=== PATIENT | female | born 1955 | race Caucasian/White ===

== ENCOUNTER → 2016-10-30 | Day surgery (SDC) | payer MEDICARE ==
[~2016-10-30] MED LIST: ALBU17I INH; ASPI325T PO; ATEN-104 PO; ATOR20TA PO; CELL500T PO; CITRACAL PETITES PO; CORTIS10A RIGHT EAR; COUM7.5T PO; DIPH25 PO; EMPA1TAB PO; ENOX150P SQ; ENTA200T PO; EPINEPHrine HCL (1:10,000) 1 MG/10 ML SYRINGE ONE; EPINEPHrine HCL (1:1000) 1 MG/ML VIAL ONE; FLUT1SPR9 EACH NARE; FLUTI220I INH; GLUC1000 PO; HYDROCORTISONE SOD SUCCINATE 100 MG VIAL ONE; IBUP-1116 PO; LACTATED RINGER'S 1,000 ML BAG IV ONE; LEVO175T2 PO; LEXA20TA PO; LOPE2TAB3 PO; LORA0.5T PO; MAPA500T PO; OMPR20CCR PO; ONDANSETRON HCL 4 MG/2 ML VIAL ONE; PRED1 PO; PROPOFOL 500 MG/50 ML BTL IV ONE; SINE50TA PO; SODIUM CHLORIDE 0.9% INJ 10 ML ONE; TRAD5TAB PO; WARF5TAB PO; [UNRECOGNIZED DRUG - CODE] PO
--- NOTE | 2016-10-30 14:09 | GIPROC ---
[facility] [address] [facility], [address] EGD PROCEDURE REPORT EXAM DATE: 10/30/2016 PATIENT NAME: Charles Gardner MR #: [id number] BIRTHDATE: 1955 ATTENDING: Kat Salvador MD ORDER #: [id number] AIRLINE RESERVATION AGENT: Maryuri Milligan RN STATUS: outpatient INDICATIONS: The patient is a 61 yr old female here for an EGD due to history of esophageal reflux PROCEDURE PERFORMED: EGD w/ biopsy MEDICATIONS: None and Per Anesthesia. TOPICAL ANESTHETIC: CONSENT: The patient understands the risks and benefits of the procedure and understands that these risks include, but are not limited to: sedation, allergic reaction, infection, perforation and/or bleeding. Alternative means of evaluation and treatment include, among others: physical exam, x-rays, and/or surgical intervention. The patient elects to proceed with this endoscopic procedure. medical equipment was checked for proper function. Hand hygiene and appropriate measures for infection prevention was taken. After the risks, benefits and alternatives of the procedure were thoroughly explained, Informed consent was verified, confirmed and timeout was successfully executed by the treatment team. The patient was anesthetized with topical anesthesia and the EC-3490Li ([id number]) endoscope was introduced through the mouth and advanced to the second portion of the duodenum. Retroflexed views revealed no abnormalities The gastroscope was then slowly withdrawn and removed. ESOPHAGUS: There was LA Class A esophagitis noted. A biopsy was performed. There was a single small varix in the mid esophagus. There was evidence of prior scarring. STOMACH: There was erythematous moderate gastritis in the gastric antrum. A biopsy was performed. DUODENUM: The duodenal mucosa appeared normal. ADVERSE EVENTS: There were no complications. IMPRESSIONS: 1. There was LA Class A esophagitis noted; biopsy was performed 2. There was erythematous gastritis in the gastric antrum; biopsy was performed 3. Normal duodenal mucosa 4. Retroflexed views revealed no abnormalities 5. Bleeding at esophageal biopsy site required 2 cc of epinephrine to obtain hemostasis. pt. on coumadin. RECOMMENDATIONS: 1. Await biopsy results. Biopsy results will not be ready for 7-10 days. If you don't hear from us in two weeks, call our office for biopsy results. 2. Anti-reflux regimen 3. Continue PPI PATIENT CONDITION: stable DISPOSITION: Home REPEAT EXAM: Return 1 year EGD pending biopsy results Kat Salvador MD eSigned: Kat Salvador MD 10/30/2016 2:09 PM cc: [facility] PATIENT NAME: Charles Gardner MR#: [id number]
--- NOTE | 2016-10-30 14:28 | GIPROC ---
[facility] [address] [facility], [address] COLONOSCOPY PROCEDURE REPORT EXAM DATE: 10/30/2016 PATIENT NAME: Charles Gardner MR #: [id number] BIRTHDATE: 1955 ENDOSCOPIST: Kat Salvador MD ORDER #: [id number] DOORS PREFITTER: Maryuri Milligan RN STATUS: outpatient INDICATIONS: The patient is a 61 yr old female here for a colonoscopy due to high risk patient with personal history of colonic polyps PROCEDURE PERFORMED: Colonoscopy, diagnostic MEDICATIONS: None and Per Anesthesia. PREP QUALITY: The [place] Bowel Prep Score was Right colon 2, Mid colon 2, and Left colon 2. Total = 6. PREP TYPE:GoLytely ESTIMATED BLOOD LOSS: None CONSENT: The patient understands the risks and benefits of the procedure and understands that these risks include, but are not limited to: sedation, allergic reaction, infection, perforation and/or bleeding. Alternative means of evaluation and treatment include, among others: physical exam, x-rays, and/or surgical intervention. The patient elects to proceed with this endoscopic procedure. medical equipment was checked for proper function. Hand hygiene and appropriate measures for infection prevention was taken. After the risks, benefits and alternatives of the procedure were thoroughly explained, Informed consent was verified, confirmed and timeout was successfully executed by the treatment team. A digital exam revealed external hemorrhoids The EC-[id number] ([id number]) endoscope was introduced through the anus and advanced to the cecum, which was identified by both the appendix and ileocecal valve. The instrument was then slowly withdrawn as the colon was fully examined. COLON FINDINGS: A polypoid shaped sessile polyp ranging between 3-5mm in size was found in the ascending colon. Biopsies not done due to bleeding upon biopsies form the esophagus. High risk for bleeding and polyp small. Retroflexed views revealed internal hemorrhoids and Retroflexed views revealed small internal hemorrhoids The scope was then completely withdrawn from the patient and the procedure terminated. PROCEDURE WITHDRAWAL TIME:6minutes ADVERSE EVENTS: There were no complications. IMPRESSIONS: 1. A sessile polyp ranging between 3-5mm in size was found in the ascending colon 2. Biopsies not done due to bleeding upon biopsies form the esophagus. High risk for bleeding and polyp small 3. Retroflexed views revealed internal hemorrhoids 4. Retroflexed views revealed small internal hemorrhoids 5. Revealed external hemorrhoids RECOMMENDATIONS: 1. Continue surveillance 2. Yearly hemoccult 3. Restart coumadin tomorrow, if no bleeding. Patient advised to monitor for any signs of bleeding and go to the er if any bleeding RECALL: Return 1 year Colonoscopy Kat Salvador MD eSigned: Kat Salvaodr MD 10/30/2016 2:28 PM cc: Mavis Oconnor [facility] Kelley and Shlomo Welsh M.D. PATIENT NAME: Charles Gardner MR#: [id number]
== END | disposition home or self-care (01) ==
LOC: ESDC 12:44
PROVIDERS: ATTEND Internal Medicine Gastroenterology
DX: Z12.11 Encounter for screening for malignant neoplasm of colon (principal); Z86.010 Personal history of colon polyps; D12.2 Benign neoplasm of ascending colon; K64.8 Other hemorrhoids; K64.4 Residual hemorrhoidal skin tags; K21.9 Gastro-esophageal reflux disease without esophagitis; K20.9 Esophagitis, unspecified; K29.70 Gastritis, unspecified, without bleeding; Z79.01 Long term (current) use of anticoagulants
CPT/HCPCS: 00740; 00810; 43239; 45385; 88305; J0171; J1720; J2405; J3010; J7120; 88312

== ENCOUNTER 2017-02-10 16:56 | Emergency (ER) | payer MEDICARE ==
[~2017-02-10] VITALS: Ht 165.1 cm; Wt 95.0 kg
[~2017-02-10 16:56] MED LIST changes: -EPINEPHrine HCL (1:10,000) 1 MG/10 ML SYRINGE ONE; -EPINEPHrine HCL (1:1000) 1 MG/ML VIAL ONE; -HYDROCORTISONE SOD SUCCINATE 100 MG VIAL ONE; -LACTATED RINGER'S 1,000 ML BAG IV ONE; -ONDANSETRON HCL 4 MG/2 ML VIAL ONE; -PROPOFOL 500 MG/50 ML BTL IV ONE; -SODIUM CHLORIDE 0.9% INJ 10 ML ONE
[2017-02-10 16:59] VITALS: BP 122/68; PULSE 78; RESP 20; TEMP 97.5; O2SAT 100
[2017-02-10] MEDS ORDERED: ATEN100T PO (18:24)
[2017-02-10] MEDS ORDERED: VITA100036 PO (18:24)
[2017-02-10] MEDS ORDERED: HYDR-3516 PO (18:24)
[2017-02-10] MEDS ORDERED: ENOX100I SQ (18:24)
[2017-02-10] MEDS ORDERED: CETI10 PO (18:24)
[2017-02-10] MEDS ORDERED: CARB50TA3 PO (18:24)
[2017-02-10] MEDS ORDERED: ASPI81CH CHEW (18:24)
[2017-02-10] MEDS ORDERED: VITA100021 SL (18:24)
[2017-02-10] MEDS ORDERED: ATOR20TA15 PO (18:24)
[2017-02-10] MEDS ORDERED: ENTA1TAB PO (18:24)
[2017-02-10] MEDS ORDERED: FLUTI220I INH (18:24)
[2017-02-10] MEDS ORDERED: ESCI20TA PO (18:24)
[2017-02-10] MEDS ORDERED: CALC600T64 (18:24)
[2017-02-10] MEDS ORDERED: GABA100C4 PO (18:29)
[2017-02-10] MEDS ORDERED: FLUT1SPR5 EACH NARE (18:29)
[2017-02-10] MEDS ORDERED: LEVO175T2 PO (18:29)
[2017-02-10] MEDS ORDERED: LEVO150T7 PO (18:29)
[2017-02-10] MEDS ORDERED: METF1000 PO (18:33)
[2017-02-10] MEDS ORDERED: EMPA1TAB PO (18:33)
[2017-02-10] MEDS ORDERED: TRAD5TAB PO (18:33)
[2017-02-10] MEDS ORDERED: MYCO500T PO (18:33)
[2017-02-10] MEDS ORDERED: PANT40TA3 PO (18:33)
[2017-02-10] MEDS ORDERED: PYRI100T4 PO (18:33)
[2017-02-10] MEDS ORDERED: LOSA25TA PO (18:33)
[2017-02-10] MEDS ORDERED: PRED5TAB PO (18:33)
--- NOTE | 2017-02-10 18:37 | PD ---
HPI Chief Complaint: Skin Problem Time Seen by Provider: 18:34 Travel History International Travel<30 days: No Contact w/Intl Traveler<30days: No Traveled to known affect area: No History of Present Illness HPI Patient comes in complaining of a pruritic rash that began 6 days ago. Patient states she was on antibiotics for endocarditis last dose was Sunday. Patient's respiratory before that. Patient is a history of Behcet's, lupus, and CVA/ TIAs. Patient was on Coumadin but had to be switched to Elliquist secondary to INR being unable to be regulated. Patient states she was recently approximately 6 weeks ago switched to Lovenox secondary to the Elliquist causing her to have a rash on her face. Patient states she is tried using lotion and Benadryl with minimal relief of her symptoms. Patient feels a rash getting worse. Denies any pain with this. Denies any shortness of breath, throat involvement, chest pain, fevers, nausea, vomiting, or numbness or tingling anywhere. Patient states that she's had diarrhea since being on antibiotics that is improving since having finished them. Patient denies any other known new allergen exposures aside from the Antibiotics and Lovenox. Patient states she does not feel the rash is similar to a vasculitis that she's in the past. PFSH Past Medical History Hx Anticoagulant Therapy: Yes Arthritis: Yes Asthma: Yes Autoimmune Disease: Yes (LUPUS (SLE)) Blood Disorders: Yes (PHOSPHOLIPID SYNDROME) Anxiety: Yes Depression: Yes Heart Rhythm Problems: No Cancer: Yes (SKIN) Cardiovascular Problems: Yes (ENDOCARDITIS) High Cholesterol: Yes Chemotherapy: No Chest Pain: No Congestive Heart Failure: No COPD: No Cerebrovascular Accident: Yes Diabetes: Yes Patient Takes Glucophage: Yes Diminished Hearing: No Endocrine: Yes Gastrointestinal Disorders: Yes (REFLUX) Genitourinary: No Hypertension: Yes Immune Disorder: Yes (LUPUS) Musculoskeletal: Yes (ARTHRITIS) Neurologic: Yes (EXTRAPYRAMIDAL DISEASE, MEMORY DISORDER) Psychiatric: Yes Reproductive: No Respiratory: Yes (ASTHMA) Radiation Therapy: No Sleep Apnea: Yes Thyroid Disease: Yes (HYPOTHYROID) Menopausal: Yes Ovarian Cysts: Yes Past Surgical History Section: Yes Other Surgery: Yes (, OVARIAN CYST, SKIN CANCER) Social History Alcohol Use: No Tobacco Use: No Substance Use: No Allergies-Medications (Allergen,Severity, Reaction): Coded Allergies: hydralazine (Verified Allergy, Severe, BLOOD NOT CLOTTING, BP UP, MULTIPLE SYMPTOMS, 02/10/17) Reported Meds & Prescriptions Reported Meds & Active Scripts Active Reported Jardiance (Empagliflozin) 10 Mg Tab 10 Mg PO DAILY Pyridoxine (Pyridoxine HCl) 100 Mg Tab 100 Mg PO DAILY Prednisone 5 Mg Tab 5 Mg PO DAILY Pantoprazole (Pantoprazole Sodium) 40 Mg Tab 40 Mg PO DAILY Mycophenolate (Mycophenolate Mofetil) 500 Mg Tab 500 Mg PO BID Metformin (Metformin HCl) 1,000 Mg Tab 1,000 Mg PO BIDPC With meals Losartan (Losartan Potassium) 25 Mg Tab 25 Mg PO DAILY Tradjenta (Linagliptin) 5 Mg Tab 5 Mg PO DAILY Levothyroxine (Levothyroxine Sodium) 175 Mcg Tab 175 Mcg PO EVERY OTHER DAY Levothyroxine (Levothyroxine Sodium) 150 Mcg Tab 150 Mcg PO EVERY OTHER DAY Gabapentin 100 Mg Cap 200 Mg PO BID Flonase Nasal Napoleon (Fluticasone Nasal Napoleon) 50 Mcg/Act Napoleon 50 Mcg EACH NARE BID Flovent Hfa 12 GM Inh (Fluticasone Propionate) 220 Mcg/Act Inh 1 Puff INH BID Use daily at the same time. Escitalopram (Escitalopram Oxalate) 20 Mg Tab 20 Mg PO DAILY Entacapone 200 Mg Tab 200 Mg PO TID administered concomitantly with each levodopa/carbidopa dose Enoxaparin Inj (Enoxaparin Sodium) 100 Mg/Ml Syr 100 Mg SQ BID Vitamin B-12 (Cyanocobalamin) 1,000 Mcg Subl 1,000 Mcg SL DAILY Vitamin D3 (Cholecalciferol) 1,000 Unit Cap 1,000 Units PO DAILY Cetirizine (Cetirizine HCl) 10 Mg Tab 10 Mg PO DAILY Carbidopa-Levodopa ER 50-200 Mg Tab 1 Tab PO TID Calcium 600 + Vit D Tablet (Calcium Carbonate/Vitamin D3) 1 Each Tablet Atorvastatin (Atorvastatin Calcium) 20 Mg Tab 20 Mg PO HS Atenolol 100 Mg Tab 100 Mg PO DAILY Aspirin 81 Mg Chew 81 Mg CHEW DAILY Hydrocodone-Acetaminophen 5-325 mg Tab 1 Tab PO BID PRN [Citracal Petites] 0.5 Tab PO DAILY Review of Systems Except as stated in HPI: all other systems reviewed are Neg Physical Exam Narrative GENERAL: Well-developed, overly nourished, in no acute distress, and non-ill appearing. SKIN: Blanching urticarial appearing rash noted over body. No signs of folliculitis, cellulitis, abscess, or gangrene. HEAD: Atraumatic. Normocephalic. EYES: Pupils equal and round. EOMI. No scleral icterus. No injection or drainage. ENT: No nasal bleeding or discharge. Mucous membranes pink and moist. NECK: Trachea midline. Supple. No nuclear rigidity. CARDIOVASCULAR: Regular rate and rhythm. No murmur appreciated. RESPIRATORY: No accessory muscle use. No respiratory distress. Clear to auscultation. Breath sounds equal bilaterally. MUSCULOSKELETAL: No obvious deformities. No clubbing. No cyanosis. No edema. Full range of motion. NEUROLOGICAL: Awake and alert. No obvious cranial nerve deficits. Motor grossly within normal limits. Normal speech. PSYCHIATRIC: Appropriate mood and affect; insight and judgment normal. Data Data Last Documented VS Vital Signs Date Time Temp Pulse Resp B/P (MAP) Pulse Ox O2 Delivery O2 Flow Rate FiO2 02/10/17 21:00 80 16 145/77 (99) 100 02/10/17 16:59 97.5 Room Air Orders Orders Basic Metabolic Panel (Bmp) (02/10/17 18:32) Complete Blood Count With Diff (02/10/17 18:32) Prothrombin Time / Inr (Pt) (02/10/17 18:32) Act Partial Throm Time (Ptt) (02/10/17 18:32) Iv Access Insert/Monitor (02/10/17 18:32) Ecg Monitoring (02/10/17 18:32) Oximetry (02/10/17 18:32) Sodium Chloride 0.9% Flush (Ns Flush) (02/10/17 18:45) Diphenhydramine (Benadryl) (02/10/17 21:00) Labs Laboratory Tests Test 02/10/17 14:12 White Blood Count 3.9 TH/MM3 Red Blood Count 3.56 MIL/MM3 Hemoglobin 10.5 GM/DL Hematocrit 33.5 % Mean Corpuscular Volume 94.1 FL Mean Corpuscular Hemoglobin 29.6 PG Mean Corpuscular Hemoglobin Concent 31.4 % Red Cell Distribution Width 19.4 % Platelet Count 67 TH/MM3 Mean Platelet Volume 8.3 FL Neutrophils (%) (Auto) 56.7 % Lymphocytes (%) (Auto) 22.4 % Monocytes (%) (Auto) 11.5 % Eosinophils (%) (Auto) 8.1 % Basophils (%) (Auto) 1.3 % Neutrophils # (Auto) 2.2 TH/MM3 Lymphocytes # (Auto) 0.9 TH/MM3 Monocytes # (Auto) 0.4 TH/MM3 Eosinophils # (Auto) 0.3 TH/MM3 Basophils # (Auto) 0.0 TH/MM3 CBC Comment AUTO DIFF Differential Comment AUTO DIFF CONFIRMED Platelet Estimate LOW Platelet Morphology Comment NORMAL Prothrombin Time 12.1 SEC Prothromb Time International Ratio 1.1 RATIO Activated Partial Thromboplast Time 71.7 SEC Blood Urea Nitrogen 18 MG/DL Creatinine 1.53 MG/DL Random Glucose 127 MG/DL Calcium Level 8.2 MG/DL Sodium Level 141 MEQ/L Potassium Level 4.2 MEQ/L Chloride Level 117 MEQ/L Carbon Dioxide Level 15.7 MEQ/L Anion Gap 8 MEQ/L Estimat Glomerular Filtration Rate 34 ML/MIN MDM Medical Decision Making Medical Screen Exam Complete: Yes Emergency Medical Condition: Yes Differential Diagnosis Allergic reaction, nonspecific rash, cellulitis, other Narrative Course Attempt was made by the news clerk to contact patient's charge out clerk without success. Patient in no obvious distress upon re-evaluation. All pertinent laboratory result(s) discussed with patient. Discussed patient with Dr. Zuniga, who saw and evaluated the patient is in agreement with plan of care and disposition. Any questions/concerns in reference to patient diagnosis/condition discussed and clarified prior to patient's discharge. Reinforced sheer importance of close follow up with patient's charge out clerk. Instructed patient to return to ED immediately, if symptoms return/worsen. Pt showed understanding of above instructions. Further instructions and recommendations were detailed in discharge paperwork. Pt ambulated without difficulty out of ED at discharge. Diagnosis Primary Impression: Rash Patient Instructions: Acute Rash (ED), General Instructions Additional Instructions: Follow-up with your charge out clerk on Sunday called to see if they can adjust your steroids to help with the rash. Use [id number] Benadryl and Pepcid as needed for additional symptomatic relief. Follow instructions on packaging. Return to the emergency department if symptoms get worse. Disposition: 01 DISCHARGE HOME Condition: Stable Sunil Rouse Feb 10, 2017 18:37
[2017-02-10] MEDS ORDERED: SODIUM CHLORIDE 0.9% FLUSH 10 ML FLUSH IV FLUSH PRN (18:45)
[2017-02-10 19:23] LABS: AUTOMATED NEUTROPHIL # 2.2 TH/MM3 (1.8-7.7); BASOPHIL % 1.3 % (0.0-2.0); EOSINOPHIL # 0.3 TH/MM3 (0-0.4); EOSINOPHIL % 8.1 % (0.0-4.0); HEMATOCRIT 33.5 % (35.0-46.0); LYMPH % 22.4 % (9.0-44.0); LYMPHOCYTE # 0.9 TH/MM3 (1.0-4.8); MEAN CELL VOLUME 94.1 FL (80.0-100.0); MEAN CORPUSCULAR HEMOGLOBIN 29.6 PG (27.0-34.0); MEAN CORPUSCULAR HGB CONC 31.4 % (32.0-36.0); MONO % 11.5 % (0.0-8.0); NEUT % 56.7 % (16.0-70.0); PLATELET COUNT 67 TH/MM3 (150-450); RED BLOOD COUNT 3.56 MIL/MM3 (4.00-5.30); RED CELL DISTRIBUTION WIDTH 19.4 % (11.6-17.2); WHITE BLOOD COUNT 3.9 TH/MM3 (4.0-11.0)
--- NOTE | 2017-02-10 19:33 | PD ---
Data Data Last Documented VS Vital Signs Date Time Temp Pulse Resp B/P (MAP) Pulse Ox O2 Delivery O2 Flow Rate FiO2 02/10/17 16:59 97.5 78 20 122/68 (86) 100 Room Air Orders Orders Basic Metabolic Panel (Bmp) (02/10/17 18:32) Complete Blood Count With Diff (02/10/17 18:32) Prothrombin Time / Inr (Pt) (02/10/17 18:32) Act Partial Throm Time (Ptt) (02/10/17 18:32) Iv Access Insert/Monitor (02/10/17 18:32) Ecg Monitoring (02/10/17 18:32) Oximetry (02/10/17 18:32) Sodium Chloride 0.9% Flush (Ns Flush) (02/10/17 18:45) Labs Laboratory Tests Test 02/10/17 14:12 MDM Supervised Visit with ENRIQUETA: Yes Narrative Course The history, exam, and medical decision-making in the associated mid-level provider note were completed with my assistance. I reviewed and agree with the findings presented. I attest that I had a [id number] encounter with the patient on the same day, and personally performed and documented my assessment and findings in the medical record. *My assessment and Findings: Urticarial rash past several days and them, get a medical patient recently treated for endocarditis with a history of rheumatologic disease on steroids. Would recommend continue antihistamines. She is a history of thrombocytopenia. We'll check labs. Consider steroids. Will discuss with a scowman if available. Joshua Zuniga MD Feb 10, 2017 19:32
[2017-02-10 19:34] LABS: APTT (PATIENT) 71.7 SEC (24.3-30.1); INTERNATIONAL NORMALIZED RATIO 1.1 RATIO; PROTHROMBIN TIME - PATIENT 12.1 SEC (9.8-11.6)
[2017-02-10 19:41] LABS: HEMO FLAGS AUTO DIFF
[2017-02-10 19:47] LABS: BICARBONATE 15.7 MEQ/L (21.0-32.0); POTASSIUM 4.2 MEQ/L (3.5-5.1)
[2017-02-10 20:53] LABS: PLATELET ESTIMATE SMEAR LOW (NORMAL); PLATELET MORPHOLOGY NORMAL (NORMAL); SCAN/DIFF AUTO DIFF CONFIRMED
[2017-02-10 21:00] VITALS: BP 145/77
[2017-02-10] MEDS ORDERED: diphenhydrAMINE HCL 25 MG CAP PO ONE (21:00)
== END 2017-02-10 21:00 | disposition home or self-care (01) ==
LOC: NEPC 16:56
DX: M35.2 Behcet's disease (principal); M32.9 Systemic lupus erythematosus, unspecified; I38 Endocarditis, valve unspecified; I10 Essential (primary) hypertension; E03.9 Hypothyroidism, unspecified; E11.9 Type 2 diabetes mellitus without complications; Z79.84 Long term (current) use of oral hypoglycemic drugs; Z79.899 Other long term (current) drug therapy
CPT/HCPCS: 80048; 85025; 85610; 85730; 99283

== ENCOUNTER 2017-03-05 11:33 | Day surgery (SDC) | payer MEDICARE ==
[~2017-03-05 11:33] MED LIST changes: -ALBU17I INH; -ASPI325T PO; +ASPI81CH CHEW; -ATEN-104 PO; +ATEN100T PO; -ATOR20TA PO; +ATOR20TA15 PO; +CALC600T64; +CARB50TA3 PO; -CELL500T PO; +CETI10 PO; -CORTIS10A RIGHT EAR; -COUM7.5T PO; -DIPH25 PO; +ENOX100I SQ; -ENOX150P SQ; +ENTA1TAB PO; -ENTA200T PO; +ESCI20TA PO; +FLUT1SPR5 EACH NARE; -FLUT1SPR9 EACH NARE; +GABA100C4 PO; -GLUC1000 PO; +HYDR-3516 PO; -IBUP-1116 PO; +LEVO150T7 PO; -LEXA20TA PO; -LOPE2TAB3 PO; -LORA0.5T PO; +LOSA25TA PO; -MAPA500T PO; +METF1000 PO; +MYCO500T PO; -OMPR20CCR PO; +PANT40TA3 PO; -PRED1 PO; +PRED5TAB PO; +PYRI100T4 PO; -SINE50TA PO; +VITA100021 SL; +VITA100036 PO; -WARF5TAB PO; -[UNRECOGNIZED DRUG - CODE] PO
[2017-03-05] MEDS ORDERED: PROPOFOL 200 MG/20 ML AMP IV ONE (11:57)
[2017-03-05] MEDS ORDERED: SODIUM CHLORID 0.9% 500 ML IV PRN (12:30)
[2017-03-05] MEDS ORDERED: METOPROLOL TARTRATE 25 MG TAB PO PRN (12:30)
[2017-03-05] MEDS ORDERED: POVIDONE IODINE 5% (ANTISEPSIS KIT) 4 APPLICATIONS EACH NARE PRN (12:30)
[2017-03-05] MEDS ORDERED: LACTATED RINGER'S 1000 ML IV PRN (12:30)
[2017-03-05] MEDS ORDERED: INSULIN HUMAN REGULAR 1,000 UNITS/10 ML VIAL SQ PRN (12:30)
[2017-03-05] MEDS ORDERED: CHLORHEXIDINE GLUCONATE 2 % 1 PACK (2 CLOTHS) TOPICAL PRN (12:30)
[2017-03-05] MEDS ORDERED: RESP: ALBUTEROL 2.5 MG/IPRATROPIUM 0.5 MG NEB (SCH) NEB ONE (15:00)
--- NOTE | 2017-03-06 07:47 | ECHRPT ---
Indication: endocarditis CONCLUSIONS Structurally normal mitral valve. Mild mitral valve regurgitation. Mobile echodensity is noted on the base of the posterior mitral valve leaflet . There appears to be a small leaflet perforation with subsequent mild mitral regurgitation noted. Normal left ventricular size. Wall thickness is normal. The left ventricular systolic function is normal with an estimated ejection fraction in the range of 55-60%. No regional wall motion abnormalities are present. BP: / HR: Rhythm: Technical Quality: Medications Complications There were no complications prior to, during or in recovery from the transesophag eal echocardiogram.. Proc. Components The patient was brought to the diagnostic imaging area in a fasting state after o btaining an informed consent.. The BERTA probe was passed into the posterior pharynx , mid-esophagus, di stal esophagus, and gastric fundus.. FINDINGS LEFT VENTRICLE Normal left ventricular size. Wall thickness is normal. The left ventricular systolic function is normal with an estimated ejection fraction in the range of 55-60%. No regional wall motion abnormalities are present. RIGHT VENTRICLE Normal right ventricular size and systolic function. LEFT ATRIUM The left atrial size is upper limits of normal. RIGHT ATRIUM The right atrial size is normal. ATRIAL APPENDAGES Normal left atrial appendage size with no evidence of thrombus formation. ATRIAL SEPTUM Normal atrial septal thickness without atrial level shunting by limited color doppler interrogation. AORTA The aortic root and proximal ascending aorta are normal in size on limited imaging. MITRAL VALVE Structurally normal mitral valve. Mild mitral valve regurgitation. Mobile echodensity is noted on the base of the posterior mitral valve leaflet . There appears to be a small leaflet perforation with subsequent mitral regurgitation noted. AORTIC VALVE Trileaflet aortic valve. No aortic valve stenosis or regurgitation. TRICUSPID VALVE Structurally normal tricuspid valve. No tricuspid valve stenosis or regurgitation. VESSELS The inferior vena cava is normal in size. PULMONARY VALVE No pulmonary valve regurgitation or stenosis. PERICADIUM No pericardial effusion. Joshua Yeh MD, FACC (Electronically Signed) Final Date:06 March 2017 07:46
--- NOTE | 2017-03-06 14:02 | EKG ---
Date Performed: 03/05/2017 Time Performed: 12:08:24 PTAGE: 61 years EKG: Sinus rhythm with PVC(s). Left anterior fascicular block Compared to prior tracing no significant change Borderli ne ECG PREVIOUS TRACING : 02/15/2014 00.56 DOCTOR: Petey Donahue Interpretating Date/Time 03/06/2017 14:00:31
== END 2017-03-05 15:05 | disposition home or self-care (01) ==
LOC: HDIC 11:33 → HDOC 11:33
PROVIDERS: ATTEND Internal Medicine
DX: I34.0 Nonrheumatic mitral (valve) insufficiency (principal)
CPT/HCPCS: 93005; 93312; 93320; 93325; 94664

== ENCOUNTER 2017-08-27 15:17 | Inpatient (IN) | payer MEDICARE ==
[~2017-08-27] VITALS: Ht 167.6 cm; Wt 100.5 kg
[~2017-08-27 15:17] MED LIST changes: +ASPI-516 CHEW; -ASPI81CH CHEW; +CHOL10008 PO; -VITA100036 PO
[2017-08-27 15:29] VITALS: BP 116/61; PULSE 91; RESP 18; TEMP 98
--- NOTE | 2017-08-27 16:10 | RADRPT ---
EXAM DATE/TIME: 08/27/2017 15:46 [facility] COMPARISON: No previous studies available for comparison. INDICATIONS : Right foot pain from possible infection. MEDICAL HISTORY : Hypertension. Hypothyroidism. Hypercholesterolemia. SURGICAL HISTORY : None. ENCOUNTER: Initial ACUITY: 3 months PAIN SCORE: 8/10 LOCATION: Right foot. FINDINGS: Bandage artifact overlies the first digit distally. Vascular calcifications are noted. No destructive osseous lesions are seen. Plantar and posterior calcaneal enthesophyte formation. There may be mild ulceration of the first digit soft tissues plantar aspect. CONCLUSION: Soft tissue swelling and possible first digit ulceration without definite underlying bone abnormality . Andrew Lang MD on August 27, 2017 at 16:07 Board Certified Radiologist. This report was verified electronically.
--- NOTE | 2017-08-27 17:07 | PD ---
HPI Chief Complaint: Skin Problem Time Seen by Provider: 16:35 Travel History International Travel<30 days: No Contact w/Intl Traveler<30days: No Traveled to known affect area: No History of Present Illness HPI 62-year-old female with a history of diabetes, SLE, vasculitis, peripheral artery disease, hypothyroid presents emergency department at the request of her senior procurement specialist for evaluation of a wound to her right great toe. States that she has had a chronic wound to her right foot since February 2017 and has received 2 previous rounds of antibiotics for this. Since she receives wound care approximately once a week for several months. She was referred to Dr. Garcia, her senior procurement specialist for further evaluation where she ordered an MRI. MRI was suggestive of osteomyelitis in the distal tuft of the great toe. Patient denies fever, chills, nausea, vomiting, diarrhea. She has no other complaints today. PFSH Past Medical History Hx Anticoagulant Therapy: Yes Arthritis: Yes Asthma: Yes Autoimmune Disease: Yes (LUPUS (SLE)) Blood Disorders: Yes (PHOSPHOLIPID SYNDROME) Anxiety: Yes Depression: Yes Heart Rhythm Problems: No Cancer: Yes (SKIN) Cardiovascular Problems: Yes (ENDOCARDITIS) High Cholesterol: Yes Chemotherapy: No Chest Pain: No Congestive Heart Failure: No COPD: No Cerebrovascular Accident: Yes Diabetes: Yes Patient Takes Glucophage: Yes (METFORMIN) Diminished Hearing: No Endocrine: Yes Gastrointestinal Disorders: Yes (REFLUX) Genitourinary: No Hypertension: Yes Immune Disorder: Yes (LUPUS) Musculoskeletal: Yes (ARTHRITIS) Neurologic: Yes (EXTRAPYRAMIDAL DISEASE, MEMORY DISORDER) Psychiatric: Yes Reproductive: No Respiratory: Yes (ASTHMA) Radiation Therapy: No Sleep Apnea: Yes Thyroid Disease: Yes (HYPOTHYROID) Menopausal: Yes : 4 Miscarriage: 4 Ovarian Cysts: Yes Past Surgical History Section: Yes Other Surgery: Yes (, OVARIAN CYST, SKIN CANCER) Social History Alcohol Use: No Tobacco Use: No Substance Use: No Allergies-Medications (Allergen,Severity, Reaction): Coded Allergies: hydralazine (Verified Allergy, Severe, BLOOD NOT CLOTTING, BP UP, MULTIPLE SYMPTOMS, 08/27/17) Reported Meds & Prescriptions Reported Meds & Active Scripts Active Reported Warfarin 5 Mg Tab 5 Mg PO DAILY Jardiance (Empagliflozin) 10 Mg Tab 10 Mg PO DAILY Pyridoxine (Pyridoxine HCl) 100 Mg Tab 100 Mg PO DAILY Prednisone 5 Mg Tab 5 Mg PO DAILY Pantoprazole (Pantoprazole Sodium) 40 Mg Tab 40 Mg PO DAILY Mycophenolate (Mycophenolate Mofetil) 500 Mg Tab 500 Mg PO BID Metformin (Metformin HCl) 1,000 Mg Tab 1,000 Mg PO BIDPC With meals Losartan (Losartan Potassium) 25 Mg Tab 25 Mg PO DAILY Tradjenta (Linagliptin) 5 Mg Tab 5 Mg PO DAILY Levothyroxine (Levothyroxine Sodium) 175 Mcg Tab 175 Mcg PO EVERY OTHER DAY Levothyroxine (Levothyroxine Sodium) 150 Mcg Tab 150 Mcg PO EVERY OTHER DAY Gabapentin 100 Mg Cap 200 Mg PO BID Flonase Nasal [place] (Fluticasone Nasal [place]) 50 Mcg/Act [place] 50 Mcg EACH NARE BID Flovent Hfa 12 GM Inh (Fluticasone Propionate) 220 Mcg/Act Inh 1 Puff INH BID Use daily at the same time. Escitalopram (Escitalopram Oxalate) 20 Mg Tab 20 Mg PO DAILY Entacapone 200 Mg Tab 200 Mg PO TID administered concomitantly with each levodopa/carbidopa dose Enoxaparin Inj (Enoxaparin Sodium) 100 Mg/Ml Syr 100 Mg SQ BID Vitamin B-12 (Cyanocobalamin) 1,000 Mcg Subl 1,000 Mcg SL DAILY Vitamin D3 (Cholecalciferol) 1,000 Unit Cap 1,000 Units PO DAILY Cetirizine (Cetirizine HCl) 10 Mg Tab 10 Mg PO DAILY Carbidopa-Levodopa ER 50-200 Mg Tab 1 Tab PO TID Calcium 600 + Vit D Tablet (Calcium Carbonate/Vitamin D3) 1 Each Tablet Atorvastatin (Atorvastatin Calcium) 20 Mg Tab 20 Mg PO HS Atenolol 100 Mg Tab 100 Mg PO DAILY Aspirin 81 Mg Chew 81 Mg CHEW DAILY Hydrocodone-Acetaminophen 5-325 mg Tab 1 Tab PO BID PRN [Citracal Petites] 0.5 Tab PO DAILY Review of Systems Except as stated in HPI: all other systems reviewed are Neg Physical Exam Narrative GENERAL: Well-developed, well-nourished in no apparent distress, resting comfortably in bed SKIN: Focused skin assessment warm/dry. Right foot-mild edema with some distal erythema to the distal tarsals. Neurovascularly intact. Right toe distal aspect with exudate, bleeding controlled. No tunneling noted HEAD: Atraumatic. Normocephalic. EYES: Pupils equal and round. No scleral icterus. No injection or drainage. ENT: No nasal bleeding or discharge. Mucous membranes pink and moist. NECK: Trachea midline. No JVD. CARDIOVASCULAR: Regular rate and rhythm. No murmur appreciated. RESPIRATORY: No accessory muscle use. Clear to auscultation. Breath sounds equal bilaterally. GASTROINTESTINAL: Abdomen soft, non-tender, nondistended. Hepatic and splenic margins not palpable. MUSCULOSKELETAL: No obvious deformities. No clubbing. No cyanosis. No edema. NEUROLOGICAL: Awake and alert. No obvious cranial nerve deficits. Motor grossly within normal limits. Normal speech. PSYCHIATRIC: Appropriate mood and affect; insight and judgment normal. Data Data Last Documented VS Vital Signs Date Time Temp Pulse Resp B/P (MAP) Pulse Ox O2 Delivery O2 Flow Rate FiO2 08/27/17 19:40 80 18 125/73 (90) 99 Room Air 08/27/17 15:29 98.0 Orders Orders Complete Blood Count With Diff (08/27/17 15:30) Basic Metabolic Panel (Bmp) (08/27/17 15:30) [place] Sedimentation Rate (08/27/17 15:30) C-Reactive Protein (Crp) (08/27/17 15:30) Foot, Complete (Vpt7wru) (08/27/17 ) Act Partial Throm Time (Ptt) (08/27/17 15:30) Prothrombin Time / Inr (Pt) (08/27/17 15:30) Wound Culture And Gram Stain (08/27/17 17:05) Consult Podiatry (08/27/17 ) (Hub Use Only)Inp Phy Cons/Ref (08/27/17 ) Admit To Inpatient (08/27/17 ) Code Status (08/27/17 19:23) Vital Signs (Adult) Q4H (08/27/17 19:23) Activity Oob With Assistance (08/27/17 19:23) Diet Diabetic (08/28/17 Breakfast) Sodium Chloride 0.9% Flush (Ns Flush) (08/27/17 19:30) Sodium Chloride 0.9% Flush (Ns Flush) (08/27/17 21:00) Acetaminophen (Tylenol) (08/27/17 19:30) Ondansetron Inj (Zofran Inj) (08/27/17 19:30) Basic Metabolic Panel (Bmp) (08/28/17 06:00) Complete Blood Count With Diff (08/28/17 06:00) Chest, Single Ap (08/27/17 19:23) Electrocardiogram (08/27/17 19:23) Pt Request For Service (08/27/17 19:23) Scd Bilateral/Knee High ANGELIC.BID (08/27/17 19:23) Naloxone Inj (Narcan Inj) (08/27/17 19:30) Magnesium Hydroxide Liq (Milk Of Magnesi (08/27/17 19:30) Inpatient Certification (08/27/17 ) Insulin Aspart Supplemtl Scale (Novolog (08/27/17 21:00) Dextrose 50% In Phil (Vial) Inj (D50w (Vi (08/27/17 19:45) Glucagon Inj (Glucagon Inj) (08/27/17 19:45) Aspirin Chew (Aspirin Chew) (08/28/17 09:00) Atenolol (Tenormin) (08/28/17 09:00) Carbidopa-Levodopa Cr 50-200mg (Sinemet (08/28/17 09:00) Enoxaparin Inj (Lovenox Inj) (08/27/17 21:00) Escitalopram (Lexapro) (08/28/17 09:00) Fluticasone 220 Mcg Inh (Flovent Hfa 220 (08/27/17 21:00) Levothyroxine (Synthroid) (08/29/17 06:00) Losartan (Cozaar) (08/28/17 09:00) Metformin (Glucophage) (08/28/17 09:00) Mycophenolate Mofetil (Cellcept) (08/27/17 21:00) Pantoprazole (Protonix) (08/28/17 09:00) Prednisone (Deltasone) (08/28/17 09:00) Acetamin-Hydrocod 325-5 Mg ([place] 5-325 (08/27/17 19:45) Admit Order (Ed Use Only) (08/27/17 19:40) Arterial Segmt Dopp Comp W Tbi (08/27/17 ) Levothyroxine (Synthroid) (08/28/17 06:00) Labs Laboratory Tests Test 08/27/17 18:00 08/27/17 19:35 White Blood Count 8.0 TH/MM3 Red Blood Count 3.97 MIL/MM3 Hemoglobin 11.6 GM/DL Hematocrit 35.4 % Mean Corpuscular Volume 89.2 FL Mean Corpuscular Hemoglobin 29.2 PG Mean Corpuscular Hemoglobin Concent 32.8 % Red Cell Distribution Width 17.0 % Platelet Count 141 TH/MM3 Mean Platelet Volume 7.8 FL Neutrophils (%) (Auto) 80.6 % Lymphocytes (%) (Auto) 11.4 % Monocytes (%) (Auto) 6.7 % Eosinophils (%) (Auto) 1.0 % Basophils (%) (Auto) 0.3 % Neutrophils # (Auto) 6.5 TH/MM3 Lymphocytes # (Auto) 0.9 TH/MM3 Monocytes # (Auto) 0.5 TH/MM3 Eosinophils # (Auto) 0.1 TH/MM3 Basophils # (Auto) 0.0 TH/MM3 CBC Comment DIFF FINAL Differential Comment Erythrocyte Sedimentation Rate 30 mm/hr Blood Urea Nitrogen 30 MG/DL Creatinine 1.26 MG/DL Random Glucose 146 MG/DL Calcium Level 7.9 MG/DL Sodium Level 144 MEQ/L Potassium Level 4.2 MEQ/L Chloride Level 113 MEQ/L Carbon Dioxide Level 23.8 MEQ/L Anion Gap 7 MEQ/L Estimat Glomerular Filtration Rate 43 ML/MIN C-Reactive Protein 0.46 MG/DL Prothrombin Time 16.0 SEC Prothromb Time International Ratio 1.6 RATIO Activated Partial Thromboplast Time 39.4 SEC MDM Medical Decision Making Medical Screen Exam Complete: Yes Emergency Medical Condition: Yes Differential Diagnosis Osteomyelitis right great toe, cellulitis, edema, peripheral artery disease Narrative Course 62-year-old female with an extensive medical history presents emergency department at the request of a senior procurement specialist for evaluation of a right great toe infection. Patient states that she developed this infection in February 2017 is had weekly visits for wound care. She was eventually sent to podiatry for further evaluation where she had an MRI 10/05/2017 "distal soft tissues of the great toe are edematous and indurated. MRI features suggest localized osteomyelitis involving the distal tuft region of the distal phalanx. Base of the distal phalanx and the entire proximal phalanx within normal limits." Patient says that she waited until today to come in for evaluation after her primary and senior procurement specialist advised her to come in for evaluation. Vital signs stable. Physical exam findings consistent with an infection to the distal right great toe. No obvious tunneling bone exposure. A call was placed to Dr. Brown. He is aware of their condition and presence in the ED today. They will be further evaluated for potential procedure tomorrow. After review the EMR and patient's records, it appears the patient does peripheral artery disease diagnosed in April 2017. (RUSSELL 0.8) Medical history significant for diabetes mellitus, fibromyalgia, hypertension, hypothyroid, Libman-Sacks endocarditis, RAMIREZ, CVA, SLE among others. CBC & BMP Diagram 08/27/17 18:00 Calcium Level 7.9 L ESR 30, CRP 0.46 Abx withheld as she has had 2 rounds of abx previously and she is not septic. Will await Dr. Garcia or Dr. Norris guidance regarding abx choice. Patient will be admitted for osteomyelitis. Consult placed to Dr Brown. Diagnosis Primary Impression: Osteomyelitis Qualified Codes: M86.671 - Other chronic osteomyelitis, right ankle and foot Admitting Information Admitting Physician Requests: Observation Condition: Stable Miriam Valerio Aug 27, 2017 17:07
[2017-08-27 18:36] LABS: AUTOMATED NEUTROPHIL # 6.5 TH/MM3 (1.8-7.7); BASOPHIL % 0.3 % (0.0-2.0); EOSINOPHIL # 0.1 TH/MM3 (0-0.4); HEMATOCRIT 35.4 % (35.0-46.0); HEMOGLOBIN 11.6 GM/DL (11.6-15.3); LYMPH % 11.4 % (9.0-44.0); LYMPHOCYTE # 0.9 TH/MM3 (1.0-4.8); MEAN CELL VOLUME 89.2 FL (80.0-100.0); MEAN CORPUSCULAR HEMOGLOBIN 29.2 PG (27.0-34.0); MEAN CORPUSCULAR HGB CONC 32.8 % (32.0-36.0); MEAN PLATELET VOLUME 7.8 FL (7.0-11.0); MONO % 6.7 % (0.0-8.0); MONOCYTE # 0.5 TH/MM3 (0-0.9); NEUT % 80.6 % (16.0-70.0); PLATELET COUNT 141 TH/MM3 (150-450); RED BLOOD COUNT 3.97 MIL/MM3 (4.00-5.30)
[2017-08-27 18:57] LABS: BICARBONATE 23.8 MEQ/L (21.0-32.0); C-REACTIVE PROTEIN 0.46 MG/DL (0.00-0.30); CALCIUM 7.9 MG/DL (8.5-10.1); CREATININE 1.26 MG/DL (0.50-1.00)
[2017-08-27] MEDS ORDERED: MAGNESIUM HYDROXIDE SUSP 30 ML CUP PO PRN (19:30)
[2017-08-27] MEDS ORDERED: NALOXONE HCL 0.4 MG/ML AMP IV PUSH PRN (19:30)
[2017-08-27] MEDS ORDERED: SODIUM CHLORIDE 0.9% FLUSH 10 ML FLUSH IV FLUSH PRN (19:30)
[2017-08-27] MEDS ORDERED: ACETAMINOPHEN 325 MG TAB PO PRN (19:30)
[2017-08-27 19:40] VITALS: BP 125/73; PULSE 80; RESP 18; O2SAT 99
[2017-08-27] MEDS ORDERED: GLUCAGON 1 MG/ML VIAL OTHER PRN (19:45)
[2017-08-27] MEDS ORDERED: VANCOMYCIN INJ 1,000 MG in SODIUM CHLOR 0.9% 250 ML INJ 250 ML IV SCH (19:45)
[2017-08-27] MEDS ORDERED: DEXTROSE 50% IN WATER 50 ML VIAL(D50) IV PUSH PRN (19:45)
--- NOTE | 2017-08-27 19:46 | RADRPT ---
EXAM DATE/TIME: 08/27/2017 19:30 [place] COMPARISON: No previous studies available for comparison. INDICATIONS : Cough MEDICAL HISTORY : None. SURGICAL HISTORY : None. ENCOUNTER: Initial ACUITY: 2 weeks PAIN SCORE: 0/10 LOCATION: chest FINDINGS: A single view of the chest demonstrates the lungs to be symmetrically aerated without evidence of mas s, infiltrate or effusion. The cardiomediastinal contours are unremarkable. Osseous structures are intact. CONCLUSION: No evidence of acute cardiopulmonary disease. Tulio Saha MD on August 27, 2017 at 19:44 Board Certified Radiologist. This report was verified electronically.
[2017-08-27] MEDS ORDERED: WARF-23 PO (20:04)
[2017-08-27 20:05] LABS: INTERNATIONAL NORMALIZED RATIO 1.6 RATIO
[2017-08-27] MEDS ORDERED: Vancomycin Consult Pharmacy 1 EA OTHER SCH (20:45)
[2017-08-27] MEDS: ENOXAPARIN SODIUM 100 MG/ML SYRINGE SQ SCH (21:00)
[2017-08-27] MEDS: INSULIN ASPART SUPPLEMENTAL SCALE SQ SCH (21:00)
[2017-08-27] MEDS: SODIUM CHLORIDE 0.9% FLUSH 10 ML FLUSH IV FLUSH SCH (21:00)
[2017-08-27] MEDS: FLUTICASONE PROPIONATE 220 MCG/ACT 12 GM INHALER INH SCH (21:52)
[2017-08-27] MEDS: MYCOPHENOLATE MOFETIL 500 MG TAB PO SCH (21:52)
[2017-08-27] MEDS: VANCOMYCIN INJ 1,600 MG in SODIUM CHLORID 0.9% 500 ML INJ 500 ML IV SCH (21:52)
[2017-08-28] VITALS (7 sets, daily range): BP systolic 108–128; BP diastolic 53–79; PULSE 80–96; RESP 16–20; TEMP 97.1–98.6; O2SAT 96–100
[2017-08-28] MEDS: ACETAMINOPHEN/HYDROcodone 325 MG/5 MG TAB PO PRN ×2 (02:37→09:56)
[2017-08-28] MEDS: ONDANSETRON HCL 4 MG/2 ML VIAL IVP PRN (05:03)
[2017-08-28] MEDS: LEVOTHYROXINE SODIUM 100 MCG TAB PO SCH (06:37)
[2017-08-28] MEDS: LEVOTHYROXINE SODIUM 75 MCG TAB PO SCH (06:38)
[2017-08-28 07:30] LABS: AUTOMATED NEUTROPHIL # 5.9 TH/MM3 (1.8-7.7); BASOPHIL % 0.4 % (0.0-2.0); EOSINOPHIL # 0.1 TH/MM3 (0-0.4); EOSINOPHIL % 1.5 % (0.0-4.0); HEMATOCRIT 29.8 % (35.0-46.0); LYMPH % 5.2 % (9.0-44.0); LYMPHOCYTE # 0.4 TH/MM3 (1.0-4.8); MEAN CELL VOLUME 89.4 FL (80.0-100.0); MEAN CORPUSCULAR HGB CONC 33.6 % (32.0-36.0); MEAN PLATELET VOLUME 7.6 FL (7.0-11.0); MONO % 6.5 % (0.0-8.0); MONOCYTE # 0.4 TH/MM3 (0-0.9); NEUT % 86.4 % (16.0-70.0); PLATELET COUNT 100 TH/MM3 (150-450); RED BLOOD COUNT 3.33 MIL/MM3 (4.00-5.30); RED CELL DISTRIBUTION WIDTH 17.1 % (11.6-17.2); WHITE BLOOD COUNT 6.8 TH/MM3 (4.0-11.0)
[2017-08-28 08:04] LABS: BICARBONATE 25.2 MEQ/L (21.0-32.0); CALCIUM 8.6 MG/DL (8.5-10.1); CREATININE 1.18 MG/DL (0.50-1.00)
--- NOTE | 2017-08-28 08:05 | HHI.HP ---
HPI Service [facility] Primary Care Physician Marcelo Welsh M.D. Admission Diagnosis osteomyelitis right great toe Chief Complaint: Right great toe wound Travel History International Travel<30 Days: No Contact w/Intl Traveler <30 Da: No Traveled to Known Affected Are: No History of Present Illness Mrs. Gardner is a 62 y/o female with antiphospholipid antibody syndrome on chronic immunosuppression, hx of recurrent CVAs and TIAs on life long Lovenox, diabetes mellitus, Parkinson's disease, systemic lupus erythematous, and vasculitis. She [place] [facility] [place] at the request of her heat treat supervisor, Dr. Garcia, for evaluation of a wound to her right great toe. States that she has had a chronic wound to her right foot on the right lateral side of the foot since February 2017 and then in May 2017 she started having a problem with her right great toe and has received 2 previous rounds of antibiotics for this. She also has reportedly been going to wound care approximately once a week for several months. She was referred to Dr. Garcia for further evaluation where she ordered an MRI. Per the ED documentation the MRI was suggestive of osteomyelitis in the distal tuft of the great toe. Patient denies fever, chills, nausea, vomiting, diarrhea. Pt was brought in for Podiatry consultation and possible surgical intervention. Review of Systems Constitutional: DENIES: Fever, Chills Eyes: DENIES: Vision loss Ears, nose, mouth, throat: DENIES: Vertigo Respiratory: DENIES: Cough, Shortness of breath Cardiovascular: DENIES: Chest pain, Palpitations, Lower Extremity Edema Gastrointestinal: DENIES: Abdominal pain, Constipation, Diarrhea, Nausea, Vomiting Genitourinary: DENIES: Urinary incontinence, Urgency, Hematuria Integumentary: COMPLAINS OF: Abnormal pigmentation Immunologic/allergic: DENIES: Urticaria Neurologic: DENIES: Headache Psychiatric: DENIES: Confusion 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 Pt followed with Dr. Hallman Thrombocytopenia Diabetes mellitus, type 2 Parkinson like symptoms, follows with Dr. Derbenwick Systemic lupus erythematous, follows with Dr. Amaro Vasculitis Asthma Anxiety/Depression GERD HTN Hyperlipidemia Hypothyroidism Hx of malignant melanoma RAMIREZ Raynaud phenomenon RLS Past Surgical History Ovarian cystectomy Cesarian section Removal of malignant melanoma and grafting Reported Medications -Jardiance 10 Mg PO DAILY -Pantoprazole 40 Mg PO DAILY -Metformin 1,000 Mg PO BIDPC -Losartan 25 Mg PO DAILY -Tradjenta 5 Mg PO DAILY -Levothyroxine 175 Mcg PO EVERY OTHER DAY (on even days) -Levothyroxine 150 Mcg PO EVERY OTHER DAY (on odd days) -Flonase Nasal [place] 50 Mcg EACH NARE BID -Flovent Hfa 12 GM Inh 220 Mcg/Act Inh 1 Puff INH BID -Escitalopram 20 Mg PO DAILY -Entacapone 200 Mg PO TID administered concomitantly with each levodopa/carbidopa dose -Enoxaparin Inj 100 Mg SQ BID -Carbidopa-Levodopa ER 50-200 Mg PO TID -Atorvastatin 20 Mg PO HS -Atenolol 100 Mg PO DAILY -Aspirin 81 Mg CHEW DAILY --Prednisone 3 Mg PO DAILY --Mycophenolate 360 Mg ii PO BID ?Cetirizine 10 Mg PO DAILY ?Hydrocodone-Acetaminophen 5-325 mg Tab 1 Tab PO BID PRN ?Warfarin 5 Mg Tab 5 Mg PO DAILY ?Gabapentin 100 Mg Cap 200 Mg PO BID ?Pyridoxine 100 Mg PO DAILY Vitamin B-12 (Cyanocobalamin) 1,000 Mcg Subl 1,000 Mcg SL DAILY Vitamin D3 (Cholecalciferol) 1,000 Unit Cap 1,000 Units PO DAILY Calcium 600 + Vit D Tablet (Calcium Carbonate/Vitamin D3) 1 Each Tablet [Citracal Petites] 0.5 Tab PO DAILY Allergies: Coded Allergies: hydralazine (Verified Allergy, Severe, BLOOD NOT CLOTTING, BP UP, MULTIPLE SYMPTOMS, 08/27/17) Family History Father with hx of melanoma Mother with hx of HTN and glaucoma Social History Denies any tobacco or alcohol use Pt is She is no longer able to work as she is disabled from her Lupus Physical Exam Vital Signs Vital Signs Date Time Temp Pulse Resp B/P (MAP) Pulse Ox O2 Delivery O2 Flow Rate FiO2 08/28/17 06:35 89 16 114/65 (81) 100 Room Air 08/28/17 00:30 82 16 128/79 (95) 99 Room Air 3/12/18 19:40 80 18 125/73 (90) 99 Room Air 08/27/17 15:29 98.0 91 18 116/61 (79) Physical Exam GENERAL: This is a well-nourished, well-developed patient, in no apparent distress. SKIN: Skin breakdown on the left lower abdomen, right great toe with necrotic tissue and erythema of the top of the right foot HEENT: Atraumatic. Normocephalic. No temporal or scalp tenderness. No scleral icterus. Airway patent. NECK: Trachea midline, supple, nontender. CARDIO: Regular. RESP: CTA bilaterally. No wheezes, rales, or rhonchi. ABD: +BS, soft, non-tender, nondistended. EXT: Extremities without clubbing, cyanosis, or edema. No palpable pedal pulse on the right foot NEURO: Awake and alert. Motor and sensory grossly within normal limits. Normal speech. Laboratory Laboratory Tests Test 08/27/17 18:00 08/27/17 19:35 08/28/17 06:25 White Blood Count 8.0 6.8 Red Blood Count 3.97 3.33 Hemoglobin 11.6 10.0 Hematocrit 35.4 29.8 Mean Corpuscular Volume 89.2 89.4 Mean Corpuscular Hemoglobin 29.2 30.0 Mean Corpuscular Hemoglobin Concent 32.8 33.6 Red Cell Distribution Width 17.0 17.1 Platelet Count 141 100 Mean Platelet Volume 7.8 7.6 Neutrophils (%) (Auto) 80.6 86.4 Lymphocytes (%) (Auto) 11.4 5.2 Monocytes (%) (Auto) 6.7 6.5 Eosinophils (%) (Auto) 1.0 1.5 Basophils (%) (Auto) 0.3 0.4 Neutrophils # (Auto) 6.5 5.9 Lymphocytes # (Auto) 0.9 0.4 Monocytes # (Auto) 0.5 0.4 Eosinophils # (Auto) 0.1 0.1 Basophils # (Auto) 0.0 0.0 CBC Comment DIFF FINAL DIFF FINAL Differential Comment Erythrocyte Sedimentation Rate 30 Blood Urea Nitrogen 30 Creatinine 1.26 Random Glucose 146 Calcium Level 7.9 Sodium Level 144 Potassium Level 4.2 Chloride Level 113 Carbon Dioxide Level 23.8 Anion Gap 7 Estimat Glomerular Filtration Rate 43 C-Reactive Protein 0.46 Prothrombin Time 16.0 Prothromb Time International Ratio 1.6 Activated Partial Thromboplast Time 39.4 Date/Time Source Procedure Growth Status 08/27/17 17:45 Wound Toe Gram Stain Pending Received 08/27/17 17:45 Wound Toe Wound Culture Pending Received Result Diagram: 08/28/17 0625 08/27/17 1800 Imaging Last Impressions Chest X-Ray 08/27/17 1923 Signed Impressions: Service Date/Time: Sunday, August 27, 2017 19:30 - CONCLUSION: No evidence of acute cardiopulmonary disease. Tulio Saha MD Foot X-Ray 08/27/17 0000 Signed Impressions: Service Date/Time: Sunday, August 27, 2017 15:46 - CONCLUSION: Soft tissue swelling and possible first digit ulceration without definite underlying bone abnormality. MD Jennifer Chow VTE Risk Assessment Caprintiffanie VTE Risk Assessment: Mod/High Risk (score >= 2) Caprini Risk Assessment Model Point Value = 1 Point Value = 2 Point Value = 3 Point Value = 5 Age 41-60 Minor surgery BMI > 25 kg/m2 Swollen legs Varicose veins or History of unexplained or recurrent spontaneous Oral contraceptives or hormone replacement Sepsis (< 1 month) Serious lung disease, including pneumonia (< 1 month) Abnormal pulmonary function Acute myocardial infarction Congestive heart failure (< 1 month) History of inflammatory bowel disease Medical patient at bed rest Age 61-74 Arthroscopic surgery Major open surgery (> 45 min) Laparoscopic surgery (> 45 min) Malignancy Confined to bed (> 72 hours) Immobilizing plaster cast Central venous access Age >= 75 History of VTE Family history of VTE Factor V Leiden Prothrombin [id number] Lupus anticoagulant Anticardiolipin antibodies Elevated serum homocysteine Heparin-induced thrombocytopenia Other congenital or acquired thrombophilia Stroke (< 1 month) Elective arthroplasty Hip, pelvis, or leg fracture Acute spinal cord injury (< 1 month) Prophylaxis Regimen Total Risk Factor Score Risk Level Prophylaxis Regimen 0-1 Low Early ambulation 2 Moderate Order ONE of the following: *Sequential Compression Device (SCD) *Heparin 5000 units SQ BID 3-4 Higher Order ONE of the following medications: *Heparin 5000 units SQ TID *Enoxaparin/Lovenox 40 mg SQ daily (WT < 150 kg, CrCl > 30 mL/min) *Enoxaparin/Lovenox 30 mg SQ daily (WT < 150 kg, CrCl > 10-29 mL/min) *Enoxaparin/Lovenox 30 mg SQ BID (WT < 150 kg, CrCl > 30 mL/min) AND/OR *Sequential Compression Device (SCD) 5 or more Highest Order ONE of the following medications: *Heparin 5000 units SQ TID (Preferred with Epidurals) *Enoxaparin/Lovenox 40 mg SQ daily (WT < 150 kg, CrCl > 30 mL/min) *Enoxaparin/Lovenox 30 mg SQ daily (WT < 150 kg, CrCl > 10-29 mL/min) *Enoxaparin/Lovenox 30 mg SQ BID (WT < 150 kg, CrCl > 30 mL/min) AND *Sequential Compression Device (SCD) Assessment and Plan Problem List: (1) Osteomyelitis ICD Codes: M86.9 - Osteomyelitis, unspecified Status: Chronic Plan: - Pt is a 62 y/o female with antiphospholipid antibody syndrome on chronic immunosuppression, hx of recurrent CVAs and TIAs on life long Lovenox, diabetes mellitus, Parkinson's disease, systemic lupus erythematous, and vasculitis. - She presented to the ED [place] [facility] [place] at the request of her heat treat supervisor, Dr. Garcia, for evaluation of a wound to her right great toe. - Pt has had a chronic wound to her right foot since February 2017 and has received 2 previous rounds of antibiotics for this. She also has reportedly been going to wound care approximately once a week for several months. She was referred to Dr. Garcia for further evaluation where she ordered an MRI. - Per the ED documentation the MRI was suggestive of osteomyelitis in the distal tuft of the great toe. - Podiatry consultation is ordered - Outpt US with RUSSELL in 08/2017 noted mildly reduced resting right lower extremity RUSSELL 0.8-0.89. Exercise was note performed due to limited ambulation. - CRP was elevated at 0.46 - Wound culture obtained in the ED, is pending. - IV Vancomycin with pharmacy to dose - Add Zosyn - Podiatry has requested Vascular Surgery evaluation - Supportive care - DVT prophylaxis with SCDs - Pt does not want to continue Lovenox as she had been on Lovenox recently for anticoagulation but developed some skin breakdown in the left lower abdomen and has been following with Wound Care as an outpt for this. We will consult Wound care for re-evaluation - Will need to discuss anticoagulation with Podiatry and vascular surgery - INR at admission was subtherapeutic at 1.6. (2) DM (diabetes mellitus) ICD Codes: E11.9 - DM (diabetes mellitus) Status: Chronic Plan: - Pt continued on home dose of OHA, Metformin 1000mg BID - Accu checks - If any CT imaging is to be done then hold Metformin and start NovoLog SSI (3) Antiphospholipid antibody syndrome ICD Codes: D68.61 - Antiphospholipid antibody syndrome Status: Chronic Plan: - Pt continued on home dose of Cellcept and Prednisone - Cont. Lovenox 100mg BID (4) Hypothyroid ICD Codes: E03.9 - Hypothyroid Status: Chronic Plan: - Home meds continued (5) SLE (systemic lupus erythematosus) ICD Codes: M32.9 - SLE (systemic lupus erythematosus) Status: Chronic (6) RAMIREZ (obstructive sleep apnea) ICD Codes: G47.33 - RAMIREZ (obstructive sleep apnea) Status: Chronic Plan: - CPAP Assessment and Plan Patient examined. Assessment and plan formulated with Mayda Garrido PA-C. I agree with the above. Physician Certification 2 Midnight Certification Type: Admission for Inpatient Services Order for Inpatient Services The services are ordered in accordance with Medicare regulations or non- Medicare payer requirements, as applicable. In the case of services not specified as inpatient-only, they are appropriately provided as inpatient services in accordance with the 2-midnight benchmark. Estimated LOS (days): 3 3 days is the estimated time the patient will need to remain in the hospital, assuming treatment plan goals are met and no additional complications. Post-Hospital Plan: Not yet determined Problem Qualifiers (1) Osteomyelitis: Qualified Codes: M86.671 - Other chronic osteomyelitis, right ankle and foot (2) DM (diabetes mellitus): Mayda Garrido Aug 28, 2017 08:05 Bravo Guzman DO Aug 30, 2017 14:59
[2017-08-28] MEDS: INSULIN ASPART SUPPLEMENTAL SCALE SQ SCH ×4 (08:44→21:00)
[2017-08-28] MEDS: ASPIRIN 81 MG CHEW TAB CHEW SCH (08:44)
[2017-08-28] MEDS: FLUTICASONE PROPIONATE 220 MCG/ACT 12 GM INHALER INH SCH ×2 (08:44→21:32)
--- NOTE | 2017-08-28 08:44 | MB ---
cc: Cheikh Brown DPM DATE OF CONSULT: REASON FOR CONSULTATION: Right hallux ischemic changes, nonhealing ulcer. HISTORY OF PRESENT ILLNESS: This is a 62-year-old female, known diabetic, lupus, vasculitis, and PAD, who was seen by my associate, Dr. Garcia. MRI was suggestive of osteomyelitis of the distal tuft. She presented to the ER for evaluation. She has had 2 rounds of antibiotics since February. PAST MEDICAL HISTORY: Arthritis, asthma, lupus, blood disorder, phospholipid syndrome, anxiety, depression, history of skin cancer, endocarditis, GERD, hypothyroidism. PAST SURGICAL HISTORY: section, ovarian cyst, skin cancer. SOCIAL HISTORY: Denies habits. ALLERGIES: TO HYDRALAZINE. INPATIENT MEDICATIONS: The patient is currently taking vancomycin. Please see complete med list in chart. VITALS: Temperature is 98, pulse rate 89, respiratory rate 16, blood pressure 114/65. She is satting 100% on room air. This is alert and oriented female, seen bedside, exhibiting nonlabored respirations. Right lower extremity is examined. There is noted to be dry stable gangrenous changes of the distal hallux. There is no active odor, bogginess, tissue. There is slight granulation tissue at the wound periphery. There is a yellow fibrotic partial-thickness eschar ulcer of the dorsal aspect to the fifth metatarsal. It appears to be uncomplicated. There is no erythema, edema. The foot is nontender. The foot is not cool; however, I cannot palpate pulses, dorsalis pedis and posterior tibialis. Left lower extremity is without ulcer or skin problem. LABORATORY FINDINGS: White blood cell 6.8, hemoglobin/hematocrit 10/29, platelet count 100. ESR 30. Coagulation profile: PT 16.0, INR 1.6. Chem-7: Sodium 144, potassium 4.2, chloride 113, CO2 23.8, BUN 30, creatinine 1.26, random glucose 146. C-reactive protein 0.46. IMAGING FINDINGS: Foot x-ray: Soft tissue swelling of the first digit without any obvious underlying bony abnormality. MICROBIAL FINDINGS: Wound culture ordered and pending. ASSESSMENT AND PLAN: Right hallux ischemic ulcer, peripheral vascular disease, possible underlying osteomyelitis. Recommendation is vascular surgery consultation and anticipation for possible hallux amputation, debridement. At this time, I do feel the patient is stable. Segmental arterial Doppler has been ordered. I will recommend vascular surgery to workup before proceeding with any operative intervention for this stable ischemic ulcerative finding. Risks and benefits explained with possible need for hallux amputation, but I do feel if the patient does not have increased blood flow, she is at risk for loss of limb or further. DANNA Grossman/KIRILL , 08:07 AM , 08:43 AM
[2017-08-28] MEDS: ENOXAPARIN SODIUM 100 MG/ML SYRINGE SQ SCH (08:45)
[2017-08-28] MEDS: SODIUM CHLORIDE 0.9% FLUSH 10 ML FLUSH IV FLUSH SCH ×2 (08:53→21:32)
[2017-08-28] MEDS: LOSARTAN 25 MG TAB PO SCH ×2 (09:00→09:45)
[2017-08-28] MEDS ORDERED: NON-FORMULARY DRUG (Linagliptin (Tradjenta) 5 MG) PO SCH (09:00)
[2017-08-28] MEDS: ATENOLOL 100 MG TAB PO SCH ×2 (09:00→09:45)
[2017-08-28] MEDS ORDERED: NON-FORMULARY DRUG (Entacapone 200 MG) PO SCH (09:00)
[2017-08-28] MEDS ORDERED: PT:TRADJENTA 5 MG PO SCH (09:00)
[2017-08-28] MEDS ORDERED: [UNRECOGNIZED DRUG - OTHER] PO SCH (09:00)
[2017-08-28] MEDS ORDERED: metFORMIN HCL 500 MG TAB PO SCH (09:00)
[2017-08-28] MEDS: MYCOPHENOLATE MOFETIL 500 MG TAB PO SCH ×2 (09:45→21:31)
[2017-08-28] MEDS: PANTOPRAZOLE SOD 40 MG DELAYED RELEASE TAB PO SCH (09:45)
[2017-08-28] MEDS: ESCITALOPRAM OXALATE 20 MG TAB PO SCH (09:45)
[2017-08-28] MEDS: predniSONE 5 MG TAB PO SCH (09:45)
[2017-08-28] MEDS: LEVODOPA/CARBIDOPA 1 TAB TABCR PO SCH ×3 (09:45→18:28)
[2017-08-28] MEDS: PIPERACIL-TAZO 3.375 GM PREMIX 50 ML IV SCH ×2 (13:03→13:51)
--- NOTE | 2017-08-28 13:50 | RADRPT ---
EXAM DATE/TIME: 08/27/2017 00:00 [facility] COMPARISON: No previous studies available for comparison. INDICATIONS : Right Foot Pain TECHNIQUE: Five-station segmental examination of the lower extremities was performed. Pulsed-cuff waveform tracings and pressures were recorded. Ankle-brachial indices and toe-brachial indices were calculated. PRESSURES (mmHg): Brachial (arm): Right IV SITE Left 98 Upper Thigh: Lower Thigh: Right 139 Left 123 Calf: Right 137 Left CNO>220 Ankle: Right CNO>220 Left CNO>220 Toe: Right 0 Left 55 RUSSELL: Right CNO Left CNO TBI: Right 0.00 Left 0.56 PULSED CUFF WAVEFORMS: The examination demonstrates a diminished waveform of the level of ankle bilaterally and the right to e. CONCLUSION: 1. Limited examination. The distal vasculature below the knee could not be compressed suggesting dens yuliya calcified, non-compressible vessels. We were unable to calculate ABIs. 2. We were able to calculate a TBI of the left toe at 0.56. This is mildly decreased. 3. CT angiography and runoff could be performed for more definitive assessment. Jad Barton MD on August 28, 2017 at 13:45 Board Certified Radiologist. This report was verified electronically.
--- NOTE | 2017-08-28 14:14 | PD.WCN.NOT ---
Wound Consult Description: wound consult ordered by Debbie SANCHEZ Communicated with: Ewelina CELAYA B-pod, Debbie SANCHEZ Recommendation: 1) Consult imaging to R/O Fistulas , Please consult general surgery for possible surgical cleanse/debridement and Wound VAC placement. 2) Cleanse LLQ wound with normal saline pat dry. 3) Lightly pack wound with Maxsorb ll cut to fit wound base,cover with dry dressing change daily. 4) Please reconsult wound care for further care Additional Information: Patient was seen today by fiction writer for assessment of LLQ wound.Patient alert and oriented x3 in bed with friend present at bedside.Dressing removed from LLQ with some discomfort noted.Patient states lower abdomen is very tender to touch.Patient has a full thickness linear wound to left lower abdomen measuring 1.3cm x 8.9cm x ~2.4cm with a tunnel noted @ 9 O'clock measuring ~1.8cm.Wound base is ~85% beefy red non granular tissue ~15% adipose tissue with moderate amount of serosanguineous drainage noted with out odor.Wound edges are well defined .Patient noted to have a piece of intact skin ~0.3cm to Left side of wound base conjoining proximal and distal wound edges.Brandy wound has 2 partial thickness open areas proximal of wound.Right proximal open area measure ~1.5cm x ~1.5cm wound base is soft moist and pink/white tissue with fluctuance noted @ 7 O'clock.Left proximal wound measure ~0.3cm x ~0.3cm with wound base moist and pink with fluctuance noted @ ~4-5 O'clock.Induration noted to periwound ~2.0cm circumferentially.Patient would need further imaging to R/O Fistulas.Patient states wound was caused by Lovenox injection in same LLQ became hard and black then opened up to current wound.States she has been getting several little open areas around initial wound that come and go.All wounds cleansed with normal saline pat dry.Maxsorb ll cut to fit wound base genitally packed in wound and covered with dry dressing.patient tolerated wound care well with some discomfort noted by facial grimacing. Lisa Hyde [facility] Aug 28, 2017 14:14
[2017-08-28] MEDS ORDERED: DIATRIZOATE MEGLUM/DIATRIZOATE SOD 9 ML CUP PO ONE (16:26)
[2017-08-28] MEDS: WARFARIN SOD 7.5 MG TAB PO SCH (16:45)
--- NOTE | 2017-08-28 18:38 | PD.CAR.PN ---
CVT Progress Note Subjective/Hospital Course: Patient evaluated Full consult dictated Studies ordered No contraindication to continued Coumadin therapy at this time. Will follow Thanks J Objective: Vital Signs Date Time Temp Pulse Resp B/P (MAP) Pulse Ox O2 Delivery O2 Flow Rate FiO2 08/28/17 16:17 98.6 81 18 108/53 (71) 98 08/28/17 14:01 97.9 93 18 109/61 (77) 96 08/28/17 12:00 97.1 96 20 124/63 (83) 100 08/28/17 11:38 08/28/17 09:53 80 18 108/57 (74) 100 Room Air 08/28/17 06:35 89 16 114/65 (81) 100 Room Air 08/28/17 00:30 82 16 128/79 (95) 99 Room Air 08/27/17 19:40 80 18 125/73 (90) 99 Room Air Result Diagram: 08/28/17 0625 08/28/17 0625 Sid Green MD Aug 28, 2017 18:37
--- NOTE | 2017-08-28 20:03 | EKG ---
Date Performed: 08/27/2017 Time Performed: 19:37:06 PTAGE: 62 years EKG: Sinus rhythm LEFT ANTERIOR FASCICULAR BLOCK POSSIBLE ANTERIOR MYOCARDIAL INFARCTION ABNORMAL ECG PREVIOUS TRACING : 03/05/2017 12.08 Since the previous tracing, no significant change noted DOCTOR: Jaja Malin Interpretating Date/Time 08/28/2017 20:02:46
[2017-08-28] MEDS: VANCOMYCIN INJ 1,600 MG in SODIUM CHLORID 0.9% 500 ML INJ 500 ML IV SCH (21:31)
--- NOTE | 2017-08-28 23:21 | RADRPT ---
EXAM DATE/TIME: 08/28/2017 22:05 [facility] COMPARISON: US CAROTID ARTERIES, February 15, 2014, 17:32. INDICATIONS : Recurrent transischemic attacks. MEDICAL HISTORY : Lupus. Hypertension. Hypothyroidism. Hypercholesterolemia. CVA. Endocarditis. SURGICAL HISTORY : Ovarian cysts removed. section. Melanoma removed. ENCOUNTER: Subsequent ACUITY: 1 day PAIN SCORE: 0/10 LOCATION: Bilateral neck PEAK SYSTOLIC VELOCITIES (cm/sec): ICA/CCA RATIO: Right: 1.1 Left: 0.6 ICA: Right: 94 Left: 87 CCA: Right: 89 Left: 147 ECA: Right: 98 Left: 77 VERTEBRAL: Right: 70 antegrade Left: 58 antegrade Elevated flow velocities and ICA/CCA ratios have been found to correlate with increased degrees of vessel stenosis, calculated as percentage of diameter relative to a normal segment of distal ICA/CCA FINDINGS: RIGHT CAROTID: Mild plaque of the bulb and proximal internal carotid artery. No significant stenosis is visualized. The waveforms are within normal limits. LEFT CAROTID: Trace plaque of the bulb and proximal internal carotid artery. No significant stenosis is visualized. The waveforms are within normal limits. VERTEBRAL ARTERIES: Antegrade flow is seen in both vertebral arteries. MISCELLANEOUS: None. CONCLUSION: Atherosclerotic plaque of both carotid bifurcations, mild on the right and minimal on the left. No he modynamically significant narrowing. Tulio Saha MD on August 28, 2017 at 23:18 Board Certified Radiologist. This report was verified electronically.
[2017-08-29] VITALS: BP 124/74; PULSE 97; RESP 19; TEMP 98.8; O2SAT 95
[2017-08-29] MEDS ORDERED: IOHEXOL 350 MG/ML 10 ML VIAL (for RAD DIAG) IVCONTRAST ONE (01:24)
[2017-08-29] MEDS: ACETAMINOPHEN/HYDROcodone 325 MG/5 MG TAB PO PRN ×2 (01:48→22:06)
--- NOTE | 2017-08-29 02:44 | RADRPT ---
EXAM DATE/TIME: 08/29/2017 00:53 [facility] COMPARISON: No previous studies available for comparison. INDICATIONS : Right great toe injury; abdomen wound. IV CONTRAST: 100 cc Omnipaque 350 (iohexol) IV RADIATION DOSE: 6.7 CTDIvol (mGy) MEDICAL HISTORY : Hypertension. Stroke Cardiovascular disease SURGICAL HISTORY : None. ENCOUNTER: Initial ACUITY: 1 day PAIN SCALE: 5/10 LOCATION: Bilateral abdomen TECHNIQUE: Volumetric scanning was performed using a multi-row detector CT scanner. The data was post processed with a variety of visualization algorithms including full volume maximum intensity projection, multi -planar sliding thin slab reformation, curved planar reformation, and surface rendering techniques. Using automated exposure control and adjustment of the mA and/or kV according to patient size, radiat ion dose was kept as low as reasonably achievable to obtain optimal diagnostic quality images. DICO M format image data is available electronically for review and comparison. FINDINGS: Aorta/inflow: Aorta and inflow vessels are patent. The celiac, SMA, PHILIPP, and renal arteries are patent. Right lower extremity: The outflow vessels are widely patent. Severe trifurcation disease is observed. Diffuse calcified ath erosclerotic plaque throughout the trifurcation vessels. The anterior tibial artery shows short segme nt occlusion within the mid calf. There is a second occlusion at the level the ankle joint without do rsalis pedis artery visualized. The posterior tibial artery is diffusely disease with multiple short segment occlusions particularly proximally. Multiple high-grade stenoses scattered throughout as well . It does form communicative plantar vessels. The peroneal artery shows multiple moderate stenoses pr oximally but is otherwise patent. Left lower extremity: The outflow vessels are widely patent. Severe trifurcation disease is observed. The anterior tibial a rtery is heavily diseased with multiple high-grade stenoses and short segment occlusions. It does for m a dorsalis pedis artery. The posterior tibial artery shows multiple short segment occlusions partic ularly proximally but there also some distally. Plantar vessels show poor opacification. The peroneal artery is diffusely disease with multiple areas of high-grade stenosis as well as a short segment oc clusion within the mid portion. Other structures: Multiple calcified gallstones within an otherwise normal-appearing gallbladder. Splenomegaly with the spleen measuring 17.8 cm. A 6.6 cm exophytic cortical cyst in the lower pole left kidney. Hounsfield units are 13. Scattered colonic diverticuli. There is no acute inflammation. CONCLUSION: 1. Patent inflow and outflow bilaterally. 2. Severe trifurcation disease bilaterally without straight line flow to either foot. Details given a yair. 3. Colonic diverticulosis. 4. Splenomegaly. 5. Cholelithiasis. Adria Mendez Jr., MD on August 29, 2017 at 2:35 Board Certified Radiologist. This report was verified electronically.
[2017-08-29] MEDS: PIPERACIL-TAZO 3.375 GM PREMIX 50 ML IV SCH ×4 (02:57→20:10)
[2017-08-29 04:00] VITALS: BP 108/60; PULSE 97; RESP 18; TEMP 98.7; O2SAT 94
[2017-08-29] MEDS: LEVOTHYROXINE SODIUM 150 MCG TAB PO SCH (06:01)
[2017-08-29 07:32] LABS: INTERNATIONAL NORMALIZED RATIO 1.5 RATIO; PROTHROMBIN TIME - PATIENT 14.9 SEC (9.8-11.6)
[2017-08-29 07:38] LABS: AUTOMATED NEUTROPHIL # 3.6 TH/MM3 (1.8-7.7); BASOPHIL % 0.3 % (0.0-2.0); EOSINOPHIL # 0.1 TH/MM3 (0-0.4); EOSINOPHIL % 2.6 % (0.0-4.0); HEMOGLOBIN 9.5 GM/DL (11.6-15.3); LYMPH % 12.7 % (9.0-44.0); LYMPHOCYTE # 0.6 TH/MM3 (1.0-4.8); MEAN CELL VOLUME 90.4 FL (80.0-100.0); MEAN CORPUSCULAR HEMOGLOBIN 30.6 PG (27.0-34.0); MEAN CORPUSCULAR HGB CONC 33.9 % (32.0-36.0); MEAN PLATELET VOLUME 7.8 FL (7.0-11.0); MONO % 6.4 % (0.0-8.0); MONOCYTE # 0.3 TH/MM3 (0-0.9); PLATELET COUNT 94 TH/MM3 (150-450); RED CELL DISTRIBUTION WIDTH 16.6 % (11.6-17.2); WHITE BLOOD COUNT 4.6 TH/MM3 (4.0-11.0)
[2017-08-29 07:50] LABS: BICARBONATE 22.6 MEQ/L (21.0-32.0); CALCIUM 7.8 MG/DL (8.5-10.1); CREATININE 1.24 MG/DL (0.50-1.00); MAGNESIUM 2.1 MG/DL (1.5-2.5)
[2017-08-29 08:00] VITALS: BP 102/56; PULSE 93; RESP 18; TEMP 98.2; O2SAT 98
[2017-08-29] MEDS: INSULIN ASPART SUPPLEMENTAL SCALE SQ SCH ×4 (08:00→20:47)
[2017-08-29] MEDS: PANTOPRAZOLE SOD 40 MG DELAYED RELEASE TAB PO SCH (08:36)
[2017-08-29] MEDS: ESCITALOPRAM OXALATE 20 MG TAB PO SCH (08:36)
[2017-08-29] MEDS: MYCOPHENOLATE MOFETIL 500 MG TAB PO SCH ×2 (08:36→20:48)
[2017-08-29] MEDS: predniSONE 5 MG TAB PO SCH (08:36)
[2017-08-29] MEDS: ATENOLOL 100 MG TAB PO SCH (08:36)
[2017-08-29] MEDS: ASPIRIN 81 MG CHEW TAB CHEW SCH (08:36)
[2017-08-29] MEDS: LEVODOPA/CARBIDOPA 1 TAB TABCR PO SCH ×3 (08:36→18:42)
[2017-08-29] MEDS: FLUTICASONE PROPIONATE 220 MCG/ACT 12 GM INHALER INH SCH ×2 (08:38→20:10)
[2017-08-29] MEDS: SODIUM CHLORIDE 0.9% FLUSH 10 ML FLUSH IV FLUSH SCH ×2 (09:00→20:49)
[2017-08-29] MEDS: LOSARTAN 25 MG TAB PO SCH (09:00)
--- NOTE | 2017-08-29 09:21 | MB ---
cc: Sid Green MD DATE OF CONSULT: 08/28/2017 REASON FOR CONSULTATION: Ischemia of both legs, gangrene tip of the right hallux. CHIEF COMPLAINT: Ischemia of both legs, gangrene of the tip of the right hallux. 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 This has been there since February. At some point, the patient had cellulitis, which then in the meantime resolved. Question arise what to do with this? PAST MEDICAL HISTORY: The patient's past medical history is quite complex. She had been hospitalized for the last 3 months off and on at [facility] with vascular problems, recurrent infections and endocarditis. Her medical history is that as noted, endocarditis, lupus, diabetes mellitus, antiphospholipid antibody, some form of Parkinson's disease, asthma, hypertension, hypothyroidism, Raynaud's phenomenon. PAST SURGICAL HISTORY: That of and ovarian resection. MEDICATIONS: Can be found in the chart, include Coumadin. PHYSICAL EXAMINATION: GENERAL: Reveals pleasant 62-year-old lady. HEENT: Normocephalic. No trauma to the head. Pupils equal, reactive. Extraocular muscles are intact. NECK: Supple. Bilateral carotid pulses. NEUROLOGIC: The patient has no signs of neurologic deficit at this time in the form of facial droop or some other type of asymmetry. Apparently for 3 months, the patient was at [facility]. She had recurrent TIAs, which were probably due to the pieces of thrombus flushing off the mitral valve. CHEST: Bilateral breath sounds. A little decreased over the apices, but not significant. CARDIOVASCULAR: Regular rhythm and actually, I do not perceive any murmurs. ABDOMEN: Soft, active bowel sounds. EXTREMITIES: The patient has palpable femoral pulses and then no distal pulse on palpation. She has bilateral Dopplerable popliteal pulses and she has Dopplerable posterior tibial. Dorsalis pedis, I do not perceive. The patient does have a small dry gangrenous ulcer on the top of the right hallux. Her feet are fairly pale and she has elevation pallor and dependent rubor. Neurologic exam at this point is normal. IMPRESSION AND RECOMMENDATIONS: This patient has complex medical history and hypercoagulable state from at least 2 sources, 1 being the antiphospholipid antibody and the other is lupus, with possibly separate anticoagulant antibody, which may not be even in the phospholipid group. In addition, patients with lupus will have other manifestations of neurologic-connective, endovascular, reticuloendothelial tissue disorders like Raynaud's phenomenon or Raynaud's disease, like pulmonary fibrosis. Symptoms of rheumatoid arthritis or ankylosing spondylitis or sometimes Felty syndrome and other forms of dyscrasia sometimes associated with thrombocytopenia. I am not sure if the patient had any of this through her life other than the above noted. All of these patients at increased risk for peripheral vascular changes by either atherosclerotic or occlusion of the small vessels as a part of diabetic picture and hypertension or vascular occlusive changes due to hyperplasia of intima and other immunoreactive changes in the vessels. So, this patient probably has a very combined picture. At this point, the arterial ultrasound does not have much value because vessels are noncompressible below the level of the knee. The patient will have a CTA with a runoff and will see what this looks like. If there is anything that can be reconstructed either by endovascular or open means because what the patient has right now is very ominous and this may proceed to further gangrene and tissue loss, including the loss of the leg. Having said all this, got to make sure the patient has a well treated endocarditis and there are no vegetations on either mitral or aortic valve that would form further emboli and complicate the picture. I will continue to follow the patient, order some studies and we will see which way it goes. Critical care time 40 minutes. MD NEGRITA Allen/LIDIA , 06:34 PM , 07:20 PM
--- NOTE | 2017-08-29 11:45 | PD.CAR.PN ---
CVT Progress Note Subjective/Hospital Course: Patient evaluated Full consult dictated Studies ordered No contraindication to continued Coumadin therapy at this time. Will follow Thanks Olegario 08/29/2017 I reviewed the CTA with a runoff. CTA confirms the clinical findings and the physical exam/consultation. This patient has severe peripheral vascular disease and diabetic pattern of changes. She has good inflow and then at the level of trifurcation severe vascular occlusive changes with calcifications and interruptions of the anterior tibial and posterior tibial arteries Actually the only artery running to the foot bilaterally is a posterior tibial artery which is in many places segmented Based on the above patient does not have reconstructable vascular disease by either endovascular or open means and there is nothing that vascular surgery procedure could do for her In face of additional hypercoagulability disorders it is essential the patient remains of anticoagulants as she was before Carotid ultrasound does not reveal any hemodynamically significant stenosis of patient will not need another one for a few years Splenomegaly is commonly seen in patients with autoimmune disorders including lupus/thrombocytopenia and variants of Sjorgen's syndrome. One of those is Felty's syndrome, but patient denies having had keratoconjunctivitis and does not seem to have neutropenia. This of course will be only of academic interest and would not affect therapy as far as vascular approach is concerned. I am sorry we cannot add more constructively to the care of this patient Objective: Vital Signs Date Time Temp Pulse Resp B/P (MAP) Pulse Ox O2 Delivery O2 Flow Rate FiO2 08/29/17 08:00 98.2 93 18 102/56 (71) 98 08/29/17 04:00 98.7 97 18 108/60 (76) 94 08/29/17 00:00 98.8 97 19 124/74 (91) 95 08/28/17 20:07 97.7 89 20 128/71 (90) 08/28/17 16:17 98.6 81 18 108/53 (71) 98 08/28/17 14:01 97.9 93 18 109/61 (77) 96 08/28/17 12:00 97.1 96 20 124/63 (83) 100 08/28/17 11:38 Labs: Laboratory Tests Test 08/29/17 06:49 White Blood Count 4.6 TH/MM3 (4.0-11.0) Red Blood Count 3.10 MIL/MM3 (4.00-5.30) Hemoglobin 9.5 GM/DL (11.6-15.3) Hematocrit 28.0 % (35.0-46.0) Mean Corpuscular Volume 90.4 FL (80.0-100.0) Mean Corpuscular Hemoglobin 30.6 PG (27.0-34.0) Mean Corpuscular Hemoglobin Concent 33.9 % (32.0-36.0) Red Cell Distribution Width 16.6 % (11.6-17.2) Platelet Count 94 TH/MM3 (150-450) Mean Platelet Volume 7.8 FL (7.0-11.0) Neutrophils (%) (Auto) 78.0 % (16.0-70.0) Lymphocytes (%) (Auto) 12.7 % (9.0-44.0) Monocytes (%) (Auto) 6.4 % (0.0-8.0) Eosinophils (%) (Auto) 2.6 % (0.0-4.0) Basophils (%) (Auto) 0.3 % (0.0-2.0) Neutrophils # (Auto) 3.6 TH/MM3 (1.8-7.7) Lymphocytes # (Auto) 0.6 TH/MM3 (1.0-4.8) Monocytes # (Auto) 0.3 TH/MM3 (0-0.9) Eosinophils # (Auto) 0.1 TH/MM3 (0-0.4) Basophils # (Auto) 0.0 TH/MM3 (0-0.2) CBC Comment AUTO DIFF Differential Comment AUTO DIFF CONFIRMED Platelet Estimate LOW (NORMAL) Platelet Morphology Comment NORMAL (NORMAL) Prothrombin Time 14.9 SEC (9.8-11.6) Prothromb Time International Ratio 1.5 RATIO Blood Urea Nitrogen 29 MG/DL (7-18) Creatinine 1.24 MG/DL (0.50-1.00) Random Glucose 119 MG/DL (74-106) Calcium Level 7.8 MG/DL (8.5-10.1) Magnesium Level 2.1 MG/DL (1.5-2.5) Sodium Level 145 MEQ/L (136-145) Potassium Level 3.8 MEQ/L (3.5-5.1) Chloride Level 113 MEQ/L (98-107) Carbon Dioxide Level 22.6 MEQ/L (21.0-32.0) Anion Gap 9 MEQ/L (5-15) Estimat Glomerular Filtration Rate 44 ML/MIN (>89) Result Diagram: 08/29/17 0649 08/29/17 0649 Sid Green MD Aug 29, 2017 11:45
[2017-08-29 12:00] VITALS: BP 125/65; PULSE 74; RESP 18; TEMP 97.8; O2SAT 99
[2017-08-29] MEDS ORDERED: PLAQ200T PO (14:48)
[2017-08-29] MEDS: WARFARIN SOD 7.5 MG TAB PO SCH (15:48)
[2017-08-29 16:00] VITALS: BP 109/53; PULSE 72; RESP 18; TEMP 97.6; O2SAT 100
--- NOTE | 2017-08-29 18:31 | ECHRPT ---
Indication: HX ENDOCARDITIS W/MV VEG CONCLUSIONS Normal left ventricular size. Mild concentric left ventricular hypertrophy. The left ventricular systolic function is hyperdynamic with an estimated ejection fraction in the ra nge of 65- 70%. The left atrial size is mvrj-cb-ctjoepnnlm dilated. Gqnjm-ga-yypg mitral valve regurgitation. Aortic valve sclerosis is present. There is mild tricuspid valve regurgitation. The estimated pulmonary arterial pressure is 32 mmHg. No evidence of mitral valve vegetations. BP: 108 / 60 HR: 97 Rhythm: Sinus MEASUREMENTS (Male / Female) Normal Values Technical Quality:Fair 2D ECHO LV Diastolic Diameter PLAX 5.3 cm 4.2 - 5.9 / 3.9 - 5.3 cm LV Systolic Diameter PLAX 3.7 cm IVS Diastolic Thickness 1.0 cm 0.6 - 1.0 / 0.6 - 0.9 cm LVPW Diastolic Thickness 1.0 cm 0.6 - 1.0 / 0.6 - 0.9 cm LV Relative Wall Thickness 0.4 RV Internal Dim ED PLAX 3.9 cm LVOT Diameter 2.0 cm LA Systolic Diameter LX 4.6 cm 3.0 - 4.0 / 2.7 - 3.8 cm M-MODE Aortic Root Diameter MM 2.9 cm LA Systolic Diameter MM 4.6 cm LA Ao Ratio MM 1.6 AV Cusp Separation MM 1.6 cm DOPPLER AV Peak Velocity 149.0 cm/s AV Peak Gradient 8.9 mmHg LVOT Peak Velocity 95.3 cm/s LVOT Peak Gradient 3.6 mmHg AV Area Cont Eq pk 2.0 cm MV Area PHT 3.2 cm Mitral E Point Velocity 80.9 cm/s Mitral A Point Velocity 111.0 cm/s Mitral E to A Ratio 0.7 LV E' Lateral Velocity 8.3 cm/s Mitral E to LV E' Lateral Ratio 9.8 LV E' Septal Velocity 8.7 cm/s Mitral E to LV E' Septal Ratio 9.3 TR Peak Velocity 233.0 cm/s TR Peak Gradient 21.7 mmHg Right Atrial Pressure 10.0 mmHg Pulmonary Artery Systolic Pressu 31.7 mmHg Right Ventricular Systolic Press 31.7 mmHg FINDINGS LEFT VENTRICLE Normal left ventricular size. Mild concentric left ventricular hypertrophy. The left ventricular systolic function is hyperdynamic with an estimated ejection fraction in the ra nge of 65- 70%. RIGHT VENTRICLE Normal right ventricular size and systolic function. LEFT ATRIUM The left atrial size is cccq-nz-ugfjboewuq dilated. RIGHT ATRIUM The right atrial size is normal. ATRIAL SEPTUM No atrial level shunt is demonstrated by color flow Doppler interrogation. AORTA The aortic root and proximal ascending aorta are normal in size on limited imaging. MITRAL VALVE Fhqnk-lb-ofoo mitral valve regurgitation. AORTIC VALVE Aortic valve sclerosis is present. TRICUSPID VALVE There is mild tricuspid valve regurgitation. The estimated pulmonary arterial pressure is 31.7 mmHg. PULMONARY VALVE No pulmonary valve regurgitation or stenosis. VESSELS The inferior vena cava is normal in size. PERICARDIUM No pericardial effusion. Jaja Malin MD, FACC (Electronically Signed) Final Date:29 August 2017 18:30
--- NOTE | 2017-08-29 18:41 | HHI.PR ---
Subjective Remarks No new complaints Objective Vitals Vital Signs Date Time Temp Pulse Resp B/P (MAP) Pulse Ox O2 Delivery O2 Flow Rate FiO2 08/29/17 12:00 97.8 74 18 125/65 (85) 99 08/29/17 08:00 98.2 93 18 102/56 (71) 98 08/29/17 04:00 98.7 97 18 108/60 (76) 94 08/29/17 00:00 98.8 97 19 124/74 (91) 95 08/28/17 20:07 97.7 89 20 128/71 (90) 08/29/17 08/29/17 08/30/17 15:00 23:00 07:00 # Voids 1 # Bowel Movements 1 Result Diagram: 08/29/17 0649 08/29/17 0649 Other Results Laboratory Tests Test 08/27/17 18:00 08/27/17 19:35 08/28/17 06:25 08/29/17 06:49 White Blood Count 8.0 TH/MM3 6.8 TH/MM3 4.6 TH/MM3 Red Blood Count 3.97 MIL/MM3 3.33 MIL/MM3 3.10 MIL/MM3 Hemoglobin 11.6 GM/DL 10.0 GM/DL 9.5 GM/DL Hematocrit 35.4 % 29.8 % 28.0 % Mean Corpuscular Volume 89.2 FL 89.4 FL 90.4 FL Mean Corpuscular Hemoglobin 29.2 PG 30.0 PG 30.6 PG Mean Corpuscular Hemoglobin Concent 32.8 % 33.6 % 33.9 % Red Cell Distribution Width 17.0 % 17.1 % 16.6 % Platelet Count 141 TH/MM3 100 TH/MM3 94 TH/MM3 Mean Platelet Volume 7.8 FL 7.6 FL 7.8 FL Neutrophils (%) (Auto) 80.6 % 86.4 % 78.0 % Lymphocytes (%) (Auto) 11.4 % 5.2 % 12.7 % Monocytes (%) (Auto) 6.7 % 6.5 % 6.4 % Eosinophils (%) (Auto) 1.0 % 1.5 % 2.6 % Basophils (%) (Auto) 0.3 % 0.4 % 0.3 % Neutrophils # (Auto) 6.5 TH/MM3 5.9 TH/MM3 3.6 TH/MM3 Lymphocytes # (Auto) 0.9 TH/MM3 0.4 TH/MM3 0.6 TH/MM3 Monocytes # (Auto) 0.5 TH/MM3 0.4 TH/MM3 0.3 TH/MM3 Eosinophils # (Auto) 0.1 TH/MM3 0.1 TH/MM3 0.1 TH/MM3 Basophils # (Auto) 0.0 TH/MM3 0.0 TH/MM3 0.0 TH/MM3 CBC Comment DIFF FINAL DIFF FINAL AUTO DIFF Differential Comment AUTO DIFF CONFIRMED Erythrocyte Sedimentation Rate 30 mm/hr Blood Urea Nitrogen 30 MG/DL 28 MG/DL 29 MG/DL Creatinine 1.26 MG/DL 1.18 MG/DL 1.24 MG/DL Random Glucose 146 MG/DL 128 MG/DL 119 MG/DL Calcium Level 7.9 MG/DL 8.6 MG/DL 7.8 MG/DL Sodium Level 144 MEQ/L 144 MEQ/L 145 MEQ/L Potassium Level 4.2 MEQ/L 4.4 MEQ/L 3.8 MEQ/L Chloride Level 113 MEQ/L 113 MEQ/L 113 MEQ/L Carbon Dioxide Level 23.8 MEQ/L 25.2 MEQ/L 22.6 MEQ/L Anion Gap 7 MEQ/L 6 MEQ/L 9 MEQ/L Estimat Glomerular Filtration Rate 43 ML/MIN 46 ML/MIN 44 ML/MIN C-Reactive Protein 0.46 MG/DL Prothrombin Time 16.0 SEC 14.9 SEC Prothromb Time International Ratio 1.6 RATIO 1.5 RATIO Activated Partial Thromboplast Time 39.4 SEC Platelet Estimate LOW Platelet Morphology Comment NORMAL Magnesium Level 2.1 MG/DL Imaging Last Impressions Chest X-Ray 08/27/17 1923 Signed Impressions: Service Date/Time: Sunday, August 27, 2017 19:30 - CONCLUSION: No evidence of acute cardiopulmonary disease. Tulio Saha MD Foot X-Ray 08/27/17 0000 Signed Impressions: Service Date/Time: Sunday, August 27, 2017 15:46 - CONCLUSION: Soft tissue swelling and possible first digit ulceration without definite underlying bone abnormality. Andrew Lang MD Objective Remarks GENERAL: This is a well-nourished, well-developed patient, in no apparent distress. SKIN: dressing right foot dry and intact CARDIOVASCULAR: Regular rate and rhythm RESPIRATORY: Clear to auscultation. Breath sounds equal bilaterally. GASTROINTESTINAL: Abdomen soft, non-tender, nondistended. Normal active bowel sounds MUSCULOSKELETAL: Extremities without clubbing, cyanosis, or edema. NEURO: Alert & Oriented x4 to person, place, time, situation. Moves all ext x4 A/P Problem List: (1) Osteomyelitis ICD Codes: M86.9 - Osteomyelitis, unspecified Status: Chronic Plan: - Pt is a 62 y/o female with antiphospholipid antibody syndrome on chronic immunosuppression, hx of recurrent CVAs and TIAs on life long Lovenox, diabetes mellitus, Parkinson's disease, systemic lupus erythematous, and vasculitis. - She presented to the ED at [facility] [place] on 08/27/17 at the request of her double bass player, Dr. Garcia, for evaluation of a wound to her right great toe. - Pt has had a chronic wound to her right foot since February 2017 and has received 2 previous rounds of antibiotics for this. She also has reportedly been going to wound care approximately once a week for several months. She was referred to Dr. Garcia for further evaluation where she ordered an MRI. - Per the ED documentation the MRI was suggestive of osteomyelitis in the distal tuft of the great toe. - Podiatry consultation is ordered - Outpt US with RUSSELL in 08/2017 noted mildly reduced resting right lower extremity RUSSELL 0.8-0.89. Exercise was note performed due to limited ambulation. - CRP was elevated at 0.46 - Wound culture obtained in the ED, is pending. - IV Vancomycin with pharmacy to dose - continue Zosyn - Podiatry has requested Vascular Surgery evaluation - Supportive care - DVT prophylaxis with SCDs - Pt does not want to continue Lovenox as she had been on Lovenox recently for anticoagulation but developed some skin breakdown in the left lower abdomen and has been following with Wound Care as an outpt for this. We will consult Wound care for re-evaluation - discuss anticoagulation with Podiatry Dr. Brown and vascular surgery both ok with continuing Coumadin - INR at admission was subtherapeutic at 1.6-> 1.5 (08/29) - request certec WBC scan for tomorrow to further evaluate for osteomyelitis (2) DM (diabetes mellitus) ICD Codes: E11.9 - DM (diabetes mellitus) Status: Chronic Plan: - Pt continued on home dose of OHA, Metformin 1000mg BID - Accu checks - If any CT imaging is to be done then hold Metformin and start NovoLog SSI (3) Antiphospholipid antibody syndrome ICD Codes: D68.61 - Antiphospholipid antibody syndrome Status: Chronic Plan: - Pt continued on home dose of Cellcept and Prednisone - Cont. Lovenox 100mg BID (4) Hypothyroid ICD Codes: E03.9 - Hypothyroid Status: Chronic Plan: - Home meds continued (5) SLE (systemic lupus erythematosus) ICD Codes: M32.9 - SLE (systemic lupus erythematosus) Status: Chronic (6) RAMIREZ (obstructive sleep apnea) ICD Codes: G47.33 - RAMIREZ (obstructive sleep apnea) Status: Chronic Plan: - CPAP Assessment and Plan Patient examined. Assessment and plan formulated with Courtney Ivey PA-C. I agree with the above. Problem Qualifiers (1) Osteomyelitis: Qualified Codes: M86.671 - Other chronic osteomyelitis, right ankle and foot (2) DM (diabetes mellitus): Courtney Ivey Aug 29, 2017 18:41 Bravo Guzman DO Aug 30, 2017 15:00
[2017-08-29] MEDS ORDERED: LORazepam 2 MG/ML VIAL IV PUSH ONE (18:45)
[2017-08-29] MEDS ORDERED: LORazepam 2 MG/ML VIAL IV PUSH PRN (19:00)
--- NOTE | 2017-08-29 19:01 | PD.POD ---
Subjective Pain score: 2 Remarks Patient is not having much pain regarding her lower extremities no events overnight Past Med/Surg/Social History Social History Smoking Status: Never Smoker Objective Vital Signs Vital Signs Date Time Temp Pulse Resp B/P (MAP) Pulse Ox O2 Delivery O2 Flow Rate FiO2 08/29/17 12:00 97.8 74 18 125/65 (85) 99 08/29/17 08:00 98.2 93 18 102/56 (71) 98 08/29/17 04:00 98.7 97 18 108/60 (76) 94 08/29/17 00:00 98.8 97 19 124/74 (91) 95 08/28/17 20:07 97.7 89 20 128/71 (90) Coded Allergies: hydralazine (Verified Allergy, Severe, BLOOD NOT CLOTTING, BP UP, MULTIPLE SYMPTOMS, 08/27/17) Medications and IVs Administered Medications Medications (Trade) Dose Ordered Sig/Alicia Route PRN Reason Start Time Stop Time Status Last Admin Dose Admin Sodium Chloride (NS Flush) 2 ml BID IV FLUSH 08/27/17 21:00 08/28/17 21:32 Ondansetron HCl (Zofran Inj) 4 mg Q6H PRN IVP NAUSEA OR VOMITING 08/27/17 19:30 08/28/17 05:03 Insulin Aspart (NovoLOG SUPPLEMENTAL SCALE) 1 ACHS SLIDING SCALE SQ 08/27/17 21:00 08/28/17 08:44 Aspirin (Aspirin Chew) 81 mg DAILY CHEW 08/28/17 09:00 08/29/17 08:36 Atenolol (Tenormin) 100 mg DAILY PO 08/28/17 09:00 08/29/17 08:36 Carbidopa/Levodopa (Sinemet Cr 50-200 Mg) 1 tab TID PO 08/28/17 09:00 08/29/17 18:42 Escitalopram Oxalate (Lexapro) 20 mg DAILY PO 08/28/17 09:00 08/29/17 08:36 Fluticasone Propionate (Flovent Hfa 220 Mcg Inh) 1 puff BID INH 08/27/17 21:00 08/29/17 08:38 Levothyroxine Sodium (Synthroid) 150 mcg Q48H PO 08/29/17 06:00 08/29/17 06:01 Mycophenolate Mofetil (Cellcept) 500 mg BID PO 08/27/17 21:00 08/29/17 08:36 Pantoprazole Sodium (Protonix) 40 mg DAILY PO 08/28/17 09:00 08/29/17 08:36 Prednisone (Deltasone) 5 mg DAILY PO 08/28/17 09:00 08/29/17 08:36 Levothyroxine Sodium (Synthroid) 75 mcg Q48H PO 08/28/17 06:00 08/28/17 06:38 Acetaminophen/ Hydrocodone Bitart (Eola 5-325 Mg) 1 tab Q6H PRN PO pain 1-10 08/27/17 19:45 08/29/17 01:48 Levothyroxine Sodium (Synthroid) 100 mcg Q48H PO 08/28/17 06:00 08/28/17 06:37 Vancomycin HCl 1600 mg/Sodium Chloride 516 ml @ 250 mls/hr Q24H IV 08/27/17 22:00 08/28/17 21:31 Warfarin Sodium (Coumadin) 7.5 mg DAILY@16 PO 08/28/17 16:00 08/29/17 15:48 Piperacillin Sod/ Tazobactam Sod 50 ml @ 100 mls/hr Q6H IV 08/29/17 03:00 08/29/17 15:47 Other Results Laboratory Tests Test 08/28/17 06:25 08/29/17 06:49 White Blood Count 6.8 TH/MM3 4.6 TH/MM3 Red Blood Count 3.33 MIL/MM3 3.10 MIL/MM3 Hemoglobin 10.0 GM/DL 9.5 GM/DL Hematocrit 29.8 % 28.0 % Mean Corpuscular Volume 89.4 FL 90.4 FL Mean Corpuscular Hemoglobin 30.0 PG 30.6 PG Mean Corpuscular Hemoglobin Concent 33.6 % 33.9 % Red Cell Distribution Width 17.1 % 16.6 % Platelet Count 100 TH/MM3 94 TH/MM3 Mean Platelet Volume 7.6 FL 7.8 FL Neutrophils (%) (Auto) 86.4 % 78.0 % Lymphocytes (%) (Auto) 5.2 % 12.7 % Monocytes (%) (Auto) 6.5 % 6.4 % Eosinophils (%) (Auto) 1.5 % 2.6 % Basophils (%) (Auto) 0.4 % 0.3 % Neutrophils # (Auto) 5.9 TH/MM3 3.6 TH/MM3 Lymphocytes # (Auto) 0.4 TH/MM3 0.6 TH/MM3 Monocytes # (Auto) 0.4 TH/MM3 0.3 TH/MM3 Eosinophils # (Auto) 0.1 TH/MM3 0.1 TH/MM3 Basophils # (Auto) 0.0 TH/MM3 0.0 TH/MM3 CBC Comment DIFF FINAL AUTO DIFF Differential Comment AUTO DIFF CONFIRMED Platelet Estimate LOW Platelet Morphology Comment NORMAL Laboratory Tests Test 08/28/17 06:25 08/29/17 06:49 Blood Urea Nitrogen 28 MG/DL 29 MG/DL Creatinine 1.18 MG/DL 1.24 MG/DL Random Glucose 128 MG/DL 119 MG/DL Calcium Level 8.6 MG/DL 7.8 MG/DL Sodium Level 144 MEQ/L 145 MEQ/L Potassium Level 4.4 MEQ/L 3.8 MEQ/L Chloride Level 113 MEQ/L 113 MEQ/L Carbon Dioxide Level 25.2 MEQ/L 22.6 MEQ/L Anion Gap 6 MEQ/L 9 MEQ/L Estimat Glomerular Filtration Rate 46 ML/MIN 44 ML/MIN Magnesium Level 2.1 MG/DL Microbiology Date/Time Source Procedure Growth Status 08/27/17 17:45 Wound Toe Gram Stain - Final Complete 08/27/17 17:45 Wound Culture - Final Pseudomonas Aeruginosa Group B Beta Strep Complete Last 72 hours Impressions Carotid Artery Ultrasound 08/28/17 0000 Signed Impressions: Service Date/Time: Monday, August 28, 2017 22:05 - CONCLUSION: Atherosclerotic plaque of both carotid bifurcations, mild on the right and minimal on the left. No hemodynamically significant narrowing. Tulio Saha MD Aorta w/Runoff CTA 08/28/17 0000 Signed Impressions: Service Date/Time: Tuesday, August 29, 2017 00:53 - CONCLUSION: 1. Patent inflow and outflow bilaterally. 2. Severe trifurcation disease bilaterally without straight line flow to either foot. Details given above. 3. Colonic diverticulosis. 4. Splenomegaly. 5. Cholelithiasis. Adria Mendez Jr., MD Chest X-Ray 08/27/17 192 Signed Impressions: Service Date/Time: Sunday, August 27, 2017 19:30 - CONCLUSION: No evidence of acute cardiopulmonary disease. Tulio Saha MD Foot X-Ray 08/27/17 0000 Signed Impressions: Service Date/Time: Sunday, August 27, 2017 15:46 - CONCLUSION: Soft tissue swelling and possible first digit ulceration without definite underlying bone abnormality. Andrew Lang MD Physical Exam Remarks dry stable gangrenous changes of the distal hallux. There is no active odor, bogginess, tissue. yellow fibrotic partial-thickness eschar ulcer of the dorsal aspect to the fifth metatarsal. no erythema, edema. The foot is nontender. The foot is not cool not able to palpate pulses, dorsalis pedis and posterior tibialis. Left lower extremity is without ulcer or skin problem. Assessment & Plan A/P Left hallux eschar, distal hallux gangrene, OM?, fibrotic ulcer dorsum foot, PVD. I reviewed vascular surgery note no plans for intervention. Reviewed case with medicine we will move forward with bone scan to determine a more specific study for osteomyelitis of the distal phalanx. Outpatient MRI findings were put in chart. Agree with wound care currently. We'll follow-up in 1-2 days pending results. Explained very high risk of hallux amputation and debridement given the poor circulation. I will sign out to Cheikh Santa DPM Aug 29, 2017 19:01
[2017-08-29 20:00] VITALS: BP 142/63; PULSE 73; RESP 18; TEMP 98.3; O2SAT 99
[2017-08-29] MEDS: VANCOMYCIN INJ 1,600 MG in SODIUM CHLORID 0.9% 500 ML INJ 500 ML IV SCH (20:47)
[2017-08-29] MEDS: HYDROXYCHLOROQUINE SULFATE 200 MG TAB PO SCH (20:47)
[2017-08-30] VITALS: BP 145/80; PULSE 114; RESP 16; TEMP 98.3; O2SAT 92
[2017-08-30] MEDS: PIPERACIL-TAZO 3.375 GM PREMIX 50 ML IV SCH ×4 (03:18→21:00)
[2017-08-30 04:00] VITALS: BP 104/59; PULSE 75; RESP 18; TEMP 97.8; O2SAT 96
[2017-08-30 05:04] LABS: INTERNATIONAL NORMALIZED RATIO 1.6 RATIO; PROTHROMBIN TIME - PATIENT 16.5 SEC (9.8-11.6)
[2017-08-30] MEDS: LEVOTHYROXINE SODIUM 75 MCG TAB PO SCH (05:40)
[2017-08-30] MEDS: LEVOTHYROXINE SODIUM 100 MCG TAB PO SCH (05:40)
[2017-08-30 08:00] VITALS: BP 125/66; PULSE 85; RESP 16; TEMP 98.1; O2SAT 96
[2017-08-30] MEDS: INSULIN ASPART SUPPLEMENTAL SCALE SQ SCH ×4 (08:00→21:00)
[2017-08-30] MEDS: ATENOLOL 100 MG TAB PO SCH (09:00)
[2017-08-30] MEDS: SODIUM CHLORIDE 0.9% FLUSH 10 ML FLUSH IV FLUSH SCH ×2 (09:00→21:01)
[2017-08-30] MEDS: LOSARTAN 25 MG TAB PO SCH (09:00)
[2017-08-30] MEDS: FLUTICASONE PROPIONATE 220 MCG/ACT 12 GM INHALER INH SCH ×2 (09:00→21:00)
[2017-08-30] MEDS: PANTOPRAZOLE SOD 40 MG DELAYED RELEASE TAB PO SCH (09:42)
[2017-08-30] MEDS: LEVODOPA/CARBIDOPA 1 TAB TABCR PO SCH ×3 (09:42→17:07)
[2017-08-30] MEDS: ESCITALOPRAM OXALATE 20 MG TAB PO SCH (09:42)
[2017-08-30] MEDS: MYCOPHENOLATE MOFETIL 500 MG TAB PO SCH ×2 (09:42→21:01)
[2017-08-30] MEDS: ASPIRIN 81 MG CHEW TAB CHEW SCH (09:42)
[2017-08-30] MEDS: HYDROXYCHLOROQUINE SULFATE 200 MG TAB PO SCH ×2 (09:42→21:01)
[2017-08-30] MEDS: predniSONE 5 MG TAB PO SCH (09:43)
[2017-08-30 12:30] VITALS: BP 111/62; PULSE 73; RESP 18; TEMP 97.9; O2SAT 100
--- NOTE | 2017-08-30 12:38 | RADRPT ---
EXAM DATE/TIME: 08/30/2017 12:12 [place] COMPARISON: No previous studies available for comparison. INDICATIONS : Fistula,Skin breakdown in the left lower abdomen. ORAL CONTRAST: No oral contrast ingested. RADIATION DOSE: 15.80 CTDIvol (mGy) MEDICAL HISTORY : Cerebrovascular disease. Hypertension. Lupus.Diabetes SURGICAL HISTORY : section. ENCOUNTER: Initial ACUITY: 1 day PAIN SCALE: 3/10 LOCATION: abdomen TECHNIQUE: Volumetric scanning of the abdomen and pelvis was performed. Using automated exposure control and ad justment of the mA and/or kV according to patient size, radiation dose was kept as low as reasonably achievable to obtain optimal diagnostic quality images. DICOM format image data is available electro nically for review and comparison. FINDINGS: LOWER LUNGS: The visualized lower lungs are clear. LIVER: Homogeneous density without lesion. There is no dilation of the biliary tree. Several calcified gall stones. SPLEEN: Enlarged measuring greater than 17 cm. PANCREAS: Within normal limits. KIDNEYS: Normal in size and shape. There is no mass, stone, or hydronephrosis. Left renal cyst. ADRENAL GLANDS: Within normal limits. VASCULAR: There is no aortic aneurysm. BOWEL/MESENTERY: Diverticulosis of the colon without diverticulitis. ABDOMINAL WALL: Within normal limits. RETROPERITONEUM: There is no lymphadenopathy. BLADDER: No wall thickening or mass. REPRODUCTIVE: Within normal limits. INGUINAL: There is no lymphadenopathy or hernia. MUSCULOSKELETAL: There is a defect within the skin of the left lower abdomen with minimal air but no significant fluid collection. No fistula to the abdomen. CONCLUSION: 1. Irregularity of the skin in the left lower quadrant some with some minimal air but no fistulous tr act to the abdominal structures. 2. Diverticulosis of the colon. 3. Splenomegaly. 4. Cholelithiasis. 5. Left renal cyst. Ashkan Peña MD on August 30, 2017 at 12:31 Board Certified Radiologist. This report was verified electronically.
--- NOTE | 2017-08-30 15:12 | HHI.PR ---
Subjective Remarks No new complaints. Objective Vitals Vital Signs Date Time Temp Pulse Resp B/P (MAP) Pulse Ox O2 Delivery O2 Flow Rate FiO2 08/30/17 12:30 97.9 73 18 111/62 (78) 100 08/30/17 08:00 98.1 85 16 125/66 (85) 96 08/30/17 04:00 97.8 75 18 104/59 (74) 96 08/30/17 00:00 98.3 114 16 145/80 (101) 92 08/29/17 20:00 98.3 73 18 142/63 (89) 99 08/29/17 16:00 97.6 72 18 109/53 (71) 100 08/30/17 08/30/17 08/31/17 14:59 22:59 06:59 # Voids 3 Result Diagram: 08/29/17 0649 08/29/17 0649 Imaging Last Impressions Abdomen/Pelvis CT 08/30/17 0000 Signed Impressions: Service Date/Time: August 12:12 - CONCLUSION: 1. Irregularity of the skin in the left lower quadrant some with some minimal air but no fistulous tract to the abdominal structures. 2. Diverticulosis of the colon. 3. Splenomegaly. 4. Cholelithiasis. 5. Left renal cyst. Ashkan Peña MD Carotid Artery Ultrasound 08/28/17 0000 Signed Impressions: Service Date/Time: Monday, August 28, 2017 22:05 - CONCLUSION: Atherosclerotic plaque of both carotid bifurcations, mild on the right and minimal on the left. No hemodynamically significant narrowing. Tulio Saha MD Aorta w/Runoff CTA 08/28/17 0000 Signed Impressions: Service Date/Time: Tuesday, August 29, 2017 00:53 - CONCLUSION: 1. Patent inflow and outflow bilaterally. 2. Severe trifurcation disease bilaterally without straight line flow to either foot. Details given above. 3. Colonic diverticulosis. 4. Splenomegaly. 5. Cholelithiasis. Adria Mendez Jr., MD Chest X-Ray [id number]/[id number] Signed Impressions: Service Date/Time: Sunday, August 27, 2017 19:30 - CONCLUSION: No evidence of acute cardiopulmonary disease. Tulio Saha MD Foot X-Ray 08/27/17 0000 Signed Impressions: Service Date/Time: Sunday, August 27, 2017 15:46 - CONCLUSION: Soft tissue swelling and possible first digit ulceration without definite underlying bone abnormality. Andrew Lang MD Objective Remarks GENERAL: This is a well-nourished, well-developed patient, in no apparent distress. SKIN: dressing right foot dry and intact CARDIOVASCULAR: Regular rate and rhythm RESPIRATORY: Clear to auscultation. Breath sounds equal bilaterally. GASTROINTESTINAL: Abdomen soft, non-tender, nondistended. Normal active bowel sounds MUSCULOSKELETAL: Extremities without clubbing, cyanosis, or edema. NEURO: Alert & Oriented x4 to person, place, time, situation. Moves all ext x4 A/P Problem List: (1) Osteomyelitis ICD Codes: M86.9 - Osteomyelitis, unspecified Status: Chronic Plan: - comgmt with Podiatry & Vascular Surgery - Pt is a 62 y/o female with antiphospholipid antibody syndrome on chronic immunosuppression, hx of recurrent CVAs and TIAs on life long Lovenox, diabetes mellitus, Parkinson's disease, systemic lupus erythematous, and vasculitis. - She presented to the ED at [facility] [place] on 08/27/17 at the request of her recruitment coordinator, Dr. Garcia, for evaluation of a wound to her right great toe. - Pt has had a chronic wound to her right foot since February 2017 and has received 2 previous rounds of antibiotics for this. She also has reportedly been going to wound care approximately once a week for several months. She was referred to Dr. Garcia for further evaluation where she ordered an MRI. - Per the ED documentation the MRI was suggestive of osteomyelitis in the distal tuft of the great toe. - Podiatry consultation is ordered - Outpt US with RUSSELL in 08/2017 noted mildly reduced resting right lower extremity RUSSELL 0.8-0.89. Exercise was note performed due to limited ambulation. - CRP was elevated at 0.46 - Wound culture (08/29) --> pseudomonas, group B strep - IV Vancomycin (08/29 - present) - IV Zosyn (08/29 - present) - anticoagulation with coumadin - Pt does not want to continue Lovenox as she had been on Lovenox recently for anticoagulation but developed some skin breakdown in the left lower abdomen and has been following with Wound Care as an outpt for this. - Greatly appreciate input from Dr. Rios, Vascular Surgery - Pt requests second opinion from Vascular Surgery - Case d/w Jerome. He will consult - await results of Cyrtec WBC scan - supportive care (2) Chronic abdominal wound infection ICD Codes: S31.109A - Unspecified open wound of abdominal wall, unspecified quadrant without penetration into peritoneal cavity, initial encounter; L08.9 - Local infection of the skin and subcutaneous tissue, unspecified Status: Chronic Plan: - Pt does not want to continue Lovenox as she had been on Lovenox recently for anticoagulation but developed some skin breakdown in the left lower abdomen and has been following with Wound Care as an outpt for this. - CT abd/pelvis (08/29) - Irregularity of the skin in the left lower quadrant some with some minimal air but no fistulous tract to the abdominal structures. 2. Diverticulosis of the colon. 3. Splenomegaly. 4. Cholelithiasis. 5. Left renal cyst - appreciate input from Wound Care - Await Surgical evaluation (3) DM (diabetes mellitus) ICD Codes: E11.9 - DM (diabetes mellitus) Status: Chronic Plan: - Pt continued on home dose of OHA, Metformin 1000mg BID - Accu checks - If any CT imaging is to be done then hold Metformin and start NovoLog SSI (4) Antiphospholipid antibody syndrome ICD Codes: D68.61 - Antiphospholipid antibody syndrome Status: Chronic Plan: - Pt continued on home dose of Cellcept and Prednisone - Cont. Lovenox 100mg BID (5) Hypothyroid ICD Codes: E03.9 - Hypothyroid Status: Chronic Plan: - Home meds continued (6) SLE (systemic lupus erythematosus) ICD Codes: M32.9 - SLE (systemic lupus erythematosus) Status: Chronic (7) RAMIREZ (obstructive sleep apnea) ICD Codes: G47.33 - RAMIREZ (obstructive sleep apnea) Status: Chronic Plan: - CPAP Assessment and Plan Patient examined. Assessment and plan formulated with Courtney Ivey PA-C. I agree with the above. Problem Qualifiers (1) Osteomyelitis: Qualified Codes: M86.671 - Other chronic osteomyelitis, right ankle and foot (2) Chronic abdominal wound infection: Qualified Codes: S31.109D - Unspecified open wound of abdominal wall, unspecified quadrant without penetration into peritoneal cavity, subsequent encounter; L08.9 - Local infection of the skin and subcutaneous tissue, unspecified (3) DM (diabetes mellitus): Bravo Guzman DO Aug 30, 2017 15:12
[2017-08-30] MEDS: NYSTATIN 100,000 U/GM PWD 15 GM BTL TOPICAL SCH ×2 (15:45→21:02)
[2017-08-30 16:00] VITALS: BP 132/57; PULSE 80; RESP 18; TEMP 97.8; O2SAT 99
--- NOTE | 2017-08-30 16:49 | PD.VS.CON ---
History of Present Illness Chief Complaint: R LE tissue loss Consult Requested by: Dr. Guzman History of Present Illness 62 yo female with R LE tissue loss since Feb, never healed. Started as cellulitis of the lateral foot but now has progressed to hallux toe tip gangrene. + pain. No hyperglycemia. Ambulates. Past/Family/Social History Past Medical History HTN DM CVA with TIAs and on life-long coumadin SLE on steroids Vasculitis (separate than this issue) asthma RAMIREZ endocarditis Past Surgical History C section ovarian cystectomy skin CA nose Social History nonsmoker Family History NC Home Medications Reported Medications Hydroxychloroquine (Plaquenil) 200 Mg Tab, 200 MG PO BID, #60 TAB 0 Refills Take with food 08/29/17 Warfarin (Warfarin) 5 Mg Tab, 5 MG PO DAILY for Blood Clot Prevention, #30 TAB 0 Refills 08/27/17 Empagliflozin (Jardiance) 10 Mg Tab, 10 MG PO DAILY for Blood Sugar Management, #30 TAB 0 Refills 02/10/17 Pyridoxine (Pyridoxine) 100 Mg Tab, 100 MG PO DAILY for Nutritional Supplement, #30 TAB 0 Refills 02/10/17 Prednisone (Prednisone) 5 Mg Tab, 5 MG PO DAILY, TAB 0 Refills 02/10/17 Pantoprazole (Pantoprazole) 40 Mg Tab, 40 MG PO DAILY for Reflux, #30 TAB 0 Refills 02/10/17 Mycophenolate (Mycophenolate) 500 Mg Tab, 500 MG PO BID for Immunosuppression, # 120 TAB 0 Refills 02/10/17 Metformin (Metformin) 1,000 Mg Tab, 1000 MG PO BIDPC for Blood Sugar Management , #60 TAB 0 Refills With meals 02/10/17 Losartan (Losartan) 25 Mg Tab, 25 MG PO DAILY for Blood Pressure Management, # 30 TAB 0 Refills 02/10/17 Linagliptin (Tradjenta) 5 Mg Tab, 5 MG PO DAILY for Blood Sugar Management, #30 TAB 0 Refills 02/10/17 Levothyroxine (Levothyroxine) 175 Mcg Tab, 175 MCG PO EVERY OTHER DAY for Thyroid, #30 TAB 0 Refills 02/10/17 Levothyroxine (Levothyroxine) 150 Mcg Tab, 150 MCG PO EVERY OTHER DAY for Thyroid, #30 TAB 0 Refills 02/10/17 Gabapentin (Gabapentin) 100 Mg Cap, 200 MG PO BID, #60 CAP 0 Refills 02/10/17 Fluticasone Nasal [place] (Flonase Nasal [place]) 50 Mcg/Act [place], 50 MCG EACH NARE BID for Allergies, #1 BOTTLE 0 Refills 02/10/17 Fluticasone 12 GM Inh (Flovent Hfa 12 GM Inh) 220 Mcg/Act Inh, 1 PUFF INH BID for Asthma Management, #1 INHALER 0 Refills Use daily at the same time. 02/10/17 Escitalopram (Escitalopram) 20 Mg Tab, 20 MG PO DAILY, #30 TAB 0 Refills 02/10/17 Entacapone (Entacapone) 200 Mg Tab, 200 MG PO TID for Parkinson Disease Mgmt, # 90 TAB 0 Refills administered concomitantly with each levodopa/carbidopa dose 02/10/17 Enoxaparin Inj (Enoxaparin Inj) 100 Mg/Ml Syr, 100 MG SQ BID for Blood Clot Prevention, SYRINGE 0 Refills 02/10/17 Cyanocobalamin (Vitamin B-12) 1,000 Mcg Subl, 1000 MCG SL DAILY for Nutritional Supplement, TAB.SL 0 Refills 02/10/17 Cholecalciferol (Vitamin D3) 1,000 Unit Cap, 1000 UNITS PO DAILY for Nutritional Supplement, #1 BOTTLE 0 Refills 02/10/17 Cetirizine (Cetirizine) 10 Mg Tab, 10 MG PO DAILY for Allergies, TAB 0 Refills 02/10/17 Carbidopa-Levodopa ER (Carbidopa-Levodopa ER) 50-200 Mg Tab, 1 TAB PO TID for Parkinson Disease Mgmt, #30 TAB 0 Refills 02/10/17 Calcium Carbonate/Vitamin D3 (Calcium 600 + Vit D Tablet) 1 Each Tablet 02/10/17 Atorvastatin (Atorvastatin) 20 Mg Tab, 20 MG PO HS for Cholesterol Management, # 30 TAB 0 Refills 02/10/17 Atenolol (Atenolol) 100 Mg Tab, 100 MG PO DAILY for Blood Pressure Management, # 30 TAB 0 Refills 02/10/17 Aspirin (Aspirin) 81 Mg Chew, 81 MG CHEW DAILY, TAB 0 Refills 02/10/17 Hydrocodone-Acetaminophen (Hydrocodone-Acetaminophen) 5-325 mg Tab, 1 TAB PO BID Y for PAIN, TAB 0 Refills 02/10/17 [Citracal Petites] No Conflict Check, 0.5 TAB PO DAILY 12/08/15 Coded Allergies: hydralazine (Verified Allergy, Severe, BLOOD NOT CLOTTING, BP UP, MULTIPLE SYMPTOMS, 08/27/17) Review of Systems Constitutional: DENIES: Fatigue, Chills Cardiovascular: DENIES: Chest pain Musculoskeletal: COMPLAINS OF: Joint pain, Stiffness Physical Exam Vitals/I&O Date Time Temp Pulse Resp B/P (MAP) Pulse Ox O2 Delivery O2 Flow Rate FiO2 08/30/17 12:30 97.9 73 18 111/62 (78) 100 08/30/17 08:00 98.1 85 16 125/66 (85) 96 08/30/17 04:00 97.8 75 18 104/59 (74) 96 08/30/17 00:00 98.3 114 16 145/80 (101) 92 08/29/17 20:00 98.3 73 18 142/63 (89) 99 Neuro: alert, oriented, conversant, no deficits HEENT: NC/AT, anicteric sclera Neck: trachea midline Heart: reg rate, no M Lungs: clear B Abdomen: L LQ wound with granulation tissue and mucus drainage, non odorous Vascular: + popliteal pulse on the RIGHT + L DP pulse Extremities: R distal hallux tip gangrene lateral wound but no erythema Laboratory Tests Test 08/30/17 03:40 Prothrombin Time 16.5 Prothromb Time International Ratio 1.6 Date/Time Source Procedure Growth Status 08/27/17 17:45 Wound Toe Gram Stain - Final Complete 08/27/17 17:45 Wound Culture - Final Pseudomonas Aeruginosa Group B Beta Strep Complete Last 48 hours Impressions Abdomen/Pelvis CT 08/30/17 0000 Signed Impressions: Service Date/Time: August 12:12 - CONCLUSION: 1. Irregularity of the skin in the left lower quadrant some with some minimal air but no fistulous tract to the abdominal structures. 2. Diverticulosis of the colon. 3. Splenomegaly. 4. Cholelithiasis. 5. Left renal cyst. Ashkan Peña MD Assessment and Plan Plan PAD and R LE tissue loss CTA reviewed and has infrapopliteal disease on the RIGHT, concordant with physical exam and ABIs. Will plan for R LE angiogram and endovascular intervention on Sunday. Pt agrees with plan. As for LLQ wound, no evidence for ECF. Suggest VAC therapy. Kenji Cano MD FASC RPVI aquatic physiotherapist [facility] - Heart and Vascular Surgery at [facility] [phone] Kenji Cano MD Aug 30, 2017 16:49
[2017-08-30] MEDS: WARFARIN SOD 7.5 MG TAB PO SCH (17:07)
[2017-08-30 20:00] VITALS: BP 123/86; PULSE 86; RESP 18; TEMP 97.7; O2SAT 100
[2017-08-30] MEDS ORDERED: PHARMACY ORDERED LAB ONE (21:45)
[2017-08-30] MEDS: ACETAMINOPHEN/HYDROcodone 325 MG/5 MG TAB PO PRN (23:55)
[2017-08-31] VITALS: BP 126/84; PULSE 82; RESP 18; TEMP 97.4; O2SAT 100
[2017-08-31] MEDS: VANCOMYCIN INJ 1,600 MG in SODIUM CHLORID 0.9% 500 ML INJ 500 ML IV SCH (01:07)
[2017-08-31 04:00] VITALS: BP 138/62; PULSE 79; RESP 18; TEMP 97.7; O2SAT 99
[2017-08-31] MEDS: PIPERACIL-TAZO 3.375 GM PREMIX 50 ML IV SCH ×4 (04:26→21:11)
[2017-08-31] MEDS: LEVOTHYROXINE SODIUM 150 MCG TAB PO SCH (05:08)
[2017-08-31] MEDS: NYSTATIN 100,000 U/GM PWD 15 GM BTL TOPICAL SCH ×2 (05:08→14:00)
[2017-08-31 07:43] LABS: INTERNATIONAL NORMALIZED RATIO 1.9 RATIO; PROTHROMBIN TIME - PATIENT 19.5 SEC (9.8-11.6)
[2017-08-31 07:47] LABS: AUTOMATED NEUTROPHIL # 2.7 TH/MM3 (1.8-7.7); BASOPHIL % 0.4 % (0.0-2.0); EOSINOPHIL # 0.1 TH/MM3 (0-0.4); EOSINOPHIL % 3.9 % (0.0-4.0); HEMOGLOBIN 8.8 GM/DL (11.6-15.3); LYMPH % 15.3 % (9.0-44.0); LYMPHOCYTE # 0.6 TH/MM3 (1.0-4.8); MEAN CELL VOLUME 90.3 FL (80.0-100.0); MEAN CORPUSCULAR HEMOGLOBIN 30.7 PG (27.0-34.0); MEAN PLATELET VOLUME 7.8 FL (7.0-11.0); MONO % 7.4 % (0.0-8.0); MONOCYTE # 0.3 TH/MM3 (0-0.9); PLATELET COUNT 89 TH/MM3 (150-450); RED BLOOD COUNT 2.88 MIL/MM3 (4.00-5.30); RED CELL DISTRIBUTION WIDTH 16.8 % (11.6-17.2); WHITE BLOOD COUNT 3.7 TH/MM3 (4.0-11.0)
[2017-08-31 08:00] VITALS: BP 128/58; PULSE 84; RESP 18; TEMP 97.6; O2SAT 98
[2017-08-31] MEDS: INSULIN ASPART SUPPLEMENTAL SCALE SQ SCH ×4 (08:00→21:00)
[2017-08-31 08:05] LABS: BICARBONATE 21.4 MEQ/L (21.0-32.0); CREATININE 1.01 MG/DL (0.50-1.00)
[2017-08-31] MEDS: LEVODOPA/CARBIDOPA 1 TAB TABCR PO SCH ×3 (08:45→17:44)
[2017-08-31] MEDS: PANTOPRAZOLE SOD 40 MG DELAYED RELEASE TAB PO SCH (08:45)
[2017-08-31] MEDS: predniSONE 5 MG TAB PO SCH (08:45)
[2017-08-31] MEDS: MYCOPHENOLATE MOFETIL 500 MG TAB PO SCH ×2 (08:45→21:12)
[2017-08-31] MEDS: HYDROXYCHLOROQUINE SULFATE 200 MG TAB PO SCH ×2 (08:46→21:12)
[2017-08-31] MEDS: ESCITALOPRAM OXALATE 20 MG TAB PO SCH (08:46)
[2017-08-31] MEDS: ASPIRIN 81 MG CHEW TAB CHEW SCH (08:56)
[2017-08-31] MEDS: ATENOLOL 100 MG TAB PO SCH (09:00)
[2017-08-31] MEDS: SODIUM CHLORIDE 0.9% FLUSH 10 ML FLUSH IV FLUSH SCH ×2 (09:00→21:11)
[2017-08-31] MEDS: LOSARTAN 25 MG TAB PO SCH (09:00)
[2017-08-31] MEDS: FLUTICASONE PROPIONATE 220 MCG/ACT 12 GM INHALER INH SCH ×2 (09:00→21:11)
[2017-08-31 09:31] LABS: TEARDROP RBCS 1+ (NORMAL)
--- NOTE | 2017-08-31 10:16 | RADRPT ---
EXAM DATE/TIME: 08/30/2017 11:35 [place] COMPARISON: No previous studies available for comparison. INDICATIONS : Right great toe wound. DOSE: 22 mCi Tc99m Ceretec labeled white blood cells IV SPECT IMAGIN hrs, 20 hrs IMAGNG: SPECT/CT imaging with fusion was performed. RADIATION DOSE: 3.12 CTDIvol (mGy) MEDICAL HISTORY : Diabetes mellitus type 2. Parkinsons. Stroke. Hypertension. LUPUS. SURGICAL HISTORY : section. ENCOUNTER: Initial ACUITY: 1 week PAIN SCALE: 0/10 LOCATION: Right Great toe. TECHNIQUE: Following the in vitro labeling of autologous white cells and reinjection, whole body scan was perfor med at the specified times. SPECT imaging was performed at the specified time in sagittal, axial and coronal planes. Attenuation correction was performed with the computed tomography and both the atten uation correction and non-attenuation corrected data sets were reviewed. FINDINGS: There is marked focal increased activity in the distal phalanx right great on both the dynamic flow i mages, limited as and delayed images. Findings are most characteristic of osteomyelitis no evidence f or fracture of CT correlation. No other focal increased activity is seen in either foot to suggest other areas of involvement. CONCLUSION: 1. Focal intense three-phase activity distal phalanx right great toe most characteristic of osteomyel itis. Srinath Galvan MD on August 31, 2017 at 10:08 Board Certified Radiologist. This report was verified electronically.
--- NOTE | 2017-08-31 11:38 | PD.CONS ---
[facility] Service General Surgery Consult Requested By Dr. Guzman Reason for Consult LLQ abdominal wound Primary Care Physician Marcelo Welsh M.D. History of Present Illness This is a very complex 62 yo F here for tissue loss right toe secondary to PVD. She has a chronic LLQ abdominal wound which began in December 2016 after lovenox injection and treated at [facility] wound care since February. I discussed with our wound care nurses and the wound has been complex, often healing in the main portion and lateral sprouting new areas of fluctuance and new wounds in tracts circumferentially around it. Dr. Cabrales had considered surgical debridement but due to her comorbid conditions and chronic anticoagulation continued local wound care was opted for. She will be undergoing RLE angiogram with possible stent placement during this hospitalization. 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 Pt followed with Dr. Hallman Thrombocytopenia Diabetes mellitus, type 2 Parkinson like symptoms, follows with Dr. White Systemic lupus erythematous, follows with Dr. Amaro Vasculitis Asthma Anxiety/Depression GERD HTN Hyperlipidemia Hypothyroidism Hx of malignant melanoma RAMIREZ Raynaud phenomenon RLS Reported Medications Reported Meds & Active Scripts Active Reported Plaquenil (Hydroxychloroquine Sulfate) 200 Mg Tab 200 Mg PO BID Take with food Warfarin 5 Mg Tab 5 Mg PO DAILY Jardiance (Empagliflozin) 10 Mg Tab 10 Mg PO DAILY Pyridoxine (Pyridoxine HCl) 100 Mg Tab 100 Mg PO DAILY Prednisone 5 Mg Tab 5 Mg PO DAILY Pantoprazole (Pantoprazole Sodium) 40 Mg Tab 40 Mg PO DAILY Mycophenolate (Mycophenolate Mofetil) 500 Mg Tab 500 Mg PO BID Metformin (Metformin HCl) 1,000 Mg Tab 1,000 Mg PO BIDPC With meals Losartan (Losartan Potassium) 25 Mg Tab 25 Mg PO DAILY Tradjenta (Linagliptin) 5 Mg Tab 5 Mg PO DAILY Levothyroxine (Levothyroxine Sodium) 175 Mcg Tab 175 Mcg PO EVERY OTHER DAY Levothyroxine (Levothyroxine Sodium) 150 Mcg Tab 150 Mcg PO EVERY OTHER DAY Gabapentin 100 Mg Cap 200 Mg PO BID Flonase Nasal [place] (Fluticasone Nasal [place]) 50 Mcg/Act [place] 50 Mcg EACH NARE BID Flovent Hfa 12 GM Inh (Fluticasone Propionate) 220 Mcg/Act Inh 1 Puff INH BID Use daily at the same time. Escitalopram (Escitalopram Oxalate) 20 Mg Tab 20 Mg PO DAILY Entacapone 200 Mg Tab 200 Mg PO TID administered concomitantly with each levodopa/carbidopa dose Enoxaparin Inj (Enoxaparin Sodium) 100 Mg/Ml Syr 100 Mg SQ BID Vitamin B-12 (Cyanocobalamin) 1,000 Mcg Subl 1,000 Mcg SL DAILY Vitamin D3 (Cholecalciferol) 1,000 Unit Cap 1,000 Units PO DAILY Cetirizine (Cetirizine HCl) 10 Mg Tab 10 Mg PO DAILY Carbidopa-Levodopa ER 50-200 Mg Tab 1 Tab PO TID Calcium 600 + Vit D Tablet (Calcium Carbonate/Vitamin D3) 1 Each Tablet Atorvastatin (Atorvastatin Calcium) 20 Mg Tab 20 Mg PO HS Atenolol 100 Mg Tab 100 Mg PO DAILY Aspirin 81 Mg Chew 81 Mg CHEW DAILY Hydrocodone-Acetaminophen 5-325 mg Tab 1 Tab PO BID PRN [Citracal Petites] 0.5 Tab PO DAILY Allergies: Coded Allergies: hydralazine (Verified Allergy, Severe, BLOOD NOT CLOTTING, BP UP, MULTIPLE SYMPTOMS, 08/27/17) Active Ordered Medications Current Medications Medications (Trade) Dose Ordered Sig/Alicia Route Start Time Stop Time Status Last Admin (NS Flush) 2 ml UNSCH PRN IV FLUSH 08/27/17 19:30 (NS Flush) 2 ml BID IV FLUSH 08/27/17 21:00 08/31/17 09:00 (Tylenol) 650 mg Q4H PRN PO 08/27/17 19:30 (Zofran Inj) 4 mg Q6H PRN IVP 08/27/17 19:30 08/28/17 05:03 (Narcan Inj) 0.4 mg UNSCH PRN IV PUSH 08/27/17 19:30 (Milk Of Magnesia Liq) 30 ml Q12H PRN PO 08/27/17 19:30 (NovoLOG SUPPLEMENTAL SCALE) 1 ACHS SLIDING SCALE SQ 08/27/17 21:00 08/30/17 18:07 (D50w (Vial) Inj) 50 ml UNSCH PRN IV PUSH 08/27/17 19:45 (Glucagon Inj) 1 mg UNSCH PRN OTHER 08/27/17 19:45 (Aspirin Chew) 81 mg DAILY CHEW 08/28/17 09:00 08/31/17 08:56 (Tenormin) 100 mg DAILY PO 08/28/17 09:00 08/29/17 08:36 (Sinemet Cr 50-200 Mg) 1 tab TID PO 08/28/17 09:00 08/31/17 08:45 (Lexapro) 20 mg DAILY PO 08/28/17 09:00 08/31/17 08:46 (Flovent Hfa 220 Mcg Inh) 1 puff BID INH 08/27/17 21:00 08/31/17 09:00 (Synthroid) 150 mcg Q48H PO 08/29/17 06:00 08/31/17 05:08 (Cozaar) 25 mg DAILY PO 08/28/17 09:00 (Cellcept) 500 mg BID PO 08/27/17 21:00 08/31/17 08:45 (Protonix) 40 mg DAILY PO 08/28/17 09:00 08/31/17 08:45 (Deltasone) 5 mg DAILY PO 08/28/17 09:00 08/31/17 08:45 (Synthroid) 75 mcg Q48H PO 08/28/17 06:00 08/30/17 05:40 ([place] 5-325 Mg) 1 tab Q6H PRN PO 08/27/17 19:45 08/30/17 23:55 (Synthroid) 100 mcg Q48H PO 08/28/17 06:00 08/30/17 05:40 Patient Own Medication PT OWN MED: COMTAN ... TID PO 08/28/17 09:00 Future Hold Patient Own Medication PT OWN MED: TRADJE... DAILY PO 08/28/17 09:00 Future Hold Pharmacy Profile Note 250 ml @ 0 mls/hr UNSCH OTHER 08/27/17 20:45 Vancomycin HCl 1600 mg/Sodium Chloride 516 ml @ 250 mls/hr Q24H IV 08/27/17 22:00 08/31/17 01:07 (Coumadin) 7.5 mg DAILY@16 PO 08/28/17 16:00 08/30/17 17:07 Piperacillin Sod/ Tazobactam Sod 50 ml @ 100 mls/hr Q6H IV 08/29/17 03:00 08/31/17 04:26 (Plaquenil) 200 mg BID PO 08/29/17 21:00 08/31/17 08:46 (Mycostatin Powder) 1 applic Q8HR TOPICAL 08/30/17 15:45 08/31/17 05:08 Physical Exam Vital Signs Vital Signs Date Time Temp Pulse Resp B/P (MAP) Pulse Ox O2 Delivery O2 Flow Rate FiO2 08/31/17 08:00 97.6 84 18 128/58 (81) 98 08/31/17 04:00 97.7 79 18 138/62 (87) 99 08/31/17 00:00 97.4 82 18 126/84 (98) 100 08/30/17 20:00 97.7 86 18 123/86 (98) 100 08/30/17 16:00 97.8 80 18 132/57 (82) 99 08/30/17 12:30 97.9 73 18 111/62 (78) 100 Physical Exam Obese female in no distress Large pannus- in LLQ an approx 7 cm wound present about 1 cm deep but deeper medially, wound edges are granulating. No erythema or purulent drainage. Some surrounding induration. Separate likely connected small wound superiorly. Laboratory Laboratory Tests Test 08/31/17 00:00 08/31/17 04:30 08/31/17 06:30 Vancomycin Level Trough 12.2 White Blood Count 3.7 Red Blood Count 2.88 Hemoglobin 8.8 Hematocrit 26.0 Mean Corpuscular Volume 90.3 Mean Corpuscular Hemoglobin 30.7 Mean Corpuscular Hemoglobin Concent 34.0 Red Cell Distribution Width 16.8 Platelet Count 89 Mean Platelet Volume 7.8 Neutrophils (%) (Auto) 73.0 Lymphocytes (%) (Auto) 15.3 Monocytes (%) (Auto) 7.4 Eosinophils (%) (Auto) 3.9 Basophils (%) (Auto) 0.4 Neutrophils # (Auto) 2.7 Lymphocytes # (Auto) 0.6 Monocytes # (Auto) 0.3 Eosinophils # (Auto) 0.1 Basophils # (Auto) 0.0 CBC Comment AUTO DIFF Differential Comment AUTO DIFF CONFIRMED Platelet Estimate LOW Platelet Morphology Comment NORMAL Tear Drop Cells 1+ Blood Urea Nitrogen 21 Creatinine 1.01 Random Glucose 84 Calcium Level 8.0 Sodium Level 148 Potassium Level 3.8 Chloride Level 117 Carbon Dioxide Level 21.4 Anion Gap 10 Estimat Glomerular Filtration Rate 55 Prothrombin Time 19.5 Prothromb Time International Ratio 1.9 Date/Time Source Procedure Growth Status 08/27/17 17:45 Wound Toe Gram Stain - Final Complete 08/27/17 17:45 Wound Culture - Final Pseudomonas Aeruginosa Group B Beta Strep Complete Result Diagram: 08/31/17 0430 08/31/17 0430 Imaging Last Impressions Tumor Localization 08/30/17 0000 Signed Impressions: Service Date/Time: August 11:35 - CONCLUSION: 1. Focal intense three-phase activity distal phalanx right great toe most characteristic of osteomyelitis. Srinath Galvan MD Abdomen/Pelvis CT 08/30/17 0000 Signed Impressions: Service Date/Time: August 12:12 - CONCLUSION: 1. Irregularity of the skin in the left lower quadrant some with some minimal air but no fistulous tract to the abdominal structures. 2. Diverticulosis of the colon. 3. Splenomegaly. 4. Cholelithiasis. 5. Left renal cyst. Ashkan Peña MD Carotid Artery Ultrasound 08/28/17 0000 Signed Impressions: Service Date/Time: Monday, August 28, 2017 22:05 - CONCLUSION: Atherosclerotic plaque of both carotid bifurcations, mild on the right and minimal on the left. No hemodynamically significant narrowing. Tulio Saha MD Aorta w/Runoff CTA 08/28/17 0000 Signed Impressions: Service Date/Time: Tuesday, August 29, 2017 00:53 - CONCLUSION: 1. Patent inflow and outflow bilaterally. 2. Severe trifurcation disease bilaterally without straight line flow to either foot. Details given above. 3. Colonic diverticulosis. 4. Splenomegaly. 5. Cholelithiasis. Adria Mendez Jr., MD Chest X-Ray [id number] Signed Impressions: Service Date/Time: Sunday, August 27, 2017 19:30 - CONCLUSION: No evidence of acute cardiopulmonary disease. Tulio Saha MD Foot X-Ray 08/27/17 0000 Signed Impressions: Service Date/Time: Sunday, August 27, 2017 15:46 - CONCLUSION: Soft tissue swelling and possible first digit ulceration without definite underlying bone abnormality. Andrew Lang MD Assessment and Plan Assessment and Plan 62 yo F with complex medical history and chronic anticoagulation with chronic LLQ abdominal wall wound. I discussed her care with our wound care nurses. This has been a complex and difficult wound to heal. However, due to all of her medical problems and anticoagulation I would not recommend surgical debridement. I recommend continue local wound care as recommended by inpatient wound care team and continue to f/u as outpatient at [facility] wound care. GavinMynor MD Aug 31, 2017 11:38
[2017-08-31 12:00] VITALS: BP 104/57; PULSE 91; RESP 16; TEMP 97.9; O2SAT 96
[2017-08-31 16:00] VITALS: BP 96/63; PULSE 83; RESP 18; TEMP 97.7; O2SAT 98
--- NOTE | 2017-08-31 16:54 | HHI.PR ---
Subjective Remarks Patient offers no new complaints Objective Vitals Vital Signs Date Time Temp Pulse Resp B/P (MAP) Pulse Ox O2 Delivery O2 Flow Rate FiO2 08/31/17 12:00 97.9 91 16 104/57 (73) 96 08/31/17 08:00 97.6 84 18 128/58 (81) 98 08/31/17 04:00 97.7 79 18 138/62 (87) 99 08/31/17 00:00 97.4 82 18 126/84 (98) 100 08/30/17 20:00 97.7 86 18 123/86 (98) 100 Result Diagram: 08/31/17 0430 08/31/17 0430 Other Results Laboratory Tests Test 08/29/17 06:49 08/30/17 03:40 08/31/17 00:00 08/31/17 04:30 White Blood Count 4.6 TH/MM3 3.7 TH/MM3 Red Blood Count 3.10 MIL/MM3 2.88 MIL/MM3 Hemoglobin 9.5 GM/DL 8.8 GM/DL Hematocrit 28.0 % 26.0 % Mean Corpuscular Volume 90.4 FL 90.3 FL Mean Corpuscular Hemoglobin 30.6 PG 30.7 PG Mean Corpuscular Hemoglobin Concent 33.9 % 34.0 % Red Cell Distribution Width 16.6 % 16.8 % Platelet Count 94 TH/MM3 89 TH/MM3 Mean Platelet Volume 7.8 FL 7.8 FL Neutrophils (%) (Auto) 78.0 % 73.0 % Lymphocytes (%) (Auto) 12.7 % 15.3 % Monocytes (%) (Auto) 6.4 % 7.4 % Eosinophils (%) (Auto) 2.6 % 3.9 % Basophils (%) (Auto) 0.3 % 0.4 % Neutrophils # (Auto) 3.6 TH/MM3 2.7 TH/MM3 Lymphocytes # (Auto) 0.6 TH/MM3 0.6 TH/MM3 Monocytes # (Auto) 0.3 TH/MM3 0.3 TH/MM3 Eosinophils # (Auto) 0.1 TH/MM3 0.1 TH/MM3 Basophils # (Auto) 0.0 TH/MM3 0.0 TH/MM3 CBC Comment AUTO DIFF AUTO DIFF Differential Comment AUTO DIFF CONFIRMED AUTO DIFF CONFIRMED Platelet Estimate LOW LOW Platelet Morphology Comment NORMAL NORMAL Prothrombin Time 14.9 SEC 16.5 SEC Prothromb Time International Ratio 1.5 RATIO 1.6 RATIO Blood Urea Nitrogen 29 MG/DL 21 MG/DL Creatinine 1.24 MG/DL 1.01 MG/DL Random Glucose 119 MG/DL 84 MG/DL Calcium Level 7.8 MG/DL 8.0 MG/DL Magnesium Level 2.1 MG/DL Sodium Level 145 MEQ/L 148 MEQ/L Potassium Level 3.8 MEQ/L 3.8 MEQ/L Chloride Level 113 MEQ/L 117 MEQ/L Carbon Dioxide Level 22.6 MEQ/L 21.4 MEQ/L Anion Gap 9 MEQ/L 10 MEQ/L Estimat Glomerular Filtration Rate 44 ML/MIN 55 ML/MIN Vancomycin Level Trough 12.2 MCG/ML Tear Drop Cells 1+ Test 08/31/17 06:30 Prothrombin Time 19.5 SEC Prothromb Time International Ratio 1.9 RATIO Imaging Last Impressions Abdomen/Pelvis CT 08/30/17 0000 Signed Impressions: Service Date/Time: August 12:12 - CONCLUSION: 1. Irregularity of the skin in the left lower quadrant some with some minimal air but no fistulous tract to the abdominal structures. 2. Diverticulosis of the colon. 3. Splenomegaly. 4. Cholelithiasis. 5. Left renal cyst. Ashkan Peña MD Carotid Artery Ultrasound 08/28/17 0000 Signed Impressions: Service Date/Time: Monday, August 28, 2017 22:05 - CONCLUSION: Atherosclerotic plaque of both carotid bifurcations, mild on the right and minimal on the left. No hemodynamically significant narrowing. Tulio Saha MD Aorta w/Runoff CTA 08/28/17 0000 Signed Impressions: Service Date/Time: Tuesday, August 29, 2017 00:53 - CONCLUSION: 1. Patent inflow and outflow bilaterally. 2. Severe trifurcation disease bilaterally without straight line flow to either foot. Details given above. 3. Colonic diverticulosis. 4. Splenomegaly. 5. Cholelithiasis. Adria Mendez Jr., MD Chest X-Ray [id number]/27/[id number] Signed Impressions: Service Date/Time: Sunday, August 27, 2017 19:30 - CONCLUSION: No evidence of acute cardiopulmonary disease. Tulio Saha MD Foot X-Ray 08/27/17 0000 Signed Impressions: Service Date/Time: Sunday, August 27, 2017 15:46 - CONCLUSION: Soft tissue swelling and possible first digit ulceration without definite underlying bone abnormality. Andrew Lang MD Objective Remarks GENERAL: This is a well-nourished, well-developed patient, in no apparent distress. SKIN: dressing right foot dry and intact CARDIOVASCULAR: Regular rate and rhythm RESPIRATORY: Clear to auscultation. Breath sounds equal bilaterally. GASTROINTESTINAL: Abdomen soft, non-tender, nondistended. Normal active bowel sounds MUSCULOSKELETAL: Extremities without clubbing, cyanosis, or edema. NEURO: Alert & Oriented x4 to person, place, time, situation. Moves all ext x4 A/P Problem List: (1) Osteomyelitis ICD Codes: M86.9 - Osteomyelitis, unspecified Status: Chronic Plan: - comgmt with Podiatry & Vascular Surgery - Pt is a 62 y/o female with antiphospholipid antibody syndrome on chronic immunosuppression, hx of recurrent CVAs and TIAs on life long Lovenox, diabetes mellitus, Parkinson's disease, systemic lupus erythematous, and vasculitis. - She presented to the ED at [facility] on 08/27/17 at the request of her oracle apex developer, Dr. Garcia, for evaluation of a wound to her right great toe. - Pt has had a chronic wound to her right foot since February 2017 and has received 2 previous rounds of antibiotics for this. She also has reportedly been going to wound care approximately once a week for several months. She was referred to Dr. Garcia for further evaluation where she ordered an MRI. - Per the ED documentation the MRI was suggestive of osteomyelitis in the distal tuft of the great toe. - Podiatry consultation is ordered - Outpt US with RUSSELL in 08/2017 noted mildly reduced resting right lower extremity RUSSELL 0.8-0.89. Exercise was note performed due to limited ambulation. - CRP was elevated at 0.46 - Wound culture (08/29) --> pseudomonas, group B strep - IV Vancomycin (08/29 - present) - IV Zosyn (08/29 - present) - anticoagulation with coumadin - Pt does not want to continue Lovenox as she had been on Lovenox recently for anticoagulation but developed some skin breakdown in the left lower abdomen and has been following with Wound Care as an outpt for this. - Greatly appreciate input from Dr. Rios, Vascular Surgery - Pt requests second opinion from Vascular Surgery - Case d/w Jerome who plans for R LE angiogram and endovascular intervention on Sunday. - Ceretec WBC scan consistent with osteomyelitis - supportive care (2) Chronic abdominal wound infection ICD Codes: S31.109A - Unspecified open wound of abdominal wall, unspecified quadrant without penetration into peritoneal cavity, initial encounter; L08.9 - Local infection of the skin and subcutaneous tissue, unspecified Status: Chronic Plan: - Pt does not want to continue Lovenox as she had been on Lovenox recently for anticoagulation but developed some skin breakdown in the left lower abdomen and has been following with Wound Care as an outpt for this. - CT abd/pelvis (08/29) - Irregularity of the skin in the left lower quadrant some with some minimal air but no fistulous tract to the abdominal structures. 2. Diverticulosis of the colon. 3. Splenomegaly. 4. Cholelithiasis. 5. Left renal cyst - appreciate input from Wound Care - General surgery consulted, recommend continued localized wound care do not feel that patient is a surgical candidate at this time (3) DM (diabetes mellitus) ICD Codes: E11.9 - DM (diabetes mellitus) Status: Chronic Plan: - Pt continued on home dose of OHA, Metformin 1000mg BID - Accu checks - If any CT imaging is to be done then hold Metformin and start NovoLog SSI (4) Antiphospholipid antibody syndrome ICD Codes: D68.61 - Antiphospholipid antibody syndrome Status: Chronic Plan: - Pt continued on home dose of Cellcept and Prednisone - continue coumadin, INR was suptheraputic on admission - counadin 7.5 mg daily with daily INR - INR (08/31) 1.9 anemia and thrombocytopenia - hgb 8.8 and Plt 89 - stop aspirin - recheck CBC in AM - consult to hematology (5) Hypothyroid ICD Codes: E03.9 - Hypothyroid Status: Chronic Plan: - Home meds continued (6) SLE (systemic lupus erythematosus) ICD Codes: M32.9 - SLE (systemic lupus erythematosus) Status: Chronic (7) RAMIREZ (obstructive sleep apnea) ICD Codes: G47.33 - RAMIREZ (obstructive sleep apnea) Status: Chronic Plan: - CPAP Assessment and Plan Patient examined. Assessment and plan formulated with Courtney Ivey PA-C. I agree with the above. Problem Qualifiers (1) Osteomyelitis: Qualified Codes: M86.671 - Other chronic osteomyelitis, right ankle and foot (2) Chronic abdominal wound infection: Qualified Codes: S31.109D - Unspecified open wound of abdominal wall, unspecified quadrant without penetration into peritoneal cavity, subsequent encounter; L08.9 - Local infection of the skin and subcutaneous tissue, unspecified (3) DM (diabetes mellitus): Courtney Ivey Aug 31, 2017 16:54 Bravo Guzman DO Sep 01, 2017 23:24
[2017-08-31] MEDS: WARFARIN SOD 7.5 MG TAB PO SCH (17:45)
--- NOTE | 2017-08-31 19:43 | PD.POD ---
Subjective Podiatric Problems 1. Gangrene right distal hallux 2. Ulcer right dorsolateral foot Pain score: 2 Past Med/Surg/Social History Social History Smoking Status: Never Smoker Objective Vital Signs Vital Signs Date Time Temp Pulse Resp B/P (MAP) Pulse Ox O2 Delivery O2 Flow Rate FiO2 08/31/17 16:00 97.7 83 18 96/63 (74) 98 08/31/17 12:00 97.9 91 16 104/57 (73) 96 08/31/17 08:00 97.6 84 18 128/58 (81) 98 08/31/17 04:00 97.7 79 18 138/62 (87) 99 08/31/17 00:00 97.4 82 18 126/84 (98) 100 08/30/17 20:00 97.7 86 18 123/86 (98) 100 Coded Allergies: hydralazine (Verified Allergy, Severe, BLOOD NOT CLOTTING, BP UP, MULTIPLE SYMPTOMS, 08/27/17) Other Results Last 72 hours Impressions Tumor Localization 08/30/17 0000 Signed Impressions: Service Date/Time: August 11:35 - CONCLUSION: 1. Focal intense three-phase activity distal phalanx right great toe most characteristic of osteomyelitis. Srinath Galvan MD Abdomen/Pelvis CT 08/30/17 0000 Signed Impressions: Service Date/Time: August 12:12 - CONCLUSION: 1. Irregularity of the skin in the left lower quadrant some with some minimal air but no fistulous tract to the abdominal structures. 2. Diverticulosis of the colon. 3. Splenomegaly. 4. Cholelithiasis. 5. Left renal cyst. Ashkan Peña MD Assessment & Plan A/P 1. Gangrene right distal hallux, dry and stable 2. Ulcer right dorsolateral foot, stable Discussed with Dr Cano and plan is to angio Sunday and he prefers amputation after revascularization attempt is made. Possible to OR Sunday for amputation distal right hallux and ulcer debridement right dorsal foot Shandra Elkins Hector Aug 31, 2017 19:43
[2017-08-31 20:00] VITALS: BP 144/67; PULSE 84; RESP 18; TEMP 97.4; O2SAT 97
--- NOTE | 2017-08-31 20:37 | MB ---
cc: Edward Rodriguez MD DATE OF CONSULT: 08/31/2017 REASON FOR CONSULTATION: Anticardiolipin antiphospholipid syndrome with thrombocytopenia and anemia. PATIENT PROFILE: The patient is a 62-year-old white female. She is . She has 3 adopted children. She has lived in [place], [place] for the past 10 years. She is on disability. 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 She does not smoke and she does not drink. HISTORY OF PRESENT ILLNESS: The patient is a 62-year-old female who has had a diagnosis of lupus since 1981. She has had vasculitis, joint pain, fibromyalgia. She is currently under the care of Dr. Amaro and receives Plaquenil and CellCept for her lupus. She has a history of an antiphospholipid antibody syndrome and has had a number of small strokes. She takes Coumadin and aspirin and when she takes both medications, she has had no problems. She has had progressive ischemia to the right foot, which has resulted in osteomyelitis of the right great toe. She is hospitalized and has been placed on antibiotics with multiple consults. She has been noted to have a falling hemoglobin and platelet count and for this reason, I am asked to see her. The patient was admitted to the hospital on 08/27/2017. At that time, she had a hemoglobin of 11.6; white count of 8000 and platelet count of 141,000. The differential was normal with 80% neutrophils. On 08/31/2017, which was 4 days later, hemoglobin is 8.8, white count 3700, and platelets are 89,000 with a normal differential. There has been no GI bleeding. She does have a history of chronic thrombocytopenia. When one looks at the imaging studies, which include a CT of the abdomen and pelvis from 08/30/2017, she has significant splenomegaly. She is aware of this and it has resulted in long-term thrombocytopenia. She indicates that she was once told that she had a fatty liver, which I suspect has caused the splenomegaly. She has not had any bleeding. No melena, hematochezia, hematemesis or epistaxis. Since her admission to the hospital, she has been treated with antibiotics and is currently receiving vancomycin and piperacillin. PAST SURGICAL HISTORY: 1. . 2. Removal of ovarian cyst. 3. Skin cancers. PAST MEDICAL HISTORY: 1. Systemic lupus treated with CellCept and Plaquenil. 2. Antiphospholipid antibody syndrome resulting in strokes and requiring Coumadin and aspirin. 3. An episode of endocarditis in 2017. 4. Osteomyelitis of the right toe with cellulitis. 5. Peripheral vascular disease. 6. Mild asthma. 7. Diabetes. 8. Hypertension. 9. Splenomegaly, possibly due to portal hypertension and fatty liver. CURRENT MEDICATIONS: 1. Vancomycin. 2. Nystatin. 3. Plaquenil. 4. Synthroid. 5. Piperacillin. 6. Coumadin. 7. Atenolol. 8. Sinemet. 9. Lexapro. 10. Cozaar. 11. Protonix. 12. Prednisone. 13. Insulin. ALLERGIES: HYDRALAZINE AND HYDROCHLOROTHIAZIDE. FAMILY HISTORY: Noncontributory. REVIEW OF SYSTEMS: VISION: She has glasses. HEARING: Fine. CHEST: No chest pain, palpitations. No shortness of breath. She has occasional cough. GASTROINTESTINAL: No melena, hematochezia, hematemesis. GENITOURINARY: No dysuria, frequency, hematuria. MUSCULOSKELETAL: Notable for pain in knees, elbows, ankles. NEUROLOGIC: States she has slight right-sided weakness. SKIN: She has osteomyelitis of the toe, right foot and also has an opening in the left abdominal wall where at one time she had received Lovenox and developed a wound, which has never healed. LABORATORY DATA: Presently, hemoglobin 8.8, white count 3700 and platelets 89,000 with a normal differential. BUN 20, creatinine 1.0. PHYSICAL EXAMINATION: GENERAL: Reveals a pleasant woman. She is not in any distress. She is overweight. VITAL SIGNS: Blood pressure 100/60, respiratory rate 18, pulse 80, afebrile, O2 saturation is 98%. HEENT: Head is normocephalic. Sclerae and conjunctivae normal. Oropharynx unremarkable. LYMPHATICS: There is no cervical, supraclavicular, axillary or inguinal adenopathy. BREASTS: Without masses. HEART: Regular rhythm, II/ systolic murmur. CHEST: Lungs are clear. BREASTS: Without masses. ABDOMEN: Soft. No hepatosplenomegaly or masses. EXTREMITIES: Trace edema. MUSCULOSKELETAL: No bone pain. NEUROLOGIC: No obvious weakness. SKIN: The first toe on the right foot is black. The patient has an open wound about an inch in the left lower abdominal wall. She has several ecchymoses. ASSESSMENT AND PLAN: 1. The patient has acquired the thrombocytopenia, anemia and low white count since her hospitalization. When she arrived on 08/27/2017, she had a hemoglobin of 11.6, white count 8000 and platelets of 141,000. The initial thrombocytopenia is due to splenomegaly and I suspect the splenomegaly is due to portal hypertension from steatohepatitis. Her platelet count, hemoglobin and white count have fallen and I believe it is due to the acute infection, blood drawing and antibiotics. At the present time, I would simply follow the CBC and platelet count. Will check stools for blood. 2. The patient has an antiphospholipid antibody syndrome with a history of multiple strokes. Coumadin and aspirin have been successful in preventing this. Recommendation is to continue Coumadin maintaining an INR of 2-3 and to resume the aspirin 81 mg a day. I have written an order to resume aspirin. The patient will have a CBC and platelet count tomorrow. Will also add a CMP looking at liver function tests. Her stool will be heme tested. MD VINI Snow/BARRON , 07:57 PM , 08:35 PM CORRIE
[2017-08-31] MEDS: VANCOMYCIN INJ 2,000 MG in SODIUM CHLORID 0.9% 500 ML INJ 500 ML IV SCH (22:00)
[2017-09-01] VITALS: BP 131/82; PULSE 72; RESP 18; TEMP 98.6; O2SAT 97
[2017-09-01] MEDS: VANCOMYCIN INJ 1,600 MG in SODIUM CHLORID 0.9% 500 ML INJ 500 ML IV SCH (00:33)
[2017-09-01] MEDS: NYSTATIN 100,000 U/GM PWD 15 GM BTL TOPICAL SCH ×4 (00:37→20:50)
[2017-09-01] MEDS: ACETAMINOPHEN/HYDROcodone 325 MG/5 MG TAB PO PRN ×2 (00:43→22:59)
[2017-09-01] MEDS: PIPERACIL-TAZO 3.375 GM PREMIX 50 ML IV SCH ×4 (03:26→20:02)
[2017-09-01 04:00] VITALS: BP 119/56; PULSE 94; RESP 18; TEMP 97.5; O2SAT 99
[2017-09-01] MEDS: LEVOTHYROXINE SODIUM 75 MCG TAB PO SCH (06:35)
[2017-09-01] MEDS: LEVOTHYROXINE SODIUM 100 MCG TAB PO SCH (06:35)
[2017-09-01 08:00] VITALS: BP 125/56; PULSE 82; RESP 19; TEMP 98.1; O2SAT 100
[2017-09-01] MEDS: INSULIN ASPART SUPPLEMENTAL SCALE SQ SCH ×4 (08:00→20:55)
[2017-09-01] MEDS: FLUTICASONE PROPIONATE 220 MCG/ACT 12 GM INHALER INH SCH ×2 (08:42→20:02)
[2017-09-01] MEDS: predniSONE 5 MG TAB PO SCH (08:44)
[2017-09-01] MEDS: LEVODOPA/CARBIDOPA 1 TAB TABCR PO SCH ×3 (08:44→17:36)
[2017-09-01] MEDS: ESCITALOPRAM OXALATE 20 MG TAB PO SCH (08:44)
[2017-09-01] MEDS: HYDROXYCHLOROQUINE SULFATE 200 MG TAB PO SCH ×2 (08:44→20:02)
[2017-09-01] MEDS: PANTOPRAZOLE SOD 40 MG DELAYED RELEASE TAB PO SCH (08:45)
[2017-09-01] MEDS: ASPIRIN 81 MG CHEW TAB PO SCH (08:46)
[2017-09-01] MEDS: LOSARTAN 25 MG TAB PO SCH (08:47)
[2017-09-01] MEDS: MYCOPHENOLATE MOFETIL 500 MG TAB PO SCH ×2 (08:48→20:02)
[2017-09-01] MEDS: SODIUM CHLORIDE 0.9% FLUSH 10 ML FLUSH IV FLUSH SCH ×2 (08:50→20:02)
[2017-09-01] MEDS: ATENOLOL 100 MG TAB PO SCH (09:00)
[2017-09-01 10:19] LABS: AUTOMATED NEUTROPHIL # 2.5 TH/MM3 (1.8-7.7); BASOPHIL % 0.4 % (0.0-2.0); EOSINOPHIL # 0.2 TH/MM3 (0-0.4); EOSINOPHIL % 4.7 % (0.0-4.0); HEMATOCRIT 25.2 % (35.0-46.0); HEMOGLOBIN 8.4 GM/DL (11.6-15.3); LYMPH % 13.5 % (9.0-44.0); LYMPHOCYTE # 0.5 TH/MM3 (1.0-4.8); MEAN CELL VOLUME 87.9 FL (80.0-100.0); MEAN CORPUSCULAR HEMOGLOBIN 29.3 PG (27.0-34.0); MEAN CORPUSCULAR HGB CONC 33.4 % (32.0-36.0); MEAN PLATELET VOLUME 7.7 FL (7.0-11.0); MONO % 10.4 % (0.0-8.0); MONOCYTE # 0.4 TH/MM3 (0-0.9); PLATELET COUNT 85 TH/MM3 (150-450); RED BLOOD COUNT 2.87 MIL/MM3 (4.00-5.30); RED CELL DISTRIBUTION WIDTH 17.2 % (11.6-17.2); WHITE BLOOD COUNT 3.6 TH/MM3 (4.0-11.0)
[2017-09-01 10:27] LABS: INTERNATIONAL NORMALIZED RATIO 2.2 RATIO; PROTHROMBIN TIME - PATIENT 22.1 SEC (9.8-11.6)
[2017-09-01 11:01] LABS: ALBUMIN 2.9 GM/DL (3.4-5.0); AST (GOT) 61 U/L (15-37); BICARBONATE 21.4 MEQ/L (21.0-32.0); BLOOD UREA NITROGEN 15 MG/DL (7-18); CALCIUM 8.3 MG/DL (8.5-10.1); CHLORIDE 117 MEQ/L (98-107); CREATININE 0.99 MG/DL (0.50-1.00); GLOMERULAR FILTRATION RATE 57 ML/MIN (>89); GLUCOSE,RANDOM 86 MG/DL (74-106); SODIUM (NA) 148 MEQ/L (136-145)
[2017-09-01 11:04] LABS: ALKALINE PHOSPHATASE 69 U/L (45-117); ALT (GPT) 46 U/L (10-53); TOTAL BILIRUBIN ADULT 0.4 MG/DL (0.2-1.0); TOTAL PROTEIN 5.8 GM/DL (6.4-8.2)
[2017-09-01 12:00] VITALS: BP 115/58; PULSE 99; RESP 16; TEMP 98.2; O2SAT 95
--- NOTE | 2017-09-01 12:02 | HHI.PR ---
Subjective Remarks Patient reports feeling well today reports new, "rash, " on right ankle Objective Vitals Vital Signs Date Time Temp Pulse Resp B/P (MAP) Pulse Ox O2 Delivery O2 Flow Rate FiO2 09/01/17 08:00 98.1 82 19 125/56 (79) 100 09/01/17 04:00 97.5 94 18 119/56 (77) 99 09/01/17 00:00 98.6 72 18 131/82 (98) 97 08/31/17 20:00 97.4 84 18 144/67 (92) 97 08/31/17 16:00 97.7 83 18 96/63 (74) 98 Result Diagram: 09/01/17 0816 09/01/17 0816 Other Results Laboratory Tests Test 08/30/17 03:40 08/31/17 00:00 08/31/17 04:30 08/31/17 06:30 Prothrombin Time 16.5 SEC 19.5 SEC Prothromb Time International Ratio 1.6 RATIO 1.9 RATIO Vancomycin Level Trough 12.2 MCG/ML White Blood Count 3.7 TH/MM3 Red Blood Count 2.88 MIL/MM3 Hemoglobin 8.8 GM/DL Hematocrit 26.0 % Mean Corpuscular Volume 90.3 FL Mean Corpuscular Hemoglobin 30.7 PG Mean Corpuscular Hemoglobin Concent 34.0 % Red Cell Distribution Width 16.8 % Platelet Count 89 TH/MM3 Mean Platelet Volume 7.8 FL Neutrophils (%) (Auto) 73.0 % Lymphocytes (%) (Auto) 15.3 % Monocytes (%) (Auto) 7.4 % Eosinophils (%) (Auto) 3.9 % Basophils (%) (Auto) 0.4 % Neutrophils # (Auto) 2.7 TH/MM3 Lymphocytes # (Auto) 0.6 TH/MM3 Monocytes # (Auto) 0.3 TH/MM3 Eosinophils # (Auto) 0.1 TH/MM3 Basophils # (Auto) 0.0 TH/MM3 CBC Comment AUTO DIFF Differential Comment AUTO DIFF CONFIRMED Platelet Estimate LOW Platelet Morphology Comment NORMAL Tear Drop Cells 1+ Blood Urea Nitrogen 21 MG/DL Creatinine 1.01 MG/DL Random Glucose 84 MG/DL Calcium Level 8.0 MG/DL Sodium Level 148 MEQ/L Potassium Level 3.8 MEQ/L Chloride Level 117 MEQ/L Carbon Dioxide Level 21.4 MEQ/L Anion Gap 10 MEQ/L Estimat Glomerular Filtration Rate 55 ML/MIN Test 09/01/17 08:16 White Blood Count 3.6 TH/MM3 Red Blood Count 2.87 MIL/MM3 Hemoglobin 8.4 GM/DL Hematocrit 25.2 % Mean Corpuscular Volume 87.9 FL Mean Corpuscular Hemoglobin 29.3 PG Mean Corpuscular Hemoglobin Concent 33.4 % Red Cell Distribution Width 17.2 % Platelet Count 85 TH/MM3 Mean Platelet Volume 7.7 FL Neutrophils (%) (Auto) 71.0 % Lymphocytes (%) (Auto) 13.5 % Monocytes (%) (Auto) 10.4 % Eosinophils (%) (Auto) 4.7 % Basophils (%) (Auto) 0.4 % Neutrophils # (Auto) 2.5 TH/MM3 Lymphocytes # (Auto) 0.5 TH/MM3 Monocytes # (Auto) 0.4 TH/MM3 Eosinophils # (Auto) 0.2 TH/MM3 Basophils # (Auto) 0.0 TH/MM3 CBC Comment AUTO DIFF Differential Comment AUTO DIFF CONFIRMED Platelet Estimate LOW Platelet Morphology Comment NORMAL Red Cell Morphology Comment NORMAL Prothrombin Time 22.1 SEC Prothromb Time International Ratio 2.2 RATIO Blood Urea Nitrogen 15 MG/DL Creatinine 0.99 MG/DL Random Glucose 86 MG/DL Total Protein 5.8 GM/DL Albumin 2.9 GM/DL Calcium Level 8.3 MG/DL Alkaline Phosphatase 69 U/L Aspartate Amino Transf (AST/SGOT) 61 U/L Alanine Aminotransferase (ALT/SGPT) 46 U/L Total Bilirubin 0.4 MG/DL Sodium Level 148 MEQ/L Potassium Level 3.6 MEQ/L Chloride Level 117 MEQ/L Carbon Dioxide Level 21.4 MEQ/L Anion Gap 10 MEQ/L Estimat Glomerular Filtration Rate 57 ML/MIN Imaging Last Impressions Abdomen/Pelvis CT 08/30/17 0000 Signed Impressions: Service Date/Time: August 12:12 - CONCLUSION: 1. Irregularity of the skin in the left lower quadrant some with some minimal air but no fistulous tract to the abdominal structures. 2. Diverticulosis of the colon. 3. Splenomegaly. 4. Cholelithiasis. 5. Left renal cyst. Ashkan Peña MD Carotid Artery Ultrasound 08/28/17 0000 Signed Impressions: Service Date/Time: Monday, August 28, 2017 22:05 - CONCLUSION: Atherosclerotic plaque of both carotid bifurcations, mild on the right and minimal on the left. No hemodynamically significant narrowing. Tulio Saha MD Aorta w/Runoff CTA 08/28/17 0000 Signed Impressions: Service Date/Time: Tuesday, August 29, 2017 00:53 - CONCLUSION: 1. Patent inflow and outflow bilaterally. 2. Severe trifurcation disease bilaterally without straight line flow to either foot. Details given above. 3. Colonic diverticulosis. 4. Splenomegaly. 5. Cholelithiasis. Adria Mendez Jr., MD Chest X-Ray [id number]/27/[id number] Signed Impressions: Service Date/Time: Sunday, August 27, 2017 19:30 - CONCLUSION: No evidence of acute cardiopulmonary disease. Tulio Saha MD Foot X-Ray 08/27/17 0000 Signed Impressions: Service Date/Time: Sunday, August 27, 2017 15:46 - CONCLUSION: Soft tissue swelling and possible first digit ulceration without definite underlying bone abnormality. Andrew Lang MD Objective Remarks GENERAL: This is a well-nourished, well-developed patient, in no apparent distress. SKIN: right foot with dry gangrene on tip of great toe, dressing LLQ abdomen dry and intact. small area of nonraised petechial rash medial aspect right ankle CARDIOVASCULAR: Regular rate and rhythm RESPIRATORY: Clear to auscultation. Breath sounds equal bilaterally. GASTROINTESTINAL: Abdomen soft, non-tender, nondistended. Normal active bowel sounds MUSCULOSKELETAL: Extremities without clubbing, cyanosis, or edema. NEURO: Alert & Oriented x4 to person, place, time, situation. Moves all ext x4 A/P Problem List: (1) Osteomyelitis ICD Codes: M86.9 - Osteomyelitis, unspecified Status: Chronic Plan: - comgmt with Podiatry & Vascular Surgery - Pt is a 62 y/o female with antiphospholipid antibody syndrome on chronic immunosuppression, hx of recurrent CVAs and TIAs on life long Lovenox, diabetes mellitus, Parkinson's disease, systemic lupus erythematous, and vasculitis. - [place] [facility] [place] at the request of her wrap checker, Dr. Garcia, for evaluation of a wound to her right great toe. - Pt has had a chronic wound to her right foot since February 2017 and has received 2 previous rounds of antibiotics for this. She also has reportedly been going to wound care approximately once a week for several months. She was referred to Dr. Garcia for further evaluation where she ordered an MRI. - Per the ED documentation the MRI was suggestive of osteomyelitis in the distal tuft of the great toe. - Podiatry consultation is ordered - Outpt US with RUSSELL in 08/2017 noted mildly reduced resting right lower extremity RUSSELL 0.8-0.89. Exercise was note performed due to limited ambulation. - CRP was elevated at 0.46 - Wound culture (08/29) --> pseudomonas, group B strep - IV Vancomycin (08/29 - present) - IV Zosyn (08/29 - present) - anticoagulation with coumadin - Pt does not want to continue Lovenox as she had been on Lovenox recently for anticoagulation but developed some skin breakdown in the left lower abdomen and has been following with Wound Care as an outpt for this. - Greatly appreciate input from Dr. Rios, Vascular Surgery - Pt requests second opinion from Vascular Surgery - Case d/w Jerome who plans for R LE angiogram and endovascular intervention on Sunday. - Ceretec WBC scan consistent with osteomyelitis - Per podiatry: Possible to OR Sunday for amputation distal right hallux and ulcer debridement right dorsal foot - supportive care (2) Chronic abdominal wound infection ICD Codes: S31.109A - Unspecified open wound of abdominal wall, unspecified quadrant without penetration into peritoneal cavity, initial encounter; L08.9 - Local infection of the skin and subcutaneous tissue, unspecified Status: Chronic Plan: - Pt does not want to continue Lovenox as she had been on Lovenox recently for anticoagulation but developed some skin breakdown in the left lower abdomen and has been following with Wound Care as an outpt for this. - CT abd/pelvis (08/29) - Irregularity of the skin in the left lower quadrant some with some minimal air but no fistulous tract to the abdominal structures. 2. Diverticulosis of the colon. 3. Splenomegaly. 4. Cholelithiasis. 5. Left renal cyst - appreciate input from Wound Care - General surgery consulted, recommend continued localized wound care do not feel that patient is a surgical candidate at this time (3) DM (diabetes mellitus) ICD Codes: E11.9 - DM (diabetes mellitus) Status: Chronic Plan: - Pt hold home diabetic medications - Accu checks - NovoLog SSI (4) Antiphospholipid antibody syndrome ICD Codes: D68.61 - Antiphospholipid antibody syndrome Status: Chronic Plan: - Pt continued on home dose of Cellcept and Prednisone - continue Coumadin, INR was suptheraputic on admission - Coumadin 7.5 mg daily with daily INR initially - INR (08/31) 1.9 -> 2.2 (09/01) - after discussing with vascular surgery will hold Coumadin until after the procedure Sunday. Dr. Vo would like INR < 2.0 for surgery then plans to start heparin 2 hours after procedure. anemia and thrombocytopenia - hgb 8.8 and Plt 89 - consult to hematology, appreciate input. Also discussed with Dr. Rodriguez. He I believes this is due to the acute infection, blood drawing and antibiotics. Will check occult stool and continue to monitor CBC, CMP (5) Hypothyroid ICD Codes: E03.9 - Hypothyroid Status: Chronic Plan: - Home meds continued (6) SLE (systemic lupus erythematosus) ICD Codes: M32.9 - SLE (systemic lupus erythematosus) Status: Chronic (7) RAMIREZ (obstructive sleep apnea) ICD Codes: G47.33 - RAMIREZ (obstructive sleep apnea) Status: Chronic Plan: - CPAP (8) Rash ICD Codes: R21 - Rash and other nonspecific skin eruption Plan: 09/01 nonraised petechial rash medial aspect right ankle. Patient endorses mild itching will apply hydrocortisone cream monitor recheck CBC in AM Assessment and Plan Patient examined. Assessment and plan formulated with Courtney Ivey PA-C. I agree with the above. Case d/w Dr. Cano (09/01/17). Pt planned for LE revascularization on Sunday, . Per Dr. Cano, will be able to proceed with surgery if INR is below 2.[address] pt on heparin 2 hours after surgery. I will hold pt's coumadin and follow INR daily. Case d/w Dr. Rodriguez, Hematology, (09/01/17) Problem Qualifiers (1) Osteomyelitis: Qualified Codes: M86.671 - Other chronic osteomyelitis, right ankle and foot (2) Chronic abdominal wound infection: Qualified Codes: S31.109D - Unspecified open wound of abdominal wall, unspecified quadrant without penetration into peritoneal cavity, subsequent encounter; L08.9 - Local infection of the skin and subcutaneous tissue, unspecified (3) DM (diabetes mellitus): Courtney Ivey Sep 01, 2017 12:02 Bravo Guzman DO Sep 01, 2017 23:27
--- NOTE | 2017-09-01 15:39 | PD.ONC.PN ---
Subjective Subjective Remarks spirits good and no new problems. Objective Data Date Time Temp Pulse Resp B/P (MAP) Pulse Ox O2 Delivery O2 Flow Rate FiO2 09/01/17 12:00 98.2 99 16 115/58 (77) 95 09/01/17 08:00 98.1 82 19 125/56 (79) 100 09/01/17 04:00 97.5 94 18 119/56 (77) 99 09/01/17 00:00 98.6 72 18 131/82 (98) 97 08/31/17 20:00 97.4 84 18 144/67 (92) 97 08/31/17 16:00 97.7 83 18 96/63 (74) 98 Result Diagram: 09/01/17 0816 09/01/17 0816 Laboratory Results Laboratory Tests Test 09/01/17 08:16 White Blood Count 3.6 TH/MM3 Red Blood Count 2.87 MIL/MM3 Hemoglobin 8.4 GM/DL Hematocrit 25.2 % Mean Corpuscular Volume 87.9 FL Mean Corpuscular Hemoglobin 29.3 PG Mean Corpuscular Hemoglobin Concent 33.4 % Red Cell Distribution Width 17.2 % Platelet Count 85 TH/MM3 Mean Platelet Volume 7.7 FL Neutrophils (%) (Auto) 71.0 % Lymphocytes (%) (Auto) 13.5 % Monocytes (%) (Auto) 10.4 % Eosinophils (%) (Auto) 4.7 % Basophils (%) (Auto) 0.4 % Neutrophils # (Auto) 2.5 TH/MM3 Lymphocytes # (Auto) 0.5 TH/MM3 Monocytes # (Auto) 0.4 TH/MM3 Eosinophils # (Auto) 0.2 TH/MM3 Basophils # (Auto) 0.0 TH/MM3 CBC Comment AUTO DIFF Differential Comment AUTO DIFF CONFIRMED Platelet Estimate LOW Platelet Morphology Comment NORMAL Red Cell Morphology Comment NORMAL Prothrombin Time 22.1 SEC Prothromb Time International Ratio 2.2 RATIO Blood Urea Nitrogen 15 MG/DL Creatinine 0.99 MG/DL Random Glucose 86 MG/DL Total Protein 5.8 GM/DL Albumin 2.9 GM/DL Calcium Level 8.3 MG/DL Alkaline Phosphatase 69 U/L Aspartate Amino Transf (AST/SGOT) 61 U/L Alanine Aminotransferase (ALT/SGPT) 46 U/L Total Bilirubin 0.4 MG/DL Sodium Level 148 MEQ/L Potassium Level 3.6 MEQ/L Chloride Level 117 MEQ/L Carbon Dioxide Level 21.4 MEQ/L Anion Gap 10 MEQ/L Estimat Glomerular Filtration Rate 57 ML/MIN Culture Results Microbiology Date/Time Source Procedure Growth Status 09/01/17 06:35 Stool Stool Stool Occult Blood (KRISTI) - Final HEMOCCULT NEGATIVE Complete Administered Medications Medications (Trade) Dose Ordered Sig/Alicia Route PRN Reason Start Time Stop Time Status Last Admin Dose Admin Sodium Chloride (NS Flush) 2 ml BID IV FLUSH 08/27/17 21:00 09/01/17 08:50 Ondansetron HCl (Zofran Inj) 4 mg Q6H PRN IVP NAUSEA OR VOMITING 08/27/17 19:30 08/28/17 05:03 Insulin Aspart (NovoLOG SUPPLEMENTAL SCALE) 1 ACHS SLIDING SCALE SQ 08/27/17 21:00 09/01/17 12:00 Atenolol (Tenormin) 100 mg DAILY PO 08/28/17 09:00 08/29/17 08:36 Carbidopa/Levodopa (Sinemet Cr 50-200 Mg) 1 tab TID PO 08/28/17 09:00 09/01/17 12:45 Escitalopram Oxalate (Lexapro) 20 mg DAILY PO 08/28/17 09:00 09/01/17 08:44 Fluticasone Propionate (Flovent Hfa 220 Mcg Inh) 1 puff BID INH 08/27/17 21:00 09/01/17 08:42 Levothyroxine Sodium (Synthroid) 150 mcg Q48H PO 08/29/17 06:00 08/31/17 05:08 Losartan Potassium (Cozaar) 25 mg DAILY PO 08/28/17 09:00 09/01/17 08:47 Mycophenolate Mofetil (Cellcept) 500 mg BID PO 08/27/17 21:00 09/01/17 08:48 Pantoprazole Sodium (Protonix) 40 mg DAILY PO 08/28/17 09:00 09/01/17 08:45 Prednisone (Deltasone) 5 mg DAILY PO 08/28/17 09:00 09/01/17 08:44 Levothyroxine Sodium (Synthroid) 75 mcg Q48H PO 08/28/17 06:00 09/01/17 06:35 Acetaminophen/ Hydrocodone Bitart ([place] 5-325 Mg) 1 tab Q6H PRN PO pain 1-10 08/27/17 19:45 09/01/17 00:43 Levothyroxine Sodium (Synthroid) 100 mcg Q48H PO 08/28/17 06:00 09/01/17 06:35 Piperacillin Sod/ Tazobactam Sod 50 ml @ 100 mls/hr Q6H IV 08/29/17 03:00 09/01/17 12:45 Hydroxychloroquine Sulfate (Plaquenil) 200 mg BID PO 08/29/17 21:00 09/01/17 08:44 Nystatin (Mycostatin Powder) 1 applic Q8HR TOPICAL 08/30/17 15:45 09/01/17 06:35 Vancomycin HCl 2000 mg/Sodium Chloride 520 ml @ 250 mls/hr Q24H IV 08/31/17 22:00 08/31/17 22:00 Aspirin (Aspirin Chew) 81 mg DAILY PO 09/01/17 09:00 09/01/17 08:46 Objective Remarks GENERAL: Well-nourished, well-developed patient. SKIN: Warm and dry. HEAD: Normocephalic. EYES: No scleral icterus. No injection or drainage. NECK: Supple, trachea midline. No JVD or lymphadenopathy. LYMPHATIC: No adenopathy. CARDIOVASCULAR: Regular rate and rhythm without murmurs. RESPIRATORY: Breath sounds equal bilaterally. No accessory muscle use. GASTROINTESTINAL: Abdomen soft, non-tender, nondistended. EXTREMITIES: toe right foot dark and swelling and redness over dorsum of right foot MUSCULOSKELETAL: Adequate muscle tone. NEUROLOGICAL: No obvious focal deficit. Awake, alert, and oriented x3. PSYCHIATRIC: Appropriate mood and affect; insight and judgment normal. Assessment/Plan Assessment 1: antiphospholipid antibody syndrome: continue aspirin and Coumadin. inr is therapeutic. mild thrombocytopenia which is not problematic. Edward Rodriguez MD Sep 01, 2017 15:38
[2017-09-01 16:00] VITALS: BP 126/67; PULSE 98; RESP 18; TEMP 98.1; O2SAT 96
[2017-09-01] MEDS ORDERED: WARFARIN SOD 5 MG TAB PO SCH (16:00)
[2017-09-01] MEDS: VANCOMYCIN INJ 2,000 MG in SODIUM CHLORID 0.9% 500 ML INJ 500 ML IV SCH (20:49)
[2017-09-01 21:01] VITALS: BP 115/82; PULSE 101; RESP 18; TEMP 97.7; O2SAT 97
[2017-09-01] MEDS: HYDROCORTISONE 0.5% CREAM 30 GM TOPICAL SCH (23:30)
[2017-09-02 01:01] VITALS: BP 138/83; PULSE 101; RESP 18; TEMP 98; O2SAT 98
[2017-09-02] MEDS: PIPERACIL-TAZO 3.375 GM PREMIX 50 ML IV SCH ×4 (03:07→21:44)
[2017-09-02] MEDS: LEVOTHYROXINE SODIUM 150 MCG TAB PO SCH (05:07)
[2017-09-02] MEDS: ACETAMINOPHEN/HYDROcodone 325 MG/5 MG TAB PO PRN ×2 (05:07→21:50)
[2017-09-02] MEDS: NYSTATIN 100,000 U/GM PWD 15 GM BTL TOPICAL SCH ×3 (05:08→21:47)
[2017-09-02 05:22] VITALS: BP 112/58; PULSE 73; RESP 18; TEMP 98.3
[2017-09-02 06:20] LABS: PROTHROMBIN TIME - PATIENT 19.9 SEC (9.8-11.6)
[2017-09-02 06:26] LABS: AUTOMATED NEUTROPHIL # 2.6 TH/MM3 (1.8-7.7); BASOPHIL % 0.5 % (0.0-2.0); EOSINOPHIL # 0.2 TH/MM3 (0-0.4); EOSINOPHIL % 5.4 % (0.0-4.0); HEMOGLOBIN 8.6 GM/DL (11.6-15.3); LYMPH % 15.3 % (9.0-44.0); LYMPHOCYTE # 0.6 TH/MM3 (1.0-4.8); MEAN CELL VOLUME 89.9 FL (80.0-100.0); MEAN CORPUSCULAR HEMOGLOBIN 29.6 PG (27.0-34.0); MONO % 8.7 % (0.0-8.0); MONOCYTE # 0.3 TH/MM3 (0-0.9); NEUT % 70.1 % (16.0-70.0); PLATELET COUNT 69 TH/MM3 (150-450); RED CELL DISTRIBUTION WIDTH 16.9 % (11.6-17.2); WHITE BLOOD COUNT 3.7 TH/MM3 (4.0-11.0)
[2017-09-02 06:36] LABS: CREATININE 1.04 MG/DL (0.50-1.00)
[2017-09-02] MEDS: HYDROCORTISONE 0.5% CREAM 30 GM TOPICAL SCH ×3 (07:30→21:48)
[2017-09-02 08:00] VITALS: BP 136/63; PULSE 78; RESP 18; TEMP 97.9; O2SAT 96
[2017-09-02] MEDS: INSULIN ASPART SUPPLEMENTAL SCALE SQ SCH ×4 (08:00→21:56)
[2017-09-02] MEDS: FLUTICASONE PROPIONATE 220 MCG/ACT 12 GM INHALER INH SCH ×2 (09:00→21:43)
[2017-09-02] MEDS: SODIUM CHLORIDE 0.9% FLUSH 10 ML FLUSH IV FLUSH SCH ×2 (09:00→21:47)
[2017-09-02] MEDS: PANTOPRAZOLE SOD 40 MG DELAYED RELEASE TAB PO SCH (10:25)
[2017-09-02] MEDS: ASPIRIN 81 MG CHEW TAB PO SCH (10:26)
[2017-09-02] MEDS: HYDROXYCHLOROQUINE SULFATE 200 MG TAB PO SCH ×2 (10:26→21:43)
[2017-09-02] MEDS: ESCITALOPRAM OXALATE 20 MG TAB PO SCH (10:26)
[2017-09-02] MEDS: predniSONE 5 MG TAB PO SCH (10:26)
[2017-09-02] MEDS: MYCOPHENOLATE MOFETIL 500 MG TAB PO SCH ×2 (10:26→21:43)
[2017-09-02] MEDS: ATENOLOL 100 MG TAB PO SCH (10:27)
[2017-09-02] MEDS: LOSARTAN 25 MG TAB PO SCH (10:27)
[2017-09-02] MEDS: LEVODOPA/CARBIDOPA 1 TAB TABCR PO SCH ×3 (10:27→17:34)
[2017-09-02 12:00] VITALS: BP 114/56; PULSE 69; RESP 18; TEMP 98.1; O2SAT 100
--- NOTE | 2017-09-02 13:19 | HHI.PR ---
Subjective Subjective Notes Patient well known to [facility]. Her wound is not causing any direct problems and she has no specific complaints. Objective Vitals/I&O Vital Signs Date Time Temp Pulse Resp B/P (MAP) Pulse Ox O2 Delivery O2 Flow Rate FiO2 09/02/17 12:00 98.1 69 18 114/56 (75) 100 Labs Laboratory Tests Test 09/02/17 05:02 White Blood Count 3.7 Red Blood Count 2.90 Hemoglobin 8.6 Hematocrit 26.0 Mean Corpuscular Volume 89.9 Mean Corpuscular Hemoglobin 29.6 Mean Corpuscular Hemoglobin Concent 33.0 Red Cell Distribution Width 16.9 Platelet Count 69 Mean Platelet Volume 8.0 Neutrophils (%) (Auto) 70.1 Lymphocytes (%) (Auto) 15.3 Monocytes (%) (Auto) 8.7 Eosinophils (%) (Auto) 5.4 Basophils (%) (Auto) 0.5 Neutrophils # (Auto) 2.6 Lymphocytes # (Auto) 0.6 Monocytes # (Auto) 0.3 Eosinophils # (Auto) 0.2 Basophils # (Auto) 0.0 CBC Comment AUTO DIFF Differential Comment AUTO DIFF CONFIRMED Platelet Estimate LOW Platelet Morphology Comment NORMAL Red Cell Morphology Comment NORMAL Prothrombin Time 19.9 Prothromb Time International Ratio 2.0 Creatinine 1.04 Estimat Glomerular Filtration Rate 54 Date/Time Source Procedure Growth Status 09/01/17 06:35 Stool Stool Stool Occult Blood (KRISTI) - Final HEMOCCULT NEGATIVE Complete 08/27/17 17:45 Wound Toe Gram Stain - Final Complete 08/27/17 17:45 Wound Culture - Final Pseudomonas Aeruginosa Group B Beta Strep Complete Radiology Last Impressions Tumor Localization 08/30/17 0000 Signed Impressions: Service Date/Time: August 11:35 - CONCLUSION: 1. Focal intense three-phase activity distal phalanx right great toe most characteristic of osteomyelitis. Srinath Galvan MD Abdomen/Pelvis CT 08/30/17 0000 Signed Impressions: Service Date/Time: August 12:12 - CONCLUSION: 1. Irregularity of the skin in the left lower quadrant some with some minimal air but no fistulous tract to the abdominal structures. 2. Diverticulosis of the colon. 3. Splenomegaly. 4. Cholelithiasis. 5. Left renal cyst. Ashkan Peña MD Carotid Artery Ultrasound 08/28/17 0000 Signed Impressions: Service Date/Time: Monday, August 28, 2017 22:05 - CONCLUSION: Atherosclerotic plaque of both carotid bifurcations, mild on the right and minimal on the left. No hemodynamically significant narrowing. Tulio Saha MD Aorta w/Runoff CTA 08/28/17 0000 Signed Impressions: Service Date/Time: Tuesday, August 29, 2017 00:53 - CONCLUSION: 1. Patent inflow and outflow bilaterally. 2. Severe trifurcation disease bilaterally without straight line flow to either foot. Details given above. 3. Colonic diverticulosis. 4. Splenomegaly. 5. Cholelithiasis. Adria Mendez Jr., MD Chest X-Ray [id number] Signed Impressions: Service Date/Time: Sunday, August 27, 2017 19:30 - CONCLUSION: No evidence of acute cardiopulmonary disease. Tulio Saha MD Foot X-Ray 08/27/17 0000 Signed Impressions: Service Date/Time: Sunday, August 27, 2017 15:46 - CONCLUSION: Soft tissue swelling and possible first digit ulceration without definite underlying bone abnormality. Andrew Lang MD Cardiovascular: Regular Lungs: Clear Abdomen: Non-distended, Non-tender, BS normal Extremities: No edema Narrative Exam There is no erythema around the wound. It is dressed. A/P Assessment and Plan Abdominal wall wound without any evidence of connection within the abdomen; poorly healing. Patient has hypoalbuminemia and I told her this wound will not heal until her protein is normal. I encouraged her to drink at least 3 cans of Ensure per day. I will see her back in the [facility] upon discharge (please make an appointment with Angelina Narayanan, the lion tamer). Luigi Cabrales MD Sep 02, 2017 13:19
--- NOTE | 2017-09-02 14:55 | HHI.PR ---
Subjective Remarks No new complaints. Objective Vitals Vital Signs Date Time Temp Pulse Resp B/P (MAP) Pulse Ox O2 Delivery O2 Flow Rate FiO2 09/02/17 12:00 98.1 69 18 114/56 (75) 100 09/02/17 08:00 97.9 78 18 136/63 (87) 96 09/02/17 05:22 98.3 73 18 112/58 (76) 09/02/17 01:01 98.0 101 18 138/83 (101) 98 09/01/17 21:01 97.7 101 18 115/82 (93) 97 09/01/17 16:00 98.1 98 18 126/67 (86) 96 Result Diagram: 09/02/17 0502 09/02/17 0502 Imaging Last Impressions Tumor Localization 08/30/17 0000 Signed Impressions: Service Date/Time: August 11:35 - CONCLUSION: 1. Focal intense three-phase activity distal phalanx right great toe most characteristic of osteomyelitis. Srinath Galvan MD Abdomen/Pelvis CT 08/30/17 0000 Signed Impressions: Service Date/Time: August 12:12 - CONCLUSION: 1. Irregularity of the skin in the left lower quadrant some with some minimal air but no fistulous tract to the abdominal structures. 2. Diverticulosis of the colon. 3. Splenomegaly. 4. Cholelithiasis. 5. Left renal cyst. Ashkan Peña MD Carotid Artery Ultrasound 08/28/17 0000 Signed Impressions: Service Date/Time: Monday, August 28, 2017 22:05 - CONCLUSION: Atherosclerotic plaque of both carotid bifurcations, mild on the right and minimal on the left. No hemodynamically significant narrowing. Tulio Saha MD Aorta w/Runoff CTA 08/28/17 0000 Signed Impressions: Service Date/Time: Tuesday, August 29, 2017 00:53 - CONCLUSION: 1. Patent inflow and outflow bilaterally. 2. Severe trifurcation disease bilaterally without straight line flow to either foot. Details given above. 3. Colonic diverticulosis. 4. Splenomegaly. 5. Cholelithiasis. Adria Mendez Jr., MD Chest X-Ray 08/27/[id number] Signed Impressions: Service Date/Time: Sunday, August 27, 2017 19:30 - CONCLUSION: No evidence of acute cardiopulmonary disease. Tulio Saha MD Foot X-Ray 08/27/17 0000 Signed Impressions: Service Date/Time: Sunday, August 27, 2017 15:46 - CONCLUSION: Soft tissue swelling and possible first digit ulceration without definite underlying bone abnormality. Andrew Lang MD Objective Remarks GENERAL: This is a well-nourished, well-developed patient, in no apparent distress. SKIN: right foot with dry gangrene on tip of great toe, dressing LLQ abdomen dry and intact. small area of nonraised petechial rash medial aspect right ankle CARDIOVASCULAR: Regular rate and rhythm RESPIRATORY: Clear to auscultation. Breath sounds equal bilaterally. GASTROINTESTINAL: Abdomen soft, non-tender, nondistended. Normal active bowel sounds MUSCULOSKELETAL: Extremities without clubbing, cyanosis, or edema. NEURO: Alert & Oriented x4 to person, place, time, situation. Moves all ext x4 A/P Problem List: (1) Osteomyelitis ICD Codes: M86.9 - Osteomyelitis, unspecified Status: Chronic Plan: - comgmt with Podiatry & Vascular Surgery - Pt is a 62 y/o female with antiphospholipid antibody syndrome on chronic immunosuppression, hx of recurrent CVAs and TIAs on life long Lovenox, diabetes mellitus, Parkinson's disease, systemic lupus erythematous, and vasculitis. 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 Garcia, for evaluation of a wound to her right great toe. - Pt has had a chronic wound to her right foot since February 2017 and has received 2 previous rounds of antibiotics for this. She also has reportedly been going to wound care approximately once a week for several months. She was referred to Dr. Garcia for further evaluation where she ordered an MRI. - Per the ED documentation the MRI was suggestive of osteomyelitis in the distal tuft of the great toe. - Podiatry consultation is ordered - Outpt US with RUSSELL in 08/2017 noted mildly reduced resting right lower extremity RUSSELL 0.8-0.89. Exercise was note performed due to limited ambulation. - CRP was elevated at 0.46 - Wound culture (08/29) --> pseudomonas, group B strep - IV Vancomycin (08/29 - present) - IV Zosyn (08/29 - present) - anticoagulation with coumadin - Pt does not want to continue Lovenox as she had been on Lovenox recently for anticoagulation but developed some skin breakdown in the left lower abdomen and has been following with Wound Care as an outpt for this. - Greatly appreciate input from Dr. Rios, Vascular Surgery - Case d/w Jerome who plans for R LE angiogram and endovascular intervention on Sunday. - Ceretec WBC scan consistent with osteomyelitis - Per podiatry: Possible to OR Sunday for amputation distal right hallux and ulcer debridement right dorsal foot - supportive care - Case d/w Dr. Cano (09/01/17). Pt planned for LE revascularization on Sunday , 09/03/17. - Per Dr. Cano, will be able to proceed with surgery if INR is below 2.[address] pt on heparin 2 hours after surgery. - INR 2.0 (08/05). Continue to hold coumadain. Repeat INR in AM- - Case d/w Dr. Rodriguez, Hematology, (09/01/17) (2) Chronic abdominal wound infection ICD Codes: S31.109A - Unspecified open wound of abdominal wall, unspecified quadrant without penetration into peritoneal cavity, initial encounter; L08.9 - Local infection of the skin and subcutaneous tissue, unspecified Status: Chronic Plan: - Pt does not want to continue Lovenox as she had been on Lovenox recently for anticoagulation but developed some skin breakdown in the left lower abdomen and has been following with Wound Care as an outpt for this. - CT abd/pelvis (08/29) - Irregularity of the skin in the left lower quadrant some with some minimal air but no fistulous tract to the abdominal structures. 2. Diverticulosis of the colon. 3. Splenomegaly. 4. Cholelithiasis. 5. Left renal cyst - appreciate input from Wound Care - General surgery consulted, recommend continued localized wound care do not feel that patient is a surgical candidate at this time (3) DM (diabetes mellitus) ICD Codes: E11.9 - DM (diabetes mellitus) Status: Chronic Plan: - Pt hold home diabetic medications - Accu checks - NovoLog SSI (4) Antiphospholipid antibody syndrome ICD Codes: D68.61 - Antiphospholipid antibody syndrome Status: Chronic Plan: - Pt continued on home dose of Cellcept and Prednisone - continue Coumadin, INR was suptheraputic on admission - Coumadin 7.5 mg daily with daily INR initially - INR (08/31) 1.9 -> 2.2 (09/01) - after discussing with vascular surgery will hold Coumadin until after the procedure Sunday. Dr. Vo would like INR < 2.0 for surgery then plans to start heparin 2 hours after procedure. anemia and thrombocytopenia - hgb 8.8 and Plt 89 - consult to hematology, appreciate input. Also discussed with Dr. Rodriguez. He I believes this is due to the acute infection, blood drawing and antibiotics. Will check occult stool and continue to monitor CBC, CMP - stool Hemoccult negative (09/01) (5) Hypothyroid ICD Codes: E03.9 - Hypothyroid Status: Chronic Plan: - Home meds continued (6) SLE (systemic lupus erythematosus) ICD Codes: M32.9 - SLE (systemic lupus erythematosus) Status: Chronic (7) RAMIREZ (obstructive sleep apnea) ICD Codes: G47.33 - RAMIREZ (obstructive sleep apnea) Status: Chronic Plan: - CPAP (8) Rash ICD Codes: R21 - Rash and other nonspecific skin eruption Plan: 09/01 nonraised petechial rash medial aspect right ankle. Patient endorses mild itching will apply hydrocortisone cream monitor Problem Qualifiers (1) Osteomyelitis: Qualified Codes: M86.671 - Other chronic osteomyelitis, right ankle and foot (2) Chronic abdominal wound infection: Qualified Codes: S31.109D - Unspecified open wound of abdominal wall, unspecified quadrant without penetration into peritoneal cavity, subsequent encounter; L08.9 - Local infection of the skin and subcutaneous tissue, unspecified (3) DM (diabetes mellitus): Bravo Guzman DO Sep 02, 2017 14:55
[2017-09-02 16:00] VITALS: BP 115/57; PULSE 65; RESP 18; TEMP 97.5; O2SAT 96
[2017-09-02 16:23] LABS: BICARBONATE 23.3 MEQ/L (21.0-32.0); CALCIUM 8.7 MG/DL (8.5-10.1); CREATININE 1.01 MG/DL (0.50-1.00)
[2017-09-02 21:00] VITALS: BP 138/72; PULSE 70; RESP 18; TEMP 97.8; O2SAT 100
[2017-09-02] MEDS ORDERED: CHLORHEXIDINE GLUCONATE 2 % 1 PACK (2 CLOTHS) TOPICAL PRN (21:30)
[2017-09-02] MEDS ORDERED: POVIDONE IODINE 5% (ANTISEPSIS KIT) 4 APPLICATIONS EACH NARE PRN (21:30)
[2017-09-02] MEDS ORDERED: SODIUM CHLORID 0.9% 500 ML IV PRN (21:30)
[2017-09-02] MEDS ORDERED: LACTATED RINGER'S 1000 ML IV PRN (21:30)
[2017-09-02] MEDS: VANCOMYCIN INJ 2,000 MG in SODIUM CHLORID 0.9% 500 ML INJ 500 ML IV SCH (21:47)
[2017-09-03 01:05] VITALS: BP 124/82; PULSE 79; RESP 18; TEMP 98.2; O2SAT 98
[2017-09-03] MEDS: PIPERACIL-TAZO 3.375 GM PREMIX 50 ML IV SCH ×4 (03:06→22:42)
[2017-09-03 05:08] VITALS: BP 108/57; PULSE 70; RESP 18; TEMP 97.8; O2SAT 98
[2017-09-03] MEDS: LEVOTHYROXINE SODIUM 75 MCG TAB PO SCH (05:25)
[2017-09-03] MEDS: LEVOTHYROXINE SODIUM 100 MCG TAB PO SCH (05:26)
[2017-09-03] MEDS: NYSTATIN 100,000 U/GM PWD 15 GM BTL TOPICAL SCH ×3 (05:27→22:45)
--- NOTE | 2017-09-03 07:35 | PD.VS.PN ---
Pre-operative Note Pre-operative diagnosis: R LE osteo, PAD Planned procedure: Aortogram w/ R LE angiogram, endovascular intervention Interval History: Pt ready for procedure. Off coumadin x 2 days Labs: Laboratory Results Test 09/02/17 05:02 09/02/17 15:13 Hematocrit 26.0 % (35.0-46.0) Hemoglobin 8.6 GM/DL (11.6-15.3) Mean Corpuscular Hemoglobin 29.6 PG (27.0-34.0) Mean Corpuscular Hemoglobin Concent 33.0 % (32.0-36.0) Mean Corpuscular Volume 89.9 FL (80.0-100.0) Mean Platelet Volume 8.0 FL (7.0-11.0) Platelet Count 69 TH/MM3 (150-450) Prothromb Time International Ratio 2.0 RATIO Red Blood Count 2.90 MIL/MM3 (4.00-5.30) Red Cell Distribution Width 16.9 % (11.6-17.2) White Blood Count 3.7 TH/MM3 (4.0-11.0) Anion Gap 8 MEQ/L (5-15) Blood Urea Nitrogen 13 MG/DL (7-18) Creatinine 1.01 MG/DL (0.50-1.00) Random Glucose 115 MG/DL (74-106) Calcium Level 8.7 MG/DL (8.5-10.1) Sodium Level 148 MEQ/L (136-145) Potassium Level 4.1 MEQ/L (3.5-5.1) Chloride Level 117 MEQ/L (98-107) Carbon Dioxide Level 23.3 MEQ/L (21.0-32.0) Blood: none needed Imaging: Last Impressions Tumor Localization 08/30/17 0000 Signed Impressions: Service Date/Time: August 11:35 - CONCLUSION: 1. Focal intense three-phase activity distal phalanx right great toe most characteristic of osteomyelitis. Srinath Galvan MD Abdomen/Pelvis CT 08/30/17 0000 Signed Impressions: Service Date/Time: August 12:12 - CONCLUSION: 1. Irregularity of the skin in the left lower quadrant some with some minimal air but no fistulous tract to the abdominal structures. 2. Diverticulosis of the colon. 3. Splenomegaly. 4. Cholelithiasis. 5. Left renal cyst. Ashkan Peña MD Carotid Artery Ultrasound 08/28/17 0000 Signed Impressions: Service Date/Time: Monday, August 28, 2017 22:05 - CONCLUSION: Atherosclerotic plaque of both carotid bifurcations, mild on the right and minimal on the left. No hemodynamically significant narrowing. Tulio Saha MD Aorta w/Runoff CTA 08/28/17 0000 Signed Impressions: Service Date/Time: Tuesday, August 29, 2017 00:53 - CONCLUSION: 1. Patent inflow and outflow bilaterally. 2. Severe trifurcation disease bilaterally without straight line flow to either foot. Details given above. 3. Colonic diverticulosis. 4. Splenomegaly. 5. Cholelithiasis. Adria Mendez Jr., MD Chest X-Ray [id number]/27/[id number] Signed Impressions: Service Date/Time: Sunday, August 27, 2017 19:30 - CONCLUSION: No evidence of acute cardiopulmonary disease. Tulio Saha MD Foot X-Ray 08/27/17 0000 Signed Impressions: Service Date/Time: Sunday, August 27, 2017 15:46 - CONCLUSION: Soft tissue swelling and possible first digit ulceration without definite underlying bone abnormality. Andrew Lang MD Orders: NPO on systemic antibiotics. Post-operative destination: [facility] Operative site marked: No (will avis with ARM BAND in DOCU pre-operatively) Consent: Informed consent has been obtained from Charles Gardner. I have explained the procedure in detail and discussed the risks, benefits, and potential complications. All questions have been answered. Kenji Cano MD Sep 03, 2017 07:35
[2017-09-03 08:00] VITALS: BP 129/61; PULSE 79; RESP 18; TEMP 97.9; O2SAT 99
[2017-09-03] MEDS: INSULIN ASPART SUPPLEMENTAL SCALE SQ SCH ×4 (08:21→22:35)
[2017-09-03] MEDS: FLUTICASONE PROPIONATE 220 MCG/ACT 12 GM INHALER INH SCH ×2 (08:21→22:44)
[2017-09-03] MEDS: HYDROCORTISONE 0.5% CREAM 30 GM TOPICAL SCH ×3 (08:21→22:44)
[2017-09-03] MEDS: predniSONE 5 MG TAB PO SCH (08:23)
[2017-09-03] MEDS: ESCITALOPRAM OXALATE 20 MG TAB PO SCH (08:23)
[2017-09-03] MEDS: LEVODOPA/CARBIDOPA 1 TAB TABCR PO SCH ×3 (08:23→18:17)
[2017-09-03] MEDS: SODIUM CHLORIDE 0.9% FLUSH 10 ML FLUSH IV FLUSH SCH ×2 (08:23→22:43)
[2017-09-03] MEDS: MYCOPHENOLATE MOFETIL 500 MG TAB PO SCH ×2 (08:24→22:43)
[2017-09-03] MEDS: LOSARTAN 25 MG TAB PO SCH (08:24)
[2017-09-03] MEDS: HYDROXYCHLOROQUINE SULFATE 200 MG TAB PO SCH ×2 (08:24→22:43)
[2017-09-03] MEDS: ASPIRIN 81 MG CHEW TAB PO SCH (08:24)
[2017-09-03] MEDS: ATENOLOL 100 MG TAB PO SCH (08:24)
[2017-09-03] MEDS: PANTOPRAZOLE SOD 40 MG DELAYED RELEASE TAB PO SCH (08:26)
[2017-09-03 12:00] VITALS: BP 131/71; PULSE 76; RESP 18; TEMP 97.5; O2SAT 96
[2017-09-03] MEDS ORDERED: MIDAZOLAM HCL 2 MG/2 ML VIAL ONE (13:57)
[2017-09-03] MEDS ORDERED: HEPARIN-NS/PF FLUSH BAG 1,000 ML IV FLUSH ONE (14:06)
[2017-09-03] MEDS ORDERED: HEPARIN SODIUM - IV 10,000 UNITS/10 ML VIAL ONE (14:21)
--- NOTE | 2017-09-03 15:28 | CATHPROC ---
[facility] HIS Report Study Information Study Number Admission Scheduled Start Study Start [id number] Aug 27 2017 7:42PM 09/03/2017 Sep 03 2017 1:37PM Moore Service Cath Endovascular Study Admit Source Facility Department Emergency department [facility] - Planning Intern Physician and Clinical Staff Initial Kenji Roberts Pet Counselor Raúl LouisRN Recorder Iraida Gardner BSN Scrub Noam Leslie,RT(R) Procedures Performed Procedure Location (Site) Vessel Name Abdominal Angiogram Abd Aorta (A3) Aorta Angiogram (manual) Peroneal (right) Popliteal Angiogram (manual) Tib, Ant. (right) Popliteal TRANSIT MIXER DRIVER Tib, Ant. (right) Popliteal Wire insertion Fem Art (left) Femoral Art Equipment Time Development Analyst Description Size Mfg Part Number Used/Scraped [id number] 14:12 ANGIO-DYNAMICS OMNI FLUSH 65CM CATHETER FR 4 Used *[id number] INTRODUCER SET, 14:13 [employer]OOK [employer]. FR 5 [id number] *[id number] Used MICROPUNCTURE, STIFFENED CXI-4.0-35-135- 14:22 COOK/PETR CATHETER, FR4 CXI SUPPORT FR 4 Used P-NS-0 *[id number] CATHETER, CXI SUPPORT 14:29 COOK/PETR .018 [id number] Used STRAIGHT .018 150CM KCFW-6.0-38-90- 14:21 COOK/PETR SHEATH, FR6 RAABE 90CM FR 6 Used RB *[id number] WIRE, GUIDE APPROACH DESIZING MACHINE OFFBEARER [id number] 14:22 COOK/PETR 300CM Used MICROWIRE *[id number] WIRE, GUIDE APPROACH DESIZING MACHINE OFFBEARER [id number] 14:52 COOK/PETR 300CM Used MICROWIRE *[id number] WIRE, GUIDE APPROACH HYDRO [id number] 15:09 COOK/PETR 300CM Used ST *[id number] 15:17 DAIG/ST. ABDIRAHMAN MEDICAL ANGIOSEAL, FR6 VIP FR 6 Used *[id number] BALLOON, AMPHIRION DEEP 3 X [id number] 14:36 [employer]VATEC [employer] 150CM Used 80 150CM *[id number] WIRE, CHOICE PT 300CM PT EX. [id number] 15:03 Meditech 300CM Used SUPP *[id number] WIRE, CHOICE PT 300CM PT EX. [id number] 14:44 Meditech 300CM Used SUPP *[id number] 14:13 MEDLINE INDUSTRIES PACK, CCL CUSTOM * Used *[id number] 14:37 XanEdu MEDICAL 30 LINA INDEFLATOR Used *[id number] 14:13 XanEdu MEDICAL PRESSURE TUBING 48" 48" [id number] 14:21 XanEdu MEDICAL WIRE, MUSTAFA 260CM .035 260CM Used *[id number] 14:13 NAMIC TUBING, HIGH PRESSURE 20" 20" Used *[id number] TUBING, PRESSURE INJECTION [id number] 14:13 NAMIC PACER 72" Used 72" *[id number] 14:13 NYCOMED OMNIPAQUE, 300 MG, 150ML 150ML [id number] Used 14:13 NYCOMED OMNIPAQUE, 300 MG, 50ML 50ML [id number] Used 14:06 NYCOMED OMNIPAQUE, 300 MG, 50ML 50ML [id number] Used [id number] 14:13 ANDERSON MEDICAL BLANKET,WARM AIR CCL * Used *[id number] 14:03 TERUMO MEDICAL SHEATH, FR5 TERUMO (10CM) FR 5 Used *[id number] WIRE, ANGLED GLIDE .035 [id number] 14:13 TERUMO MEDICAL/PETR 260CM Used 260CM *[id number] Equipment Model, Serial, Lot Number and Expiration Data Description Model Number Serial Number Lot Number Expiration Date ANGIOSEAL, FR6 VIP [id number] 05-17-2018 CATHETER, FR4 CXI SUPPORT [id number] 04-18-2020 CATHETER, CXI SUPPORT [id number] 07-04-2020 STRAIGHT .018 150CM SHEATH, FR6 RAABE 90CM [id number] 06-28-2020 WIRE, CHOICE PT 300CM PT EX. [id number] 10-18-2018 SUPP WIRE, CHOICE PT 300CM PT EX. [id number] 10-18-2018 SUPP WIRE, GUIDE APPROACH DESIZING MACHINE OFFBEARER [id number] 08-02-2021 MICROWIRE WIRE, GUIDE APPROACH DESIZING MACHINE OFFBEARER [id number] 12-03-2021 MICROWIRE WIRE, GUIDE APPROACH [place] [id number] 01-07-2020 ST WIRE, MUSTAFA 260CM .035 [id number] 03-17-2020 Labs Hgb (g/dl) Hct (%) WBC (l/cumm) Platelets (thousands) 11.60-17.00 35.00-51.00 4.00-11.00 150.00-450.00 8.6 26 3.7 69 Glucose (mg/dl) BUN (mg/dl) Creatinine (mg/dl) BUN:Creatinine (1:x) 74.00-106.00 7.00-18.00 0.50-1.30 10.00-20.00 115 13 1.0 13 Na (meq/l) K (meq/l) 136.00-145.00 3.50-5.10 148 4.1 INR (PTT:PT) 0.90-1.10 2 CPK-MB (ng/ML) 0.50-3.60 Not Drawn Medication Medication Total Dose (Bolus/Oral) Medication Total Dosage/Unit 1% XYLOCAINE 10 mL FENTANYL 100 mcg HEPARIN 5000 units VERSED 2 mg Medications (Bolus/Oral) Medication Time Given Dosage/Unit Administered By Reason VERSED 09/03/2017 2:08:48 PM 1 mg Raúl Louis 1 mg VERSED given in lab by Raúl Louis RN in Right Antecubital via Peripheral IV. Ordered by Kenji Kuhn. FENTANYL 09/03/2017 2:09:26 PM 50 mcg Raúl Louis 50 mcg FENTANYL given in lab by Raúl Louis RN in Right Antecubital via Peripheral IV. Ordered by Kenji Cano. 1% XYLOCAINE 09/03/2017 2:10:20 PM 10 mL Kenji Cano 10 mL 1% XYLOCAINE given in lab by Kenji Cano in Left Groin via Subcutaneous. Ordered by Kenji Cano. HEPARIN 09/03/2017 2:23:15 PM 5000 units Raúl Louis 5000 units HEPARIN given in lab by Raúl Louis RN in Right Antecubital via Peripheral IV. Ordered by Kenji Cano. VERSED 09/03/2017 2:39:38 PM 1 mg Raúl Louis 1 mg VERSED given in lab by Raúl Louis RN in Right Antecubital via Peripheral IV. Ordered by Kenji Kuhn. FENTANYL 09/03/2017 2:40:05 PM 50 mcg Raúl Louis 50 mcg FENTANYL given in lab by Raúl Louis RN in Right Antecubital via Peripheral IV. Ordered by Kenji Cano. Medication (Drip) Medication Time Given Dosage/Unit Concentration/Unit Diluent (ml) Solution IV Solutions 09/03/2017 1:58:57 PM 50 mL (IV) NaCl .9 IV Solutions given in lab by Raúl Louis, RN in Right Antecubital via Peripheral IV. Pump/Drip Flow using NaCl .9 at KVO. Ordered by Kenji Cano. Initial Case Assessment Cardiovascular HR Rhythm Chest Pain 67 sr 0 Edema Present Skin color Skin None Normal Warm Dry Circulatory - Right Pulses Femoral 2 Scale (0,1,2,3,4,d) Circulatory - Left Pulses Femoral 2 Scale (0,1,2,3,4,d) Circulatory - Lower Extremities Color Lower Right Color Lower Left Normal Normal Neurological State Oriented to time-place- Alert Moves all extremities person Respiration - General Respiration Rate SpO2 (%) O2 (lpm) (B/min) 19 100 0 Chronological Log Time Study Chronological Log 13:42:23 Patient arrived via Bed. 13:42:24 Patient Name, D.O.B, / Armband Verified By R.N. 13:44:18 Consent signed by the physician and the patient and verified by the Planning Intern staff. 13:45:48 MD paged 13:49:34 Presedation assessment performed by Planning Intern RN. Vitals capture started with the following parameters, Patient=Adult, Interval=5 min, Initial Pr hrwtby=116 mmHg, 13:52:34 Deflation Rate=5 mmHg, Cuff placed on Right Ankle 13:53:19 HR=83 bpm, RWEB=082/68 mmhg, ZrI4=553.0 %, Resp=19 B/min, Pain=0, Juli=10, Carmona=2 13:53:33 MD arrived. Assessment: Initial Case, HR=67 BPM, Rhythm=sr, Chest Pain=0, Edema=None, Color=Normal, Skin = Warm, Dry Right Pulses: Femoral=2 Left Pulses: Femoral=2 13:57:36 Lower Right Extremities: Color=Normal Lower Left Extremities: Color=Normal Neurological: State=Alert, Ox3, PACHECO Respiration: Resp=19 B/min, QmP2=230 %, O2=0 lpm 13:58:12 Patient has been NPO for More than 6Hrs. 13:58:13 Skin Breakdown- LLQ wound with dressing; Right great toe eschar 13:58:18 HR=64 bpm, IJLJ=074/66 mmhg, SpO2=99.0 %, Resp=17 B/min, Pain=0, Juli=10, Carmona=2 13:58:42 A # 20 IV was noted in the Antecubital (right). Grade = 0 IV Solutions given in lab by Raúl Louis RN in Right Antecubital via Peripheral IV. Pump/Dri p Flow using NaCl .9 at 13:58:57 KVO. Ordered by Kenji Cano. 13:59:20 History and physical on the chart or being dictated. 13:59:27 Bilateral groins prepped with 2% chlorhexidine, and draped after a 3 minute waiting time. 14:00:58 Reference ECG taken 14:03:19 HR=65 bpm, KYDJ=294/59 mmhg, SpO2=99.0 %, Resp=12 B/min, Pain=0, Juli=10, Carmona=2 14:08:18 HR=64 bpm, FFCQ=351/67 mmhg, AbG1=749.0 %, Resp=12 B/min, Pain=0, Juli=10, Carmona=2 14:08:48 1 mg VERSED given in lab by Raúl Louis RN in Right Antecubital via Peripheral IV. Order ed by Kenji Cano. 14:09:26 50 mcg FENTANYL given in lab by Raúl Louis RN in Right Antecubital via Peripheral IV. O rdered by Kenji Cano. Time Out. Correct patient, correct procedure, correct physician, power injector loaded, with co ntrast with surgical team 14:09:47 present. Time Out Concurred by MD and individual staff in procedure. 14:09:54 Case Start 14:10:20 10 mL 1% XYLOCAINE given in lab by Kenji Cano in Left Groin via Subcutaneous. Ordered b Kenji Mackenzie. 14:12:42 Access site was Left Femoral Artery. A INTRODUCER SET, MICROPUNCTURE, STIFFENED FR 5 was advanced into the Fem Art (left) using the Percutaneous 14:12:53 technique. 14:13:19 HR=61 bpm, BSQM=694/68 mmhg, SpO2=99.0 %, Resp=15 B/min, Pain=0, Juli=9, Carmona=2 A SHEATH, FR5 TERUMO (10CM) FR 5 was exchanged in the Fem Art (left). This was necessary in ord er to 14:13:34 accomodate a larger catheter. A OMNI FLUSH 65CM CATHETER FR 4 was advanced over a wire. OMNIPAQUE, 300 MG, 50ML 50ML was used for 14:13:43 injections. 14:14:38 Through a OMNI FLUSH 65CM CATHETER FR 4, The Abdominal Aorta was injected with 10 cc's of c ontrast. 14:15:07 A WIRE, ANGLED GLIDE .035 260CM 260CM was inserted via Fem Art (left). 14:16:17 Through a OMNI FLUSH 65CM CATHETER FR 4, The Femoral Run-off was injected with 4 cc's per s econd. 14:16:59 Through a OMNI FLUSH 65CM CATHETER FR 4, The Femoral Run-off was injected with 4 cc's per s econd. 14:17:52 Through a OMNI FLUSH 65CM CATHETER FR 4, The Femoral Run-off was injected with 4 cc's per s econd. 14:18:18 HR=61 bpm, WILP=285/63 mmhg, SpO2=97.0 %, Resp=10 B/min, Pain=0, Juli=9, Carmona=2 14:18:32 Through a OMNI FLUSH 65CM CATHETER FR 4, The Femoral Run-off was injected with 4 cc's per s econd. 14:20:49 Through a OMNI FLUSH 65CM CATHETER FR 4, The Femoral Run-off was injected with 4 cc's per s econd. 14:22:28 A WIRE, MUSTAFA 260CM .035 260CM was inserted via Fem Art (left). A SHEATH, FR6 RAABE 90CM FR 6 was exchanged in the Fem Art (left). This was necessary in order to accomodate a 14:22:54 larger catheter. 14:23:15 5000 units HEPARIN given in lab by Raúl Louis, RN in Right Antecubital via Peripheral IV . Ordered by Kenji Cano. 14:23:20 HR=62 bpm, QGEK=776/54 mmhg, SpO2=97.0 %, Resp=21 B/min, Pain=0, Juli=10, Carmona=2 A CATHETER, FR4 CXI SUPPORT FR 4 was advanced over a wire. OMNIPAQUE, 300 MG, 50ML 50ML was use d for 14:24:40 injections. 14:27:22 Wire removed 14:27:40 A WIRE, GUIDE APPROACH DESIZING MACHINE OFFBEARER MICROWIRE 300CM was inserted via Fem Art (left). 14:28:21 HR=59 bpm, SBZM=527/54 mmhg, SpO2=99.0 %, Resp=10 B/min, Pain=0, Juli=9, Carmona=2 After removing the current catheter a CATHETER, CXI SUPPORT STRAIGHT .018 150CM .018 was advanc ed over a 14:29:59 WIRE, GUIDE APPROACH DESIZING MACHINE OFFBEARER MICROWIRE 300CM. 14:33:50 HR=59 bpm, BNSW=304/54 mmhg, SpO2=97.0 %, Resp=9 B/min, Pain=0, Juli=9, Carmona=2 14:34:13 wire crossed lesion in Right Ant Tibial artery 14:34:54 Catheter was removed A BALLOON, AMPHIRION DEEP 3 X 80 150CM 150CM was inserted over WIRE, GUIDE APPROACH DESIZING MACHINE OFFBEARER MICROWI RE 14:35:51 300CM via the Fem Art (left). 14:36:18 In the Tib, Ant. (right) a BALLOON, AMPHIRION DEEP 3 X 80 150CM 150CM was inflated to 12 at ms for 180 seconds. 14:38:51 HR=61 bpm, WAZT=907/65 mmhg, SpO2=99.0 %, Resp=12 B/min, Pain=0, Juli=10, Carmona=2 14:39:38 1 mg VERSED given in lab by Raúl Louis RN in Right Antecubital via Peripheral IV. Order ed by Kenji Cano. 14:40:05 50 mcg FENTANYL given in lab by Raúl Louis RN in Right Antecubital via Peripheral IV. O rdered by Kenji Cano. 14:41:39 Balloon Removed. 14:42:20 Tib, Ant. (right) angiogram, manually injected. 14:42:57 Tib, Ant. (right) angiogram, manually injected. 14:43:24 HR=58 bpm, RPHP=046/57 mmhg, SpO2=94 %, Resp=9 B/min, Pain=0, Juli=10, Carmona=2 A CATHETER, CXI SUPPORT STRAIGHT .018 150CM .018 was advanced over a wire. OMNIPAQUE, 300 MG, 5 0ML 50ML 14:43:41 was used for injections. 14:48:19 HR=59 bpm, YSNI=383/51 mmhg, SpO2=94.0 %, Resp=12 B/min, Pain=0, Juli=9, Carmona=2 14:49:44 wire and catheter pulled back in order to attempt to cross lesion in Right Pernoeal artery 14:52:44 Peroneal (right) angiogram, manually injected. 14:52:56 The previous wire was exchanged for a WIRE, GUIDE APPROACH DESIZING MACHINE OFFBEARER MICROWIRE 300CM. 14:53:18 HR=60 bpm, ELNV=959/59 mmhg, Resp=10 B/min, Pain=0, Juli=9, Carmona=2 14:53:55 Wire removed 14:54:54 Peroneal (right) angiogram, manually injected. 14:55:06 A WIRE, GUIDE APPROACH DESIZING MACHINE OFFBEARER MICROWIRE 300CM was inserted via Fem Art (left). 14:57:42 The previous wire was exchanged for a WIRE, CHOICE PT 300CM PT EX. SUPP 300CM. 14:58:23 HR=56 bpm, CILK=880/49 mmhg, SpO2=98.0 %, Resp=13 B/min, Pain=0, Juli=9, Carmona=2 14:59:43 Wire removed 14:59:58 Peroneal (right) angiogram, manually injected. 15:00:13 A WIRE, GUIDE APPROACH DESIZING MACHINE OFFBEARER MICROWIRE 300CM was inserted via Fem Art (left). 15:03:22 HR=57 bpm, IQFN=817/51 mmhg, SpO2=98.0 %, Resp=13 B/min, Pain=0, Juli=9, Carmona=2 15:07:50 Wire removed 15:08:20 A WIRE, GUIDE APPROACH HYDRO ST 300CM was inserted via Fem Art (left). 15:08:23 HR=57 bpm, FHEX=335/51 mmhg, SpO2=98.0 %, Resp=14 B/min, Pain=0, Juli=9, Carmona=2 15:13:22 HR=56 bpm, IIHR=505/53 mmhg, SpO2=97 %, Resp=11 B/min, Pain=0, Juli=9, Carmona=2 15:18:21 HR=57 bpm, BIDM=287/63 mmhg, SpO2=97.0 %, Resp=12 B/min, Pain=0, Juli=9, Carmona=2 15:19:01 A WIRE, MUSTAFA 260CM .035 260CM was inserted via Fem Art (left). 15:19:49 Catheter and wire removed w/o difficulty 15:19:58 betadine applied to left groin 15:20:16 ANGIOSEAL, FR6 VIP FR 6 placement in the Fem Art (left) 15:21:15 Case End 15:21:21 Sterile dressing applied to site 15:21:23 No case complications noted. 15:21:24 Cine recording checked. 15:22:13 Holding Area notified of successful intervention. 15:22:14 Bedside Report will be given. 15:23:26 HR=71 bpm, HSVN=848/59 mmhg, SpO2=99.0 %, Resp=11 B/min, Pain=0, Juli=10, Carmona=2 15:28:13 Vitals capture stopped. 15:29:22 Patient moved to [facility] End Study - Contrast Media Used In Study Contrast Total Opened (mL) Total Used (mL) Total Wasted (mL) Omnipaque 60 60 0 End Study - Maximum Contrast Load Max Contrast Load (mL) 500.9 End Study - Radiation Exposure Fluoro Time (minutes) 31.9 End Study - Patient Disposition Complications Transferred To Interventional Outcome No Planning Intern Holding successful
--- NOTE | 2017-09-03 15:40 | HHI.PR ---
cc: Kenji Cano MD; Shandra Elkins DPM Immediate Post Op Note Procedure Date: Sep 03, 2017 Pre Op Diagnosis: R LE PAD, tissue loss Post Op Diagnosis: R LE PAD, tissue loss Surgeon: Kenji Cano Labor Relations Specialist(s): none Procedure: Aortogram w/ R LE angiogram R AT MOBILE UI/UX DESIGNER (3mm) Findings: good runoff to foot, DP occlusion but good pedal perfusion with collaterals Complications: none Specimen(s) removed: none Estimated blood loss: 10mL Anesthesia: MAC Drains: None Patient to: Other (DOCU) Patient Condition: Good Date/Time of Procedure: SEE SURGICAL CARE RECORD Kenji Cano MD Sep 03, 2017 15:40
[2017-09-03] MEDS ORDERED: IOHEXOL 350 MG/ML 100 ML BTL (for Cath Lab) OTHER ONE (16:56)
--- NOTE | 2017-09-03 17:07 | HHI.PR ---
Subjective Remarks Patient seen in DOCU s/p Aortogram w/ R LE angiogram and R AT CHIEF ENGINEER (3mm) with Dr. Vo Patient groggy post- anesthesia offers no complaints at this time Objective Vitals Vital Signs Date Time Temp Pulse Resp B/P (MAP) Pulse Ox O2 Delivery O2 Flow Rate FiO2 09/03/17 16:01 99 Room Air 09/03/17 12:00 97.5 76 18 131/71 (91) 96 09/03/17 08:00 97.9 79 18 129/61 (83) 99 09/03/17 05:08 97.8 70 18 108/57 (74) 98 09/03/17 01:05 98.2 79 18 124/82 (96) 98 09/02/17 21:00 97.8 70 18 138/72 (94) 100 09/03/17 09/03/17 09/04/17 15:00 23:00 07:00 # Voids 2 Result Diagram: 09/02/17 0502 09/02/17 1513 Imaging Last Impressions Tumor Localization 08/30/17 0000 Signed Impressions: Service Date/Time: August 11:35 - CONCLUSION: 1. Focal intense three-phase activity distal phalanx right great toe most characteristic of osteomyelitis. Srinath Galvan MD Abdomen/Pelvis CT 08/30/17 0000 Signed Impressions: Service Date/Time: August 12:12 - CONCLUSION: 1. Irregularity of the skin in the left lower quadrant some with some minimal air but no fistulous tract to the abdominal structures. 2. Diverticulosis of the colon. 3. Splenomegaly. 4. Cholelithiasis. 5. Left renal cyst. Ashkan Peña MD Carotid Artery Ultrasound 08/28/17 0000 Signed Impressions: Service Date/Time: Monday, August 28, 2017 22:05 - CONCLUSION: Atherosclerotic plaque of both carotid bifurcations, mild on the right and minimal on the left. No hemodynamically significant narrowing. Tulio Saha MD Aorta w/Runoff CTA 08/28/17 0000 Signed Impressions: Service Date/Time: Tuesday, August 29, 2017 00:53 - CONCLUSION: 1. Patent inflow and outflow bilaterally. 2. Severe trifurcation disease bilaterally without straight line flow to either foot. Details given above. 3. Colonic diverticulosis. 4. Splenomegaly. 5. Cholelithiasis. Adria Mendez Jr., MD Chest X-Ray 08/27/17 1923 Signed Impressions: Service Date/Time: Sunday, August 27, 2017 19:30 - CONCLUSION: No evidence of acute cardiopulmonary disease. Tulio Saha MD Foot X-Ray 08/27/17 0000 Signed Impressions: Service Date/Time: Sunday, August 27, 2017 15:46 - CONCLUSION: Soft tissue swelling and possible first digit ulceration without definite underlying bone abnormality. Andrew Lang MD Objective Remarks GENERAL: This is a well-nourished, well-developed patient, in no apparent distress. SKIN: right foot with dry gangrene on tip of great toe, dressing LLQ abdomen dry and intact. small area of nonraised petechial rash medial aspect right ankle CARDIOVASCULAR: Regular rate and rhythm RESPIRATORY: Clear to auscultation. Breath sounds equal bilaterally. GASTROINTESTINAL: Abdomen soft, non-tender, nondistended. Normal active bowel sounds MUSCULOSKELETAL: Extremities without clubbing, cyanosis, or edema. NEURO: Alert & Oriented x4 to person, place, time, situation. Moves all ext x4 Procedures s/p Aortogram w/ R LE angiogram and R AT CHIEF ENGINEER (3mm) with Dr. Vo A/P Problem List: (1) Osteomyelitis ICD Codes: M86.9 - Osteomyelitis, unspecified Status: Chronic Plan: Osteomyelitis - comgmt with Podiatry & Vascular Surgery - Pt is a 62 y/o female with antiphospholipid antibody syndrome on chronic immunosuppression, hx of recurrent CVAs and TIAs on life long Lovenox, diabetes mellitus, Parkinson's disease, systemic lupus erythematous, and vasculitis. - She presented to [place] [facility] [place] at the request of her stockroom keeper, Dr. Garcia, for evaluation of a wound to her right great toe. - Pt has had a chronic wound to her right foot since February 2017 and has received 2 previous rounds of antibiotics for this. She also has reportedly been going to wound care approximately once a week for several months. She was referred to Dr. Garcia for further evaluation where she ordered an MRI. - Per the ED documentation the MRI was suggestive of osteomyelitis in the distal tuft of the great toe. - Podiatry consultation is ordered - Outpt US with RUSSELL in 08/2017 noted mildly reduced resting right lower extremity RUSSELL 0.8-0.89. Exercise was note performed due to limited ambulation. - CRP was elevated at 0.46 - Wound culture (08/29) --> pseudomonas, group B strep - IV Vancomycin (08/29 - present) - IV Zosyn (08/29 - present) - anticoagulation with coumadin - Pt does not want to continue Lovenox as she had been on Lovenox recently for anticoagulation but developed some skin breakdown in the left lower abdomen and has been following with Wound Care as an outpt for this. - Greatly appreciate input from Dr. Rios, Vascular Surgery - (09/03) Aortogram w/ R LE angiogram and R AT CHIEF ENGINEER (3mm) with Dr. Vo - Cerete WBC scan consistent with osteomyelitis - Per podiatry: Possible to OR Sunday for amputation distal right hallux and ulcer debridement right dorsal foot - supportive care - Case d/w Dr. Cano (09/01/17). Pt planned for LE revascularization on Sunday , 09/03/17. - Per Dr. Cano, will be able to proceed with surgery if INR is below 2.[address] pt on heparin 2 hours after surgery. Last PLT count 69,000. CBC not drawn (09/03) therefore unable to start heparin drip - INR 2.0 (08/05). Continue to hold Coumadin. Stat PT/INR and CBC requested - Case d/w Dr. Rodriguez, Hematology, (09/01/17) - (09/03) Case d/w Dr. Rodriguez and Dr. Garcia who is to do surgery on great toe. Both ok with resuming Coumadin. await PT/INR and CBC Chronic abdominal wound infection - Pt does not want to continue Lovenox as she had been on Lovenox recently for anticoagulation but developed some skin breakdown in the left lower abdomen and has been following with Wound Care as an outpt for this. - CT abd/pelvis (08/29) - Irregularity of the skin in the left lower quadrant some with some minimal air but no fistulous tract to the abdominal structures. 2. Diverticulosis of the colon. 3. Splenomegaly. 4. Cholelithiasis. 5. Left renal cyst - appreciate input from Wound Care - General surgery consulted, recommend continued localized wound care do not feel that patient is a surgical candidate at this time DM (diabetes mellitus) - Pt hold home diabetic medications - Accu checks - NovoLog SSI Antiphospholipid antibody syndrome - Pt continued on home dose of Cellcept and Prednisone - continue Coumadin, INR was suptheraputic on admission - Coumadin 7.5 mg daily with daily INR initially - INR (08/31) 1.9 -> 2.2 (09/01) -> 2.0 (09/02) -> INR not yet collected, STAT PT/ INR requested - see above anemia and thrombocytopenia - hgb 8.8 and Plt 89 - consult to hematology, appreciate input. Also discussed with Dr. Rodriguez. He I believes this is due to the acute infection, blood drawing and antibiotics. Will check occult stool and continue to monitor CBC, CMP - stool Hemoccult negative (09/01) Hypothyroid - Home meds continued (SLE (systemic lupus erythematosus) Chronic RAMIREZ (obstructive sleep apnea) - CPAP Rash 09/01 nonraised petechial rash medial aspect right ankle. Patient endorses mild itching will apply hydrocortisone cream monitor (2) Chronic abdominal wound infection ICD Codes: S31.109A - Unspecified open wound of abdominal wall, unspecified quadrant without penetration into peritoneal cavity, initial encounter; L08.9 - Local infection of the skin and subcutaneous tissue, unspecified Status: Chronic (3) DM (diabetes mellitus) ICD Codes: E11.9 - DM (diabetes mellitus) Status: Chronic (4) Antiphospholipid antibody syndrome ICD Codes: D68.61 - Antiphospholipid antibody syndrome Status: Chronic (5) Hypothyroid ICD Codes: E03.9 - Hypothyroid Status: Chronic (6) SLE (systemic lupus erythematosus) ICD Codes: M32.9 - SLE (systemic lupus erythematosus) Status: Chronic (7) RAMIREZ (obstructive sleep apnea) ICD Codes: G47.33 - RAMIREZ (obstructive sleep apnea) Status: Chronic (8) Rash ICD Codes: R21 - Rash and other nonspecific skin eruption Assessment and Plan Patient examined. Assessment and plan formulated with Courtney Ivey PA-C. I agree with the above. s/p AT angioplasty. discussed with hematology/vascular/podiatry plan for hallux amputation in AM podiatry ok with resuming coumadin no need for heparin gtt per my discussion with hematology. thrombocytopenia noted. will plan to stop abx in case this is contributing cbc and inr pending. Problem Qualifiers (1) Osteomyelitis: Qualified Codes: M86.671 - Other chronic osteomyelitis, right ankle and foot (2) Chronic abdominal wound infection: Qualified Codes: S31.109D - Unspecified open wound of abdominal wall, unspecified quadrant without penetration into peritoneal cavity, subsequent encounter; L08.9 - Local infection of the skin and subcutaneous tissue, unspecified (3) DM (diabetes mellitus): Courtney Ivey Sep 03, 2017 17:07 Edward Lewis MD Sep 03, 2017 20:00
[2017-09-03 20:01] LABS: BASOPHIL % 0.6 % (0.0-2.0); EOSINOPHIL # 0.2 TH/MM3 (0-0.4); EOSINOPHIL % 4.3 % (0.0-4.0); HEMATOCRIT 28.8 % (35.0-46.0); HEMOGLOBIN 9.2 GM/DL (11.6-15.3); LYMPH % 14.4 % (9.0-44.0); LYMPHOCYTE # 0.6 TH/MM3 (1.0-4.8); MEAN CELL VOLUME 89.8 FL (80.0-100.0); MEAN CORPUSCULAR HEMOGLOBIN 28.6 PG (27.0-34.0); MEAN CORPUSCULAR HGB CONC 31.9 % (32.0-36.0); MEAN PLATELET VOLUME 7.2 FL (7.0-11.0); MONO % 8.1 % (0.0-8.0); MONOCYTE # 0.3 TH/MM3 (0-0.9); NEUT % 72.6 % (16.0-70.0); PLATELET COUNT 89 TH/MM3 (150-450); RED CELL DISTRIBUTION WIDTH 17.4 % (11.6-17.2); WHITE BLOOD COUNT 4.1 TH/MM3 (4.0-11.0)
--- NOTE | 2017-09-03 20:10 | HHI.PR ---
Subjective Remarks Patient seen bedside following vascular procedure. Relates no pain to right hallux. Denies N,V,F,Ch at this time. Objective Vital Signs Date Time Temp Pulse Resp B/P (MAP) Pulse Ox O2 Delivery O2 Flow Rate FiO2 09/03/17 16:01 99 Room Air 09/03/17 12:00 97.5 76 18 131/71 (91) 96 09/03/17 08:00 97.9 79 18 129/61 (83) 99 09/03/17 05:08 97.8 70 18 108/57 (74) 98 09/03/17 01:05 98.2 79 18 124/82 (96) 98 09/02/17 21:00 97.8 70 18 138/72 (94) 100 I/O 09/02/17 09/02/17 09/02/17 09/03/17 09/03/17 09/03/17 07:00 15:00 23:00 07:00 15:00 23:00 Intake Total 560 ml Balance 560 ml Intake Oral 560 ml # Voids 3 2 # Bowel Movements 1 Result Diagram: 09/02/17 0502 09/02/17 1513 Imaging Last Impressions Tumor Localization 08/30/17 0000 Signed Impressions: Service Date/Time: August 11:35 - CONCLUSION: 1. Focal intense three-phase activity distal phalanx right great toe most characteristic of osteomyelitis. Srinath Galvan MD Abdomen/Pelvis CT 08/30/17 0000 Signed Impressions: Service Date/Time: August 12:12 - CONCLUSION: 1. Irregularity of the skin in the left lower quadrant some with some minimal air but no fistulous tract to the abdominal structures. 2. Diverticulosis of the colon. 3. Splenomegaly. 4. Cholelithiasis. 5. Left renal cyst. Ashkan Peña MD Carotid Artery Ultrasound 08/28/17 0000 Signed Impressions: Service Date/Time: Monday, August 28, 2017 22:05 - CONCLUSION: Atherosclerotic plaque of both carotid bifurcations, mild on the right and minimal on the left. No hemodynamically significant narrowing. Tulio Saha MD Aorta w/Runoff CTA 08/28/17 0000 Signed Impressions: Service Date/Time: Tuesday, August 29, 2017 00:53 - CONCLUSION: 1. Patent inflow and outflow bilaterally. 2. Severe trifurcation disease bilaterally without straight line flow to either foot. Details given above. 3. Colonic diverticulosis. 4. Splenomegaly. 5. Cholelithiasis. Adria Mendez Jr., MD Chest X-Ray 08/27/17 1923 Signed Impressions: Service Date/Time: Sunday, August 27, 2017 19:30 - CONCLUSION: No evidence of acute cardiopulmonary disease. Tulio Saha MD Foot X-Ray 08/27/17 0000 Signed Impressions: Service Date/Time: Sunday, August 27, 2017 15:46 - CONCLUSION: Soft tissue swelling and possible first digit ulceration without definite underlying bone abnormality. Andrew Lang MD Other Results Microbiology Date/Time Source Procedure Growth Status 09/01/17 06:35 Stool Stool Stool Occult Blood (KRISTI) - Final HEMOCCULT NEGATIVE Complete 08/27/17 17:45 Wound Toe Gram Stain - Final Complete 08/27/17 17:45 Wound Culture - Final Pseudomonas Aeruginosa Group B Beta Strep Complete Objective Remarks Lower extremity physical exam: Vascular: Dorsalis pedis nonpalpable, posterior tibial nonpalpable. Capillary refill time within normal limits to digits 4 to right foot 2,3,4,5, 5 to left foot. Edema mildly present right foot and ankle. Neuro: Gross sensation intact to bilateral lower extremity. Pinpoint sensation decreased. No hyperalgesia noted to bilateral lower extremity. Dermatology: Normal temperature and turgor to bilateral lower extremity. Right distal hallux necrotic tissue/eschar noted proximal interphalangeal joint. Right dorsal fifth metatarsal head ulceration with fibronecrotic base measuring 1 cm x 1 cm x 0.1 cm. Musculoskeletal: Tender to palpation to right hallux. Medications and IVs Current Medications Medications (Trade) Dose Ordered Sig/Alicia Route Start Time Stop Time Status Last Admin (NS Flush) 2 ml UNSCH PRN IV FLUSH 08/27/17 19:30 (NS Flush) 2 ml BID IV FLUSH 08/27/17 21:00 09/03/17 08:23 (Tylenol) 650 mg Q4H PRN PO 08/27/17 19:30 (Zofran Inj) 4 mg Q6H PRN IVP 08/27/17 19:30 08/28/17 05:03 (Narcan Inj) 0.4 mg UNSCH PRN IV PUSH 3/12/18 19:30 (Milk Of Magnesia Liq) 30 ml Q12H PRN PO 08/27/17 19:30 (NovoLOG SUPPLEMENTAL SCALE) 1 ACHS SLIDING SCALE SQ 08/27/17 21:00 09/02/17 21:56 (D50w (Vial) Inj) 50 ml UNSCH PRN IV PUSH 08/27/17 19:45 (Glucagon Inj) 1 mg UNSCH PRN OTHER 08/27/17 19:45 (Tenormin) 100 mg DAILY PO 08/28/17 09:00 09/03/17 08:24 (Sinemet Cr 50-200 Mg) 1 tab TID PO 08/28/17 09:00 09/03/17 18:17 (Lexapro) 20 mg DAILY PO 08/28/17 09:00 09/03/17 08:23 (Flovent Hfa 220 Mcg Inh) 1 puff BID INH 08/27/17 21:00 09/03/17 08:21 (Synthroid) 150 mcg Q48H PO 08/29/17 06:00 09/02/17 05:07 (Cozaar) 25 mg DAILY PO 08/28/17 09:00 09/03/17 08:24 (Cellcept) 500 mg BID PO 08/27/17 21:00 09/03/17 08:24 (Protonix) 40 mg DAILY PO 08/28/17 09:00 09/03/17 08:26 (Deltasone) 5 mg DAILY PO 08/28/17 09:00 09/03/17 08:23 (Synthroid) 75 mcg Q48H PO 08/28/17 06:00 09/03/17 05:25 ([place] 5-325 Mg) 1 tab Q6H PRN PO 08/27/17 19:45 09/02/17 21:50 (Synthroid) 100 mcg Q48H PO 08/28/17 06:00 09/03/17 05:26 Patient Own Medication PT OWN MED: COMTAN ... TID PO 08/28/17 09:00 Future Hold Patient Own Medication PT OWN MED: TRADJE... DAILY PO 08/28/17 09:00 Future Hold Pharmacy Profile Note 250 ml @ 0 mls/hr UNSCH OTHER 08/27/17 20:45 Piperacillin Sod/ Tazobactam Sod 50 ml @ 100 mls/hr Q6H IV 08/29/17 03:00 09/03/17 08:23 (Plaquenil) 200 mg BID PO 08/29/17 21:00 09/03/17 08:24 (Mycostatin Powder) 1 applic Q8HR TOPICAL 08/30/17 15:45 09/03/17 05:27 Vancomycin HCl 2000 mg/Sodium Chloride 520 ml @ 250 mls/hr Q24H IV 08/31/17 22:00 09/02/17 21:47 Miscellaneous Information SPECIFIC LAB TO BE DRAWN:VANCOMYCIN TROUGH DATE TO... ONCE ONCE .XX 09/03/17 21:45 09/03/17 21:46 (Aspirin Chew) 81 mg DAILY PO 09/01/17 09:00 09/03/17 08:24 (Coumadin) 5 mg DAILY@1600 PO 09/01/17 16:00 Future Hold (Corticaine 0.5% Cream) 1 applic Q8H TOPICAL 09/01/17 15:30 09/03/17 08:21 Lactated Ringer's 1,000 ml @ 30 mls/hr Q24H PRN IV 09/02/17 21:30 09/05/17 21:29 Sodium Chloride 500 ml @ 30 mls/hr [id number] PRN IV 09/02/17 21:30 09/05/17 21:29 (Betadine 5% Antisepsis Kit) 1 applic SIGN LANGUAGE INTERPRETER PRN EACH NARE 09/02/17 21:30 09/05/17 21:29 (Chlorhexidine 2% Cloth) 3 pack SIGN LANGUAGE INTERPRETER PRN TOPICAL 09/02/17 21:30 09/05/17 21:29 Assessment and Plan Assessment and Plan 62-year-old female with right hallux necrotic ulcer and right dorsal fifth metatarsal head ulcer Patient examined and evaluated with all questions answered Discussed surgical intervention with patient to include right hallux amputation with right foot ulcer debridement and irrigation Patient to remain n.p.o. after midnight, okay to have clear liquids for breakfast Anticipate DC from podiatry standpoint 2-3 days postop Will obtain OR cultures/pathology Appreciate vascular intervention Discussed plan for surgical intervention with hospitalist Lisa Garcia DPM Sep 03, 2017 20:10
[2017-09-03 20:18] LABS: INTERNATIONAL NORMALIZED RATIO 1.4 RATIO; PROTHROMBIN TIME - PATIENT 14.5 SEC (9.8-11.6)
[2017-09-03 20:26] LABS: BICARBONATE 23.5 MEQ/L (21.0-32.0); CALCIUM 8.9 MG/DL (8.5-10.1); CREATININE 1.17 MG/DL (0.50-1.00)
[2017-09-03 20:36] VITALS: BP 124/61; PULSE 68; RESP 17; TEMP 97.6; O2SAT 95
[2017-09-03 20:49] LABS: TEARDROP RBCS 1+ (NORMAL)
[2017-09-03] MEDS ORDERED: WARFARIN SOD 7.5 MG TAB PO ONE (21:30)
[2017-09-03] MEDS ORDERED: PHARMACY ORDERED LAB ONE (21:45)
[2017-09-03] MEDS: VANCOMYCIN INJ 2,000 MG in SODIUM CHLORID 0.9% 500 ML INJ 500 ML IV SCH (22:42)
[2017-09-03] MEDS: ACETAMINOPHEN/HYDROcodone 325 MG/5 MG TAB PO PRN (22:43)
[2017-09-04] VITALS (7 sets, daily range): BP systolic 101–136; BP diastolic 51–69; PULSE 63–78; RESP 17–20; TEMP 97.3–99.1; O2SAT 95–100
[2017-09-04] MEDS: PIPERACIL-TAZO 3.375 GM PREMIX 50 ML IV SCH ×4 (03:52→21:49)
[2017-09-04] MEDS: HYDROCORTISONE 0.5% CREAM 30 GM TOPICAL SCH ×3 (05:56→21:49)
[2017-09-04] MEDS: LEVOTHYROXINE SODIUM 150 MCG TAB PO SCH (05:56)
[2017-09-04] MEDS: ACETAMINOPHEN/HYDROcodone 325 MG/5 MG TAB PO PRN ×2 (05:56→21:48)
[2017-09-04] MEDS: NYSTATIN 100,000 U/GM PWD 15 GM BTL TOPICAL SCH ×3 (05:57→21:49)
[2017-09-04 06:25] LABS: AUTOMATED NEUTROPHIL # 3.5 TH/MM3 (1.8-7.7); BASOPHIL % 0.7 % (0.0-2.0); EOSINOPHIL # 0.2 TH/MM3 (0-0.4); EOSINOPHIL % 4.2 % (0.0-4.0); HEMATOCRIT 30.4 % (35.0-46.0); HEMOGLOBIN 9.8 GM/DL (11.6-15.3); LYMPH % 16.2 % (9.0-44.0); LYMPHOCYTE # 0.8 TH/MM3 (1.0-4.8); MEAN CELL VOLUME 91.5 FL (80.0-100.0); MEAN CORPUSCULAR HEMOGLOBIN 29.5 PG (27.0-34.0); MEAN CORPUSCULAR HGB CONC 32.3 % (32.0-36.0); MEAN PLATELET VOLUME 7.4 FL (7.0-11.0); MONO % 8.7 % (0.0-8.0); MONOCYTE # 0.4 TH/MM3 (0-0.9); NEUT % 70.2 % (16.0-70.0); PLATELET COUNT 109 TH/MM3 (150-450); RED BLOOD COUNT 3.33 MIL/MM3 (4.00-5.30); RED CELL DISTRIBUTION WIDTH 17.4 % (11.6-17.2)
[2017-09-04 06:31] LABS: INTERNATIONAL NORMALIZED RATIO 1.3 RATIO; PROTHROMBIN TIME - PATIENT 12.7 SEC (9.8-11.6)
--- NOTE | 2017-09-04 06:45 | MP ---
cc: Kenji Cano MD DATE OF OPERATION: 09/03/2017 PREOPERATIVE DIAGNOSIS: Right lower extremity tissue loss, peripheral arterial occlusive disease. POSTOPERATIVE DIAGNOSIS: Right lower extremity tissue loss, peripheral arterial occlusive disease. PROCEDURE PERFORMED: 1. Aortogram with right lower extremity angiograms. 2. Right anterior tibial artery angioplasty. 3. Left common femoral artery Angio-Seal. ATTENDING SURGEON: Kenji Cano MD ANESTHESIA: Local with sedation. INDICATIONS FOR PROCEDURE: Ms. Gardner is a lady with right lower extremity tissue loss and peripheral vascular disease. She has nonpalpable pedal pulses. She was taken to operating room for angiographic evaluation and treatment. There was no prior catheter based imaging available for my review. DESCRIPTION OF PROCEDURE: Informed consent was obtained from the patient. She was taken to the operating room and placed supine on the operating table. An appropriate timeout was taken to ensure the patient identity, operative site and planned procedure. The administration of antibiotics was not necessary as this is a clean procedure without planned implantation of any foreign objects. Everyone in the room agreed with he time-out and we proceeded. Her bilateral groins were prepped and draped. The left groin was anesthetized with 1% lidocaine. A 12-gauge micropuncture needle was used to access the left common femoral artery. This was exchanged using Seldinger technique for the micropuncture sheath through which a 0.035 Glidewire was introduced and the micropuncture sheath was exchanged for a 5-[place] sheath. A VCF catheter was placed over the wire and through the sheath and aortogram and pelvic arteriograms were obtained. The Glidewire was reintroduced and navigated down to the right common femoral artery. The VCF catheter was advanced over this and a right lower extremity angiogram was obtained. The patient was systemically heparinized with 5000 units of IV heparin. A 0.035 Desir wire was introduced, passed into the popliteal artery and the VCF catheter and 5-[place] sheath were removed and a 6-[place] 90 cm sheath was introduced. A CXI catheter was advanced over the Desir, the Desir exchanged for a Glidewire and this was used to navigate into the anterior tibial artery. Once past the genu of the anterior tibial artery, the Glidewire was exchanged for a 0.014, CASE OPERATOR and a 0.018 CXI and using the wire and 2 catheter combination, we were able to navigate past the anterior tibial artery occlusion and this was successfully angioplastied with a 3 mm balloon. At the completion, angiogram showed excellent result and no recoil extravasation and then multiple attempts were made to cross an occlusion of the dorsalis pedis and these were unsuccessful. The wire, catheter and sheath were pulled back and then navigated down to the peroneal artery and we were able to navigate past the peroneal artery occlusion, but not of the true lumen. The completion angiogram showed inline flow into the distal peroneal artery. The wire, catheter and sheath were removed and the groin was closed with Angio-Seal. There were no complications. I was present, scrubbed and performed the entire procedure. INTERPRETATION OF IMAGES: The patient has a patent infrarenal aorta, common iliac arteries, hypogastric arteries, and external iliac arteries bilaterally. There is no hemodynamically significant stenosis of any of these blood vessels. The right common femoral and profunda are patent. The SFA is patent. The popliteal artery is patent. There was 3-vessel runoff below the popliteal artery, but the anterior tibial artery has an occlusion and the distal anterior tibial artery is patent. The dorsalis pedis is occluded but the plantar arch fills. The peroneal artery has a proximal occlusion and the posterior tibial artery is largely occluded after recanalization of the anterior tibial artery. There is excellent opacification of the plantar arch. MD SILKE Suggs/CHAPO , 09:04 PM , 06:44 AM
[2017-09-04 06:53] LABS: BICARBONATE 21.8 MEQ/L (21.0-32.0); CALCIUM 8.5 MG/DL (8.5-10.1); CREATININE 1.15 MG/DL (0.50-1.00)
[2017-09-04] MEDS: INSULIN ASPART SUPPLEMENTAL SCALE SQ SCH ×4 (08:17→21:47)
[2017-09-04] MEDS: SODIUM CHLORIDE 0.9% FLUSH 10 ML FLUSH IV FLUSH SCH ×2 (08:19→21:46)
[2017-09-04] MEDS: FLUTICASONE PROPIONATE 220 MCG/ACT 12 GM INHALER INH SCH ×2 (08:19→21:49)
[2017-09-04] MEDS: HYDROXYCHLOROQUINE SULFATE 200 MG TAB PO SCH ×2 (08:19→21:48)
[2017-09-04] MEDS: LEVODOPA/CARBIDOPA 1 TAB TABCR PO SCH ×3 (08:20→18:17)
[2017-09-04] MEDS: MYCOPHENOLATE MOFETIL 500 MG TAB PO SCH ×2 (08:20→21:48)
[2017-09-04] MEDS: LOSARTAN 25 MG TAB PO SCH (08:20)
[2017-09-04] MEDS: ASPIRIN 81 MG CHEW TAB PO SCH (08:20)
[2017-09-04] MEDS: PANTOPRAZOLE SOD 40 MG DELAYED RELEASE TAB PO SCH (08:20)
[2017-09-04] MEDS: predniSONE 5 MG TAB PO SCH (08:21)
[2017-09-04] MEDS: ESCITALOPRAM OXALATE 20 MG TAB PO SCH (08:21)
[2017-09-04] MEDS: ATENOLOL 100 MG TAB PO SCH (08:21)
[2017-09-04] MEDS ORDERED: ASPIRIN 81 MG CHEW TAB PO SCH (09:00)
--- NOTE | 2017-09-04 10:17 | PD.VS.PN ---
Subjective POD #: 1 Procedure(s): Aortogram w/ R LE angiogram R AT FIELD IDENTIFICATION SPECIALIST (3mm) Subjective/Hospital Course Pt in bed Alert in NAD Pt s/p R LE revascularization LE warm w/ motor intact + Distal pulses present via Doppler L Groin S/NT w/o hematoma Objective Vitals/I&O Date Time Temp Pulse Resp B/P (MAP) Pulse Ox O2 Delivery O2 Flow Rate FiO2 09/04/17 09:58 98 09/04/17 08:10 98.6 78 20 112/59 (76) 98 09/04/17 04:33 98.7 70 17 117/57 (77) 95 09/04/17 00:04 99.1 77 17 136/61 (86) 100 09/03/17 20:36 97.6 68 17 124/61 (82) 95 09/03/17 16:01 99 Room Air 09/03/17 12:00 97.5 76 18 131/71 (91) 96 09/04/17 09/04/17 09/04/17 07:00 15:00 23:00 Intake Total 240 ml Balance 240 ml Exam: A&OX3, NAD,GCS15 LE warm w/ motor intact Right great toe w/ dry gangrene/No O/D/S/R L groin S/NT w/o hematoma/swelling R DP/PT w/ strong biphasic signals heard via Doppler L DP/PT w/ strong biphasic signals heard via Doppler Laboratory Laboratory Tests Test 09/03/17 19:38 09/03/17 23:38 09/04/17 05:39 White Blood Count 4.1 5.0 Red Blood Count 3.20 3.33 Hemoglobin 9.2 9.8 Hematocrit 28.8 30.4 Mean Corpuscular Volume 89.8 91.5 Mean Corpuscular Hemoglobin 28.6 29.5 Mean Corpuscular Hemoglobin Concent 31.9 32.3 Red Cell Distribution Width 17.4 17.4 Platelet Count 89 109 Mean Platelet Volume 7.2 7.4 Neutrophils (%) (Auto) 72.6 70.2 Lymphocytes (%) (Auto) 14.4 16.2 Monocytes (%) (Auto) 8.1 8.7 Eosinophils (%) (Auto) 4.3 4.2 Basophils (%) (Auto) 0.6 0.7 Neutrophils # (Auto) 3.0 3.5 Lymphocytes # (Auto) 0.6 0.8 Monocytes # (Auto) 0.3 0.4 Eosinophils # (Auto) 0.2 0.2 Basophils # (Auto) 0.0 0.0 CBC Comment AUTO DIFF DIFF FINAL Differential Comment AUTO DIFF CONFIRMED Platelet Estimate LOW Platelet Morphology Comment NORMAL Tear Drop Cells 1+ Prothrombin Time 14.5 12.7 Prothromb Time International Ratio 1.4 1.3 Blood Urea Nitrogen 13 15 Creatinine 1.17 1.15 Random Glucose 139 99 Calcium Level 8.9 8.5 Sodium Level 148 147 Potassium Level 4.0 3.5 Chloride Level 115 115 Carbon Dioxide Level 23.5 21.8 Anion Gap 10 10 Estimat Glomerular Filtration Rate 47 48 Vancomycin Level Trough 19.1 Date/Time Source Procedure Growth Status 09/01/17 06:35 Stool Stool Stool Occult Blood (KRISTI) - Final HEMOCCULT NEGATIVE Complete 08/27/17 17:45 Wound Toe Gram Stain - Final Complete 08/27/17 17:45 Wound Culture - Final Pseudomonas Aeruginosa Group B Beta Strep Complete Assessment and Plan Plan 62/F w/ a hx of PAD and R LE tissue loss (R great toe dry gangrene since Mar 2017) Pt S/P R LE revascularization Pt w/o complaints LE warm w/ motor intact L groin S/NT Plan Continue PT Continue CV risk factor modification (anticoagulation/Statin therapy) Pt clear for d/c from a vascular stand point Arranged out pt f/u with a surveillance RUSSELL Pt made aware of plan Margot Clarke NP [facility] [phone] Margot Clarke Sep 04, 2017 10:17
--- NOTE | 2017-09-04 10:41 | HHI.PR ---
Subjective Remarks no new complaints pt resistant to lovenox bridge due to abdomen wound after repeated injections at outside hospital Objective Vitals heart reg lungcta abd s/nt ext right great toe necrotic tip Vital Signs Date Time Temp Pulse Resp B/P (MAP) Pulse Ox O2 Delivery O2 Flow Rate FiO2 09/04/17 09:58 98 09/04/17 08:10 98.6 78 20 112/59 (76) 98 09/04/17 04:33 98.7 70 17 117/57 (77) 95 09/04/17 00:04 99.1 77 17 136/61 (86) 100 09/03/17 20:36 97.6 68 17 124/61 (82) 95 09/03/17 16:01 99 Room Air 09/03/17 12:00 97.5 76 18 131/71 (91) 96 09/04/17 09/04/17 09/05/17 15:00 23:00 07:00 Intake Total 50 ml Balance 50 ml IV Total 50 ml Result Diagram: 09/04/17 0539 09/04/17 0539 Imaging Last Impressions Tumor Localization 08/30/17 0000 Signed Impressions: Service Date/Time: August 11:35 - CONCLUSION: 1. Focal intense three-phase activity distal phalanx right great toe most characteristic of osteomyelitis. Srinath Galvan MD Abdomen/Pelvis CT 08/30/17 0000 Signed Impressions: Service Date/Time: August 12:12 - CONCLUSION: 1. Irregularity of the skin in the left lower quadrant some with some minimal air but no fistulous tract to the abdominal structures. 2. Diverticulosis of the colon. 3. Splenomegaly. 4. Cholelithiasis. 5. Left renal cyst. Ashkan Peña MD Carotid Artery Ultrasound 08/28/17 0000 Signed Impressions: Service Date/Time: Monday, August 28, 2017 22:05 - CONCLUSION: Atherosclerotic plaque of both carotid bifurcations, mild on the right and minimal on the left. No hemodynamically significant narrowing. Tulio Saha MD Aorta w/Runoff CTA 08/28/17 0000 Signed Impressions: Service Date/Time: Tuesday, August 29, 2017 00:53 - CONCLUSION: 1. Patent inflow and outflow bilaterally. 2. Severe trifurcation disease bilaterally without straight line flow to either foot. Details given above. 3. Colonic diverticulosis. 4. Splenomegaly. 5. Cholelithiasis. Adria Mendez Jr., MD Chest X-Ray 08/27/17 1923 Signed Impressions: Service Date/Time: Sunday, August 27, 2017 19:30 - CONCLUSION: No evidence of acute cardiopulmonary disease. Tulio Saha MD Foot X-Ray 08/27/17 0000 Signed Impressions: Service Date/Time: Sunday, August 27, 2017 15:46 - CONCLUSION: Soft tissue swelling and possible first digit ulceration without definite underlying bone abnormality. Andrew Lang MD Procedures s/p Aortogram w/ R LE angiogram and R AT UTILITY TECHNICIAN (3mm) with Dr. Vo A/P Problem List: (1) Osteomyelitis ICD Codes: M86.9 - Osteomyelitis, unspecified Status: Chronic Plan: Osteomyelitis - comgmt with Podiatry & Vascular Surgery - Pt is a 62 y/o female with antiphospholipid antibody syndrome on chronic immunosuppression, hx of recurrent CVAs and TIAs on life long Lovenox, diabetes mellitus, Parkinson's disease, systemic lupus erythematous, and vasculitis. - She [place] [facility] [place] at the request of her ceo [place], Dr. Garcia, for evaluation of a wound to her right great toe. - Pt has had a chronic wound to her right foot since February 2017 and has received 2 previous rounds of antibiotics for this. She also has reportedly been going to wound care approximately once a week for several months. She was referred to Dr. Garcia for further evaluation where she ordered an MRI. - Per the ED documentation the MRI was suggestive of osteomyelitis in the distal tuft of the great toe. - Podiatry consultation is ordered - Outpt US with RUSSELL in 08/2017 noted mildly reduced resting right lower extremity RUSSELL 0.8-0.89. Exercise was note performed due to limited ambulation. - CRP was elevated at 0.46 - Wound culture (08/29) --> pseudomonas, group B strep - IV Vancomycin (08/29 - present) - IV Zosyn (08/29 - present) - anticoagulation with coumadin - Pt does not want to continue Lovenox as she had been on Lovenox recently for anticoagulation but developed some skin breakdown in the left lower abdomen and has been following with Wound Care as an outpt for this. - Greatly appreciate input from Dr. Rios, Vascular Surgery - (09/03) Aortogram w/ R LE angiogram and R AT UTILITY TECHNICIAN (3mm) with Dr. Vo - [facility] WBC scan consistent with osteomyelitis - Per podiatry: To OR today for toe amputation Going to OR today for toe amputation spoke with hematology and we planned to start lovenox after surgery and bridge coumadin. Pt refusing lovenox due to abdomen wound caused by lovenox injections. she is agreeable for heparin gtt which we will start immediately after her surgery today. cont heparin plan for going home with hhc/pt in next day or 2. Chronic abdominal wound infection - Pt does not want to continue Lovenox as she had been on Lovenox recently for anticoagulation but developed some skin breakdown in the left lower abdomen and has been following with Wound Care as an outpt for this. - CT abd/pelvis (08/29) - Irregularity of the skin in the left lower quadrant some with some minimal air but no fistulous tract to the abdominal structures. 2. Diverticulosis of the colon. 3. Splenomegaly. 4. Cholelithiasis. 5. Left renal cyst - appreciate input from Wound Care - General surgery consulted, recommend continued localized wound care do not feel that patient is a surgical candidate at this time DM (diabetes mellitus) - Pt hold home diabetic medications - Accu checks - NovoLog SSI Antiphospholipid antibody syndrome - Pt continued on home dose of Cellcept and Prednisone - see above anemia and thrombocytopenia - hgb and plt rising now. - consult to hematology, appreciate input. Also discussed with Dr. Rodriguez. He I believes this is due to the acute infection, blood drawing and antibiotics. - stool Hemoccult negative (09/01) Hypothyroid - Home meds continued (SLE (systemic lupus erythematosus) Chronic RAMIREZ (obstructive sleep apnea) - CPAP (2) Chronic abdominal wound infection ICD Codes: S31.109A - Unspecified open wound of abdominal wall, unspecified quadrant without penetration into peritoneal cavity, initial encounter; L08.9 - Local infection of the skin and subcutaneous tissue, unspecified Status: Chronic (3) DM (diabetes mellitus) ICD Codes: E11.9 - DM (diabetes mellitus) Status: Chronic (4) Antiphospholipid antibody syndrome ICD Codes: D68.61 - Antiphospholipid antibody syndrome Status: Chronic (5) Hypothyroid ICD Codes: E03.9 - Hypothyroid Status: Chronic (6) SLE (systemic lupus erythematosus) ICD Codes: M32.9 - SLE (systemic lupus erythematosus) Status: Chronic (7) RAMIREZ (obstructive sleep apnea) ICD Codes: G47.33 - RAMIREZ (obstructive sleep apnea) Status: Chronic Problem Qualifiers (1) Osteomyelitis: Qualified Codes: M86.671 - Other chronic osteomyelitis, right ankle and foot (2) Chronic abdominal wound infection: Qualified Codes: S31.109D - Unspecified open wound of abdominal wall, unspecified quadrant without penetration into peritoneal cavity, subsequent encounter; L08.9 - Local infection of the skin and subcutaneous tissue, unspecified (3) DM (diabetes mellitus): Edward Lewis MD Sep 04, 2017 10:41
[2017-09-04 11:59] LABS: INTERNATIONAL NORMALIZED RATIO 1.3 RATIO; PROTHROMBIN TIME - PATIENT 13.4 SEC (9.8-11.6)
--- NOTE | 2017-09-04 13:13 | PD.ONC.PN ---
Subjective Subjective Remarks Afebrile overnight. Patient resting in bed in nad. does not want lovenox shots, would prefer heparin gtt after surgery. has a chronic wound in abdomen from previous lovenox shots. Objective Data Date Time Temp Pulse Resp B/P (MAP) Pulse Ox O2 Delivery O2 Flow Rate FiO2 09/04/17 11:47 98.1 63 20 101/51 (68) 96 09/04/17 09:58 98 09/04/17 08:10 98.6 78 20 112/59 (76) 98 09/04/17 04:33 98.7 70 17 117/57 (77) 95 09/04/17 00:04 99.1 77 17 136/61 (86) 100 09/03/17 20:36 97.6 68 17 124/61 (82) 95 09/03/17 16:01 99 Room Air 09/04/17 09/04/17 09/04/17 06:59 14:59 22:59 Intake Total 240 ml 50 ml Balance 240 ml 50 ml Result Diagram: 09/04/17 0539 09/04/17 0539 Laboratory Results Laboratory Tests Test 09/03/17 19:38 09/03/17 23:38 09/04/17 05:39 09/04/17 11:34 White Blood Count 4.1 TH/MM3 5.0 TH/MM3 Red Blood Count 3.20 MIL/MM3 3.33 MIL/MM3 Hemoglobin 9.2 GM/DL 9.8 GM/DL Hematocrit 28.8 % 30.4 % Mean Corpuscular Volume 89.8 FL 91.5 FL Mean Corpuscular Hemoglobin 28.6 PG 29.5 PG Mean Corpuscular Hemoglobin Concent 31.9 % 32.3 % Red Cell Distribution Width 17.4 % 17.4 % Platelet Count 89 TH/MM3 109 TH/MM3 Mean Platelet Volume 7.2 FL 7.4 FL Neutrophils (%) (Auto) 72.6 % 70.2 % Lymphocytes (%) (Auto) 14.4 % 16.2 % Monocytes (%) (Auto) 8.1 % 8.7 % Eosinophils (%) (Auto) 4.3 % 4.2 % Basophils (%) (Auto) 0.6 % 0.7 % Neutrophils # (Auto) 3.0 TH/MM3 3.5 TH/MM3 Lymphocytes # (Auto) 0.6 TH/MM3 0.8 TH/MM3 Monocytes # (Auto) 0.3 TH/MM3 0.4 TH/MM3 Eosinophils # (Auto) 0.2 TH/MM3 0.2 TH/MM3 Basophils # (Auto) 0.0 TH/MM3 0.0 TH/MM3 CBC Comment AUTO DIFF DIFF FINAL Differential Comment AUTO DIFF CONFIRMED Platelet Estimate LOW Platelet Morphology Comment NORMAL Tear Drop Cells 1+ Prothrombin Time 14.5 SEC 12.7 SEC 13.4 SEC Prothromb Time International Ratio 1.4 RATIO 1.3 RATIO 1.3 RATIO Blood Urea Nitrogen 13 MG/DL 15 MG/DL Creatinine 1.17 MG/DL 1.15 MG/DL Random Glucose 139 MG/DL 99 MG/DL Calcium Level 8.9 MG/DL 8.5 MG/DL Sodium Level 148 MEQ/L 147 MEQ/L Potassium Level 4.0 MEQ/L 3.5 MEQ/L Chloride Level 115 MEQ/L 115 MEQ/L Carbon Dioxide Level 23.5 MEQ/L 21.8 MEQ/L Anion Gap 10 MEQ/L 10 MEQ/L Estimat Glomerular Filtration Rate 47 ML/MIN 48 ML/MIN Vancomycin Level Trough 19.1 MCG/ML Activated Partial Thromboplast Time 34.5 SEC Administered Medications Medications (Trade) Dose Ordered Sig/Alicia Route PRN Reason Start Time Stop Time Status Last Admin Dose Admin Sodium Chloride (NS Flush) 2 ml BID IV FLUSH 08/27/17 21:00 09/04/17 08:19 Ondansetron HCl (Zofran Inj) 4 mg Q6H PRN IVP NAUSEA OR VOMITING 08/27/17 19:30 08/28/17 05:03 Insulin Aspart (NovoLOG SUPPLEMENTAL SCALE) 1 ACHS SLIDING SCALE SQ 08/27/17 21:00 09/02/17 21:56 Atenolol (Tenormin) 100 mg DAILY PO 08/28/17 09:00 09/04/17 08:21 Carbidopa/Levodopa (Sinemet Cr 50-200 Mg) 1 tab TID PO 08/28/17 09:00 09/04/17 12:21 Escitalopram Oxalate (Lexapro) 20 mg DAILY PO 08/28/17 09:00 09/04/17 08:21 Fluticasone Propionate (Flovent Hfa 220 Mcg Inh) 1 puff BID INH 08/27/17 21:00 09/04/17 08:19 Levothyroxine Sodium (Synthroid) 150 mcg Q48H PO 08/29/17 06:00 09/04/17 05:56 Losartan Potassium (Cozaar) 25 mg DAILY PO 08/28/17 09:00 09/04/17 08:20 Mycophenolate Mofetil (Cellcept) 500 mg BID PO 08/27/17 21:00 09/04/17 08:20 Pantoprazole Sodium (Protonix) 40 mg DAILY PO 08/28/17 09:00 09/04/17 08:20 Prednisone (Deltasone) 5 mg DAILY PO 08/28/17 09:00 09/04/17 08:21 Levothyroxine Sodium (Synthroid) 75 mcg Q48H PO 08/28/17 06:00 09/03/17 05:25 Acetaminophen/ Hydrocodone Bitart (Mina 5-325 Mg) 1 tab Q6H PRN PO pain 1-10 08/27/17 19:45 09/04/17 05:56 Levothyroxine Sodium (Synthroid) 100 mcg Q48H PO 08/28/17 06:00 09/03/17 05:26 Piperacillin Sod/ Tazobactam Sod 50 ml @ 100 mls/hr Q6H IV 08/29/17 03:00 09/04/17 08:19 Hydroxychloroquine Sulfate (Plaquenil) 200 mg BID PO 08/29/17 21:00 09/04/17 08:19 Nystatin (Mycostatin Powder) 1 applic Q8HR TOPICAL 08/30/17 15:45 09/04/17 05:57 Aspirin (Aspirin Chew) 81 mg DAILY PO 09/01/17 09:00 09/04/17 08:20 Hydrocortisone (Corticaine 0.5% Cream) 1 applic Q8H TOPICAL 09/01/17 15:30 09/04/17 05:56 Objective Remarks GENERAL: Pleasant middle aged female, lying in bed in [facility]. SKIN: Warm and dry. HEAD: Normocephalic. EYES: No injection or drainage. NECK: Supple, trachea midline. CARDIOVASCULAR: Regular rate and rhythm. RESPIRATORY: Breath sounds equal bilaterally. No accessory muscle use. GASTROINTESTINAL: Abdomen soft, non-tender, nondistended. chronic wound, left lower quadrant of abdomen, bandages c/d/i. EXTREMITIES: No cyanosis, or edema. NEUROLOGICAL: awake and alert. normal speech. Assessment/Plan Assessment 62y/o female with antiphospholipid antibody syndrome. Plan 1. since INR 1.3 today, would recommend starting heparin post-surgery. patient does not wish to have Lovenox shots, she has had a bad experience with them in the past. therefore, ok to start heparin without boluses + coumadin bridge after surgery. 2. monitor hgb/coags closely. Attending Statement The exam, history, and the medical decision-making described in the above note were completed with the assistance of the mid-level provider. I reviewed and agree with the findings presented. I attest that I had a [id number] encounter with the patient on the same day, and personally performed and documented my assessment and findings in the medical record. surgery delayed as OR busy as per patient. She is now receiving unfractionated heparin. would continue heparin and stop approximately 4 hours before surgery. After surgery would resume IV unfractionated heparin, continue aspirin, resume coumadin and stop heparin when INR is 2.0 or greater. She is doing well and platelets and hemoglobin increasing as cellulitis/infection/ischemia improving. Candy Garcia Sep 04, 2017 13:12 Edward Rodriguez MD Sep 04, 2017 20:13
[2017-09-04] MEDS: WARFARIN SOD 7.5 MG TAB PO SCH (15:52)
[2017-09-04] MEDS ORDERED: WARFARIN SOD 5 MG TAB PO SCH (16:00)
[2017-09-04] MEDS ORDERED: HEPARIN SODIUM - IV 10,000 UNITS/10 ML VIAL IV PUSH PRN (16:30)
[2017-09-04] MEDS ORDERED: HEPARIN - 10,000 UNITS/ML IV ADDITIVE IV PUSH PRN (16:30)
[2017-09-04] MEDS: HEPARIN-D5W 25,000 U/250 ML 250 ML IV PRN (18:19)
--- NOTE | 2017-09-04 21:17 | HHI.PR ---
Subjective Remarks Patient seen bedside following vascular procedure. Relates no pain to right hallux. Denies N,V,F,Ch at this time. States she is hungry and is getting tired of waiting for surgery. Objective Vital Signs Date Time Temp Pulse Resp B/P (MAP) Pulse Ox O2 Delivery O2 Flow Rate FiO2 09/04/17 16:49 97.9 63 20 128/69 (88) 99 09/04/17 11:47 98.1 63 20 101/51 (68) 96 09/04/17 09:58 98 09/04/17 08:10 98.6 78 20 112/59 (76) 98 09/04/17 04:33 98.7 70 17 117/57 (77) 95 09/04/17 00:04 99.1 77 17 136/61 (86) 100 I/O 09/03/17 09/03/17 09/03/17 09/04/17 09/04/17 09/04/17 06:59 14:59 22:59 06:59 14:59 22:59 Intake Total 50 ml 240 ml 50 ml Balance 50 ml 240 ml 50 ml Intake Oral 240 ml IV Total 50 ml 50 ml # Voids 2 3 2 Result Diagram: 09/04/17 0539 09/04/17 0539 Imaging Last Impressions Tumor Localization 08/30/17 0000 Signed Impressions: Service Date/Time: August 11:35 - CONCLUSION: 1. Focal intense three-phase activity distal phalanx right great toe most characteristic of osteomyelitis. Srinath Galvan MD Abdomen/Pelvis CT 08/30/17 0000 Signed Impressions: Service Date/Time: August 12:12 - CONCLUSION: 1. Irregularity of the skin in the left lower quadrant some with some minimal air but no fistulous tract to the abdominal structures. 2. Diverticulosis of the colon. 3. Splenomegaly. 4. Cholelithiasis. 5. Left renal cyst. Ashkan Peña MD Carotid Artery Ultrasound 08/28/17 0000 Signed Impressions: Service Date/Time: Monday, August 28, 2017 22:05 - CONCLUSION: Atherosclerotic plaque of both carotid bifurcations, mild on the right and minimal on the left. No hemodynamically significant narrowing. Tulio Saha MD Aorta w/Runoff CTA 08/28/17 0000 Signed Impressions: Service Date/Time: Tuesday, August 29, 2017 00:53 - CONCLUSION: 1. Patent inflow and outflow bilaterally. 2. Severe trifurcation disease bilaterally without straight line flow to either foot. Details given above. 3. Colonic diverticulosis. 4. Splenomegaly. 5. Cholelithiasis. Adria Mendez Jr., MD Chest X-Ray [id number] Signed Impressions: Service Date/Time: Sunday, August 27, 2017 19:30 - CONCLUSION: No evidence of acute cardiopulmonary disease. Tulio Saha MD Foot X-Ray 08/27/17 0000 Signed Impressions: Service Date/Time: Sunday, August 27, 2017 15:46 - CONCLUSION: Soft tissue swelling and possible first digit ulceration without definite underlying bone abnormality. Andrew Lang MD Other Results Microbiology Date/Time Source Procedure Growth Status 09/01/17 06:35 Stool Stool Stool Occult Blood (KRISTI) - Final HEMOCCULT NEGATIVE Complete 08/27/17 17:45 Wound Toe Gram Stain - Final Complete 08/27/17 17:45 Wound Culture - Final Pseudomonas Aeruginosa Group B Beta Strep Complete Objective Remarks Lower extremity physical exam: Vascular: Dorsalis pedis nonpalpable, posterior tibial nonpalpable. Capillary refill time within normal limits to digits 4 to right foot 2,3,4,5, 5 to left foot. Edema mildly present right foot and ankle. Neuro: Gross sensation intact to bilateral lower extremity. Pinpoint sensation decreased. No hyperalgesia noted to bilateral lower extremity. Dermatology: Normal temperature and turgor to bilateral lower extremity. Right distal hallux necrotic tissue/eschar noted proximal interphalangeal joint. Right dorsal fifth metatarsal head ulceration with fibronecrotic base measuring 1 cm x 1 cm x 0.1 cm. Musculoskeletal: Tender to palpation to right hallux. Medications and IVs Last Impressions Tumor Localization 08/30/17 0000 Signed Impressions: Service Date/Time: August 11:35 - CONCLUSION: 1. Focal intense three-phase activity distal phalanx right great toe most characteristic of osteomyelitis. Srinath Galvan MD Abdomen/Pelvis CT 08/30/17 0000 Signed Impressions: Service Date/Time: August 12:12 - CONCLUSION: 1. Irregularity of the skin in the left lower quadrant some with some minimal air but no fistulous tract to the abdominal structures. 2. Diverticulosis of the colon. 3. Splenomegaly. 4. Cholelithiasis. 5. Left renal cyst. Ashkan Peña MD Carotid Artery Ultrasound 08/28/17 0000 Signed Impressions: Service Date/Time: Monday, August 28, 2017 22:05 - CONCLUSION: Atherosclerotic plaque of both carotid bifurcations, mild on the right and minimal on the left. No hemodynamically significant narrowing. Tulio Saha MD Aorta w/Runoff CTA 08/28/17 0000 Signed Impressions: Service Date/Time: Tuesday, August 29, 2017 00:53 - CONCLUSION: 1. Patent inflow and outflow bilaterally. 2. Severe trifurcation disease bilaterally without straight line flow to either foot. Details given above. 3. Colonic diverticulosis. 4. Splenomegaly. 5. Cholelithiasis. Adria Mendez Jr., MD Chest X-Ray [id number] Signed Impressions: Service Date/Time: Sunday, August 27, 2017 19:30 - CONCLUSION: No evidence of acute cardiopulmonary disease. Tulio Saha MD Foot X-Ray 08/27/17 0000 Signed Impressions: Service Date/Time: Sunday, August 27, 2017 15:46 - CONCLUSION: Soft tissue swelling and possible first digit ulceration without definite underlying bone abnormality. Andrew Lang MD Assessment and Plan Assessment and Plan 62-year-old female with right hallux necrotic ulcer and right dorsal fifth metatarsal head ulcer Patient examined and evaluated with all questions answered Patient to OR tomorrow as she did not want to continue waiting for surgery, she would like to proceed with surgery tomorrow Discussed surgical intervention with patient to include right hallux amputation with right foot ulcer debridement and irrigation Consent signed Right LE marked Patient to remain n.p.o. after midnight, okay to have clear liquids for breakfast Will obtain OR cultures/pathology Appreciate vascular intervention Discussed plan for surgical intervention with hospitalist Lisa Garcia DPM Sep 04, 2017 21:17
[2017-09-04] MEDS ORDERED: VANCOMYCIN INJ 1,750 MG in SODIUM CHLORID 0.9% 500 ML INJ 500 ML IV SCH (22:00)
[2017-09-05 00:15] VITALS: BP 129/69; PULSE 67; RESP 18; TEMP 98.8; O2SAT 99
[2017-09-05] MEDS: PIPERACIL-TAZO 3.375 GM PREMIX 50 ML IV SCH ×4 (04:15→22:03)
[2017-09-05 04:50] VITALS: BP 116/59; PULSE 65; RESP 17; TEMP 97.3; O2SAT 100
[2017-09-05] MEDS: ACETAMINOPHEN/HYDROcodone 325 MG/5 MG TAB PO PRN ×2 (05:08→22:04)
[2017-09-05] MEDS: LEVOTHYROXINE SODIUM 75 MCG TAB PO SCH (05:11)
[2017-09-05] MEDS: LEVOTHYROXINE SODIUM 100 MCG TAB PO SCH (05:11)
[2017-09-05] MEDS: NYSTATIN 100,000 U/GM PWD 15 GM BTL TOPICAL SCH ×3 (05:11→22:03)
[2017-09-05 08:13] VITALS: BP 107/55; PULSE 68; RESP 18; TEMP 98.1; O2SAT 97
[2017-09-05] MEDS: INSULIN ASPART SUPPLEMENTAL SCALE SQ SCH ×4 (08:17→22:05)
[2017-09-05] MEDS: PANTOPRAZOLE SOD 40 MG DELAYED RELEASE TAB PO SCH (08:23)
[2017-09-05] MEDS: HYDROXYCHLOROQUINE SULFATE 200 MG TAB PO SCH ×2 (08:23→22:04)
[2017-09-05] MEDS: LOSARTAN 25 MG TAB PO SCH (08:23)
[2017-09-05] MEDS: MYCOPHENOLATE MOFETIL 500 MG TAB PO SCH ×2 (08:23→22:04)
[2017-09-05] MEDS: predniSONE 5 MG TAB PO SCH (08:23)
[2017-09-05] MEDS: ESCITALOPRAM OXALATE 20 MG TAB PO SCH (08:24)
[2017-09-05] MEDS: ASPIRIN 81 MG CHEW TAB PO SCH (08:24)
[2017-09-05] MEDS: ATENOLOL 100 MG TAB PO SCH (08:24)
[2017-09-05] MEDS: LEVODOPA/CARBIDOPA 1 TAB TABCR PO SCH ×3 (08:24→17:47)
[2017-09-05] MEDS: SODIUM CHLORIDE 0.9% FLUSH 10 ML FLUSH IV FLUSH SCH ×2 (08:25→22:04)
[2017-09-05] MEDS: FLUTICASONE PROPIONATE 220 MCG/ACT 12 GM INHALER INH SCH ×2 (08:35→22:02)
[2017-09-05] MEDS: HYDROCORTISONE 0.5% CREAM 30 GM TOPICAL SCH ×3 (09:39→23:30)
[2017-09-05 09:48] LABS: BASOPHIL % 0.8 % (0.0-2.0); EOSINOPHIL # 0.1 TH/MM3 (0-0.4); EOSINOPHIL % 3.6 % (0.0-4.0); HEMATOCRIT 28.2 % (35.0-46.0); HEMOGLOBIN 9.2 GM/DL (11.6-15.3); LYMPH % 15.8 % (9.0-44.0); LYMPHOCYTE # 0.7 TH/MM3 (1.0-4.8); MEAN CELL VOLUME 90.5 FL (80.0-100.0); MEAN CORPUSCULAR HEMOGLOBIN 29.6 PG (27.0-34.0); MEAN CORPUSCULAR HGB CONC 32.6 % (32.0-36.0); MEAN PLATELET VOLUME 7.4 FL (7.0-11.0); MONO % 8.1 % (0.0-8.0); MONOCYTE # 0.3 TH/MM3 (0-0.9); NEUT % 71.7 % (16.0-70.0); PLATELET COUNT 85 TH/MM3 (150-450); RED BLOOD COUNT 3.12 MIL/MM3 (4.00-5.30); RED CELL DISTRIBUTION WIDTH 17.7 % (11.6-17.2); WHITE BLOOD COUNT 4.1 TH/MM3 (4.0-11.0)
[2017-09-05 09:58] LABS: INTERNATIONAL NORMALIZED RATIO 1.6 RATIO; PROTHROMBIN TIME - PATIENT 16.4 SEC (9.8-11.6)
--- NOTE | 2017-09-05 10:32 | HHI.PR ---
Subjective Remarks pt complains that her abdomen bandage not changed in 3 days also concerned about small area on left post ankle Objective Vitals haert reg lung cta abd s/nt/left lower abd bandaged ext left great toe necrotic tip that has some left post ankle.skin irritation/small amt dried blood. no drainage. not hot/warm Vital Signs Date Time Temp Pulse Resp B/P (MAP) Pulse Ox O2 Delivery O2 Flow Rate FiO2 09/05/17 08:13 98.1 68 18 107/55 (72) 97 09/05/17 04:50 97.3 65 17 116/59 (78) 100 09/05/17 00:15 98.8 67 18 129/69 (89) 99 09/04/17 20:20 97.3 71 17 135/63 (87) 99 09/04/17 16:49 97.9 63 20 128/69 (88) 99 09/04/17 11:47 98.1 63 20 101/51 (68) 96 Result Diagram: 09/05/17 0920 09/04/17 0539 Imaging Last Impressions Tumor Localization 08/30/17 0000 Signed Impressions: Service Date/Time: August 11:35 - CONCLUSION: 1. Focal intense three-phase activity distal phalanx right great toe most characteristic of osteomyelitis. Srinath Galvan MD Abdomen/Pelvis CT 08/30/17 0000 Signed Impressions: Service Date/Time: August 12:12 - CONCLUSION: 1. Irregularity of the skin in the left lower quadrant some with some minimal air but no fistulous tract to the abdominal structures. 2. Diverticulosis of the colon. 3. Splenomegaly. 4. Cholelithiasis. 5. Left renal cyst. Ashkan Peña MD Carotid Artery Ultrasound 08/28/17 0000 Signed Impressions: Service Date/Time: Monday, August 28, 2017 22:05 - CONCLUSION: Atherosclerotic plaque of both carotid bifurcations, mild on the right and minimal on the left. No hemodynamically significant narrowing. Tulio Saha MD Aorta w/Runoff CTA 08/28/17 0000 Signed Impressions: Service Date/Time: Tuesday, August 29, 2017 00:53 - CONCLUSION: 1. Patent inflow and outflow bilaterally. 2. Severe trifurcation disease bilaterally without straight line flow to either foot. Details given above. 3. Colonic diverticulosis. 4. Splenomegaly. 5. Cholelithiasis. Adria Mendez Jr., MD Chest X-Ray 08/27/17 1923 Signed Impressions: Service Date/Time: Sunday, August 27, 2017 19:30 - CONCLUSION: No evidence of acute cardiopulmonary disease. Tulio Saha MD Foot X-Ray 08/27/17 0000 Signed Impressions: Service Date/Time: Sunday, August 27, 2017 15:46 - CONCLUSION: Soft tissue swelling and possible first digit ulceration without definite underlying bone abnormality. Andrew Lang MD Procedures s/p Aortogram w/ R LE angiogram and R AT [facility] (3mm) with Dr. Vo A/P Problem List: (1) Osteomyelitis ICD Codes: M86.9 - Osteomyelitis, unspecified Status: Chronic Plan: Osteomyelitis - comgmt with Podiatry & Vascular Surgery - Pt is a 62 y/o female with antiphospholipid antibody syndrome on chronic immunosuppression, hx of recurrent CVAs and TIAs on life long Lovenox, diabetes mellitus, Parkinson's disease, systemic lupus erythematous, and vasculitis. 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 Garcia, for evaluation of a wound to her right great toe. - Pt has had a chronic wound to her right foot since February 2017 and has received 2 previous rounds of antibiotics for this. She also has reportedly been going to wound care approximately once a week for several months. She was referred to Dr. Garcia for further evaluation where she ordered an MRI. - Per the ED documentation the MRI was suggestive of osteomyelitis in the distal tuft of the great toe. - Podiatry consultation is ordered - Outpt US with RUSSELL in 08/2017 noted mildly reduced resting right lower extremity RUSSELL 0.8-0.89. Exercise was note performed due to limited ambulation. - CRP was elevated at 0.46 - Wound culture (08/29) --> pseudomonas, group B strep - IV Vancomycin (08/29 - 09/05...stop vanco - IV Zosyn (08/29 - present)..will convert to po abx on d/c if clear bone margin. - anticoagulation with coumadin - Pt does not want to continue Lovenox as she had been on Lovenox recently for anticoagulation but developed some skin breakdown in the left lower abdomen and has been following with Wound Care as an outpt for this. - Greatly appreciate input from Dr. Rios, Vascular Surgery - (09/03) Aortogram w/ R LE angiogram and R AT [facility] (3mm) [facility] with [facility] - Per podiatry: To OR today for toe amputation Going to OR today for toe amputation spoke with hematology and we planned to start lovenox after surgery and bridge coumadin. Pt refusing lovenox due to abdomen wound caused by lovenox injections. she is agreeable for heparin gtt which was started last night. the heparin protocol was not followed and her heparin was stopped overnight. resumed now. cont heparin/coumadin bridge. plan for going home with hhc/pt in next day or 2. Chronic abdominal wound infection - Pt does not want to continue Lovenox as she had been on Lovenox recently for anticoagulation but developed some skin breakdown in the left lower abdomen and has been following with Wound Care as an outpt for this. - CT abd/pelvis (08/29) - Irregularity of the skin in the left lower quadrant some with some minimal air but no fistulous tract to the abdominal structures. 2. Diverticulosis of the colon. 3. Splenomegaly. 4. Cholelithiasis. 5. Left renal cyst - appreciate input from Wound Care - General surgery consulted, recommend continued localized wound care do not feel that patient is a surgical candidate at this time DM (diabetes mellitus) - Pt hold home diabetic medications - Accu checks - NovoLog SSI Antiphospholipid antibody syndrome - Pt continued on home dose of Cellcept and Prednisone - see above anemia and thrombocytopenia - hgb and plt rising now. - consult to hematology, appreciate input. Also discussed with Dr. Rodriguez. He I believes this is due to the acute infection, blood drawing and antibiotics. - stool Hemoccult negative (09/01) Hypothyroid - Home meds continued (SLE (systemic lupus erythematosus) Chronic RAMIREZ (obstructive sleep apnea) - CPAP (2) Chronic abdominal wound infection ICD Codes: S31.109A - Unspecified open wound of abdominal wall, unspecified quadrant without penetration into peritoneal cavity, initial encounter; L08.9 - Local infection of the skin and subcutaneous tissue, unspecified Status: Chronic (3) DM (diabetes mellitus) ICD Codes: E11.9 - DM (diabetes mellitus) Status: Chronic (4) Antiphospholipid antibody syndrome ICD Codes: D68.61 - Antiphospholipid antibody syndrome Status: Chronic (5) Hypothyroid ICD Codes: E03.9 - Hypothyroid Status: Chronic (6) SLE (systemic lupus erythematosus) ICD Codes: M32.9 - SLE (systemic lupus erythematosus) Status: Chronic (7) RAMIREZ (obstructive sleep apnea) ICD Codes: G47.33 - RAMIREZ (obstructive sleep apnea) Status: Chronic Problem Qualifiers (1) Osteomyelitis: Qualified Codes: M86.671 - Other chronic osteomyelitis, right ankle and foot (2) Chronic abdominal wound infection: Qualified Codes: S31.109D - Unspecified open wound of abdominal wall, unspecified quadrant without penetration into peritoneal cavity, subsequent encounter; L08.9 - Local infection of the skin and subcutaneous tissue, unspecified (3) DM (diabetes mellitus): Edward Lewis MD Sep 05, 2017 10:32
[2017-09-05] MEDS ORDERED: PROPOFOL 200 MG/20 ML AMP IV ONE (12:00)
[2017-09-05] MEDS ORDERED: ePHEDrine/NS 25 MG/5 ML SYRINGE IV ONE (12:00)
[2017-09-05] MEDS ORDERED: LIDOCAINE HCL 1% PF 5 ML SYRINGE OTHER ONE (12:00)
[2017-09-05 12:09] VITALS: BP 99/56; PULSE 63; RESP 18; TEMP 98; O2SAT 96
[2017-09-05] MEDS: MUPIROCIN 2% OINT 22 GM TUBE TOPICAL SCH ×3 (12:40→22:02)
[2017-09-05] MEDS ORDERED: BUPIVACAINE HCL PF 0.5% 30 ML VIAL ONE (14:48)
[2017-09-05] MEDS ORDERED: NEOMYCIN/POLYMYXIN 1 ML G.U. IRRIGANT ONE (14:49)
[2017-09-05] MEDS ORDERED: ACETAMINOPHEN 1000 MG/100 ML 100 ML IV ONE (15:19)
[2017-09-05] MEDS ORDERED: PROPOFOL 500 MG/50 ML INJ 50 ML ONE (15:19)
--- NOTE | 2017-09-05 15:24 | HHI.PR ---
Subjective Remarks Patient seen bedside following vascular procedure. Relates no pain to right hallux. Denies N,V,F,Ch at this time. States she is nervous for surgery. Objective Vital Signs Date Time Temp Pulse Resp B/P (MAP) Pulse Ox O2 Delivery O2 Flow Rate FiO2 09/05/17 12:09 98.0 63 18 99/56 (70) 96 09/05/17 08:13 98.1 68 18 107/55 (72) 97 09/05/17 04:50 97.3 65 17 116/59 (78) 100 09/05/17 00:15 98.8 67 18 129/69 (89) 99 09/04/17 20:20 97.3 71 17 135/63 (87) 99 09/04/17 16:49 97.9 63 20 128/69 (88) 99 I/O 09/04/17 09/04/17 09/04/17 09/05/17 09/05/17 09/05/17 07:00 15:00 23:00 07:00 15:00 23:00 Intake Total 240 ml 50 ml 975 ml 1200 ml Balance 240 ml 50 ml 975 ml 1200 ml Intake Oral 240 ml 975 ml 1200 ml IV Total 50 ml # Voids 3 3 4 # Bowel Movements 0 3 Result Diagram: 09/05/17 0920 09/04/17 0539 Imaging Last Impressions Tumor Localization 08/30/17 0000 Signed Impressions: Service Date/Time: August 11:35 - CONCLUSION: 1. Focal intense three-phase activity distal phalanx right great toe most characteristic of osteomyelitis. Srinath Galvan MD Abdomen/Pelvis CT 08/30/17 0000 Signed Impressions: Service Date/Time: August 12:12 - CONCLUSION: 1. Irregularity of the skin in the left lower quadrant some with some minimal air but no fistulous tract to the abdominal structures. 2. Diverticulosis of the colon. 3. Splenomegaly. 4. Cholelithiasis. 5. Left renal cyst. Ashkan Peña MD Carotid Artery Ultrasound 08/28/17 0000 Signed Impressions: Service Date/Time: Monday, August 28, 2017 22:05 - CONCLUSION: Atherosclerotic plaque of both carotid bifurcations, mild on the right and minimal on the left. No hemodynamically significant narrowing. Tulio Saha MD Aorta w/Runoff CTA 08/28/17 0000 Signed Impressions: Service Date/Time: Tuesday, August 29, 2017 00:53 - CONCLUSION: 1. Patent inflow and outflow bilaterally. 2. Severe trifurcation disease bilaterally without straight line flow to either foot. Details given above. 3. Colonic diverticulosis. 4. Splenomegaly. 5. Cholelithiasis. Adria Mendez Jr., MD Chest X-Ray 08/27/17 192 Signed Impressions: Service Date/Time: Sunday, August 27, 2017 19:30 - CONCLUSION: No evidence of acute cardiopulmonary disease. Tulio Saha MD Foot X-Ray 08/27/17 0000 Signed Impressions: Service Date/Time: Sunday, August 27, 2017 15:46 - CONCLUSION: Soft tissue swelling and possible first digit ulceration without definite underlying bone abnormality. Andrew Lang MD Other Results Microbiology Date/Time Source Procedure Growth Status 09/01/17 06:35 Stool Stool Stool Occult Blood (KRISTI) - Final HEMOCCULT NEGATIVE Complete 08/27/17 17:45 Wound Toe Gram Stain - Final Complete 08/27/17 17:45 Wound Culture - Final Pseudomonas Aeruginosa Group B Beta Strep Complete Objective Remarks Lower extremity physical exam: Vascular: Dorsalis pedis nonpalpable, posterior tibial nonpalpable. Capillary refill time within normal limits to digits 4 to right foot 2,3,4,5, 5 to left foot. Edema mildly present right foot and ankle. Neuro: Gross sensation intact to bilateral lower extremity. Pinpoint sensation decreased. No hyperalgesia noted to bilateral lower extremity. Dermatology: Normal temperature and turgor to bilateral lower extremity. Right distal hallux necrotic tissue/eschar noted proximal interphalangeal joint. Right dorsal fifth metatarsal head ulceration with fibronecrotic base measuring 1 cm x 1 cm x 0.1 cm. Musculoskeletal: Tender to palpation to right hallux. Medications and IVs Current Medications Medications (Trade) Dose Ordered Sig/Alicia Route Start Time Stop Time Status Last Admin (NS Flush) 2 ml UNSCH PRN IV FLUSH 08/27/17 19:30 (NS Flush) 2 ml BID IV FLUSH 08/27/17 21:00 09/05/17 08:25 (Tylenol) 650 mg Q4H PRN PO 08/27/17 19:30 (Zofran Inj) 4 mg Q6H PRN IVP 08/27/17 19:30 08/28/17 05:03 (Narcan Inj) 0.4 mg UNSCH PRN IV PUSH 08/27/17 19:30 (Milk Of Magnesia Liq) 30 ml Q12H PRN PO 08/27/17 19:30 (NovoLOG SUPPLEMENTAL SCALE) 1 ACHS SLIDING SCALE SQ 08/27/17 21:00 09/05/17 12:40 (D50w (Vial) Inj) 50 ml UNSCH PRN IV PUSH 08/27/17 19:45 (Glucagon Inj) 1 mg UNSCH PRN OTHER 08/27/17 19:45 (Tenormin) 100 mg DAILY PO 08/28/17 09:00 09/05/17 08:24 (Sinemet Cr 50-200 Mg) 1 tab TID PO 08/28/17 09:00 09/05/17 12:40 (Lexapro) 20 mg DAILY PO 08/28/17 09:00 09/05/17 08:24 (Flovent Hfa 220 Mcg Inh) 1 puff BID INH 08/27/17 21:00 09/05/17 08:35 (Synthroid) 150 mcg Q48H PO 08/29/17 06:00 09/04/17 05:56 (Cozaar) 25 mg DAILY PO 08/28/17 09:00 09/05/17 08:23 (Cellcept) 500 mg BID PO 08/27/17 21:00 09/05/17 08:23 (Protonix) 40 mg DAILY PO 08/28/17 09:00 09/05/17 08:23 (Deltasone) 5 mg DAILY PO 08/28/17 09:00 09/05/17 08:23 (Synthroid) 75 mcg Q48H PO 08/28/17 06:00 09/05/17 05:11 ([place] 5-325 Mg) 1 tab Q6H PRN PO 08/27/17 19:45 09/05/17 05:08 (Synthroid) 100 mcg Q48H PO 08/28/17 06:00 09/05/17 05:11 Patient Own Medication PT OWN MED: COMTAN ... TID PO 08/28/17 09:00 Future Hold Patient Own Medication PT OWN MED: TRADJE... DAILY PO 08/28/17 09:00 Future Hold Piperacillin Sod/ Tazobactam Sod 50 ml @ 100 mls/hr Q6H IV 08/29/17 03:00 09/05/17 08:24 (Plaquenil) 200 mg BID PO 08/29/17 21:00 09/05/17 08:23 (Mycostatin Powder) 1 applic Q8HR TOPICAL 08/30/17 15:45 09/05/17 05:11 (Aspirin Chew) 81 mg DAILY PO 09/01/17 09:00 09/05/17 08:24 (Corticaine 0.5% Cream) 1 applic Q8H TOPICAL 09/01/17 15:30 09/05/17 09:39 Lactated Ringer's 1,000 ml @ 30 mls/hr Q24H PRN IV 09/02/17 21:30 09/05/17 21:29 Sodium Chloride 500 ml @ 30 mls/hr [id number] PRN IV 09/02/17 21:30 09/05/17 21:29 (Betadine 5% Antisepsis Kit) 1 applic VACCINE SPECIALIST PRN EACH NARE 09/02/17 21:30 09/05/17 21:29 (Chlorhexidine 2% Cloth) 3 pack VACCINE SPECIALIST PRN TOPICAL 09/02/17 21:30 09/05/17 21:29 (Heparin Inj) 5,000 units UNSCH PRN IV PUSH 09/04/17 16:30 (Heparin Inj) 2,500 units UNSCH PRN IV PUSH 09/04/17 16:30 Heparin Sodium/ Dextrose 250 ml @ 18 mls/hr TITRATE PRN IV 09/04/17 10:30 09/04/17 18:19 (Coumadin) 7.5 mg DAILY@16 PO 09/04/17 16:00 09/04/17 15:52 (Bactroban 2% Oint) 1 applic Q8HR TOPICAL 09/05/17 10:30 09/05/17 12:40 Assessment and Plan Assessment and Plan 62-year-old female with right hallux necrotic ulcer and right dorsal fifth metatarsal head ulcer Patient examined and evaluated with all questions answered Patient to OR today Discussed surgical intervention with patient to include right hallux amputation with right foot ulcer debridement and irrigation Consent signed Right LE marked Patient has remained n.p.o. after midnight, okay to have clear liquids for breakfast Will obtain OR cultures/pathology Lisa Garcia DPM Sep 05, 2017 15:24
[2017-09-05] MEDS ORDERED: DO NOT ADM ANY ANTICOAGULANT DRUGS PRN (16:20)
[2017-09-05] MEDS ORDERED: Post-op Orders (for Pharmacy) XX ONE (16:30)
--- NOTE | 2017-09-05 16:30 | HHI.PR ---
Immediate Post Op Note Procedure Date: Sep 05, 2017 Pre Op Diagnosis: Right hallux OM, Right hallux OM Right dorsolateral foot ulceration Post Op Diagnosis: same as above Surgeon: Lisa Garcia Continuous Improvement Manager(s): None Procedure: Right hallux amputation Right debridement and irrigation of dorsolateral ulceration Findings: None Additional Information: None Complications: None Specimen(s) removed: Right hallux for path Right proximal clearing margin for micro and path Right soft tissue for micro Estimated blood loss: 4cc Anesthesia: MAC Drains: None Patient to: PACU Patient Condition: Lisa Diaz DPM Sep 05, 2017 16:30
[2017-09-05] MEDS ORDERED: MIDAZOLAM HCL 2 MG/2 ML VIAL ONE (16:36)
--- NOTE | 2017-09-05 16:48 | MP ---
cc: Lisa Garcia DPM DATE OF OPERATION: SURGEON: Lisa Garcia DPM GAS TRUCK DRIVER: None. PREOPERATIVE DIAGNOSIS: Right hallux gangrene, right lateral foot ulcer. POSTOPERATIVE DIAGNOSIS: Right hallux gangrene, right lateral foot ulcer. PROCEDURE PERFORMED: 1. Right hallux amputation at interphalangeal joint. 2. Right foot ulcer debridement and irrigation. ANESTHESIA: IV sedation with a local infiltrate of 10 mL of 0.5% Marcaine plain. HEMOSTASIS: None. ESTIMATED BLOOD LOSS: 4 mL MATERIALS: 3-0 nylon. INJECTABLES: None. COMPLICATIONS: None. INDICATIONS FOR PROCEDURE: The patient is a 62-year-old female with right hallux gangrene and right lateral dorsal foot ulceration. The patient was recently revascularized by Dr. Ruffin with Vascular Surgery. They were able to open up the anterior tibialis artery. Today she is optimized for hallux amputation secondary to gangrene and osteomyelitis. The patient understands all alternatives, benefits and complications associated with procedure. She would like to proceed with surgical intervention. DETAILS OF PROCEDURE: The patient was brought to the operating room, placed on the operating room table in the supine position. IV sedation was then induced, 0.5% Marcaine plain was then infiltrated about the right foot, 10 mL total. Right foot was then prepped and draped in the usual sterile fashion. Attention was directed to the right hallux where a fishmouth incision was made to the proximal interphalangeal joint. This incision was deepened through skin to subcutaneous tissue with care to retract all vital neurovascular structures. The distal phalanx, proximal phalanx, interphalangeal joint were then identified and medial and lateral ligaments were resected. The distal phalanx was disarticulated and passed off the field and sent for pathology. The flexor hallucis longus tendon was then resected of all infection. The site was then copiously irrigated with normal saline. A sagittal saw was then utilized to resect the head of the proximal phalanx. Head of the proximal phalanx was then sent to pathology as well as microbiology as a proximal clearing margin. The site was again copiously irrigated. Skin was closed 3-0 nylon. Attention was then directed to the left dorsal lateral aspect of the foot where ulceration measuring 1.0 x 1.0 cm was noted, was probed to capsule and tendon exposed. A full excisional debridement was performed to ulceration with a 15-blade to subcutaneous tissue. Appropriate bleeding was noted. The site was copiously irrigated. Adaptic was placed to incision right hallux as well as over the dorsal lateral ulcer. Foot was then dressed with 4 x 4s, and Rashida and Ramon. The patient tolerated the procedure and anesthesia well. She was transferred from the OR to PACU with vital signs stable and neurovascular status intact. DANNA Antonio , 04:28 PM , 04:46 PM
--- NOTE | 2017-09-05 17:00 | RADRPT ---
EXAM DATE/TIME: 09/05/2017 16:37 [facility] COMPARISON: FOOT RIGHT COMPLETE (OPR2HPT), August 27, 2017, 15:46. INDICATIONS : Post op right foot. MEDICAL HISTORY : None. SURGICAL HISTORY : None. ENCOUNTER: Initial ACUITY: 1 day PAIN SCORE: Non-responsive. LOCATION: Right foot, great toe. FINDINGS: There has been interval great toe amputation with osteotomy involving the distal aspect of the proxim al phalanx area in the foot is otherwise stable and intact. Mild dorsal soft tissue swelling is noted . Vascular calcifications are present. Hindfoot is stable and grossly unremarkable. CONCLUSION: Satisfactory appearance post great toe amputation Tulio Steele MD on September 05, 2017 at 16:57 Board Certified Radiologist. This report was verified electronically.
[2017-09-05 17:19] VITALS: BP 115/58; PULSE 61; RESP 17; TEMP 97.8; O2SAT 100
[2017-09-05] MEDS: WARFARIN SOD 7.5 MG TAB PO SCH (17:48)
[2017-09-05 20:00] VITALS: BP 107/59; PULSE 66; RESP 18; TEMP 98.1; O2SAT 99
[2017-09-05] MEDS: HEPARIN-D5W 25,000 U/250 ML 250 ML IV PRN (20:11)
[2017-09-06] VITALS: BP 110/62; PULSE 63; RESP 18; TEMP 98; O2SAT 99
[2017-09-06] MEDS: MORPHINE SULFATE 4 MG/ML INJ IV PUSH PRN ×2 (02:16→06:00)
[2017-09-06] MEDS: PIPERACIL-TAZO 3.375 GM PREMIX 50 ML IV SCH ×4 (02:16→22:07)
[2017-09-06 04:00] VITALS: BP 122/58; PULSE 76; RESP 18; TEMP 97.6; O2SAT 98
[2017-09-06] MEDS: ACETAMINOPHEN/HYDROcodone 325 MG/5 MG TAB PO PRN ×3 (04:43→16:20)
[2017-09-06 05:08] LABS: INTERNATIONAL NORMALIZED RATIO 1.9 RATIO; PROTHROMBIN TIME - PATIENT 19.2 SEC (9.8-11.6)
[2017-09-06] MEDS: LEVOTHYROXINE SODIUM 150 MCG TAB PO SCH (05:59)
[2017-09-06] MEDS: MUPIROCIN 2% OINT 22 GM TUBE TOPICAL SCH ×3 (06:00→22:10)
[2017-09-06] MEDS: NYSTATIN 100,000 U/GM PWD 15 GM BTL TOPICAL SCH ×3 (06:00→22:10)
[2017-09-06] MEDS: INSULIN ASPART SUPPLEMENTAL SCALE SQ SCH ×4 (07:54→21:00)
[2017-09-06] MEDS: ATENOLOL 100 MG TAB PO SCH (08:48)
[2017-09-06] MEDS: ESCITALOPRAM OXALATE 20 MG TAB PO SCH (08:48)
[2017-09-06] MEDS: MYCOPHENOLATE MOFETIL 500 MG TAB PO SCH ×2 (08:48→22:07)
[2017-09-06] MEDS: PANTOPRAZOLE SOD 40 MG DELAYED RELEASE TAB PO SCH (08:48)
[2017-09-06] MEDS: LOSARTAN 25 MG TAB PO SCH (08:48)
[2017-09-06] MEDS: HYDROXYCHLOROQUINE SULFATE 200 MG TAB PO SCH ×2 (08:48→22:07)
[2017-09-06] MEDS: predniSONE 5 MG TAB PO SCH (08:48)
[2017-09-06] MEDS: LEVODOPA/CARBIDOPA 1 TAB TABCR PO SCH ×3 (08:48→16:20)
[2017-09-06] MEDS: ASPIRIN 81 MG CHEW TAB PO SCH (08:49)
[2017-09-06] MEDS: HYDROCORTISONE 0.5% CREAM 30 GM TOPICAL SCH ×2 (08:49→15:05)
[2017-09-06] MEDS: FLUTICASONE PROPIONATE 220 MCG/ACT 12 GM INHALER INH SCH ×2 (08:49→22:09)
[2017-09-06] MEDS: SODIUM CHLORIDE 0.9% FLUSH 10 ML FLUSH IV FLUSH SCH ×2 (08:50→22:09)
[2017-09-06 08:56] VITALS: BP 128/65; PULSE 76; RESP 18; TEMP 97.7; O2SAT 97
[2017-09-06] MEDS: ONDANSETRON HCL 4 MG/2 ML VIAL IVP PRN (10:16)
--- NOTE | 2017-09-06 11:26 | HHI.PR ---
Subjective Remarks no complaints required more pain meds overnight. Objective Vitals heart reg lung cta abd s/nt ext right foot bandaged post right ankle..small dried blood not hot or draining. Vital Signs Date Time Temp Pulse Resp B/P (MAP) Pulse Ox O2 Delivery O2 Flow Rate FiO2 09/06/17 08:56 97.7 76 18 128/65 (86) 97 09/06/17 04:00 97.6 76 18 122/58 (79) 98 09/06/17 00:00 98.0 63 18 110/62 (78) 99 09/05/17 20:00 98.1 66 18 107/59 (75) 99 09/05/17 17:19 97.8 61 17 115/58 (77) 100 09/05/17 16:45 56 16 110/54 (72) 99 Nasal Cannula 2 09/05/17 16:30 62 16 114/56 (75) 98 Nasal Cannula 2 09/05/17 16:18 97.5 68 16 112/56 (74) 99 Nasal Cannula 2 09/05/17 12:09 98.0 63 18 99/56 (70) 96 09/06/17 09/06/17 09/07/17 15:00 23:00 07:00 # Voids 3 # Bowel Movements 3 Result Diagram: 09/05/17 0920 09/04/17 0539 Imaging Last Impressions Tumor Localization 08/30/17 0000 Signed Impressions: Service Date/Time: August 11:35 - CONCLUSION: 1. Focal intense three-phase activity distal phalanx right great toe most characteristic of osteomyelitis. Srinath Galvan MD Abdomen/Pelvis CT 08/30/17 0000 Signed Impressions: Service Date/Time: August 12:12 - CONCLUSION: 1. Irregularity of the skin in the left lower quadrant some with some minimal air but no fistulous tract to the abdominal structures. 2. Diverticulosis of the colon. 3. Splenomegaly. 4. Cholelithiasis. 5. Left renal cyst. Ashkan Peña MD Carotid Artery Ultrasound 08/28/17 0000 Signed Impressions: Service Date/Time: Monday, August 28, 2017 22:05 - CONCLUSION: Atherosclerotic plaque of both carotid bifurcations, mild on the right and minimal on the left. No hemodynamically significant narrowing. Tulio Saha MD Aorta w/Runoff CTA 08/28/17 0000 Signed Impressions: Service Date/Time: Tuesday, August 29, 2017 00:53 - CONCLUSION: 1. Patent inflow and outflow bilaterally. 2. Severe trifurcation disease bilaterally without straight line flow to either foot. Details given above. 3. Colonic diverticulosis. 4. Splenomegaly. 5. Cholelithiasis. Adria Mendez Jr., MD Chest X-Ray 08/27/17 192 Signed Impressions: Service Date/Time: Sunday, August 27, 2017 19:30 - CONCLUSION: No evidence of acute cardiopulmonary disease. Tulio Saha MD Foot X-Ray 08/27/17 0000 Signed Impressions: Service Date/Time: Sunday, August 27, 2017 15:46 - CONCLUSION: Soft tissue swelling and possible first digit ulceration without definite underlying bone abnormality. Andrew Lang MD Procedures s/p Aortogram w/ R LE angiogram and R AT DIRECTOR OF [employer]ERSONNEL (3mm) with Dr. Vo A/P Problem List: (1) Osteomyelitis ICD Codes: M86.9 - Osteomyelitis, unspecified Status: Chronic Plan: Osteomyelitis - comgmt with Podiatry & Vascular Surgery - Pt is a 62 y/o female with antiphospholipid antibody syndrome on chronic immunosuppression, hx of recurrent CVAs and TIAs on life long Lovenox, diabetes mellitus, Parkinson's disease, systemic lupus erythematous, and vasculitis. - She presented to the ED at [facility] [facility] on 08/27/17 at the request of her desk assistant, Dr. Garcia, for evaluation of a wound to her right great toe. - Pt has had a chronic wound to her right foot since February 2017 and has received 2 previous rounds of antibiotics for this. She also has reportedly been going to wound care approximately once a week for several months. She was referred to Dr. Garcia for further evaluation where she ordered an MRI. - Per the ED documentation the MRI was suggestive of osteomyelitis in the distal tuft of the great toe. - Podiatry consultation is ordered - Outpt US with RUSSELL in 08/2017 noted mildly reduced resting right lower extremity RUSSELL 0.8-0.89. Exercise was note performed due to limited ambulation. - CRP was elevated at 0.46 - Wound culture (08/29) --> pseudomonas, group B strep - IV Vancomycin (08/29 - 09/05...stop vanco - IV Zosyn (08/29 - present)..will convert to po abx on d/c if clear bone margin. - anticoagulation with coumadin - Pt does not want to continue Lovenox as she had been on Lovenox recently for anticoagulation but developed some skin breakdown in the left lower abdomen and has been following with Wound Care as an outpt for this. - Greatly appreciate input from Dr. Rios, Vascular Surgery - (09/03) Aortogram w/ R LE angiogram and R AT [employer] (3mm) with Dr. [facility] with [facility]el[facility] - 09/05..amputation right hallux and resection of prox phallanx cont heparin/coumadin bridge. inr 1.9.....will stop heparin soon. recheck. cont abx. stopped vanco f/u bone path to assure clear margin. PT daily f./u surgical cx's Chronic abdominal wound infection - Pt does not want to continue Lovenox as she had been on Lovenox recently for anticoagulation but developed some skin breakdown in the left lower abdomen and has been following with Wound Care as an outpt for this. - CT abd/pelvis (08/29) - Irregularity of the skin in the left lower quadrant some with some minimal air but no fistulous tract to the abdominal structures. 2. Diverticulosis of the colon. 3. Splenomegaly. 4. Cholelithiasis. 5. Left renal cyst - appreciate input from Wound Care - General surgery consulted, recommend continued localized wound care do not feel that patient is a surgical candidate at this time DM (diabetes mellitus) - Pt hold home diabetic medications - Accu checks - NovoLog SSI Antiphospholipid antibody syndrome - Pt continued on home dose of Cellcept and Prednisone - see above anemia and thrombocytopenia - hgb and plt rising now. - consult to hematology, appreciate input. Also discussed with Dr. Rodriguez. He I believes this is due to the acute infection, blood drawing and antibiotics. - stool Hemoccult negative (09/01) Hypothyroid - Home meds continued (SLE (systemic lupus erythematosus) Chronic RAMIREZ (obstructive sleep apnea) - CPAP (2) Chronic abdominal wound infection ICD Codes: S31.109A - Unspecified open wound of abdominal wall, unspecified quadrant without penetration into peritoneal cavity, initial encounter; L08.9 - Local infection of the skin and subcutaneous tissue, unspecified Status: Chronic (3) DM (diabetes mellitus) ICD Codes: E11.9 - DM (diabetes mellitus) Status: Chronic (4) Antiphospholipid antibody syndrome ICD Codes: D68.61 - Antiphospholipid antibody syndrome Status: Chronic (5) Hypothyroid ICD Codes: E03.9 - Hypothyroid Status: Chronic (6) SLE (systemic lupus erythematosus) ICD Codes: M32.9 - SLE (systemic lupus erythematosus) Status: Chronic (7) RAMIREZ (obstructive sleep apnea) ICD Codes: G47.33 - RAMIREZ (obstructive sleep apnea) Status: Chronic Problem Qualifiers (1) Osteomyelitis: Qualified Codes: M86.671 - Other chronic osteomyelitis, right ankle and foot (2) Chronic abdominal wound infection: Qualified Codes: S31.109D - Unspecified open wound of abdominal wall, unspecified quadrant without penetration into peritoneal cavity, subsequent encounter; L08.9 - Local infection of the skin and subcutaneous tissue, unspecified (3) DM (diabetes mellitus): Edward Lewis MD Sep 06, 2017 11:26
[2017-09-06 12:03] VITALS: BP 107/56; PULSE 73; RESP 16; TEMP 97.3; O2SAT 97
[2017-09-06] MEDS: HEPARIN-D5W 25,000 U/250 ML 250 ML IV PRN (13:49)
[2017-09-06] MEDS: WARFARIN SOD 7.5 MG TAB PO SCH (15:04)
[2017-09-06 16:03] VITALS: BP 123/60; PULSE 69; RESP 16; TEMP 97.9; O2SAT 96
[2017-09-06 17:42] LABS: INTERNATIONAL NORMALIZED RATIO 2.3 RATIO; PROTHROMBIN TIME - PATIENT 22.8 SEC (9.8-11.6)
--- NOTE | 2017-09-06 20:59 | HHI.PR ---
Subjective Remarks Patient seen bedside post op day 1. States she was having pain last night and was concerned for discharge pain medications. She is anxious to go home. Discussed pending bone biopsy. Objective Vital Signs Date Time Temp Pulse Resp B/P (MAP) Pulse Ox O2 Delivery O2 Flow Rate FiO2 09/06/17 17:13 16 09/06/17 16:03 97.9 69 16 123/60 (81) 96 09/06/17 12:03 97.3 73 16 107/56 (73) 97 09/06/17 08:56 97.7 76 18 128/65 (86) 97 09/06/17 04:00 97.6 76 18 122/58 (79) 98 09/06/17 00:00 98.0 63 18 110/62 (78) 99 I/O 09/05/17 09/05/17 09/05/17 09/06/17 09/06/17 09/06/17 07:00 15:00 23:00 07:00 15:00 23:00 Intake Total 1200 ml 240 ml Balance 1200 ml 240 ml Intake Oral 1200 ml 240 ml # Voids 4 3 1 # Bowel Movements 3 2 3 Result Diagram: 09/05/17 0920 09/04/17 0539 Imaging Last Impressions Foot X-Ray 09/05/17 0000 Signed Impressions: Service Date/Time: Tuesday, September 05, 2017 16:37 - CONCLUSION: Satisfactory appearance post great toe amputation Tulio Steele MD Tumor Localization 08/30/17 0000 Signed Impressions: Service Date/Time: August 11:35 - CONCLUSION: 1. Focal intense three-phase activity distal phalanx right great toe most characteristic of osteomyelitis. Srinath Galvan MD Abdomen/Pelvis CT 08/30/17 0000 Signed Impressions: Service Date/Time: August 12:12 - CONCLUSION: 1. Irregularity of the skin in the left lower quadrant some with some minimal air but no fistulous tract to the abdominal structures. 2. Diverticulosis of the colon. 3. Splenomegaly. 4. Cholelithiasis. 5. Left renal cyst. Ashkan Peña MD Carotid Artery Ultrasound 08/28/17 0000 Signed Impressions: Service Date/Time: Monday, August 28, 2017 22:05 - CONCLUSION: Atherosclerotic plaque of both carotid bifurcations, mild on the right and minimal on the left. No hemodynamically significant narrowing. Tulio Saha MD Aorta w/Runoff CTA 08/28/17 0000 Signed Impressions: Service Date/Time: Tuesday, August 29, 2017 00:53 - CONCLUSION: 1. Patent inflow and outflow bilaterally. 2. Severe trifurcation disease bilaterally without straight line flow to either foot. Details given above. 3. Colonic diverticulosis. 4. Splenomegaly. 5. Cholelithiasis. Adria Mendez Jr., MD Chest X-Ray 08/27/17 1923 Signed Impressions: Service Date/Time: Sunday, August 27, 2017 19:30 - CONCLUSION: No evidence of acute cardiopulmonary disease. Tulio Saha MD Procedures 1 day s/p right hallux amputation Other Results Microbiology Date/Time Source Procedure Growth Status 09/01/17 06:35 Stool Stool Stool Occult Blood (KRISTI) - Final HEMOCCULT NEGATIVE Complete 09/05/17 16:40 Wound Toe Fungal Smear - Final NO FUNGAL ELEMENTS SEEN. Resulted 09/05/17 16:40 Wound Toe Fungal Culture Pending Resulted Objective Remarks Lower extremity physical exam: Vascular: Dorsalis pedis nonpalpable, posterior tibial nonpalpable. Capillary refill time within normal limits to digits 4 to right foot 2,3,4,5, 5 to left foot. Edema mildly present right foot and ankle. Neuro: Gross sensation intact to bilateral lower extremity. Pinpoint sensation decreased. No hyperalgesia noted to bilateral lower extremity. Thin, shiny, atrophis skin noted bilaterally. Dermatology: Normal temperature and turgor to bilateral lower extremity. Sutures intact with skin well coapted. Musculoskeletal: Tender to palpation to right hallux. Distal phalanx amputation noted. Medications and IVs Current Medications Medications (Trade) Dose Ordered Sig/Alicia Route Start Time Stop Time Status Last Admin (NS Flush) 2 ml UNSCH PRN IV FLUSH 08/27/17 19:30 (NS Flush) 2 ml BID IV FLUSH 08/27/17 21:00 09/06/17 08:50 (Tylenol) 650 mg Q4H PRN PO 08/27/17 19:30 (Zofran Inj) 4 mg Q6H PRN IVP 08/27/17 19:30 09/06/17 10:16 (Narcan Inj) 0.4 mg UNSCH PRN IV PUSH 08/27/17 19:30 (Milk Of Magnesia Liq) 30 ml Q12H PRN PO 08/27/17 19:30 (NovoLOG SUPPLEMENTAL SCALE) 1 ACHS SLIDING SCALE SQ 08/27/17 21:00 09/05/17 22:05 (D50w (Vial) Inj) 50 ml UNSCH PRN IV PUSH 08/27/17 19:45 (Glucagon Inj) 1 mg UNSCH PRN OTHER 08/27/17 19:45 (Tenormin) 100 mg DAILY PO 08/28/17 09:00 09/06/17 08:48 (Sinemet Cr 50-200 Mg) 1 tab TID PO 08/28/17 09:00 09/06/17 16:20 (Lexapro) 20 mg DAILY PO 08/28/17 09:00 09/06/17 08:48 (Flovent Hfa 220 Mcg Inh) 1 puff BID INH 08/27/17 21:00 09/06/17 08:49 (Synthroid) 150 mcg Q48H PO 08/29/17 06:00 09/06/17 05:59 (Cozaar) 25 mg DAILY PO 08/28/17 09:00 09/06/17 08:48 (Cellcept) 500 mg BID PO 08/27/17 21:00 09/06/17 08:48 (Protonix) 40 mg DAILY PO 08/28/17 09:00 09/06/17 08:48 (Deltasone) 5 mg DAILY PO 08/28/17 09:00 09/06/17 08:48 (Synthroid) 75 mcg Q48H PO 08/28/17 06:00 09/05/17 05:11 ([place] 5-325 Mg) 1 tab Q6H PRN PO 08/27/17 19:45 09/06/17 16:20 (Synthroid) 100 mcg Q48H PO 08/28/17 06:00 09/05/17 05:11 Patient Own Medication PT OWN MED: COMTAN ... TID PO 08/28/17 09:00 Future Hold Patient Own Medication PT OWN MED: TRADJE... DAILY PO 08/28/17 09:00 Future Hold Piperacillin Sod/ Tazobactam Sod 50 ml @ 100 mls/hr Q6H IV 08/29/17 03:00 09/06/17 15:04 (Plaquenil) 200 mg BID PO 08/29/17 21:00 09/06/17 08:48 (Mycostatin Powder) 1 applic Q8HR TOPICAL 08/30/17 15:45 09/06/17 11:25 (Aspirin Chew) 81 mg DAILY PO 09/01/17 09:00 09/06/17 08:49 (Corticaine 0.5% Cream) 1 applic Q8H TOPICAL 09/01/17 15:30 09/06/17 15:05 (Bactroban 2% Oint) 1 applic Q8HR TOPICAL 09/05/17 10:30 09/06/17 11:25 (Morphine Inj) 3 mg Q4H PRN IV PUSH 09/06/17 02:00 09/06/17 06:00 Assessment and Plan Assessment and Plan 62-year-old female with right hallux necrotic ulcer and right dorsal fifth metatarsal head ulcer s/p right hallux amputation with lateral dorsal ulcer debridement Patient examined and evaluated with all questions answered Dressing changed. Appropriate healing interval to right hallux amputation Bone biopsy/path pending Would prefer bone biopsy return prior to patient discharge in case halfway antibiotics are needed Dressing to be left clean dry and intact Patient is to follow up within 1 week of discharge Lisa Garcia DPM Sep 06, 2017 20:59
[2017-09-06 21:13] VITALS: BP 111/57; PULSE 74; RESP 18; TEMP 97.8; O2SAT 98
[2017-09-06] MEDS ORDERED: PHARMACY ORDERED LAB ONE (21:45)
[2017-09-07] VITALS (7 sets, daily range): BP systolic 108–149; BP diastolic 6–69; PULSE 63–83; RESP 14–20; TEMP 97.6–99.2; O2SAT 97–100
[2017-09-07] MEDS: ACETAMINOPHEN/HYDROcodone 325 MG/5 MG TAB PO PRN ×3 (02:39→22:20)
[2017-09-07] MEDS: PIPERACIL-TAZO 3.375 GM PREMIX 50 ML IV SCH ×4 (02:39→22:20)
[2017-09-07] MEDS: HYDROCORTISONE 0.5% CREAM 30 GM TOPICAL SCH ×4 (02:40→23:20)
[2017-09-07] MEDS: MUPIROCIN 2% OINT 22 GM TUBE TOPICAL SCH ×3 (06:00→22:20)
[2017-09-07] MEDS: NYSTATIN 100,000 U/GM PWD 15 GM BTL TOPICAL SCH ×3 (06:00→22:20)
[2017-09-07] MEDS: LEVOTHYROXINE SODIUM 100 MCG TAB PO SCH (06:20)
[2017-09-07] MEDS: LEVOTHYROXINE SODIUM 75 MCG TAB PO SCH (06:20)
[2017-09-07] MEDS: MORPHINE SULFATE 4 MG/ML INJ IV PUSH PRN (06:21)
[2017-09-07] MEDS: INSULIN ASPART SUPPLEMENTAL SCALE SQ SCH ×4 (07:28→21:00)
[2017-09-07] MEDS: predniSONE 5 MG TAB PO SCH (07:29)
[2017-09-07] MEDS: ASPIRIN 81 MG CHEW TAB PO SCH (07:29)
[2017-09-07] MEDS: MYCOPHENOLATE MOFETIL 500 MG TAB PO SCH ×2 (07:29→22:21)
[2017-09-07] MEDS: LEVODOPA/CARBIDOPA 1 TAB TABCR PO SCH ×3 (07:29→16:17)
[2017-09-07] MEDS: LOSARTAN 25 MG TAB PO SCH (07:29)
[2017-09-07] MEDS: ATENOLOL 100 MG TAB PO SCH (07:29)
[2017-09-07] MEDS: HYDROXYCHLOROQUINE SULFATE 200 MG TAB PO SCH ×2 (07:30→22:20)
[2017-09-07] MEDS: SODIUM CHLORIDE 0.9% FLUSH 10 ML FLUSH IV FLUSH SCH ×2 (07:30→22:21)
[2017-09-07] MEDS: ESCITALOPRAM OXALATE 20 MG TAB PO SCH (07:30)
[2017-09-07] MEDS: PANTOPRAZOLE SOD 40 MG DELAYED RELEASE TAB PO SCH (07:30)
[2017-09-07] MEDS: FLUTICASONE PROPIONATE 220 MCG/ACT 12 GM INHALER INH SCH ×2 (07:31→22:22)
[2017-09-07 07:33] LABS: INTERNATIONAL NORMALIZED RATIO 2.8 RATIO; PROTHROMBIN TIME - PATIENT 28.2 SEC (9.8-11.6)
[2017-09-07 07:48] LABS: BICARBONATE 22.8 MEQ/L (21.0-32.0); CALCIUM 8.4 MG/DL (8.5-10.1); CREATININE 1.09 MG/DL (0.50-1.00)
--- NOTE | 2017-09-07 11:13 | HHI.PR ---
Subjective Remarks Pt reports that she had a tough night last night due to increased pain in the foot and she states that the nurse would not provide the IV Morphine for her She did receive a dose at 0600 this morning and the pain is better controlled. Pt did receive her [place] for about 10 hours yesterday evening Objective Vitals Vital Signs Date Time Temp Pulse Resp B/P (MAP) Pulse Ox O2 Delivery O2 Flow Rate FiO2 09/07/17 10:55 16 09/07/17 08:00 97.8 71 18 126/58 (80) 100 09/07/17 07:27 16 09/07/17 05:06 98.1 79 18 149/69 (95) 100 09/07/17 01:38 99.2 83 18 127/62 (83) 100 09/06/17 21:13 97.8 74 18 111/57 (75) 98 09/06/17 16:03 97.9 69 16 123/60 (81) 96 09/06/17 12:03 97.3 73 16 107/56 (73) 97 Result Diagram: 09/05/17 0920 09/07/17 0533 Other Results Laboratory Tests Test 09/05/17 19:03 09/06/17 00:14 09/06/17 04:00 09/06/17 12:50 Activated Partial Thromboplast Time 40.1 SEC 72.0 SEC 78.4 SEC 81.4 SEC Prothrombin Time 19.2 SEC Prothromb Time International Ratio 1.9 RATIO Test 09/06/17 16:42 09/06/17 20:06 09/07/17 05:33 Prothrombin Time 22.8 SEC 28.2 SEC Prothromb Time International Ratio 2.3 RATIO 2.8 RATIO Activated Partial Thromboplast Time 31.4 SEC Blood Urea Nitrogen 10 MG/DL Creatinine 1.09 MG/DL Random Glucose 89 MG/DL Calcium Level 8.4 MG/DL Sodium Level 147 MEQ/L Potassium Level 3.7 MEQ/L Chloride Level 117 MEQ/L Carbon Dioxide Level 22.8 MEQ/L Anion Gap 7 MEQ/L Estimat Glomerular Filtration Rate 51 ML/MIN Imaging Last Impressions Tumor Localization 08/30/17 0000 Signed Impressions: Service Date/Time: August 11:35 - CONCLUSION: 1. Focal intense three-phase activity distal phalanx right great toe most characteristic of osteomyelitis. Srinath Galvan MD Abdomen/Pelvis CT 08/30/17 0000 Signed Impressions: Service Date/Time: August 12:12 - CONCLUSION: 1. Irregularity of the skin in the left lower quadrant some with some minimal air but no fistulous tract to the abdominal structures. 2. Diverticulosis of the colon. 3. Splenomegaly. 4. Cholelithiasis. 5. Left renal cyst. Ashkan Peña MD Carotid Artery Ultrasound 08/28/17 0000 Signed Impressions: Service Date/Time: Monday, August 28, 2017 22:05 - CONCLUSION: Atherosclerotic plaque of both carotid bifurcations, mild on the right and minimal on the left. No hemodynamically significant narrowing. Tulio Saha MD Aorta w/Runoff CTA 08/28/17 0000 Signed Impressions: Service Date/Time: Tuesday, August 29, 2017 00:53 - CONCLUSION: 1. Patent inflow and outflow bilaterally. 2. Severe trifurcation disease bilaterally without straight line flow to either foot. Details given above. 3. Colonic diverticulosis. 4. Splenomegaly. 5. Cholelithiasis. Adria Mendez Jr., MD Chest X-Ray 08/27/[id number] Signed Impressions: Service Date/Time: Sunday, August 27, 2017 19:30 - CONCLUSION: No evidence of acute cardiopulmonary disease. Tulio Saha MD Foot X-Ray 08/27/17 0000 Signed Impressions: Service Date/Time: Sunday, August 27, 2017 15:46 - CONCLUSION: Soft tissue swelling and possible first digit ulceration without definite underlying bone abnormality. Andrew Lang MD Objective Remarks General: NAD, AAOx3 Chest: CTA Cardiac: Regular Abd: +BS, soft NT, wound in LLQ without any erythema or drainage Ext: Right foot bandages are c/d/i Procedures s/p Aortogram w/ R LE angiogram and R AT ANIMAL DAMAGE CONTROL AGENT (3mm) with Dr. Vo A/P Problem List: (1) Osteomyelitis ICD Codes: M86.9 - Osteomyelitis, unspecified Status: Chronic Plan: Osteomyelitis - comgmt with Podiatry & Vascular Surgery - Pt is a 62 y/o female with antiphospholipid antibody syndrome on chronic immunosuppression, hx of recurrent CVAs and TIAs on life long Lovenox, diabetes mellitus, Parkinson's disease, systemic lupus erythematous, and vasculitis. - She presented to the ED at [facility] on 08/27/17 at the request of her erecting engineer, Dr. Garcia, for evaluation of a wound to her right great toe. - Pt has had a chronic wound to her right foot since February 2017 and has received 2 previous rounds of antibiotics for this. She also has reportedly been going to wound care approximately once a week for several months. She was referred to Dr. Garcia for further evaluation where she ordered an MRI. - Per the ED documentation the MRI was suggestive of osteomyelitis in the distal tuft of the great toe. - Podiatry consultation is ordered - Outpt US with RUSSELL in 08/2017 noted mildly reduced resting right lower extremity RUSSELL 0.8-0.89. Exercise was note performed due to limited ambulation. - CRP was elevated at 0.46 - Wound culture (08/29) --> pseudomonas, group B strep - IV Vancomycin (08/29 - 09/05...stop vanco - IV Zosyn (08/29 - present)..will convert to po abx on d/c if clear bone margin. - anticoagulation with coumadin - Pt does not want to continue Lovenox as she had been on Lovenox recently for anticoagulation but developed some skin breakdown in the left lower abdomen and has been following with Wound Care as an outpt for this. - Greatly appreciate input from Dr. Rios, Vascular Surgery - (09/03) Aortogram w/ R LE angiogram and R AT ANIMAL DAMAGE CONTROL AGENT (3mm) with Dr. Vo - [facility] WBC scan consistent with osteomyelitis - On 09/05 pt underwent amputation right hallux and resection of prox phalanx - Pt received heparin/Coumadin bridge. Heparin stopped on 09/06 with therapeutic INR. Pt received Coumadin 7.5mg 09/04-09/06. INR 2.8 on 09/07 and Coumadin to be held today - Cont Zosyn. Vanco stopped on 09/04 - Surgical wound culture is negative, mycobacterial and fungal cultures are still pending. - Await bone path to assure clear margin. - PT daily Chronic abdominal wound infection - Pt does not want to continue Lovenox as she had been on Lovenox recently for anticoagulation but developed some skin breakdown in the left lower abdomen and has been following with Wound Care as an outpt for this. - CT abd/pelvis (08/29) - Irregularity of the skin in the left lower quadrant some with some minimal air but no fistulous tract to the abdominal structures. 2. Diverticulosis of the colon. 3. Splenomegaly. 4. Cholelithiasis. 5. Left renal cyst - Appreciate input from Wound Care - Recommended Cleanse LLQ wound with normal saline pat dry, lightly pack wound with Maxsorb ll cut to fit wound base,cover with dry dressing change daily . - General surgery consulted, recommend continued localized wound care do not feel that patient is a surgical candidate at this time DM (diabetes mellitus) - Pt hold home diabetic medications - Accu checks - NovoLog SSI Antiphospholipid antibody syndrome - Pt continued on home dose of Cellcept and Prednisone - see above Anemia and thrombocytopenia - hgb and plt have been rising - consult to hematology, appreciate input. Also discussed with Dr. Rodriguez. He I believes this is due to the acute infection, blood drawing and antibiotics. - stool Hemoccult negative (09/01) - recheck labs in AM Hypothyroid - Home meds continued (SLE (systemic lupus erythematosus) - Chronic RAMIREZ (obstructive sleep apnea) - CPAP (2) Chronic abdominal wound infection ICD Codes: S31.109A - Unspecified open wound of abdominal wall, unspecified quadrant without penetration into peritoneal cavity, initial encounter; L08.9 - Local infection of the skin and subcutaneous tissue, unspecified Status: Chronic (3) DM (diabetes mellitus) ICD Codes: E11.9 - DM (diabetes mellitus) Status: Chronic (4) Antiphospholipid antibody syndrome ICD Codes: D68.61 - Antiphospholipid antibody syndrome Status: Chronic (5) Hypothyroid ICD Codes: E03.9 - Hypothyroid Status: Chronic (6) SLE (systemic lupus erythematosus) ICD Codes: M32.9 - SLE (systemic lupus erythematosus) Status: Chronic (7) RAMIREZ (obstructive sleep apnea) ICD Codes: G47.33 - RAMIREZ (obstructive sleep apnea) Status: Chronic Assessment and Plan Patient examined. Assessment and plan formulated with Mayda Garrido PA-C. I agree with the above. right great to amputation await bone margins cont abx...if neg margins convert to po inr 2.8. hold coumadin and inr in AM Problem Qualifiers (1) Osteomyelitis: Qualified Codes: M86.671 - Other chronic osteomyelitis, right ankle and foot (2) Chronic abdominal wound infection: Qualified Codes: S31.109D - Unspecified open wound of abdominal wall, unspecified quadrant without penetration into peritoneal cavity, subsequent encounter; L08.9 - Local infection of the skin and subcutaneous tissue, unspecified (3) DM (diabetes mellitus): Mayda Garrido Sep 07, 2017 11:13 Edward Lewis MD Sep 07, 2017 15:01
[2017-09-08] MEDS: PIPERACIL-TAZO 3.375 GM PREMIX 50 ML IV SCH ×4 (03:51→21:22)
[2017-09-08] MEDS: ACETAMINOPHEN/HYDROcodone 325 MG/5 MG TAB PO PRN ×2 (03:52→21:36)
[2017-09-08 04:13] VITALS: BP 114/55; PULSE 65; RESP 15; TEMP 97.6; O2SAT 98
[2017-09-08] MEDS: LEVOTHYROXINE SODIUM 150 MCG TAB PO SCH (06:01)
[2017-09-08] MEDS: MUPIROCIN 2% OINT 22 GM TUBE TOPICAL SCH ×3 (06:02→22:00)
[2017-09-08] MEDS: NYSTATIN 100,000 U/GM PWD 15 GM BTL TOPICAL SCH ×3 (06:02→22:00)
[2017-09-08] MEDS: HYDROCORTISONE 0.5% CREAM 30 GM TOPICAL SCH ×3 (07:30→23:30)
[2017-09-08 07:51] LABS: AUTOMATED NEUTROPHIL # 2.3 TH/MM3 (1.8-7.7); BASOPHIL % 0.9 % (0.0-2.0); EOSINOPHIL # 0.1 TH/MM3 (0-0.4); EOSINOPHIL % 3.3 % (0.0-4.0); HEMATOCRIT 24.3 % (35.0-46.0); LYMPH % 22.8 % (9.0-44.0); LYMPHOCYTE # 0.8 TH/MM3 (1.0-4.8); MEAN CELL VOLUME 91.7 FL (80.0-100.0); MEAN CORPUSCULAR HGB CONC 32.8 % (32.0-36.0); MEAN PLATELET VOLUME 7.5 FL (7.0-11.0); MONO % 9.5 % (0.0-8.0); MONOCYTE # 0.3 TH/MM3 (0-0.9); NEUT % 63.5 % (16.0-70.0); PLATELET COUNT 72 TH/MM3 (150-450); RED BLOOD COUNT 2.66 MIL/MM3 (4.00-5.30); RED CELL DISTRIBUTION WIDTH 17.9 % (11.6-17.2); WHITE BLOOD COUNT 3.6 TH/MM3 (4.0-11.0)
[2017-09-08 07:53] LABS: INTERNATIONAL NORMALIZED RATIO 2.1 RATIO; PROTHROMBIN TIME - PATIENT 20.9 SEC (9.8-11.6)
[2017-09-08] MEDS: INSULIN ASPART SUPPLEMENTAL SCALE SQ SCH ×4 (08:00→21:00)
[2017-09-08 08:02] VITALS: BP 117/59; PULSE 73; RESP 16; TEMP 97.5; O2SAT 97
[2017-09-08 08:13] LABS: CALCIUM 8.5 MG/DL (8.5-10.1); CREATININE 0.98 MG/DL (0.50-1.00); MAGNESIUM 1.8 MG/DL (1.5-2.5)
[2017-09-08] MEDS: SODIUM CHLORIDE 0.9% FLUSH 10 ML FLUSH IV FLUSH SCH ×2 (09:00→21:23)
[2017-09-08] MEDS: LEVODOPA/CARBIDOPA 1 TAB TABCR PO SCH ×3 (09:00→18:19)
[2017-09-08] MEDS ORDERED: POTASSIUM CHLORIDE 20 MEQ CONTROLLED RELEASE TAB PO ONE (09:00)
[2017-09-08] MEDS: LOSARTAN 25 MG TAB PO SCH (09:00)
[2017-09-08] MEDS: ATENOLOL 100 MG TAB PO SCH (09:00)
[2017-09-08] MEDS: FLUTICASONE PROPIONATE 220 MCG/ACT 12 GM INHALER INH SCH ×2 (09:00→21:22)
[2017-09-08] MEDS: MYCOPHENOLATE MOFETIL 500 MG TAB PO SCH ×2 (09:03→21:22)
[2017-09-08] MEDS: ESCITALOPRAM OXALATE 20 MG TAB PO SCH (09:03)
[2017-09-08] MEDS: predniSONE 5 MG TAB PO SCH (09:03)
[2017-09-08] MEDS: HYDROXYCHLOROQUINE SULFATE 200 MG TAB PO SCH ×2 (09:03→21:22)
[2017-09-08] MEDS: PANTOPRAZOLE SOD 40 MG DELAYED RELEASE TAB PO SCH (09:03)
[2017-09-08] MEDS: ASPIRIN 81 MG CHEW TAB PO SCH (09:03)
[2017-09-08 09:54] LABS: OVALOCYTES 1+ (NORMAL)
--- NOTE | 2017-09-08 10:02 | HHI.PR ---
Subjective Remarks no complaints able to get to br on own Objective Vitals heart reg lung cta abd s/nt. left abdomen bandaged. ext right foot bandaged Vital Signs Date Time Temp Pulse Resp B/P (MAP) Pulse Ox O2 Delivery O2 Flow Rate FiO2 09/08/17 08:02 97.5 73 16 117/59 (78) 97 09/08/17 04:13 97.6 65 15 114/55 (74) 98 09/07/17 23:29 97.6 73 14 144/6 (52) 100 09/07/17 20:00 97.6 68 20 140/61 (87) 100 09/07/17 16:45 98.3 64 18 108/59 (75) 99 09/07/17 12:30 97.7 63 16 111/56 (74) 97 09/07/17 10:55 16 Result Diagram: 09/08/1718 09/08/1718 Imaging Last Impressions Tumor Localization 08/30/17 0000 Signed Impressions: Service Date/Time: August 11:35 - CONCLUSION: 1. Focal intense three-phase activity distal phalanx right great toe most characteristic of osteomyelitis. Srinath Galvan MD Abdomen/Pelvis CT 08/30/17 0000 Signed Impressions: Service Date/Time: August 12:12 - CONCLUSION: 1. Irregularity of the skin in the left lower quadrant some with some minimal air but no fistulous tract to the abdominal structures. 2. Diverticulosis of the colon. 3. Splenomegaly. 4. Cholelithiasis. 5. Left renal cyst. Ashkan Peña MD Carotid Artery Ultrasound 08/28/17 0000 Signed Impressions: Service Date/Time: Monday, August 28, 2017 22:05 - CONCLUSION: Atherosclerotic plaque of both carotid bifurcations, mild on the right and minimal on the left. No hemodynamically significant narrowing. Tulio Saha MD Aorta w/Runoff CTA 08/28/17 0000 Signed Impressions: Service Date/Time: Tuesday, August 29, 2017 00:53 - CONCLUSION: 1. Patent inflow and outflow bilaterally. 2. Severe trifurcation disease bilaterally without straight line flow to either foot. Details given above. 3. Colonic diverticulosis. 4. Splenomegaly. 5. Cholelithiasis. Adria Mendez Jr., MD Chest X-Ray 08/27/17 1923 Signed Impressions: Service Date/Time: Sunday, August 27, 2017 19:30 - CONCLUSION: No evidence of acute cardiopulmonary disease. Tulio Saha MD Foot X-Ray 08/27/17 0000 Signed Impressions: Service Date/Time: Sunday, August 27, 2017 15:46 - CONCLUSION: Soft tissue swelling and possible first digit ulceration without definite underlying bone abnormality. Andrew Lang MD Procedures s/p Aortogram w/ R LE angiogram and R AT PRIMARY CARE NURSE PRACTITIONER (3mm) with Dr. Vo A/P Problem List: (1) Osteomyelitis ICD Codes: M86.9 - Osteomyelitis, unspecified Status: Chronic Plan: Osteomyelitis - comgmt with Podiatry & Vascular Surgery - Pt is a 62 y/o female with antiphospholipid antibody syndrome on chronic immunosuppression, hx of recurrent CVAs and TIAs on life long Lovenox, diabetes mellitus, Parkinson's disease, systemic lupus erythematous, and vasculitis. - She presented to the ED at [facility] on 08/27/17 at the request of her line o scribe operator, Dr. Garcia, for evaluation of a wound to her right great toe. - Pt has had a chronic wound to her right foot since February 2017 and has received 2 previous rounds of antibiotics for this. She also has reportedly been going to wound care approximately once a week for several months. She was referred to Dr. Garcia for further evaluation where she ordered an MRI. - Per the ED documentation the MRI was suggestive of osteomyelitis in the distal tuft of the great toe. - Podiatry consultation is ordered - Outpt US with RUSSELL in 08/2017 noted mildly reduced resting right lower extremity RUSSELL 0.8-0.89. Exercise was note performed due to limited ambulation. - CRP was elevated at 0.46 - Wound culture (08/29) --> pseudomonas, group B strep - IV Vancomycin (08/29 - 09/05...stop vanco - IV Zosyn (08/29 - present)..will convert to po abx on d/c if clear bone margin. - anticoagulation with coumadin - Pt does not want to continue Lovenox as she had been on Lovenox recently for anticoagulation but developed some skin breakdown in the left lower abdomen and has been following with Wound Care as an outpt for this. - Greatly appreciate input from Dr. Rios, Vascular Surgery - (09/03) Aortogram w/ R LE angiogram and R AT PRIMARY CARE NURSE PRACTITIONER (3mm) with Dr. Vo - [facility] WBC scan consistent with osteomyelitis - On 09/05 pt underwent amputation right hallux and resection of prox phalanx - Pt received heparin/Coumadin bridge. Heparin stopped on 09/06 with therapeutic INR. Pt received Coumadin 7.5mg 09/04-09/06. INR 2.8 on 09/07 and Coumadin to be held today - Cont Zosyn. Vanco stopped on 09/04 - Surgical wound culture is negative, mycobacterial and fungal cultures are still pending. - bone path shows a clear margin - cont po abx for a week. d/c home in AM....instructed pt to get her inr Sun. followed by her nursing care partner dr Masterson - PT daily Chronic abdominal wound infection - Pt does not want to continue Lovenox as she had been on Lovenox recently for anticoagulation but developed some skin breakdown in the left lower abdomen and has been following with Wound Care as an outpt for this. - CT abd/pelvis (08/29) - Irregularity of the skin in the left lower quadrant some with some minimal air but no fistulous tract to the abdominal structures. 2. Diverticulosis of the colon. 3. Splenomegaly. 4. Cholelithiasis. 5. Left renal cyst - Appreciate input from Wound Care - Recommended Cleanse LLQ wound with normal saline pat dry, lightly pack wound with Maxsorb ll cut to fit wound base,cover with dry dressing change daily . - General surgery consulted, recommend continued localized wound care do not feel that patient is a surgical candidate at this time DM (diabetes mellitus) - Pt hold home diabetic medications - Accu checks - NovoLog SSI Antiphospholipid antibody syndrome - Pt continued on home dose of Cellcept and Prednisone - see above Anemia and thrombocytopenia - hgb and plt have been rising - consult to hematology, appreciate input. Also discussed with Dr. Rodriguez. He I believes this is due to the acute infection, blood drawing and antibiotics. - stool Hemoccult negative (09/01) Hypothyroid - Home meds continued (SLE (systemic lupus erythematosus) - Chronic RAMIREZ (obstructive sleep apnea) - CPAP (2) Chronic abdominal wound infection ICD Codes: S31.109A - Unspecified open wound of abdominal wall, unspecified quadrant without penetration into peritoneal cavity, initial encounter; L08.9 - Local infection of the skin and subcutaneous tissue, unspecified Status: Chronic (3) DM (diabetes mellitus) ICD Codes: E11.9 - DM (diabetes mellitus) Status: Chronic (4) Antiphospholipid antibody syndrome ICD Codes: D68.61 - Antiphospholipid antibody syndrome Status: Chronic (5) Hypothyroid ICD Codes: E03.9 - Hypothyroid Status: Chronic (6) SLE (systemic lupus erythematosus) ICD Codes: M32.9 - SLE (systemic lupus erythematosus) Status: Chronic (7) RAMIREZ (obstructive sleep apnea) ICD Codes: G47.33 - RAMIREZ (obstructive sleep apnea) Status: Chronic Problem Qualifiers (1) Osteomyelitis: Qualified Codes: M86.671 - Other chronic osteomyelitis, right ankle and foot (2) Chronic abdominal wound infection: Qualified Codes: S31.109D - Unspecified open wound of abdominal wall, unspecified quadrant without penetration into peritoneal cavity, subsequent encounter; L08.9 - Local infection of the skin and subcutaneous tissue, unspecified (3) DM (diabetes mellitus): Edward Lewis MD Sep 08, 2017 10:01
[2017-09-08 12:00] VITALS: BP 123/58; PULSE 77; RESP 16; TEMP 98.1; O2SAT 97
[2017-09-08 16:00] VITALS: BP 132/61; PULSE 72; RESP 16; TEMP 97.5; O2SAT 96
[2017-09-08] MEDS: WARFARIN SOD 7.5 MG TAB PO SCH (16:11)
[2017-09-08 20:00] VITALS: BP 141/65; PULSE 83; RESP 18; TEMP 98.3; O2SAT 97
[2017-09-09] VITALS: BP_SYST 113; BP_SYST 131; BP_DIAS 56; BP_DIAS 85; PULSE 70; PULSE 72; RESP 18; TEMP 97.5; TEMP 98.1; O2SAT 97; O2SAT 98
[2017-09-09] MEDS: PIPERACIL-TAZO 3.375 GM PREMIX 50 ML IV SCH ×4 (03:40→20:51)
[2017-09-09 04:00] VITALS: BP_SYST 130; BP_SYST 149; BP_DIAS 68; BP_DIAS 72; PULSE 66; PULSE 98; RESP 18; TEMP 97.3; TEMP 98; O2SAT 97; O2SAT 98
[2017-09-09] MEDS: MUPIROCIN 2% OINT 22 GM TUBE TOPICAL SCH ×3 (06:00→20:51)
[2017-09-09] MEDS: LEVOTHYROXINE SODIUM 75 MCG TAB PO SCH (06:11)
[2017-09-09] MEDS: LEVOTHYROXINE SODIUM 100 MCG TAB PO SCH (06:12)
[2017-09-09] MEDS: NYSTATIN 100,000 U/GM PWD 15 GM BTL TOPICAL SCH ×3 (06:14→20:51)
[2017-09-09] MEDS: HYDROCORTISONE 0.5% CREAM 30 GM TOPICAL SCH ×3 (07:30→23:25)
[2017-09-09 08:00] VITALS: BP 135/64; PULSE 75; RESP 18; TEMP 97.9; O2SAT 97
[2017-09-09] MEDS: INSULIN ASPART SUPPLEMENTAL SCALE SQ SCH ×4 (08:00→20:55)
[2017-09-09] MEDS: HYDROXYCHLOROQUINE SULFATE 200 MG TAB PO SCH ×2 (08:47→20:51)
[2017-09-09] MEDS: predniSONE 5 MG TAB PO SCH (08:47)
[2017-09-09] MEDS: ESCITALOPRAM OXALATE 20 MG TAB PO SCH (08:47)
[2017-09-09] MEDS: LEVODOPA/CARBIDOPA 1 TAB TABCR PO SCH ×3 (08:47→17:09)
[2017-09-09] MEDS: ASPIRIN 81 MG CHEW TAB PO SCH (08:47)
[2017-09-09] MEDS: MYCOPHENOLATE MOFETIL 500 MG TAB PO SCH ×2 (08:48→20:51)
[2017-09-09] MEDS: ATENOLOL 100 MG TAB PO SCH (08:48)
[2017-09-09] MEDS: PANTOPRAZOLE SOD 40 MG DELAYED RELEASE TAB PO SCH (08:48)
[2017-09-09] MEDS: LOSARTAN 25 MG TAB PO SCH (08:48)
[2017-09-09] MEDS: SODIUM CHLORIDE 0.9% FLUSH 10 ML FLUSH IV FLUSH SCH ×2 (08:49→20:51)
[2017-09-09] MEDS: FLUTICASONE PROPIONATE 220 MCG/ACT 12 GM INHALER INH SCH ×2 (08:50→20:56)
[2017-09-09 09:40] LABS: INTERNATIONAL NORMALIZED RATIO 1.6 RATIO; PROTHROMBIN TIME - PATIENT 16.5 SEC (9.8-11.6)
--- NOTE | 2017-09-09 11:32 | HHI.PR ---
Subjective Remarks eager to go home feels good Objective Vitals heart reg lung cta abd s/nt. left abdomen bandaged ext right foot bandaged. hard shoe. Vital Signs Date Time Temp Pulse Resp B/P (MAP) Pulse Ox O2 Delivery O2 Flow Rate FiO2 09/09/17 08:00 97.9 75 18 135/64 (87) 97 09/09/17 04:00 98.0 66 18 149/68 (95) 98 09/09/17 04:00 97.3 98 18 130/72 (91) 97 09/09/17 00:00 97.5 72 18 113/56 (75) 98 09/09/17 00:00 98.1 70 18 131/85 (100) 97 09/08/17 20:00 98.3 83 18 141/65 (90) 97 09/08/17 16:00 97.5 72 16 132/61 (84) 96 09/08/17 12:00 98.1 77 16 123/58 (79) 97 Result Diagram: 09/08/1761709/08/17617 Imaging Last Impressions Tumor Localization 08/30/17 0000 Signed Impressions: Service Date/Time: August 11:35 - CONCLUSION: 1. Focal intense three-phase activity distal phalanx right great toe most characteristic of osteomyelitis. Srinath Galvan MD Abdomen/Pelvis CT 08/30/17 0000 Signed Impressions: Service Date/Time: August 12:12 - CONCLUSION: 1. Irregularity of the skin in the left lower quadrant some with some minimal air but no fistulous tract to the abdominal structures. 2. Diverticulosis of the colon. 3. Splenomegaly. 4. Cholelithiasis. 5. Left renal cyst. Ashkan Peña MD Carotid Artery Ultrasound 08/28/17 0000 Signed Impressions: Service Date/Time: Monday, August 28, 2017 22:05 - CONCLUSION: Atherosclerotic plaque of both carotid bifurcations, mild on the right and minimal on the left. No hemodynamically significant narrowing. Tulio Saha MD Aorta w/Runoff CTA 08/28/17 0000 Signed Impressions: Service Date/Time: Tuesday, August 29, 2017 00:53 - CONCLUSION: 1. Patent inflow and outflow bilaterally. 2. Severe trifurcation disease bilaterally without straight line flow to either foot. Details given above. 3. Colonic diverticulosis. 4. Splenomegaly. 5. Cholelithiasis. Adria Mendez Jr., MD Chest X-Ray 08/27/17 1923 Signed Impressions: Service Date/Time: Sunday, August 27, 2017 19:30 - CONCLUSION: No evidence of acute cardiopulmonary disease. Tulio Saha MD Foot X-Ray 08/27/17 0000 Signed Impressions: Service Date/Time: Sunday, August 27, 2017 15:46 - CONCLUSION: Soft tissue swelling and possible first digit ulceration without definite underlying bone abnormality. Andrew Lang MD Procedures s/p Aortogram w/ R LE angiogram and R AT CAMPAIGN MANAGEMENT SPECIALIST (3mm) with Dr. Vo A/P Problem List: (1) Osteomyelitis ICD Codes: M86.9 - Osteomyelitis, unspecified Status: Chronic Plan: Osteomyelitis - comgmt with Podiatry & Vascular Surgery - Pt is a 62 y/o female with antiphospholipid antibody syndrome on chronic immunosuppression, hx of recurrent CVAs and TIAs on life long Lovenox, diabetes mellitus, Parkinson's disease, systemic lupus erythematous, and vasculitis. - She presented to the ED at [facility] [place] on 08/27/17 at the request of her secondary education professor, Dr. Garcia, for evaluation of a wound to her right great toe. - Pt has had a chronic wound to her right foot since February 2017 and has received 2 previous rounds of antibiotics for this. She also has reportedly been going to wound care approximately once a week for several months. She was referred to Dr. Garcia for further evaluation where she ordered an MRI. - Per the ED documentation the MRI was suggestive of osteomyelitis in the distal tuft of the great toe. - Podiatry consultation is ordered - Outpt US with RUSSELL in 08/2017 noted mildly reduced resting right lower extremity RUSSELL 0.8-0.89. Exercise was note performed due to limited ambulation. - CRP was elevated at 0.46 - Wound culture (08/29) --> pseudomonas, group B strep - IV Vancomycin (08/29 - 09/05...stop vanco - IV Zosyn (08/29 - present)..will convert to po abx on d/c if clear bone margin. - anticoagulation with coumadin - Pt does not want to continue Lovenox as she had been on Lovenox recently for anticoagulation but developed some skin breakdown in the left lower abdomen and has been following with Wound Care as an outpt for this. - Greatly appreciate input from Dr. Rios, Vascular Surgery - (09/03) Aortogram w/ R LE angiogram and R AT CAMPAIGN MANAGEMENT SPECIALIST (3mm) with Dr. Vo - [facility] WBC scan consistent with osteomyelitis - On 09/05 pt underwent amputation right hallux and resection of prox phalanx - Pt received heparin/Coumadin bridge. Heparin stopped on 09/06 with therapeutic INR. Pt received Coumadin 7.5mg 09/04-09/06. INR 2.8 on 09/07 and Coumadin and coumadin held then resume on 09/08..unfortunately inr dropped to 1.6 on 09/09 and we need to hold her and resume heparin gtt until inr over 2. She is high risk for stroke and unable to take lovenox shots. anticipated d/c tomorrow with inr check Sunday with her Market Risk Analyst dr Masterson. - Cont Zosyn. Vanco stopped on 09/04. would convert to 5-7 days of levaquin on d/ c and f/u with podiatry for recheck. - Surgical wound culture is negative, mycobacterial and fungal cultures are still pending. - bone path shows a clear margin Chronic abdominal wound infection - Pt does not want to continue Lovenox as she had been on Lovenox recently for anticoagulation but developed some skin breakdown in the left lower abdomen and has been following with Wound Care as an outpt for this. - CT abd/pelvis (08/29) - Irregularity of the skin in the left lower quadrant some with some minimal air but no fistulous tract to the abdominal structures. 2. Diverticulosis of the colon. 3. Splenomegaly. 4. Cholelithiasis. 5. Left renal cyst - Appreciate input from Wound Care - Recommended Cleanse LLQ wound with normal saline pat dry, lightly pack wound with Maxsorb ll cut to fit wound base,cover with dry dressing change daily . - General surgery consulted, recommend continued localized wound care do not feel that patient is a surgical candidate at this time DM (diabetes mellitus) - Pt hold home diabetic medications - Accu checks - NovoLog SSI Antiphospholipid antibody syndrome - Pt continued on home dose of Cellcept and Prednisone - see above Anemia and thrombocytopenia - hgb and plt have been rising - consult to hematology, appreciate input. Also discussed with Dr. Rodriguez. He I believes this is due to the acute infection, blood drawing and antibiotics. - stool Hemoccult negative (09/01) Hypothyroid - Home meds continued (SLE (systemic lupus erythematosus) - Chronic RAMIREZ (obstructive sleep apnea) - CPAP (2) Chronic abdominal wound infection ICD Codes: S31.109A - Unspecified open wound of abdominal wall, unspecified quadrant without penetration into peritoneal cavity, initial encounter; L08.9 - Local infection of the skin and subcutaneous tissue, unspecified Status: Chronic (3) DM (diabetes mellitus) ICD Codes: E11.9 - DM (diabetes mellitus) Status: Chronic (4) Antiphospholipid antibody syndrome ICD Codes: D68.61 - Antiphospholipid antibody syndrome Status: Chronic (5) Hypothyroid ICD Codes: E03.9 - Hypothyroid Status: Chronic (6) SLE (systemic lupus erythematosus) ICD Codes: M32.9 - SLE (systemic lupus erythematosus) Status: Chronic (7) RAMIREZ (obstructive sleep apnea) ICD Codes: G47.33 - RAMIREZ (obstructive sleep apnea) Status: Chronic Problem Qualifiers (1) Osteomyelitis: Qualified Codes: M86.671 - Other chronic osteomyelitis, right ankle and foot (2) Chronic abdominal wound infection: Qualified Codes: S31.109D - Unspecified open wound of abdominal wall, unspecified quadrant without penetration into peritoneal cavity, subsequent encounter; L08.9 - Local infection of the skin and subcutaneous tissue, unspecified (3) DM (diabetes mellitus): Edward Lewis MD Sep 09, 2017 11:32
[2017-09-09] MEDS: HEPARIN-D5W 25,000 U/250 ML 250 ML IV PRN (11:33)
[2017-09-09 12:00] VITALS: BP 115/62; PULSE 67; RESP 18; TEMP 98.1; O2SAT 98
[2017-09-09 13:13] LABS: INTERNATIONAL NORMALIZED RATIO 1.7 RATIO
[2017-09-09 16:00] VITALS: BP 116/78; PULSE 69; RESP 18; TEMP 97.7; O2SAT 100
[2017-09-09] MEDS: WARFARIN SOD 7.5 MG TAB PO SCH (16:00)
[2017-09-09] MEDS ORDERED: HEPARIN - 10,000 UNITS/ML IV ADDITIVE IV PUSH PRN (16:30)
[2017-09-09] MEDS ORDERED: HEPARIN SODIUM - IV 10,000 UNITS/10 ML VIAL IV PUSH PRN (16:30)
[2017-09-09 20:00] VITALS: BP 135/72; PULSE 78; RESP 18; TEMP 97.9; O2SAT 100
[2017-09-10] VITALS: BP 132/74; PULSE 72; RESP 18; TEMP 97.3; O2SAT 100
[2017-09-10] MEDS: HEPARIN-D5W 25,000 U/250 ML 250 ML IV PRN ×3 (00:31→22:13)
[2017-09-10] MEDS: ACETAMINOPHEN/HYDROcodone 325 MG/5 MG TAB PO PRN ×2 (00:32→22:07)
[2017-09-10] MEDS: PIPERACIL-TAZO 3.375 GM PREMIX 50 ML IV SCH ×3 (03:18→14:45)
[2017-09-10 04:00] VITALS: BP 123/58; PULSE 73; RESP 18; TEMP 98.3; O2SAT 95
[2017-09-10 04:58] LABS: INTERNATIONAL NORMALIZED RATIO 1.7 RATIO; PROTHROMBIN TIME - PATIENT 17.2 SEC (9.8-11.6)
[2017-09-10] MEDS: LEVOTHYROXINE SODIUM 150 MCG TAB PO SCH (05:36)
[2017-09-10] MEDS: NYSTATIN 100,000 U/GM PWD 15 GM BTL TOPICAL SCH ×3 (06:13→22:00)
[2017-09-10] MEDS: MUPIROCIN 2% OINT 22 GM TUBE TOPICAL SCH ×3 (06:13→22:00)
[2017-09-10] MEDS: HYDROCORTISONE 0.5% CREAM 30 GM TOPICAL SCH ×3 (07:30→22:07)
[2017-09-10 07:49] VITALS: BP 132/62; PULSE 80; RESP 18; TEMP 97.6; O2SAT 98
[2017-09-10] MEDS: INSULIN ASPART SUPPLEMENTAL SCALE SQ SCH ×4 (07:51→21:00)
[2017-09-10] MEDS: MYCOPHENOLATE MOFETIL 500 MG TAB PO SCH ×2 (08:36→22:07)
[2017-09-10] MEDS: ASPIRIN 81 MG CHEW TAB PO SCH (08:36)
[2017-09-10] MEDS: PANTOPRAZOLE SOD 40 MG DELAYED RELEASE TAB PO SCH (08:36)
[2017-09-10] MEDS: predniSONE 5 MG TAB PO SCH (08:37)
[2017-09-10] MEDS: HYDROXYCHLOROQUINE SULFATE 200 MG TAB PO SCH ×2 (08:38→22:07)
[2017-09-10] MEDS: ESCITALOPRAM OXALATE 20 MG TAB PO SCH (08:38)
[2017-09-10] MEDS: SODIUM CHLORIDE 0.9% FLUSH 10 ML FLUSH IV FLUSH SCH ×2 (08:38→22:06)
[2017-09-10] MEDS: LOSARTAN 25 MG TAB PO SCH (08:38)
[2017-09-10] MEDS: LEVODOPA/CARBIDOPA 1 TAB TABCR PO SCH ×3 (08:38→17:32)
[2017-09-10] MEDS: FLUTICASONE PROPIONATE 220 MCG/ACT 12 GM INHALER INH SCH ×2 (08:41→22:06)
[2017-09-10] MEDS: ATENOLOL 100 MG TAB PO SCH (08:47)
--- NOTE | 2017-09-10 11:17 | HHI.PR ---
Subjective Remarks Pt doing well today No new complaints Eating and drinking well Pt had one loose BM this morning. Objective Vitals Vital Signs Date Time Temp Pulse Resp B/P (MAP) Pulse Ox O2 Delivery O2 Flow Rate FiO2 09/10/17 07:49 97.6 80 18 132/62 (85) 98 09/10/17 04:00 98.3 73 18 123/58 (79) 95 09/10/17 00:00 97.3 72 18 132/74 (93) 100 09/09/17 20:00 97.9 78 18 135/72 (93) 100 09/09/17 16:00 97.7 69 18 116/78 (91) 100 09/09/17 12:00 98.1 67 18 115/62 (79) 98 09/10/17 09/10/17 09/11/17 15:00 23:00 07:00 Intake Total 50 ml Balance 50 ml IV Total 50 ml Result Diagram: 09/08/1718 09/08/17617 Other Results Laboratory Tests Test 09/09/17 07:44 09/09/17 12:38 09/09/17 17:34 09/09/17 18:30 Prothrombin Time 16.5 SEC 17.0 SEC Prothromb Time International Ratio 1.6 RATIO 1.7 RATIO Activated Partial Thromboplast Time 63.6 SEC 176.0 SEC 141.7 SEC Test 09/09/17 19:46 09/09/17 22:53 09/10/17 04:25 Activated Partial Thromboplast Time 44.8 SEC 37.3 SEC 51.4 SEC Prothrombin Time 17.2 SEC Prothromb Time International Ratio 1.7 RATIO Imaging Last Impressions Tumor Localization 08/30/17 0000 Signed Impressions: Service Date/Time: August 11:35 - CONCLUSION: 1. Focal intense three-phase activity distal phalanx right great toe most characteristic of osteomyelitis. Srinath Galvan MD Abdomen/Pelvis CT 08/30/17 0000 Signed Impressions: Service Date/Time: August 12:12 - CONCLUSION: 1. Irregularity of the skin in the left lower quadrant some with some minimal air but no fistulous tract to the abdominal structures. 2. Diverticulosis of the colon. 3. Splenomegaly. 4. Cholelithiasis. 5. Left renal cyst. Ashkan Peña MD Carotid Artery Ultrasound 08/28/17 0000 Signed Impressions: Service Date/Time: Monday, August 28, 2017 22:05 - CONCLUSION: Atherosclerotic plaque of both carotid bifurcations, mild on the right and minimal on the left. No hemodynamically significant narrowing. Tulio Saha MD Aorta w/Runoff CTA 08/28/17 0000 Signed Impressions: Service Date/Time: Tuesday, August 29, 2017 00:53 - CONCLUSION: 1. Patent inflow and outflow bilaterally. 2. Severe trifurcation disease bilaterally without straight line flow to either foot. Details given above. 3. Colonic diverticulosis. 4. Splenomegaly. 5. Cholelithiasis. Adria Mendez Jr., MD Chest X-Ray 08/27/171922 Signed Impressions: Service Date/Time: Sunday, August 27, 2017 19:30 - CONCLUSION: No evidence of acute cardiopulmonary disease. Tulio Saha MD Foot X-Ray 08/27/17 0000 Signed Impressions: Service Date/Time: Sunday, August 27, 2017 15:46 - CONCLUSION: Soft tissue swelling and possible first digit ulceration without definite underlying bone abnormality. Andrew Lang MD Objective Remarks General: NAD, AAOx3 Chest: CTA Cardiac: Regular Abd: +BS, soft NT, wound in LLQ without any erythema or drainage Ext: Right foot bandages are c/d/i Procedures s/p Aortogram w/ R LE angiogram and R AT RAT FARMER (3mm) with Dr. Vo A/P Problem List: (1) Osteomyelitis ICD Codes: M86.9 - Osteomyelitis, unspecified Status: Chronic Plan: Osteomyelitis - comgmt with Podiatry & Vascular Surgery - Pt is a 62 y/o female with antiphospholipid antibody syndrome on chronic immunosuppression, hx of recurrent CVAs and TIAs on life long Lovenox, diabetes mellitus, Parkinson's disease, systemic lupus erythematous, and vasculitis. - She presented to the ED at [facility] [place] on 08/27/17 at the request of her outsole cementer machine, Dr. Garcia, for evaluation of a wound to her right great toe. - Pt has had a chronic wound to her right foot since February 2017 and has received 2 previous rounds of antibiotics for this. She also has reportedly been going to wound care approximately once a week for several months. She was referred to Dr. Garcia for further evaluation where she ordered an MRI. - Per the ED documentation the MRI was suggestive of osteomyelitis in the distal tuft of the great toe. - Podiatry consultation is ordered - Outpt US with RUSSELL in 08/2017 noted mildly reduced resting right lower extremity RUSSELL 0.8-0.89. Exercise was note performed due to limited ambulation. - CRP was elevated at 0.46 - Wound culture (08/29) --> pseudomonas, group B strep - IV Vancomycin (08/29 - 09/05) - IV Zosyn (08/29 - present). - anticoagulation with Coumadin - Pt does not want to continue Lovenox as she had been on Lovenox recently for anticoagulation but developed some skin breakdown in the left lower abdomen and has been following with Wound Care as an outpt for this. - Greatly appreciate input from Dr. Rios, Vascular Surgery - (09/03) Aortogram w/ R LE angiogram and R AT RAT FARMER (3mm) with Dr. Vo - [facility] WBC scan consistent with osteomyelitis - On 09/05 pt underwent amputation right hallux and resection of prox phalanx - Pt received heparin/Coumadin bridge. Heparin stopped on 09/06 with therapeutic INR. Pt received Coumadin 7.5mg 09/04-09/06. INR 2.8 on 09/07 and Coumadin and Coumadin held then resume on 09/08. Unfortunately her INR dropped to 1.6 on and her discharge was held to resume Heparin gtt until INR over 2. She is high risk for stroke and unable to take Lovenox shots. - INR on 09/10 is 1.7 - Pt has been on Zosyn since 08/29 but is now complaining of some diarrhea intermittently. We will stop the Zosyn on 09/10 and convert po Levaquin 750mg daily,x 5-7 days which will be completed as an outpt. If pt continues to have diarrhea, check stool for C. diff. - She will need to f/u with podiatry for recheck as an outpt. She has an appt later this week already scheduled. - Surgical wound culture is negative, mycobacterial and fungal cultures are still pending. - Bone path shows a clear margin Chronic abdominal wound infection - Pt does not want to continue Lovenox as she had been on Lovenox recently for anticoagulation but developed some skin breakdown in the left lower abdomen and has been following with Wound Care as an outpt for this. - CT abd/pelvis (08/29) - Irregularity of the skin in the left lower quadrant some with some minimal air but no fistulous tract to the abdominal structures. 2. Diverticulosis of the colon. 3. Splenomegaly. 4. Cholelithiasis. 5. Left renal cyst - Appreciate input from Wound Care - Recommended Cleanse LLQ wound with normal saline pat dry, lightly pack wound with Maxsorb ll cut to fit wound base,cover with dry dressing change daily . - General surgery consulted, recommend continued localized wound care do not feel that patient is a surgical candidate at this time DM (diabetes mellitus) - Pt hold home diabetic medications - Accu checks - NovoLog SSI Antiphospholipid antibody syndrome - Pt continued on home dose of Cellcept and Prednisone - see above Anemia and thrombocytopenia - hgb and plt have been rising - consult to hematology, appreciate input. Also discussed with Dr. Rodriguez. He believes this is due to the acute infection, blood drawing and antibiotics. - stool Hemoccult negative (09/01) Hypothyroid - Home meds continued (SLE (systemic lupus erythematosus) - Chronic RAMIREZ (obstructive sleep apnea) - CPAP (2) Chronic abdominal wound infection ICD Codes: S31.109A - Unspecified open wound of abdominal wall, unspecified quadrant without penetration into peritoneal cavity, initial encounter; L08.9 - Local infection of the skin and subcutaneous tissue, unspecified Status: Chronic (3) DM (diabetes mellitus) ICD Codes: E11.9 - DM (diabetes mellitus) Status: Chronic (4) Antiphospholipid antibody syndrome ICD Codes: D68.61 - Antiphospholipid antibody syndrome Status: Chronic (5) Hypothyroid ICD Codes: E03.9 - Hypothyroid Status: Chronic (6) SLE (systemic lupus erythematosus) ICD Codes: M32.9 - SLE (systemic lupus erythematosus) Status: Chronic (7) RAMIREZ (obstructive sleep apnea) ICD Codes: G47.33 - RAMIREZ (obstructive sleep apnea) Status: Chronic Assessment and Plan Patient examined. Assessment and plan formulated with Mayda Garrido PA-C. I agree with the above. Case d/w pt and sister (by phone). continue coumadin at 7.5mg daily. will be cautious. If INR overshoots, this might delay discharge. Repeat INR in AM. anticipate d/c to home in next 1-2 days. Problem Qualifiers (1) Osteomyelitis: Qualified Codes: M86.671 - Other chronic osteomyelitis, right ankle and foot (2) Chronic abdominal wound infection: Qualified Codes: S31.109D - Unspecified open wound of abdominal wall, unspecified quadrant without penetration into peritoneal cavity, subsequent encounter; L08.9 - Local infection of the skin and subcutaneous tissue, unspecified (3) DM (diabetes mellitus): Mayda Garrido Sep 10, 2017 11:17 Bravo Guzman DO Sep 10, 2017 23:49
[2017-09-10 12:05] VITALS: BP 128/59; PULSE 67; RESP 18; TEMP 97.8; O2SAT 96
[2017-09-10] MEDS: WARFARIN SOD 7.5 MG TAB PO SCH (14:50)
[2017-09-10 16:00] VITALS: BP 112/56; PULSE 69; RESP 16; TEMP 97.7; O2SAT 96
[2017-09-10 21:00] VITALS: BP 130/70; PULSE 70; RESP 18; TEMP 98.5; O2SAT 96
[2017-09-11 02:19] VITALS: BP 133/63; PULSE 65; RESP 18; TEMP 97.7; O2SAT 65
[2017-09-11] MEDS: MUPIROCIN 2% OINT 22 GM TUBE TOPICAL SCH ×3 (06:00→21:13)
[2017-09-11] MEDS: NYSTATIN 100,000 U/GM PWD 15 GM BTL TOPICAL SCH ×3 (06:00→21:13)
[2017-09-11 06:31] VITALS: BP 124/66; PULSE 68; RESP 18; TEMP 98.1; O2SAT 97
[2017-09-11] MEDS: LEVOTHYROXINE SODIUM 100 MCG TAB PO SCH (06:42)
[2017-09-11] MEDS: LEVOTHYROXINE SODIUM 75 MCG TAB PO SCH (06:42)
[2017-09-11] MEDS: ACETAMINOPHEN/HYDROcodone 325 MG/5 MG TAB PO PRN ×2 (06:43→21:13)
[2017-09-11] MEDS: HYDROCORTISONE 0.5% CREAM 30 GM TOPICAL SCH ×3 (06:43→21:13)
[2017-09-11] MEDS: INSULIN ASPART SUPPLEMENTAL SCALE SQ SCH ×4 (07:28→21:00)
[2017-09-11 07:52] VITALS: BP 120/58; PULSE 67; RESP 18; TEMP 97.7; O2SAT 98
[2017-09-11] MEDS: predniSONE 5 MG TAB PO SCH (08:06)
[2017-09-11] MEDS: LEVODOPA/CARBIDOPA 1 TAB TABCR PO SCH ×3 (08:06→16:31)
[2017-09-11] MEDS: ASPIRIN 81 MG CHEW TAB PO SCH (08:06)
[2017-09-11] MEDS: HYDROXYCHLOROQUINE SULFATE 200 MG TAB PO SCH ×2 (08:06→21:07)
[2017-09-11] MEDS: MYCOPHENOLATE MOFETIL 500 MG TAB PO SCH ×2 (08:06→21:07)
[2017-09-11] MEDS: LOSARTAN 25 MG TAB PO SCH (08:07)
[2017-09-11] MEDS: ATENOLOL 100 MG TAB PO SCH (08:07)
[2017-09-11] MEDS: PANTOPRAZOLE SOD 40 MG DELAYED RELEASE TAB PO SCH (08:07)
[2017-09-11] MEDS: LEVOFLOXACIN 750 MG TAB PO SCH (08:07)
[2017-09-11] MEDS: ESCITALOPRAM OXALATE 20 MG TAB PO SCH (08:07)
[2017-09-11] MEDS: SODIUM CHLORIDE 0.9% FLUSH 10 ML FLUSH IV FLUSH SCH ×2 (08:09→21:08)
[2017-09-11] MEDS: FLUTICASONE PROPIONATE 220 MCG/ACT 12 GM INHALER INH SCH ×2 (08:09→21:08)
[2017-09-11 08:43] LABS: AUTOMATED NEUTROPHIL # 2.6 TH/MM3 (1.8-7.7); BASOPHIL % 0.9 % (0.0-2.0); EOSINOPHIL # 0.1 TH/MM3 (0-0.4); EOSINOPHIL % 2.4 % (0.0-4.0); HEMATOCRIT 26.8 % (35.0-46.0); HEMOGLOBIN 8.7 GM/DL (11.6-15.3); LYMPH % 22.9 % (9.0-44.0); LYMPHOCYTE # 0.9 TH/MM3 (1.0-4.8); MEAN CELL VOLUME 91.1 FL (80.0-100.0); MEAN CORPUSCULAR HEMOGLOBIN 29.6 PG (27.0-34.0); MEAN CORPUSCULAR HGB CONC 32.5 % (32.0-36.0); MEAN PLATELET VOLUME 7.9 FL (7.0-11.0); MONO % 8.3 % (0.0-8.0); MONOCYTE # 0.3 TH/MM3 (0-0.9); NEUT % 65.5 % (16.0-70.0); PLATELET COUNT 75 TH/MM3 (150-450); RED BLOOD COUNT 2.94 MIL/MM3 (4.00-5.30); RED CELL DISTRIBUTION WIDTH 18.5 % (11.6-17.2)
[2017-09-11 08:58] LABS: INTERNATIONAL NORMALIZED RATIO 1.9 RATIO; PROTHROMBIN TIME - PATIENT 19.3 SEC (9.8-11.6)
[2017-09-11 09:06] LABS: BICARBONATE 23.9 MEQ/L (21.0-32.0); CALCIUM 8.1 MG/DL (8.5-10.1); CREATININE 0.98 MG/DL (0.50-1.00)
[2017-09-11 09:17] LABS: OVALOCYTES 1+ (NORMAL); TEARDROP RBCS 1+ (NORMAL)
--- NOTE | 2017-09-11 11:03 | HHI.PR ---
Subjective Remarks Pt without any new complaints Loose stool is better on the po Levaquin Afebrile Objective Vitals Vital Signs Date Time Temp Pulse Resp B/P (MAP) Pulse Ox O2 Delivery O2 Flow Rate FiO2 09/11/17 07:52 97.7 67 18 120/58 (78) 98 09/11/17 06:31 98.1 68 18 124/66 (85) 97 09/11/17 02:19 97.7 65 18 133/63 (86) 65 09/10/17 21:00 98.5 70 18 130/70 (90) 96 09/10/17 16:00 97.7 69 16 112/56 (74) 96 09/10/17 12:05 97.8 67 18 128/59 (82) 96 Result Diagram: 09/11/17 0735 09/11/17 0735 Other Results Laboratory Tests Test 09/09/17 12:38 09/09/17 17:34 09/09/17 18:30 09/09/17 19:46 Prothrombin Time 17.0 SEC Prothromb Time International Ratio 1.7 RATIO Activated Partial Thromboplast Time 63.6 SEC 176.0 SEC 141.7 SEC 44.8 SEC Test 09/09/17 22:53 09/10/17 04:25 09/10/17 12:25 09/11/17 07:35 Activated Partial Thromboplast Time 37.3 SEC 51.4 SEC 68.5 SEC 74.9 SEC Prothrombin Time 17.2 SEC 19.3 SEC Prothromb Time International Ratio 1.7 RATIO 1.9 RATIO White Blood Count 4.0 TH/MM3 Red Blood Count 2.94 MIL/MM3 Hemoglobin 8.7 GM/DL Hematocrit 26.8 % Mean Corpuscular Volume 91.1 FL Mean Corpuscular Hemoglobin 29.6 PG Mean Corpuscular Hemoglobin Concent 32.5 % Red Cell Distribution Width 18.5 % Platelet Count 75 TH/MM3 Mean Platelet Volume 7.9 FL Neutrophils (%) (Auto) 65.5 % Lymphocytes (%) (Auto) 22.9 % Monocytes (%) (Auto) 8.3 % Eosinophils (%) (Auto) 2.4 % Basophils (%) (Auto) 0.9 % Neutrophils # (Auto) 2.6 TH/MM3 Lymphocytes # (Auto) 0.9 TH/MM3 Monocytes # (Auto) 0.3 TH/MM3 Eosinophils # (Auto) 0.1 TH/MM3 Basophils # (Auto) 0.0 TH/MM3 CBC Comment AUTO DIFF Differential Comment AUTO DIFF CONFIRMED Platelet Estimate LOW Platelet Morphology Comment NORMAL Tear Drop Cells 1+ Ovalocytes 1+ Blood Urea Nitrogen 14 MG/DL Creatinine 0.98 MG/DL Random Glucose 86 MG/DL Calcium Level 8.1 MG/DL Magnesium Level 2.0 MG/DL Sodium Level 148 MEQ/L Potassium Level 3.6 MEQ/L Chloride Level 117 MEQ/L Carbon Dioxide Level 23.9 MEQ/L Anion Gap 7 MEQ/L Estimat Glomerular Filtration Rate 57 ML/MIN Imaging Last Impressions Tumor Localization 08/30/17 0000 Signed Impressions: Service Date/Time: August 11:35 - CONCLUSION: 1. Focal intense three-phase activity distal phalanx right great toe most characteristic of osteomyelitis. Srinath Galvan MD Abdomen/Pelvis CT 08/30/17 0000 Signed Impressions: Service Date/Time: August 12:12 - CONCLUSION: 1. Irregularity of the skin in the left lower quadrant some with some minimal air but no fistulous tract to the abdominal structures. 2. Diverticulosis of the colon. 3. Splenomegaly. 4. Cholelithiasis. 5. Left renal cyst. Ashkan Peña MD Carotid Artery Ultrasound 08/28/17 0000 Signed Impressions: Service Date/Time: Monday, August 28, 2017 22:05 - CONCLUSION: Atherosclerotic plaque of both carotid bifurcations, mild on the right and minimal on the left. No hemodynamically significant narrowing. Tulio Saha MD Aorta w/Runoff CTA 08/28/17 0000 Signed Impressions: Service Date/Time: Tuesday, August 29, 2017 00:53 - CONCLUSION: 1. Patent inflow and outflow bilaterally. 2. Severe trifurcation disease bilaterally without straight line flow to either foot. Details given above. 3. Colonic diverticulosis. 4. Splenomegaly. 5. Cholelithiasis. Adria Mendez Jr., MD Chest X-Ray 08/27/171922 Signed Impressions: Service Date/Time: Sunday, August 27, 2017 19:30 - CONCLUSION: No evidence of acute cardiopulmonary disease. Tulio Saha MD Foot X-Ray 08/27/17 0000 Signed Impressions: Service Date/Time: Sunday, August 27, 2017 15:46 - CONCLUSION: Soft tissue swelling and possible first digit ulceration without definite underlying bone abnormality. Andrew Lang MD Objective Remarks General: NAD, AAOx3 Chest: CTA Cardiac: Regular Abd: +BS, soft NT, wound in LLQ without any erythema or drainage Ext: Right foot bandages are c/d/i Procedures s/p Aortogram w/ R LE angiogram and R AT SENIOR DATA WAREHOUSE ARCHITECT (3mm) with Dr. Vo A/P Problem List: (1) Osteomyelitis ICD Codes: M86.9 - Osteomyelitis, unspecified Status: Chronic Plan: Osteomyelitis - comgmt with Podiatry & Vascular Surgery - Pt is a 62 y/o female with antiphospholipid antibody syndrome on chronic immunosuppression, hx of recurrent CVAs and TIAs on life long Lovenox, diabetes mellitus, Parkinson's disease, systemic lupus erythematous, and vasculitis. - She presented to the ED at [facility] [place] on 08/27/17 at the request of her director of partner marketing, Dr. Garcia, for evaluation of a wound to her right great toe. - Pt has had a chronic wound to her right foot since February 2017 and has received 2 previous rounds of antibiotics for this. She also has reportedly been going to wound care approximately once a week for several months. She was referred to Dr. Garcia for further evaluation where she ordered an MRI. - Per the ED documentation the MRI was suggestive of osteomyelitis in the distal tuft of the great toe. - Podiatry consultation is ordered - Outpt US with RUSSELL in 08/2017 noted mildly reduced resting right lower extremity RUSSELL 0.8-0.89. Exercise was note performed due to limited ambulation. - CRP was elevated at 0.46 - Wound culture (08/29) --> pseudomonas, group B strep - IV Vancomycin (08/29 - 09/05) - IV Zosyn (08/29 - present). - anticoagulation with Coumadin - Pt does not want to continue Lovenox as she had been on Lovenox recently for anticoagulation but developed some skin breakdown in the left lower abdomen and has been following with Wound Care as an outpt for this. - Greatly appreciate input from Dr. Rios, Vascular Surgery - (09/03) Aortogram w/ R LE angiogram and R AT SENIOR DATA WAREHOUSE ARCHITECT (3mm) with Dr. Vo - [facility] WBC scan consistent with osteomyelitis - On 09/05 pt underwent amputation right hallux and resection of prox phalanx - Pt received heparin/Coumadin bridge. Heparin stopped on 09/06 with therapeutic INR. Pt received Coumadin 7.5mg 09/04-09/06. INR 2.8 on 09/07 and Coumadin and Coumadin held then resume on 09/08. Unfortunately her INR dropped to 1.6 on and her discharge was held to resume Heparin gtt until INR over 2. She is high risk for stroke and unable to take Lovenox shots. - INR on 09/11 is 1.9. Cont. Heparin bridge to Coumadin until Coumadin is therapeutic, likely tomorrow. We will decrease Coumadin dose to 5mg on 09/11 - At home pt takes alternating doses of Coumadin 5mg x 2 days and then on the third day Coumadin 7.5mg and repeats this pattern. - Pt has been on Zosyn since 08/29 but is now complaining of some diarrhea intermittently. Zosyn stopped on 09/10 and convert po Levaquin 750mg daily x 5-7 days which will be completed as an outpt. Diarrhea improved with Abx change. - She will need to f/u with podiatry for recheck as an outpt. She has an appt later this week already scheduled. - Surgical wound culture is negative, mycobacterial and fungal cultures are still pending. - Bone path shows a clear margin Chronic abdominal wound infection - Pt does not want to continue Lovenox as she had been on Lovenox recently for anticoagulation but developed some skin breakdown in the left lower abdomen and has been following with Wound Care as an outpt for this. - CT abd/pelvis (08/29) - Irregularity of the skin in the left lower quadrant some with some minimal air but no fistulous tract to the abdominal structures. 2. Diverticulosis of the colon. 3. Splenomegaly. 4. Cholelithiasis. 5. Left renal cyst - Appreciate input from Wound Care - Recommended Cleanse LLQ wound with normal saline pat dry, lightly pack wound with Maxsorb ll cut to fit wound base,cover with dry dressing change daily . - General surgery consulted, recommend continued localized wound care do not feel that patient is a surgical candidate at this time DM (diabetes mellitus) - Pt hold home diabetic medications - Accu checks - NovoLog SSI Antiphospholipid antibody syndrome - Pt continued on home dose of Cellcept and Prednisone - see above Anemia and thrombocytopenia - hgb and plt have been rising - consult to hematology, appreciate input. Also discussed with Dr. Rodriguez. He believes this is due to the acute infection, blood drawing and antibiotics. - stool Hemoccult negative (09/01) Hypothyroid - Home meds continued (SLE (systemic lupus erythematosus) - Chronic RAMIREZ (obstructive sleep apnea) - CPAP (2) Chronic abdominal wound infection ICD Codes: S31.109A - Unspecified open wound of abdominal wall, unspecified quadrant without penetration into peritoneal cavity, initial encounter; L08.9 - Local infection of the skin and subcutaneous tissue, unspecified Status: Chronic (3) DM (diabetes mellitus) ICD Codes: E11.9 - DM (diabetes mellitus) Status: Chronic (4) Antiphospholipid antibody syndrome ICD Codes: D68.61 - Antiphospholipid antibody syndrome Status: Chronic (5) Hypothyroid ICD Codes: E03.9 - Hypothyroid Status: Chronic (6) SLE (systemic lupus erythematosus) ICD Codes: M32.9 - SLE (systemic lupus erythematosus) Status: Chronic (7) RAMIREZ (obstructive sleep apnea) ICD Codes: G47.33 - RAMIREZ (obstructive sleep apnea) Status: Chronic Assessment and Plan Patient examined. Assessment and plan formulated with Mayda Garrido PA-C. I agree with the above. Pt's INR 1.9 (09/11) Change coumadin to 5mg repeat INR in AM if INR is 2.0 or greater than will stop heparin and discharge to home. Case d/w pt and sister at bedside. All question were answered to the best of my ability. Problem Qualifiers (1) Osteomyelitis: Qualified Codes: M86.671 - Other chronic osteomyelitis, right ankle and foot (2) Chronic abdominal wound infection: Qualified Codes: S31.109D - Unspecified open wound of abdominal wall, unspecified quadrant without penetration into peritoneal cavity, subsequent encounter; L08.9 - Local infection of the skin and subcutaneous tissue, unspecified (3) DM (diabetes mellitus): Mayda Garrido Sep 11, 2017 11:03 Bravo Guzman DO Sep 12, 2017 03:14
[2017-09-11 11:28] VITALS: BP 108/51; PULSE 74; RESP 18; TEMP 98.4; O2SAT 97
[2017-09-11] MEDS: HEPARIN-D5W 25,000 U/250 ML 250 ML IV PRN (15:30)
[2017-09-11] MEDS ORDERED: WARFARIN SOD 5 MG TAB PO SCH (16:00)
[2017-09-11 16:07] VITALS: BP 126/60; PULSE 72; RESP 18; TEMP 98.4; O2SAT 96
[2017-09-11 20:40] VITALS: BP 130/61; PULSE 70; RESP 18; TEMP 98; O2SAT 96
[2017-09-12] VITALS: BP 138/63; PULSE 69; RESP 18; TEMP 98.6; O2SAT 97
[2017-09-12] MEDS: ACETAMINOPHEN/HYDROcodone 325 MG/5 MG TAB PO PRN ×2 (04:25→21:10)
[2017-09-12] MEDS: NYSTATIN 100,000 U/GM PWD 15 GM BTL TOPICAL SCH ×3 (06:00→20:57)
[2017-09-12] MEDS: MUPIROCIN 2% OINT 22 GM TUBE TOPICAL SCH ×3 (06:00→20:57)
[2017-09-12 06:07] VITALS: BP 148/67; PULSE 69; RESP 18; TEMP 98.2; O2SAT 95
[2017-09-12] MEDS: LEVOTHYROXINE SODIUM 150 MCG TAB PO SCH (06:08)
[2017-09-12] MEDS: HYDROCORTISONE 0.5% CREAM 30 GM TOPICAL SCH ×3 (07:30→20:56)
[2017-09-12] MEDS: MYCOPHENOLATE MOFETIL 500 MG TAB PO SCH ×2 (07:40→20:58)
[2017-09-12] MEDS: ESCITALOPRAM OXALATE 20 MG TAB PO SCH (07:40)
[2017-09-12] MEDS: PANTOPRAZOLE SOD 40 MG DELAYED RELEASE TAB PO SCH (07:40)
[2017-09-12] MEDS: ATENOLOL 100 MG TAB PO SCH (07:40)
[2017-09-12] MEDS: predniSONE 5 MG TAB PO SCH (07:40)
[2017-09-12] MEDS: ASPIRIN 81 MG CHEW TAB PO SCH (07:40)
[2017-09-12] MEDS: LOSARTAN 25 MG TAB PO SCH (07:40)
[2017-09-12] MEDS: LEVODOPA/CARBIDOPA 1 TAB TABCR PO SCH ×3 (07:40→16:05)
[2017-09-12] MEDS: HYDROXYCHLOROQUINE SULFATE 200 MG TAB PO SCH ×2 (07:40→20:58)
[2017-09-12] MEDS: LEVOFLOXACIN 750 MG TAB PO SCH (07:41)
[2017-09-12] MEDS: SODIUM CHLORIDE 0.9% FLUSH 10 ML FLUSH IV FLUSH SCH ×2 (07:41→20:57)
[2017-09-12] MEDS: FLUTICASONE PROPIONATE 220 MCG/ACT 12 GM INHALER INH SCH ×2 (07:42→20:58)
[2017-09-12] MEDS: INSULIN ASPART SUPPLEMENTAL SCALE SQ SCH ×4 (07:43→21:10)
[2017-09-12 07:52] VITALS: BP 116/57; PULSE 65; RESP 19; TEMP 97.9; O2SAT 98
[2017-09-12] MEDS: HEPARIN-D5W 25,000 U/250 ML 250 ML IV PRN (09:30)
[2017-09-12 09:49] LABS: HEMOGLOBIN 8.7 GM/DL (11.6-15.3); MEAN CELL VOLUME 92.3 FL (80.0-100.0); MEAN CORPUSCULAR HEMOGLOBIN 29.6 PG (27.0-34.0); MEAN CORPUSCULAR HGB CONC 32.1 % (32.0-36.0); PLATELET COUNT 78 TH/MM3 (150-450); RED BLOOD COUNT 2.92 MIL/MM3 (4.00-5.30); WHITE BLOOD COUNT 3.8 TH/MM3 (4.0-11.0)
[2017-09-12 09:56] LABS: INTERNATIONAL NORMALIZED RATIO 1.7 RATIO; PROTHROMBIN TIME - PATIENT 16.7 SEC (9.8-11.6)
[2017-09-12 11:33] VITALS: BP 130/63; PULSE 72; RESP 20; TEMP 98.1; O2SAT 99
--- NOTE | 2017-09-12 11:40 | HHI.PR ---
Subjective Remarks Patient looking forward to going home INR 1.7 today offers no new complaints Objective Vitals Vital Signs Date Time Temp Pulse Resp B/P (MAP) Pulse Ox O2 Delivery O2 Flow Rate FiO2 09/12/17 11:33 98.1 72 20 130/63 (85) 99 09/12/17 07:52 97.9 65 19 116/57 (76) 98 09/12/17 06:07 98.2 69 18 148/67 (94) 95 09/12/17 00:00 98.6 69 18 138/63 (88) 97 09/11/17 20:40 98.0 70 18 130/61 (84) 96 09/11/17 16:07 98.4 72 18 126/60 (82) 96 Result Diagram: 09/12/17 0817 09/11/17 0735 Other Results Laboratory Tests Test 09/09/17 12:38 09/09/17 17:34 09/09/17 18:30 09/09/17 19:46 Prothrombin Time 17.0 SEC Prothromb Time International Ratio 1.7 RATIO Activated Partial Thromboplast Time 63.6 SEC 176.0 SEC 141.7 SEC 44.8 SEC Test 09/09/17 22:53 09/10/17 04:25 09/10/17 12:25 09/11/17 07:35 Activated Partial Thromboplast Time 37.3 SEC 51.4 SEC 68.5 SEC 74.9 SEC Prothrombin Time 17.2 SEC 19.3 SEC Prothromb Time International Ratio 1.7 RATIO 1.9 RATIO White Blood Count 4.0 TH/MM3 Red Blood Count 2.94 MIL/MM3 Hemoglobin 8.7 GM/DL Hematocrit 26.8 % Mean Corpuscular Volume 91.1 FL Mean Corpuscular Hemoglobin 29.6 PG Mean Corpuscular Hemoglobin Concent 32.5 % Red Cell Distribution Width 18.5 % Platelet Count 75 TH/MM3 Mean Platelet Volume 7.9 FL Neutrophils (%) (Auto) 65.5 % Lymphocytes (%) (Auto) 22.9 % Monocytes (%) (Auto) 8.3 % Eosinophils (%) (Auto) 2.4 % Basophils (%) (Auto) 0.9 % Neutrophils # (Auto) 2.6 TH/MM3 Lymphocytes # (Auto) 0.9 TH/MM3 Monocytes # (Auto) 0.3 TH/MM3 Eosinophils # (Auto) 0.1 TH/MM3 Basophils # (Auto) 0.0 TH/MM3 CBC Comment AUTO DIFF Differential Comment AUTO DIFF CONFIRMED Platelet Estimate LOW Platelet Morphology Comment NORMAL Tear Drop Cells 1+ Ovalocytes 1+ Blood Urea Nitrogen 14 MG/DL Creatinine 0.98 MG/DL Random Glucose 86 MG/DL Calcium Level 8.1 MG/DL Magnesium Level 2.0 MG/DL Sodium Level 148 MEQ/L Potassium Level 3.6 MEQ/L Chloride Level 117 MEQ/L Carbon Dioxide Level 23.9 MEQ/L Anion Gap 7 MEQ/L Estimat Glomerular Filtration Rate 57 ML/MIN Test 09/12/17 08:17 White Blood Count 3.8 TH/MM3 Red Blood Count 2.92 MIL/MM3 Hemoglobin 8.7 GM/DL Hematocrit 27.0 % Mean Corpuscular Volume 92.3 FL Mean Corpuscular Hemoglobin 29.6 PG Mean Corpuscular Hemoglobin Concent 32.1 % Red Cell Distribution Width 18.0 % Platelet Count 78 TH/MM3 Mean Platelet Volume 8.0 FL Prothrombin Time 16.7 SEC Prothromb Time International Ratio 1.7 RATIO Imaging Last Impressions Tumor Localization 08/30/17 0000 Signed Impressions: Service Date/Time: August 11:35 - CONCLUSION: 1. Focal intense three-phase activity distal phalanx right great toe most characteristic of osteomyelitis. Srinath Galvan MD Abdomen/Pelvis CT 08/30/17 0000 Signed Impressions: Service Date/Time: August 12:12 - CONCLUSION: 1. Irregularity of the skin in the left lower quadrant some with some minimal air but no fistulous tract to the abdominal structures. 2. Diverticulosis of the colon. 3. Splenomegaly. 4. Cholelithiasis. 5. Left renal cyst. Ashkan Peña MD Carotid Artery Ultrasound 08/28/17 0000 Signed Impressions: Service Date/Time: Monday, August 28, 2017 22:05 - CONCLUSION: Atherosclerotic plaque of both carotid bifurcations, mild on the right and minimal on the left. No hemodynamically significant narrowing. Tulio Saha MD Aorta w/Runoff CTA 08/28/17 0000 Signed Impressions: Service Date/Time: Tuesday, August 29, 2017 00:53 - CONCLUSION: 1. Patent inflow and outflow bilaterally. 2. Severe trifurcation disease bilaterally without straight line flow to either foot. Details given above. 3. Colonic diverticulosis. 4. Splenomegaly. 5. Cholelithiasis. Adria Mendez Jr., MD Chest X-Ray 08/27/17 1923 Signed Impressions: Service Date/Time: Sunday, August 27, 2017 19:30 - CONCLUSION: No evidence of acute cardiopulmonary disease. Tulio Saha MD Foot X-Ray 08/27/17 0000 Signed Impressions: Service Date/Time: Sunday, August 27, 2017 15:46 - CONCLUSION: Soft tissue swelling and possible first digit ulceration without definite underlying bone abnormality. Andrew Lang MD Objective Remarks General: NAD, AAOx3 Chest: CTA Cardiac: Regular Abd: +BS, soft NT, wound in LLQ without any erythema or drainage Ext: Right foot bandages are c/d/i Procedures s/p Aortogram w/ R LE angiogram and R AT MOVERS (3mm) with Dr. Vo A/P Problem List: (1) Osteomyelitis ICD Codes: M86.9 - Osteomyelitis, unspecified Status: Chronic Plan: Osteomyelitis - comgmt with Podiatry & Vascular Surgery - Pt is a 62 y/o female with antiphospholipid antibody syndrome on chronic immunosuppression, hx of recurrent CVAs and TIAs on life long Lovenox, diabetes mellitus, Parkinson's disease, systemic lupus erythematous, and vasculitis. - She presented to the ED at [facility] [place] on 08/27/17 at the request of her chute man, Dr. Garcia, for evaluation of a wound to her right great toe. - Pt has had a chronic wound to her right foot since February 2017 and has received 2 previous rounds of antibiotics for this. She also has reportedly been going to wound care approximately once a week for several months. She was referred to Dr. Garcia for further evaluation where she ordered an MRI. - Per the ED documentation the MRI was suggestive of osteomyelitis in the distal tuft of the great toe. - Podiatry consultation is ordered - Outpt US with RUSSELL in 08/2017 noted mildly reduced resting right lower extremity RUSSELL 0.8-0.89. Exercise was note performed due to limited ambulation. - CRP was elevated at 0.46 - Wound culture (08/29) --> pseudomonas, group B strep - IV Vancomycin (08/29 - 09/05) - IV Zosyn (08/29 - present). - anticoagulation with Coumadin - Pt does not want to continue Lovenox as she had been on Lovenox recently for anticoagulation but developed some skin breakdown in the left lower abdomen and has been following with Wound Care as an outpt for this. - Greatly appreciate input from Dr. Rios, Vascular Surgery - (09/03) Aortogram w/ R LE angiogram and R AT MOVERS (3mm) with Dr. Vo - [facility] WBC scan consistent with osteomyelitis - On 09/05 pt underwent amputation right hallux and resection of prox phalanx - Pt received heparin/Coumadin bridge. Heparin stopped on 09/06 with therapeutic INR. Pt received Coumadin 7.5mg 09/04-09/06. INR 2.8 on 09/07 and Coumadin and Coumadin held then resume on 09/08. Unfortunately her INR dropped to 1.6 on and her discharge was held to resume Heparin gtt until INR over 2. She is high risk for stroke and unable to take Lovenox shots. - INR on 09/12 is 1.7. Cont. Heparin bridge to Coumadin until Coumadin is therapeutic, likely tomorrow. We will increase Coumadin dose to 7.5mg on 09/12 - Recheck INR tomorrow - At home pt takes alternating doses of Coumadin 5mg x 2 days and then on the third day Coumadin 7.5mg and repeats this pattern. - Pt has been on Zosyn since 08/29 but is now complaining of some diarrhea intermittently. Zosyn stopped on 09/10 and convert po Levaquin 750mg daily x 5-7 days which will be completed as an outpt. Diarrhea improved with Abx change. - She will need to f/u with podiatry for recheck as an outpt. She has an appt later this week already scheduled. - Surgical wound culture is negative, mycobacterial and fungal cultures are still pending. - Bone path shows a clear margin Chronic abdominal wound infection - Pt does not want to continue Lovenox as she had been on Lovenox recently for anticoagulation but developed some skin breakdown in the left lower abdomen and has been following with Wound Care as an outpt for this. - CT abd/pelvis (08/29) - Irregularity of the skin in the left lower quadrant some with some minimal air but no fistulous tract to the abdominal structures. 2. Diverticulosis of the colon. 3. Splenomegaly. 4. Cholelithiasis. 5. Left renal cyst - Appreciate input from Wound Care - Recommended Cleanse LLQ wound with normal saline pat dry, lightly pack wound with Maxsorb ll cut to fit wound base,cover with dry dressing change daily . - General surgery consulted, recommend continued localized wound care do not feel that patient is a surgical candidate at this time DM (diabetes mellitus) - Pt hold home diabetic medications - Accu checks - NovoLog SSI Antiphospholipid antibody syndrome - Pt continued on home dose of Cellcept and Prednisone - see above Anemia and thrombocytopenia - hgb and plt have been rising - consult to hematology, appreciate input. Also discussed with Dr. Rodriguez. He believes this is due to the acute infection, blood drawing and antibiotics. - stool Hemoccult negative (09/01) Hypothyroid - Home meds continued (SLE (systemic lupus erythematosus) - Chronic RAMIREZ (obstructive sleep apnea) - CPAP (2) Chronic abdominal wound infection ICD Codes: S31.109A - Unspecified open wound of abdominal wall, unspecified quadrant without penetration into peritoneal cavity, initial encounter; L08.9 - Local infection of the skin and subcutaneous tissue, unspecified Status: Chronic (3) DM (diabetes mellitus) ICD Codes: E11.9 - DM (diabetes mellitus) Status: Chronic (4) Antiphospholipid antibody syndrome ICD Codes: D68.61 - Antiphospholipid antibody syndrome Status: Chronic (5) Hypothyroid ICD Codes: E03.9 - Hypothyroid Status: Chronic (6) SLE (systemic lupus erythematosus) ICD Codes: M32.9 - SLE (systemic lupus erythematosus) Status: Chronic (7) RAMIREZ (obstructive sleep apnea) ICD Codes: G47.33 - RAMIREZ (obstructive sleep apnea) Status: Chronic Assessment and Plan Patient examined. Assessment and plan formulated with Courtney Ivey PA-C. I agree with the above. Problem Qualifiers (1) Osteomyelitis: Qualified Codes: M86.671 - Other chronic osteomyelitis, right ankle and foot (2) Chronic abdominal wound infection: Qualified Codes: S31.109D - Unspecified open wound of abdominal wall, unspecified quadrant without penetration into peritoneal cavity, subsequent encounter; L08.9 - Local infection of the skin and subcutaneous tissue, unspecified (3) DM (diabetes mellitus): Courtney Ivey Sep 12, 2017 11:40 Bravo Guzman DO Sep 16, 2017 13:48
[2017-09-12 15:54] VITALS: BP 131/61; PULSE 69; RESP 20; TEMP 98.7; O2SAT 99
[2017-09-12] MEDS ORDERED: WARFARIN SOD 7.5 MG TAB PO SCH (16:00)
[2017-09-12 20:00] VITALS: BP 126/92; PULSE 71; RESP 18; TEMP 98.2; O2SAT 100
[2017-09-13] VITALS: BP 130/84; PULSE 67; RESP 18; TEMP 98.4; O2SAT 99
[2017-09-13 04:00] VITALS: BP 115/56; PULSE 69; RESP 18; TEMP 98.4; O2SAT 97
[2017-09-13] MEDS: NYSTATIN 100,000 U/GM PWD 15 GM BTL TOPICAL SCH ×3 (06:00→21:50)
[2017-09-13] MEDS: MUPIROCIN 2% OINT 22 GM TUBE TOPICAL SCH ×3 (06:00→21:50)
[2017-09-13] MEDS: HEPARIN-D5W 25,000 U/250 ML 250 ML IV PRN (06:07)
[2017-09-13] MEDS: LEVOTHYROXINE SODIUM 75 MCG TAB PO SCH (06:08)
[2017-09-13] MEDS: LEVOTHYROXINE SODIUM 100 MCG TAB PO SCH (06:08)
[2017-09-13] MEDS: ACETAMINOPHEN/HYDROcodone 325 MG/5 MG TAB PO PRN (06:09)
[2017-09-13 07:22] LABS: INTERNATIONAL NORMALIZED RATIO 1.5 RATIO; PROTHROMBIN TIME - PATIENT 15.3 SEC (9.8-11.6)
[2017-09-13] MEDS: HYDROCORTISONE 0.5% CREAM 30 GM TOPICAL SCH ×3 (07:30→21:51)
[2017-09-13] MEDS: INSULIN ASPART SUPPLEMENTAL SCALE SQ SCH ×4 (08:00→21:00)
[2017-09-13 09:00] VITALS: BP 115/55; PULSE 68; RESP 18; TEMP 97.7; O2SAT 97
[2017-09-13] MEDS: SODIUM CHLORIDE 0.9% FLUSH 10 ML FLUSH IV FLUSH SCH ×2 (09:00→21:49)
[2017-09-13] MEDS: LEVOFLOXACIN 750 MG TAB PO SCH (09:26)
[2017-09-13] MEDS: MYCOPHENOLATE MOFETIL 500 MG TAB PO SCH ×2 (09:26→21:47)
[2017-09-13] MEDS: LOSARTAN 25 MG TAB PO SCH (09:26)
[2017-09-13] MEDS: predniSONE 5 MG TAB PO SCH (09:26)
[2017-09-13] MEDS: HYDROXYCHLOROQUINE SULFATE 200 MG TAB PO SCH ×2 (09:26→21:47)
[2017-09-13] MEDS: ESCITALOPRAM OXALATE 20 MG TAB PO SCH (09:26)
[2017-09-13] MEDS: PANTOPRAZOLE SOD 40 MG DELAYED RELEASE TAB PO SCH (09:26)
[2017-09-13] MEDS: ASPIRIN 81 MG CHEW TAB PO SCH (09:26)
[2017-09-13] MEDS: ATENOLOL 100 MG TAB PO SCH (09:26)
[2017-09-13] MEDS: LEVODOPA/CARBIDOPA 1 TAB TABCR PO SCH ×3 (09:26→17:23)
[2017-09-13] MEDS: FLUTICASONE PROPIONATE 220 MCG/ACT 12 GM INHALER INH SCH ×2 (09:28→21:51)
[2017-09-13 11:51] VITALS: BP 103/55; PULSE 68; RESP 20; TEMP 97.6; O2SAT 99
[2017-09-13 16:11] VITALS: BP 129/66; PULSE 66; RESP 20; TEMP 97.4; O2SAT 100
[2017-09-13] MEDS: WARFARIN SOD 10 MG TAB PO SCH (17:23)
[2017-09-13 20:00] VITALS: BP 136/65; PULSE 73; RESP 18; TEMP 97.7; O2SAT 95
[2017-09-14] VITALS: BP_SYST 109; BP_SYST 136; BP_DIAS 55; BP_DIAS 65; PULSE 73; PULSE 77; RESP 18; TEMP 97.7; TEMP 98.1; O2SAT 95; O2SAT 96
[2017-09-14] MEDS: HEPARIN-D5W 25,000 U/250 ML 250 ML IV PRN ×2 (00:31→21:01)
[2017-09-14 04:00] VITALS: BP 124/56; PULSE 76; RESP 18; TEMP 98.1; O2SAT 99
[2017-09-14] MEDS: NYSTATIN 100,000 U/GM PWD 15 GM BTL TOPICAL SCH ×3 (06:00→20:35)
[2017-09-14] MEDS: MUPIROCIN 2% OINT 22 GM TUBE TOPICAL SCH ×3 (06:00→20:35)
[2017-09-14] MEDS: LEVOTHYROXINE SODIUM 150 MCG TAB PO SCH (06:19)
[2017-09-14] MEDS: HYDROCORTISONE 0.5% CREAM 30 GM TOPICAL SCH ×3 (07:30→20:35)
[2017-09-14 08:00] VITALS: BP 112/53; PULSE 73; RESP 17; TEMP 98.3; O2SAT 96
[2017-09-14] MEDS: ASPIRIN 81 MG CHEW TAB PO SCH (09:03)
[2017-09-14] MEDS: PANTOPRAZOLE SOD 40 MG DELAYED RELEASE TAB PO SCH (09:03)
[2017-09-14] MEDS: MYCOPHENOLATE MOFETIL 500 MG TAB PO SCH ×2 (09:03→20:34)
[2017-09-14] MEDS: LEVODOPA/CARBIDOPA 1 TAB TABCR PO SCH ×3 (09:04→17:37)
[2017-09-14] MEDS: HYDROXYCHLOROQUINE SULFATE 200 MG TAB PO SCH ×2 (09:04→20:34)
[2017-09-14] MEDS: ATENOLOL 100 MG TAB PO SCH (09:04)
[2017-09-14] MEDS: predniSONE 5 MG TAB PO SCH (09:04)
[2017-09-14] MEDS: LOSARTAN 25 MG TAB PO SCH (09:05)
[2017-09-14] MEDS: LEVOFLOXACIN 750 MG TAB PO SCH (09:06)
[2017-09-14] MEDS: SODIUM CHLORIDE 0.9% FLUSH 10 ML FLUSH IV FLUSH SCH ×2 (09:06→20:34)
[2017-09-14] MEDS: INSULIN ASPART SUPPLEMENTAL SCALE SQ SCH ×4 (09:06→20:34)
[2017-09-14] MEDS: ESCITALOPRAM OXALATE 20 MG TAB PO SCH (09:06)
[2017-09-14] MEDS: FLUTICASONE PROPIONATE 220 MCG/ACT 12 GM INHALER INH SCH ×2 (09:06→20:33)
[2017-09-14 10:04] LABS: INTERNATIONAL NORMALIZED RATIO 1.6 RATIO; PROTHROMBIN TIME - PATIENT 15.9 SEC (9.8-11.6)
[2017-09-14 12:00] VITALS: BP 118/62; PULSE 72; RESP 18; TEMP 98; O2SAT 96
--- NOTE | 2017-09-14 13:02 | HHI.PR ---
Subjective Remarks Patient offers no new concerns/complaints INR today 1.6 Objective Vitals Vital Signs Date Time Temp Pulse Resp B/P (MAP) Pulse Ox O2 Delivery O2 Flow Rate FiO2 09/14/17 12:00 98.0 72 18 118/62 (80) 96 09/14/17 08:00 98.3 73 17 112/53 (72) 96 09/14/17 04:00 98.1 76 18 124/56 (78) 99 09/14/17 00:00 98.1 77 18 109/55 (73) 96 09/13/17 20:00 97.7 73 18 136/65 (88) 95 09/13/17 16:11 97.4 66 20 129/66 (87) 100 Result Diagram: 09/12/17 0817 09/11/17 0735 Other Results Laboratory Tests Test 09/12/17 08:17 09/12/17 20:23 09/13/17 06:56 09/14/17 09:09 White Blood Count 3.8 TH/MM3 Red Blood Count 2.92 MIL/MM3 Hemoglobin 8.7 GM/DL Hematocrit 27.0 % Mean Corpuscular Volume 92.3 FL Mean Corpuscular Hemoglobin 29.6 PG Mean Corpuscular Hemoglobin Concent 32.1 % Red Cell Distribution Width 18.0 % Platelet Count 78 TH/MM3 Mean Platelet Volume 8.0 FL Prothrombin Time 16.7 SEC 15.3 SEC 15.9 SEC Prothromb Time International Ratio 1.7 RATIO 1.5 RATIO 1.6 RATIO Activated Partial Thromboplast Time 59.6 SEC 53.2 SEC 78.7 SEC Imaging Last Impressions Tumor Localization 08/30/17 0000 Signed Impressions: Service Date/Time: August 11:35 - CONCLUSION: 1. Focal intense three-phase activity distal phalanx right great toe most characteristic of osteomyelitis. Srinath Galvan MD Abdomen/Pelvis CT 08/30/17 0000 Signed Impressions: Service Date/Time: August 12:12 - CONCLUSION: 1. Irregularity of the skin in the left lower quadrant some with some minimal air but no fistulous tract to the abdominal structures. 2. Diverticulosis of the colon. 3. Splenomegaly. 4. Cholelithiasis. 5. Left renal cyst. Ashkan Peña MD Carotid Artery Ultrasound 08/28/17 0000 Signed Impressions: Service Date/Time: Monday, August 28, 2017 22:05 - CONCLUSION: Atherosclerotic plaque of both carotid bifurcations, mild on the right and minimal on the left. No hemodynamically significant narrowing. Tulio Saha MD Aorta w/Runoff CTA 08/28/17 0000 Signed Impressions: Service Date/Time: Tuesday, August 29, 2017 00:53 - CONCLUSION: 1. Patent inflow and outflow bilaterally. 2. Severe trifurcation disease bilaterally without straight line flow to either foot. Details given above. 3. Colonic diverticulosis. 4. Splenomegaly. 5. Cholelithiasis. Adria Mendez Jr., MD Chest X-Ray [id number] Signed Impressions: Service Date/Time: Sunday, August 27, 2017 19:30 - CONCLUSION: No evidence of acute cardiopulmonary disease. Tulio Saha MD Foot X-Ray 08/27/17 0000 Signed Impressions: Service Date/Time: Sunday, August 27, 2017 15:46 - CONCLUSION: Soft tissue swelling and possible first digit ulceration without definite underlying bone abnormality. Andrew Lang MD Objective Remarks General: NAD, AAOx3 Chest: CTA Cardiac: Regular Abd: +BS, soft NT, wound in LLQ without any erythema or drainage Ext: Right foot bandages are c/d/i Procedures s/p Aortogram w/ R LE angiogram and R AT [place] SORTER (3mm) with Dr. Vo A/P Problem List: (1) Osteomyelitis ICD Codes: M86.9 - Osteomyelitis, unspecified Status: Chronic Plan: Osteomyelitis - comgmt with Podiatry & Vascular Surgery - Pt is a 62 y/o female with antiphospholipid antibody syndrome on chronic immunosuppression, hx of recurrent CVAs and TIAs on life long Lovenox, diabetes mellitus, Parkinson's disease, systemic lupus erythematous, and vasculitis. - [place] [facility] at the request of her ob/gyn doctor, Dr. Garcia, for evaluation of a wound to her right great toe. - Pt has had a chronic wound to her right foot since February 2017 and has received 2 previous rounds of antibiotics for this. She also has reportedly been going to wound care approximately once a week for several months. She was referred to Dr. Garcia for further evaluation where she ordered an MRI. - Per the ED documentation the MRI was suggestive of osteomyelitis in the distal tuft of the great toe. - Podiatry consultation is ordered - Outpt US with RUSSELL in 08/2017 noted mildly reduced resting right lower extremity RUSSELL 0.8-0.89. Exercise was note performed due to limited ambulation. - CRP was elevated at 0.46 - Wound culture (08/29) --> pseudomonas, group B strep - IV Vancomycin (08/29 - 09/05) - IV Zosyn (08/29 - present). - anticoagulation with Coumadin - Pt does not want to continue Lovenox as she had been on Lovenox recently for anticoagulation but developed some skin breakdown in the left lower abdomen and has been following with Wound Care as an outpt for this. - Greatly appreciate input from Dr. Rios, Vascular Surgery - (09/03) Aortogram w/ R LE angiogram and R AT [place] SORTER (3mm) with Dr. Vo - [facility] WBC scan consistent with osteomyelitis - On 09/05 pt underwent amputation right hallux and resection of prox phalanx - Pt received heparin/Coumadin bridge. Heparin stopped on 09/06 with therapeutic INR. Pt received Coumadin 7.5mg 09/04-09/06. INR 2.8 on 09/07 and Coumadin and Coumadin held then resume on 09/08. Unfortunately her INR dropped to 1.6 on and her discharge was held to resume Heparin gtt until INR over 2. She is high risk for stroke and unable to take Lovenox shots. - INR on 09/14 is 1.6. Cont. Heparin bridge to Coumadin until Coumadin is therapeutic, likely tomorrow. We will increase Coumadin dose to 10mg on 09/13 - Recheck INR tomorrow - At home pt takes alternating doses of Coumadin 5mg x 2 days and then on the third day Coumadin 7.5mg and repeats this pattern. - Pt has been on Zosyn since 08/29 but is now complaining of some diarrhea intermittently. Zosyn stopped on 09/10 and convert po Levaquin 750mg daily x 5-7 days which will be completed as an outpt. Diarrhea improved with Abx change. - She will need to f/u with podiatry for recheck as an outpt. She has an appt later this week already scheduled. - Surgical wound culture is negative, mycobacterial and fungal cultures are still pending. - Bone path shows a clear margin Chronic abdominal wound infection - Pt does not want to continue Lovenox as she had been on Lovenox recently for anticoagulation but developed some skin breakdown in the left lower abdomen and has been following with Wound Care as an outpt for this. - CT abd/pelvis (08/29) - Irregularity of the skin in the left lower quadrant some with some minimal air but no fistulous tract to the abdominal structures. 2. Diverticulosis of the colon. 3. Splenomegaly. 4. Cholelithiasis. 5. Left renal cyst - Appreciate input from Wound Care - Recommended Cleanse LLQ wound with normal saline pat dry, lightly pack wound with Maxsorb ll cut to fit wound base,cover with dry dressing change daily . - General surgery consulted, recommend continued localized wound care do not feel that patient is a surgical candidate at this time DM (diabetes mellitus) - Pt hold home diabetic medications - Accu checks - NovoLog SSI Antiphospholipid antibody syndrome - Pt continued on home dose of Cellcept and Prednisone - see above Anemia and thrombocytopenia - hgb and plt have been rising - consult to hematology, appreciate input. Also discussed with Dr. Rodriguez. He believes this is due to the acute infection, blood drawing and antibiotics. - stool Hemoccult negative (09/01) Hypothyroid - Home meds continued (SLE (systemic lupus erythematosus) - Chronic RAMIREZ (obstructive sleep apnea) - CPAP Also recheck CBC and BMP in AM (2) Chronic abdominal wound infection ICD Codes: S31.109A - Unspecified open wound of abdominal wall, unspecified quadrant without penetration into peritoneal cavity, initial encounter; L08.9 - Local infection of the skin and subcutaneous tissue, unspecified Status: Chronic (3) DM (diabetes mellitus) ICD Codes: E11.9 - DM (diabetes mellitus) Status: Chronic (4) Antiphospholipid antibody syndrome ICD Codes: D68.61 - Antiphospholipid antibody syndrome Status: Chronic (5) Hypothyroid ICD Codes: E03.9 - Hypothyroid Status: Chronic (6) SLE (systemic lupus erythematosus) ICD Codes: M32.9 - SLE (systemic lupus erythematosus) Status: Chronic (7) RAMIREZ (obstructive sleep apnea) ICD Codes: G47.33 - RAMIREZ (obstructive sleep apnea) Status: Chronic Assessment and Plan Patient examined. Assessment and plan formulated with Courtney Ivey PA-C. I agree with the above. Problem Qualifiers (1) Osteomyelitis: Qualified Codes: M86.671 - Other chronic osteomyelitis, right ankle and foot (2) Chronic abdominal wound infection: Qualified Codes: S31.109D - Unspecified open wound of abdominal wall, unspecified quadrant without penetration into peritoneal cavity, subsequent encounter; L08.9 - Local infection of the skin and subcutaneous tissue, unspecified (3) DM (diabetes mellitus): Courtney Ivey Sep 14, 2017 13:02 Bravo Guzman DO Sep 16, 2017 13:49
[2017-09-14] MEDS: ACETAMINOPHEN/HYDROcodone 325 MG/5 MG TAB PO PRN (13:45)
[2017-09-14 16:00] VITALS: BP 131/64; PULSE 78; RESP 18; TEMP 97.6; O2SAT 97
[2017-09-14] MEDS: WARFARIN SOD 10 MG TAB PO SCH (16:38)
[2017-09-14 20:00] VITALS: BP 127/60; PULSE 74; RESP 18; TEMP 98; O2SAT 99
[2017-09-15] VITALS: BP 115/57; PULSE 74; RESP 20; TEMP 98.5; O2SAT 98
[2017-09-15 04:00] VITALS: BP 130/61; PULSE 74; RESP 18; TEMP 97.8; O2SAT 98
[2017-09-15 04:21] LABS: AUTOMATED NEUTROPHIL # 1.9 TH/MM3 (1.8-7.7); BASOPHIL % 0.9 % (0.0-2.0); EOSINOPHIL # 0.1 TH/MM3 (0-0.4); EOSINOPHIL % 2.4 % (0.0-4.0); HEMATOCRIT 25.2 % (35.0-46.0); HEMOGLOBIN 8.3 GM/DL (11.6-15.3); LYMPH % 25.2 % (9.0-44.0); LYMPHOCYTE # 0.8 TH/MM3 (1.0-4.8); MEAN CELL VOLUME 91.5 FL (80.0-100.0); MEAN CORPUSCULAR HGB CONC 32.8 % (32.0-36.0); MEAN PLATELET VOLUME 8.1 FL (7.0-11.0); MONO % 9.7 % (0.0-8.0); MONOCYTE # 0.3 TH/MM3 (0-0.9); NEUT % 61.8 % (16.0-70.0); PLATELET COUNT 66 TH/MM3 (150-450); RED BLOOD COUNT 2.76 MIL/MM3 (4.00-5.30); RED CELL DISTRIBUTION WIDTH 17.5 % (11.6-17.2); WHITE BLOOD COUNT 3.1 TH/MM3 (4.0-11.0)
[2017-09-15 04:24] LABS: INTERNATIONAL NORMALIZED RATIO 1.7 RATIO; PROTHROMBIN TIME - PATIENT 17.1 SEC (9.8-11.6)
[2017-09-15 04:42] LABS: BICARBONATE 22.4 MEQ/L (21.0-32.0); CALCIUM 8.4 MG/DL (8.5-10.1); CREATININE 1.03 MG/DL (0.50-1.00)
[2017-09-15 05:27] LABS: TEARDROP RBCS 1+ (NORMAL)
[2017-09-15] MEDS: LEVOTHYROXINE SODIUM 100 MCG TAB PO SCH (05:29)
[2017-09-15] MEDS: MUPIROCIN 2% OINT 22 GM TUBE TOPICAL SCH ×3 (05:30→22:00)
[2017-09-15] MEDS: LEVOTHYROXINE SODIUM 75 MCG TAB PO SCH (05:30)
[2017-09-15] MEDS: NYSTATIN 100,000 U/GM PWD 15 GM BTL TOPICAL SCH ×3 (05:31→22:00)
[2017-09-15] MEDS: HYDROCORTISONE 0.5% CREAM 30 GM TOPICAL SCH ×3 (07:30→23:30)
[2017-09-15 07:39] VITALS: BP 125/60; PULSE 77; RESP 20; TEMP 99.2; O2SAT 98
[2017-09-15] MEDS: INSULIN ASPART SUPPLEMENTAL SCALE SQ SCH ×4 (08:00→21:00)
[2017-09-15] MEDS: LEVOFLOXACIN 750 MG TAB PO SCH (09:19)
[2017-09-15] MEDS: PANTOPRAZOLE SOD 40 MG DELAYED RELEASE TAB PO SCH (09:19)
[2017-09-15] MEDS: LOSARTAN 25 MG TAB PO SCH (09:19)
[2017-09-15] MEDS: ATENOLOL 100 MG TAB PO SCH (09:20)
[2017-09-15] MEDS: HYDROXYCHLOROQUINE SULFATE 200 MG TAB PO SCH ×2 (09:21→21:10)
[2017-09-15] MEDS: predniSONE 5 MG TAB PO SCH (09:21)
[2017-09-15] MEDS: ESCITALOPRAM OXALATE 20 MG TAB PO SCH (09:22)
[2017-09-15] MEDS: MYCOPHENOLATE MOFETIL 500 MG TAB PO SCH ×2 (09:22→21:09)
[2017-09-15] MEDS: LEVODOPA/CARBIDOPA 1 TAB TABCR PO SCH ×3 (09:22→17:15)
[2017-09-15] MEDS: SODIUM CHLORIDE 0.9% FLUSH 10 ML FLUSH IV FLUSH SCH ×2 (09:23→21:00)
[2017-09-15] MEDS: ASPIRIN 81 MG CHEW TAB PO SCH (09:23)
[2017-09-15] MEDS: FLUTICASONE PROPIONATE 220 MCG/ACT 12 GM INHALER INH SCH ×2 (09:24→21:10)
[2017-09-15 12:41] VITALS: BP 113/59; PULSE 71; RESP 20; TEMP 98.1; O2SAT 96
[2017-09-15 13:42] LABS: BILIRUBIN, URINE NEG (NEG); BLOOD, URINE NEG (NEG); GLUCOSE,URINE NEG (NEG); KETONE, URINE NEG (NEG); MUCUS URINE FEW /lpf (OCC); NITRITE,URINE NEG (NEG); PH, URINE 5.5 (5.0-8.5); URINE COLOR YELLOW (YELLW/STRAW); URINE LEUKOCYTE ESTERASE NEG (NEG)
[2017-09-15] MEDS ORDERED: 1/2 NS + KCL 20 MEQ INJ 1,000 ML IV SCH (13:45)
--- NOTE | 2017-09-15 13:51 | HHI.PR ---
Subjective Remarks No new complaints INR 1.7 poor PO intake Objective Vitals Vital Signs Date Time Temp Pulse Resp B/P (MAP) Pulse Ox O2 Delivery O2 Flow Rate FiO2 09/15/17 12:41 98.1 71 20 113/59 (77) 96 09/15/17 07:39 99.2 77 20 125/60 (81) 98 09/15/17 04:00 97.8 74 18 130/61 (84) 98 09/15/17 00:00 98.5 74 20 115/57 (76) 98 09/14/17 20:00 98.0 74 18 127/60 (82) 99 09/14/17 16:00 97.6 78 18 131/64 (86) 97 Result Diagram: 09/15/17 0259 09/15/17 0259 Other Results Laboratory Tests Test 09/12/17 20:23 09/13/17 06:56 09/14/17 09:09 09/14/17 15:28 Activated Partial Thromboplast Time 59.6 SEC 53.2 SEC 78.7 SEC 57.0 SEC Prothrombin Time 15.3 SEC 15.9 SEC Prothromb Time International Ratio 1.5 RATIO 1.6 RATIO Test 09/14/17 21:29 09/15/17 02:59 09/15/17 13:35 Activated Partial Thromboplast Time 62.3 SEC 58.4 SEC White Blood Count 3.1 TH/MM3 Red Blood Count 2.76 MIL/MM3 Hemoglobin 8.3 GM/DL Hematocrit 25.2 % Mean Corpuscular Volume 91.5 FL Mean Corpuscular Hemoglobin 30.0 PG Mean Corpuscular Hemoglobin Concent 32.8 % Red Cell Distribution Width 17.5 % Platelet Count 66 TH/MM3 Mean Platelet Volume 8.1 FL Neutrophils (%) (Auto) 61.8 % Lymphocytes (%) (Auto) 25.2 % Monocytes (%) (Auto) 9.7 % Eosinophils (%) (Auto) 2.4 % Basophils (%) (Auto) 0.9 % Neutrophils # (Auto) 1.9 TH/MM3 Lymphocytes # (Auto) 0.8 TH/MM3 Monocytes # (Auto) 0.3 TH/MM3 Eosinophils # (Auto) 0.1 TH/MM3 Basophils # (Auto) 0.0 TH/MM3 CBC Comment AUTO DIFF Differential Comment AUTO DIFF CONFIRMED Platelet Estimate LOW Platelet Morphology Comment NORMAL Tear Drop Cells 1+ Prothrombin Time 17.1 SEC Prothromb Time International Ratio 1.7 RATIO Blood Urea Nitrogen 16 MG/DL Creatinine 1.03 MG/DL Random Glucose 138 MG/DL Calcium Level 8.4 MG/DL Sodium Level 148 MEQ/L Potassium Level 3.6 MEQ/L Chloride Level 118 MEQ/L Carbon Dioxide Level 22.4 MEQ/L Anion Gap 8 MEQ/L Estimat Glomerular Filtration Rate 54 ML/MIN Urine Color YELLOW Urine Turbidity CLEAR Urine pH 5.5 Urine Specific [place] 1.012 Urine Protein NEG mg/dL Urine Glucose (UA) NEG mg/dL Urine Ketones NEG mg/dL Urine Occult Blood NEG Urine Nitrite NEG Urine Bilirubin NEG Urine Urobilinogen LESS THAN 2.0 MG/DL Urine Leukocyte Esterase NEG Urine RBC LESS THAN 1 /hpf Urine WBC 1 /hpf Urine Mucus FEW /lpf Microscopic Urinalysis Comment CULT NOT INDICATED Imaging Last Impressions Tumor Localization 08/30/17 0000 Signed Impressions: Service Date/Time: August 11:35 - CONCLUSION: 1. Focal intense three-phase activity distal phalanx right great toe most characteristic of osteomyelitis. Srinath Galvan MD Abdomen/Pelvis CT 08/30/17 0000 Signed Impressions: Service Date/Time: August 12:12 - CONCLUSION: 1. Irregularity of the skin in the left lower quadrant some with some minimal air but no fistulous tract to the abdominal structures. 2. Diverticulosis of the colon. 3. Splenomegaly. 4. Cholelithiasis. 5. Left renal cyst. Ashkan Peña MD Carotid Artery Ultrasound 08/28/17 0000 Signed Impressions: Service Date/Time: Monday, August 28, 2017 22:05 - CONCLUSION: Atherosclerotic plaque of both carotid bifurcations, mild on the right and minimal on the left. No hemodynamically significant narrowing. Tulio Saha MD Aorta w/Runoff CTA 08/28/17 0000 Signed Impressions: Service Date/Time: Tuesday, August 29, 2017 00:53 - CONCLUSION: 1. Patent inflow and outflow bilaterally. 2. Severe trifurcation disease bilaterally without straight line flow to either foot. Details given above. 3. Colonic diverticulosis. 4. Splenomegaly. 5. Cholelithiasis. Adria Mendez Jr., MD Chest X-Ray 3/12/18 1923 Signed Impressions: Service Date/Time: Sunday, August 27, 2017 19:30 - CONCLUSION: No evidence of acute cardiopulmonary disease. Tulio Saha MD Foot X-Ray 08/27/17 0000 Signed Impressions: Service Date/Time: Sunday, August 27, 2017 15:46 - CONCLUSION: Soft tissue swelling and possible first digit ulceration without definite underlying bone abnormality. Andrew Lang MD Objective Remarks General: NAD, AAOx3 Chest: CTA Cardiac: Regular Abd: +BS, soft NT, wound in LLQ without any erythema or drainage Ext: Right foot bandages are c/d/i Procedures s/p Aortogram w/ R LE angiogram and R AT MAID CLEANING COOKING (3mm) with Dr. Vo A/P Problem List: (1) Osteomyelitis ICD Codes: M86.9 - Osteomyelitis, unspecified Status: Chronic Plan: Osteomyelitis - comgmt with Podiatry & Vascular Surgery - Pt is a 62 y/o female with antiphospholipid antibody syndrome on chronic immunosuppression, hx of recurrent CVAs and TIAs on life long Lovenox, diabetes mellitus, Parkinson's disease, systemic lupus erythematous, and vasculitis. - [place] [facility] [place] at the request of her complex human resources manager, Dr. Garcia, for evaluation of a wound to her right great toe. - Pt has had a chronic wound to her right foot since February 2017 and has received 2 previous rounds of antibiotics for this. She also has reportedly been going to wound care approximately once a week for several months. She was referred to Dr. Garcia for further evaluation where she ordered an MRI. - Per the ED documentation the MRI was suggestive of osteomyelitis in the distal tuft of the great toe. - Podiatry consultation is ordered - Outpt US with RUSSELL in 08/2017 noted mildly reduced resting right lower extremity RUSSELL 0.8-0.89. Exercise was note performed due to limited ambulation. - CRP was elevated at 0.46 - Wound culture (08/29) --> pseudomonas, group B strep - IV Vancomycin (08/29 - 09/05) - IV Zosyn (08/29 - 09/10) - Levaquin (09/11 - 09/16) - anticoagulation with Coumadin - Pt does not want to continue Lovenox as she had been on Lovenox recently for anticoagulation but developed some skin breakdown in the left lower abdomen and has been following with Wound Care as an outpt for this. - Greatly appreciate input from Dr. Rios, Vascular Surgery - (09/03) Aortogram w/ R LE angiogram and R AT MAID CLEANING COOKING (3mm) with Dr. Vo - [facility] WBC scan consistent with osteomyelitis - On 09/05 pt underwent amputation right hallux and resection of prox phalanx - Pt received heparin/Coumadin bridge. Heparin stopped on 09/06 with therapeutic INR. Pt received Coumadin 7.5mg 09/04-09/06. INR 2.8 on 09/07 and Coumadin and Coumadin held then resume on 09/08. Unfortunately her INR dropped to 1.6 on and her discharge was held to resume Heparin gtt until INR over 2. She is high risk for stroke and unable to take Lovenox shots. - INR on 09/14 is 1.6 -> (09/15) 1.7. Cont. Heparin bridge to Coumadin until Coumadin is therapeutic, likely tomorrow. We will increase Coumadin dose to 10mg on 09/13 - Recheck INR tomorrow - At home pt takes alternating doses of Coumadin 5mg x 2 days and then on the third day Coumadin 7.5mg and repeats this pattern. - Pt has been on Zosyn since 08/29 but is now complaining of some diarrhea intermittently. Zosyn stopped on 09/10 and convert po Levaquin 750mg daily x 5 Diarrhea improved with Abx change. - She will need to f/u with podiatry for recheck as an outpt. She has an appt later this week already scheduled. - Surgical wound culture is negative, mycobacterial and fungal cultures are still pending. - Bone path shows a clear margin Chronic abdominal wound infection - Pt does not want to continue Lovenox as she had been on Lovenox recently for anticoagulation but developed some skin breakdown in the left lower abdomen and has been following with Wound Care as an outpt for this. - CT abd/pelvis (08/29) - Irregularity of the skin in the left lower quadrant some with some minimal air but no fistulous tract to the abdominal structures. 2. Diverticulosis of the colon. 3. Splenomegaly. 4. Cholelithiasis. 5. Left renal cyst - Appreciate input from Wound Care - Recommended Cleanse LLQ wound with normal saline pat dry, lightly pack wound with Maxsorb ll cut to fit wound base,cover with dry dressing change daily . - General surgery consulted, recommend continued localized wound care do not feel that patient is a surgical candidate at this time DM (diabetes mellitus) - Pt hold home diabetic medications - Accu checks - NovoLog SSI Antiphospholipid antibody syndrome - Pt continued on home dose of Cellcept and Prednisone - see above Anemia and thrombocytopenia - hgb and plt have been rising - consult to hematology, appreciate input. Also discussed with Dr. Rodriguez. He believes this is due to the acute infection, blood drawing and antibiotics. - stool Hemoccult negative (09/01) Hypothyroid - Home meds continued (SLE (systemic lupus erythematosus) - Chronic RAMIREZ (obstructive sleep apnea) - CPAP (2) Chronic abdominal wound infection ICD Codes: S31.109A - Unspecified open wound of abdominal wall, unspecified quadrant without penetration into peritoneal cavity, initial encounter; L08.9 - Local infection of the skin and subcutaneous tissue, unspecified Status: Chronic (3) DM (diabetes mellitus) ICD Codes: E11.9 - DM (diabetes mellitus) Status: Chronic (4) Antiphospholipid antibody syndrome ICD Codes: D68.61 - Antiphospholipid antibody syndrome Status: Chronic (5) Hypothyroid ICD Codes: E03.9 - Hypothyroid Status: Chronic (6) SLE (systemic lupus erythematosus) ICD Codes: M32.9 - SLE (systemic lupus erythematosus) Status: Chronic (7) RAMIREZ (obstructive sleep apnea) ICD Codes: G47.33 - RAMIREZ (obstructive sleep apnea) Status: Chronic Problem Qualifiers (1) Osteomyelitis: Qualified Codes: M86.671 - Other chronic osteomyelitis, right ankle and foot (2) Chronic abdominal wound infection: Qualified Codes: S31.109D - Unspecified open wound of abdominal wall, unspecified quadrant without penetration into peritoneal cavity, subsequent encounter; L08.9 - Local infection of the skin and subcutaneous tissue, unspecified (3) DM (diabetes mellitus): Courtney Ivey Sep 15, 2017 13:51 Bravo Guzman DO Sep 16, 2017 13:49
[2017-09-15] MEDS: WARFARIN SOD 10 MG TAB PO SCH (17:15)
[2017-09-15 18:02] VITALS: BP 128/60; PULSE 74; RESP 20; TEMP 97.6; O2SAT 97
[2017-09-15] MEDS: HEPARIN-D5W 25,000 U/250 ML 250 ML IV PRN (19:05)
[2017-09-15 20:00] VITALS: BP 125/80; PULSE 71; RESP 20; TEMP 98.1; O2SAT 100
[2017-09-16] VITALS: BP 131/60; PULSE 74; RESP 20; TEMP 97.8; O2SAT 98
[2017-09-16] MEDS: ACETAMINOPHEN/HYDROcodone 325 MG/5 MG TAB PO PRN (02:20)
[2017-09-16 04:25] VITALS: BP 138/73; PULSE 73; RESP 20; TEMP 97.9; O2SAT 95
[2017-09-16] MEDS: NYSTATIN 100,000 U/GM PWD 15 GM BTL TOPICAL SCH (06:00)
[2017-09-16] MEDS: MUPIROCIN 2% OINT 22 GM TUBE TOPICAL SCH (06:00)
[2017-09-16] MEDS: LEVOTHYROXINE SODIUM 150 MCG TAB PO SCH (06:15)
[2017-09-16] MEDS: HYDROCORTISONE 0.5% CREAM 30 GM TOPICAL SCH (06:16)
[2017-09-16 07:52] VITALS: BP 124/62; PULSE 73; RESP 20; TEMP 98.2; O2SAT 98
[2017-09-16] MEDS: INSULIN ASPART SUPPLEMENTAL SCALE SQ SCH ×2 (08:00→12:00)
[2017-09-16] MEDS ORDERED: LEVOFLOXACIN 750 MG TAB PO ONE (09:00)
[2017-09-16] MEDS: SODIUM CHLORIDE 0.9% FLUSH 10 ML FLUSH IV FLUSH SCH (09:23)
[2017-09-16] MEDS: FLUTICASONE PROPIONATE 220 MCG/ACT 12 GM INHALER INH SCH (09:23)
[2017-09-16] MEDS: PANTOPRAZOLE SOD 40 MG DELAYED RELEASE TAB PO SCH (09:24)
[2017-09-16] MEDS: predniSONE 5 MG TAB PO SCH (09:24)
[2017-09-16] MEDS: MYCOPHENOLATE MOFETIL 500 MG TAB PO SCH (09:24)
[2017-09-16] MEDS: LOSARTAN 25 MG TAB PO SCH (09:24)
[2017-09-16] MEDS: LEVODOPA/CARBIDOPA 1 TAB TABCR PO SCH ×2 (09:25→12:33)
[2017-09-16] MEDS: HYDROXYCHLOROQUINE SULFATE 200 MG TAB PO SCH (09:25)
[2017-09-16] MEDS: ATENOLOL 100 MG TAB PO SCH (09:25)
[2017-09-16] MEDS: ESCITALOPRAM OXALATE 20 MG TAB PO SCH (09:25)
[2017-09-16] MEDS: ASPIRIN 81 MG CHEW TAB PO SCH (09:25)
[2017-09-16 09:33] LABS: INTERNATIONAL NORMALIZED RATIO 2.1 RATIO; PROTHROMBIN TIME - PATIENT 21.1 SEC (9.8-11.6)
[2017-09-16] MEDS ORDERED: COUM7.5T PO (09:37)
[2017-09-16 09:42] LABS: BICARBONATE 21.5 MEQ/L (21.0-32.0); CALCIUM 8.6 MG/DL (8.5-10.1); CREATININE 0.95 MG/DL (0.50-1.00)
--- NOTE | 2017-09-16 11:39 | HHI.FF ---
Face to Face Verification Diagnosis: (1) Osteomyelitis (2) Antiphospholipid antibody syndrome (3) DM (diabetes mellitus) Physical Therapy Order: Evaluate and Treat Home Health Nursing Order: Medical education Signs/symptoms of disease process Medication education-adverse effect Nursing assessment with vital signs I have seen patient Charles Gardner on 09/16/17. My clinical findings support the need for the requested home health care services because: Ltd mobility - disease progression Deconditioned w/ increased weakness I certify that my clinical findings support that this patient is homebound because: Post-op weakness Unsteady gait/balance Courtney Ivey Sep 16, 2017 11:39 Bravo Guzman DO Sep 16, 2017 13:49
--- NOTE | 2017-09-16 11:46 | HHI.DS ---
Discharge Summary Admission Date Aug 27, 2017 at 19:42 Discharge Date: Sep 16, 2017 Admitting Diagnosis osteomyelitis right great toe (1) Osteomyelitis Diagnosis: Principal ICD Codes: M86.9 - Osteomyelitis, unspecified Status: Chronic (2) Chronic abdominal wound infection Diagnosis: Principal ICD Codes: S31.109A - Unspecified open wound of abdominal wall, unspecified quadrant without penetration into peritoneal cavity, initial encounter; L08.9 - Local infection of the skin and subcutaneous tissue, unspecified Status: Chronic (3) DM (diabetes mellitus) Diagnosis: Secondary ICD Codes: E11.9 - DM (diabetes mellitus) Status: Chronic (4) Antiphospholipid antibody syndrome Diagnosis: Secondary ICD Codes: D68.61 - Antiphospholipid antibody syndrome Status: Chronic (5) Hypothyroid Diagnosis: Secondary ICD Codes: E03.9 - Hypothyroid Status: Chronic (6) SLE (systemic lupus erythematosus) Diagnosis: Secondary ICD Codes: M32.9 - SLE (systemic lupus erythematosus) Status: Chronic (7) RAMIREZ (obstructive sleep apnea) Diagnosis: Secondary ICD Codes: G47.33 - RAMIREZ (obstructive sleep apnea) Status: Chronic Procedures (08/28) s/p Aortogram w/ R LE angiogram and R AT PATTERNMAKER HAND (3mm) with Dr. Vo (09/05) pt underwent amputation right hallux and resection of prox phalanx with Dr. Garcia Brief History Mrs. Gardner is a 62 y/o female with antiphospholipid antibody syndrome on chronic immunosuppression, hx of recurrent CVAs and TIAs on life long Lovenox, diabetes mellitus, Parkinson's disease, systemic lupus erythematous, and vasculitis. She presented to the ED at [facility] [place] on 08/27/17 at the request of her scalloper, Dr. Garcia, for evaluation of a wound to her right great toe. States that she has had a chronic wound to her right foot on the right lateral side of the foot since February 2017 and then in May 2017 she started having a problem with her right great toe and has received 2 previous rounds of antibiotics for this. She also has reportedly been going to wound care approximately once a week for several months. She was referred to Dr. Garcia for further evaluation where she ordered an MRI. Per the ED documentation the MRI was suggestive of osteomyelitis in the distal tuft of the great toe. Patient denies fever, chills, nausea, vomiting, diarrhea. Pt was brought in for Podiatry consultation and possible surgical intervention. CBC/BMP: 09/15/17 0259 09/16/17 0750 Significant Findings Laboratory Tests Test 09/14/17 09:09 09/14/17 15:28 09/14/17 21:29 09/15/17 02:59 Prothrombin Time 15.9 SEC (9.8-11.6) 17.1 SEC (9.8-11.6) Activated Partial Thromboplast Time 78.7 SEC (24.3-30.1) 57.0 SEC (24.3-30.1) 62.3 SEC (24.3-30.1) 58.4 SEC (24.3-30.1) White Blood Count 3.1 TH/MM3 (4.0-11.0) Red Blood Count 2.76 MIL/MM3 (4.00-5.30) Hemoglobin 8.3 GM/DL (11.6-15.3) Hematocrit 25.2 % (35.0-46.0) Red Cell Distribution Width 17.5 % (11.6-17.2) Platelet Count 66 TH/MM3 (150-450) Monocytes (%) (Auto) 9.7 % (0.0-8.0) Lymphocytes # (Auto) 0.8 TH/MM3 (1.0-4.8) Platelet Estimate LOW (NORMAL) Tear Drop Cells 1+ (NORMAL) Creatinine 1.03 MG/DL (0.50-1.00) Random Glucose 138 MG/DL (74-106) Calcium Level 8.4 MG/DL (8.5-10.1) Sodium Level 148 MEQ/L (136-145) Chloride Level 118 MEQ/L (98-107) Estimat Glomerular Filtration Rate 54 ML/MIN (>89) Test 09/15/17 13:35 09/16/17 07:50 Urine Mucus FEW /lpf (OCC) Prothrombin Time 21.1 SEC (9.8-11.6) Activated Partial Thromboplast Time 68.2 SEC (24.3-30.1) Sodium Level 148 MEQ/L (136-145) Chloride Level 119 MEQ/L (98-107) Estimat Glomerular Filtration Rate 59 ML/MIN (>89) PE at Discharge General: NAD, AAOx3 Chest: CTA Cardiac: Regular Abd: +BS, soft NT, wound in LLQ without any erythema or drainage Ext: Right foot bandages are c/d/i Hospital Course Osteomyelitis - comgmt with Podiatry & Vascular Surgery - Pt is a 62 y/o female with antiphospholipid antibody syndrome on chronic immunosuppression, hx of recurrent CVAs and TIAs on life long Lovenox, diabetes mellitus, Parkinson's disease, systemic lupus erythematous, and vasculitis. - She presented to the ED at [facility] [place] on 08/27/17 at the request of her scalloper, Dr. Garcia, for evaluation of a wound to her right great toe. - Pt has had a chronic wound to her right foot since February 2017 and has received 2 previous rounds of antibiotics for this. She also has reportedly been going to wound care approximately once a week for several months. She was referred to Dr. Garcia for further evaluation where she ordered an MRI. - Per the ED documentation the MRI was suggestive of osteomyelitis in the distal tuft of the great toe. - Podiatry consultation is ordered - Outpt US with RUSSELL in 08/2017 noted mildly reduced resting right lower extremity RUSSELL 0.8-0.89. Exercise was note performed due to limited ambulation. - CRP was elevated at 0.46 - Wound culture (08/29) --> pseudomonas, group B strep - IV Vancomycin (08/29 - 09/05) - IV Zosyn (08/29 - 09/10) - Levaquin (09/11 - 09/16) - anticoagulation with Coumadin - Pt does not want to continue Lovenox as she had been on Lovenox recently for anticoagulation but developed some skin breakdown in the left lower abdomen and has been following with Wound Care as an outpt for this. - Greatly appreciate input from Dr. Rios, Vascular Surgery - (09/03) Aortogram w/ R LE angiogram and R AT PATTERNMAKER HAND (3mm) with Dr. Vo - [facility] WBC scan consistent with osteomyelitis - On 09/05 pt underwent amputation right hallux and resection of prox phalanx - Pt received heparin/Coumadin bridge. Heparin stopped on 09/06 with therapeutic INR. Pt received Coumadin 7.5mg 09/04-09/06. INR 2.8 on 09/07 and Coumadin and Coumadin held then resume on 09/08. Unfortunately her INR dropped to 1.6 on and her discharge was held to resume Heparin gtt until INR over 2. She is high risk for stroke and unable to take Lovenox shots. - INR on 09/14 is 1.6 -> (09/15) 1.7. Cont. Heparin bridge to Coumadin until Coumadin is therapeutic, likely tomorrow. We will increase Coumadin dose to 10mg on 09/13 - INR (09/16) 2.1 - At home pt takes alternating doses of Coumadin 5mg x 2 days and then on the third day Coumadin 7.5mg and repeats this pattern. - Pt has been on Zosyn since 08/29 but is now complaining of some diarrhea intermittently. Zosyn stopped on 09/10 and convert po Levaquin 750mg daily x 5 Diarrhea improved with Abx change. - She will need to f/u with podiatry for recheck as an outpt. She has an appt later this week already scheduled. - Surgical wound culture is negative, mycobacterial and fungal cultures are still pending. - Bone path shows a clear margin Chronic abdominal wound infection - Pt does not want to continue Lovenox as she had been on Lovenox recently for anticoagulation but developed some skin breakdown in the left lower abdomen and has been following with Wound Care as an outpt for this. - CT abd/pelvis (08/29) - Irregularity of the skin in the left lower quadrant some with some minimal air but no fistulous tract to the abdominal structures. 2. Diverticulosis of the colon. 3. Splenomegaly. 4. Cholelithiasis. 5. Left renal cyst - Appreciate input from Wound Care - Recommended Cleanse LLQ wound with normal saline pat dry, lightly pack wound with Maxsorb ll cut to fit wound base,cover with dry dressing change daily . - General surgery consulted, recommend continued localized wound care do not feel that patient is a surgical candidate at this time DM (diabetes mellitus) - Pt hold home diabetic medications - Accu checks - NovoLog SSI Antiphospholipid antibody syndrome - Pt continued on home dose of Cellcept and Prednisone - see above Anemia and thrombocytopenia - hgb and plt have been rising - consult to hematology, appreciate input. Also discussed with Dr. Rodriguez. He believes this is due to the acute infection, blood drawing and antibiotics. - stool Hemoccult negative (09/01) Hypothyroid - Home meds continued (SLE (systemic lupus erythematosus) - Chronic RAMIREZ (obstructive sleep apnea) - CPAP Pt Condition on Discharge: Stable Discharge Disposition: Disch w/ Home Health Serv Discharge Instructions DIET: Follow Instructions for: Heart Healthy Diet, Diabetic Diet, Coumadin ( Warfarin) Diet Activities you can perform: See Additionl Instruction Other Activity Instructions: activity per Podiatry Follow up Referrals: PCP Follow-up - [address] Welsh Podiatry - 1 Week @ [facility] with Lisa Garcia DPM Vascular Surgery - 1 Month @ Vascular Surgery with Kenji Cano MD Wound Care Clinic - 2-3 Days with [facility] Wound care New Medications: Warfarin (Coumadin) 7.5 Mg Tab 7.5 MG PO DAILY for Prevent Blood Clot, #30 TAB 0 Refills Continued Medications: Aspirin (Aspirin) 81 Mg Chew 81 MG CHEW DAILY, TAB 0 Refills Atenolol (Atenolol) 100 Mg Tab 100 MG PO DAILY for Blood Pressure Management, #30 TAB 0 Refills Atorvastatin (Atorvastatin) 20 Mg Tab 20 MG PO HS for Cholesterol Management, #30 TAB 0 Refills Calcium Carbonate/Vitamin D3 (Calcium 600 + Vit D Tablet) 1 Each Tablet Carbidopa-Levodopa ER (Carbidopa-Levodopa ER) 50-200 Mg Tab 1 TAB PO TID for Parkinson Disease Mgmt, #30 TAB 0 Refills Cetirizine (Cetirizine) 10 Mg Tab 10 MG PO DAILY for Allergies, TAB 0 Refills Cholecalciferol (Vitamin D3) 1,000 Unit Cap 1000 UNITS PO DAILY for Nutritional Supplement, #1 BOTTLE 0 Refills Cyanocobalamin (Vitamin B-12) 1,000 Mcg Subl 1000 MCG SL DAILY for Nutritional Supplement, TAB.SL 0 Refills Empagliflozin (Jardiance) 10 Mg Tab 10 MG PO DAILY for Blood Sugar Management, #30 TAB 0 Refills Entacapone (Entacapone) 200 Mg Tab 200 MG PO TID for Parkinson Disease Mgmt, #90 TAB 0 Refills administered concomitantly with each levodopa/carbidopa dose Escitalopram (Escitalopram) 20 Mg Tab 20 MG PO DAILY, #30 TAB 0 Refills Fluticasone 12 GM Inh (Flovent Hfa 12 GM Inh) 220 Mcg/Act Inh 1 PUFF INH BID for Asthma Management, #1 INHALER 0 Refills Use daily at the same time. Fluticasone Nasal [place] (Flonase Nasal [place]) 50 Mcg/Act [place] 50 MCG EACH NARE BID for Allergies, #1 BOTTLE 0 Refills Gabapentin (Gabapentin) 100 Mg Cap 200 MG PO BID, #60 CAP 0 Refills Hydrocodone-Acetaminophen (Hydrocodone-Acetaminophen) 5-325 mg Tab 1 TAB PO BID PRN for PAIN, TAB 0 Refills Hydroxychloroquine (Plaquenil) 200 Mg Tab 200 MG PO BID, #60 TAB 0 Refills Take with food Levothyroxine (Levothyroxine) 150 Mcg Tab 150 MCG PO EVERY OTHER DAY for Thyroid, #30 TAB 0 Refills Levothyroxine (Levothyroxine) 175 Mcg Tab 175 MCG PO EVERY OTHER DAY for Thyroid, #30 TAB 0 Refills Linagliptin (Tradjenta) 5 Mg Tab 5 MG PO DAILY for Blood Sugar Management, #30 TAB 0 Refills Losartan (Losartan) 25 Mg Tab 25 MG PO DAILY for Blood Pressure Management, #30 TAB 0 Refills Metformin (Metformin) 1,000 Mg Tab 1000 MG PO BIDPC for Blood Sugar Management, #60 TAB 0 Refills With meals Mycophenolate (Mycophenolate) 500 Mg Tab 500 MG PO BID for Immunosuppression, #120 TAB 0 Refills Pantoprazole (Pantoprazole) 40 Mg Tab 40 MG PO DAILY for Reflux, #30 TAB 0 Refills Prednisone (Prednisone) 5 Mg Tab 5 MG PO DAILY, TAB 0 Refills Pyridoxine (Pyridoxine) 100 Mg Tab 100 MG PO DAILY for Nutritional Supplement, #30 TAB 0 Refills [Citracal Petites] () 0.5 TAB PO DAILY Discontinued Medications: Enoxaparin Inj (Enoxaparin Inj) 100 Mg/Ml Syr 100 MG SQ BID for Blood Clot Prevention, SYRINGE 0 Refills Warfarin (Warfarin) 5 Mg Tab 5 MG PO DAILY for Blood Clot Prevention, #30 TAB 0 Refills Additional Information Patient examined. Assessment and plan formulated with Courtney Ivey PA-C. I agree with the above. Repeat INR 09/19/[address] Masterson, Hematology. F/u with Podiatry in 3-5 days. F/u with [facility] Wound Clinic for chronic abdominal wound. F/u with PCP in 1-2 weeks See discharge orders. Courtney Ivey Sep 16, 2017 11:46 Bravo Guzman DO Sep 16, 2017 13:51
--- NOTE | 2017-09-16 11:47 | HHI.DCPOC ---
Discharge Care Plan Diagnosis: (1) Osteomyelitis (2) DM (diabetes mellitus) (3) Chronic abdominal wound infection Goals to Promote Your Health * To prevent worsening of your condition and complications * To maintain your health at the optimal level Directions to Meet Your Goals Take your medications as prescribed Follow your dietary instruction Follow activity as directed Keep your appointments as scheduled Take your immunizations and boosters as scheduled If your symptoms worsen call your PCP, if no PCP go to Urgent Care Center or Emergency Room Smoking is Dangerous to Your Health. Avoid second hand smoke Call the 24-hour hour crisis hotline for domestic abuse at Courtney Ivey Sep 16, 2017 11:47 Bravo Guzman DO Sep 16, 2017 13:50
[2017-09-16 12:24] VITALS: BP 130/60; PULSE 68; RESP 20; TEMP 97.6; O2SAT 98
== END 2017-09-16 13:32 | disposition home health service (06) | DRG 253 ==
LOC: NEPC 15:17 → NEDA 19:42 → NEDH 08-28 00:19 → NEDA 08-28 11:26 → N05A 08-28 13:40
PROVIDERS: ADMIT Hospitalist; ATTEND Hospitalist
PROC: B4101ZZ Fluoroscopy of Abdominal Aorta using Low Osmolar Contrast (ICD-10-PCS; 2017-09-03)
PROC: B41F1ZZ Fluoroscopy of Right Lower Extremity Arteries using Low Osmolar Contrast (ICD-10-PCS; 2017-09-03)
PROC: 047P3ZZ Dilation of Right Anterior Tibial Artery, Percutaneous Approach (ICD-10-PCS; principal; 2017-09-03 14:00)
PROC: 0Y6P0Z1 Detachment at Right 1st Toe, High, Open Approach (ICD-10-PCS; 2017-09-05)
PROC: 0JBQ0ZZ Excision of Right Foot Subcutaneous Tissue and Fascia, Open Approach (ICD-10-PCS; 2017-09-05)
DX: E11.52 Type 2 diabetes mellitus with diabetic peripheral angiopathy with gangrene (principal); D68.61 Antiphospholipid syndrome; D68.69 Other thrombophilia; E11.621 Type 2 diabetes mellitus with foot ulcer; E11.69 Type 2 diabetes mellitus with other specified complication; M86.671 Other chronic osteomyelitis, right ankle and foot; D69.6 Thrombocytopenia, unspecified; G20 Parkinson's disease; M32.9 Systemic lupus erythematosus, unspecified; M79.7 Fibromyalgia; S31.104A Unspecified open wound of abdominal wall, left lower quadrant without penetration into peritoneal cavity, initial encounter; L08.9 Local infection of the skin and subcutaneous tissue, unspecified; K57.30 Diverticulosis of large intestine without perforation or abscess without bleeding; J45.909 Unspecified asthma, uncomplicated; F32.9 Major depressive disorder, single episode, unspecified; F41.9 Anxiety disorder, unspecified; K21.9 Gastro-esophageal reflux disease without esophagitis; I10 Essential (primary) hypertension; E03.9 Hypothyroidism, unspecified; E78.5 Hyperlipidemia, unspecified; G47.33 Obstructive sleep apnea (adult) (pediatric); I73.00 Raynaud's syndrome without gangrene; G25.81 Restless legs syndrome; M19.90 Unspecified osteoarthritis, unspecified site; K76.0 Fatty (change of) liver, not elsewhere classified; R16.1 Splenomegaly, not elsewhere classified; N28.1 Cyst of kidney, acquired; K80.20 Calculus of gallbladder without cholecystitis without obstruction; L97.519 Non-pressure chronic ulcer of other part of right foot with unspecified severity; D64.9 Anemia, unspecified; E88.09 Other disorders of plasma-protein metabolism, not elsewhere classified; R23.3 Spontaneous ecchymoses; Z86.73 Personal history of transient ischemic attack (TIA), and cerebral infarction without residual deficits; Z79.01 Long term (current) use of anticoagulants; Z79.82 Long term (current) use of aspirin; Z79.84 Long term (current) use of oral hypoglycemic drugs; Z85.820 Personal history of malignant melanoma of skin
CPT/HCPCS: 36247; 37228; 71045; 73630; 74176; 75625; 75635; 75710; 76937; 78807; 78999; 80048; 80053; 80202; 81001; 82272; 82565; 82948; 83735; 85025; 85027; 85610; 85652; 85730; 86140; 86403; 87015; 87070; 87077; 87102; 87116; 87176; 87186; 87205; 87206; 88305; 88311; 93005; 93306; 93880; 93923; 99152; 99153; 99285; A9569; C1725; C1751; C1760; C1769; C1893; G0269; J0131; J1644; J1815; J2250; J2270; J2405; J2543; J3010; J3370; J7040; J7512; J7517; L3260; Q9963; Q9967

== ENCOUNTER 2017-12-01 15:51 | Emergency (ER) | payer MEDICARE ==
[~2017-12-01] VITALS: Ht 167.6 cm
[~2017-12-01 15:51] MED LIST changes: +COUM7.5T PO; -ENOX100I SQ; +PLAQ200T PO
[2017-12-01 15:55] VITALS: BP 135/65; PULSE 92; RESP 16; TEMP 98; O2SAT 96
[2017-12-01] MEDS ORDERED: LIDOCAINE HCL 1% 30 ML VIAL INFIL ONE (17:45)
[2017-12-01] MEDS ORDERED: TETANUS/DIPHTHERIA TOXOID ADULT 0.5 ML VIAL IM ONE (17:45)
[2017-12-01] MEDS ORDERED: CEPHALEXIN MONOHYDRATE 500 MG CAP PO ONE (17:45)
[2017-12-01] MEDS ORDERED: PYRI100T PO (17:46)
[2017-12-01] MEDS ORDERED: VENTAER INH (17:46)
[2017-12-01] MEDS ORDERED: TUMS500C CHEW (17:46)
[2017-12-01] MEDS ORDERED: WARF-23 PO (17:46)
[2017-12-01] MEDS ORDERED: DULO1CAP3 PO (17:46)
--- NOTE | 2017-12-01 17:52 | PD ---
HPI Chief Complaint: Fall Time Seen by Provider: 17:30 Travel History International Travel<30 days: No Contact w/Intl Traveler<30days: No Traveled to known affect area: No History of Present Illness HPI The patient is a 62-year-old female who presents to the emergency department for left foot pain and left great toe pain. The patient states she tripped going upstairs earlier today, has a partially avulsed nail in the left great toe. The patient states it was bleeding initially but is currently stopped. The patient is on Coumadin for history of antiphospholipid syndrome. The patient is immunocompromised, has a history of lupus, and is currently treated with CellCept, prednisone, and Plaquenil. The patient cannot recall her last tetanus shot. She is able to bear weight on the affected leg, however , the toe is painful. Symptoms are moderate. The patient denies any ankle pain , knee pain, or hip pain. PFSH Past Medical History Hx Anticoagulant Therapy: Yes Arthritis: Yes Asthma: Yes Autoimmune Disease: Yes (LUPUS (SLE)) Blood Disorders: Yes (PHOSPHOLIPID SYNDROME) Anxiety: Yes Depression: Yes Heart Rhythm Problems: No Cancer: Yes (SKIN) Cardiovascular Problems: Yes High Cholesterol: Yes Chemotherapy: No Chest Pain: No Congestive Heart Failure: No COPD: No Cerebrovascular Accident: Yes Diabetes: Yes Patient Takes Glucophage: Yes Diminished Hearing: No Endocrine: Yes Gastrointestinal Disorders: Yes (REFLUX) Genitourinary: No Hypertension: Yes Immune Disorder: Yes (LUPUS) Musculoskeletal: Yes (ARTHRITIS) Neurologic: Yes (EXTRAPYRAMIDAL DISEASE, MEMORY DISORDER) Psychiatric: Yes Reproductive: No Respiratory: Yes (ASTHMA) Radiation Therapy: No Sleep Apnea: Yes Thyroid Disease: Yes (HYPOTHYROID) Menopausal: Yes : 4 Miscarriage: 4 Ovarian Cysts: Yes Past Surgical History Section: Yes Other Surgery: Yes (, OVARIAN CYST, SKIN CANCER) Social History Alcohol Use: No Tobacco Use: No Substance Use: No Allergies-Medications (Allergen,Severity, Reaction): Coded Allergies: hydralazine (Verified Allergy, Severe, BLOOD NOT CLOTTING, BP UP, MULTIPLE SYMPTOMS, 12/01/17) Reported Meds & Prescriptions Reported Meds & Active Scripts Active Keflex (Cephalexin) 500 Mg Capsule 500 Mg PO Q6H 7 Days Coumadin (Warfarin) 7.5 Mg Tab 7.5 Mg PO DAILY Reported Warfarin 5 Mg Tab 5 Mg PO WEEKENDS Vitamin B-6 (Pyridoxine HCl) 100 Mg Tab 100 Mg PO DAILY Ventolin Hfa 18 GM Inh (Albuterol Sulfate) 90 Mcg/Act Aer 2 Puff INH Q4H PRN Tums (Calcium Carbonate (Antacid)) 500 Mg Chew 500 Mg CHEW DAILY PRN Duloxetine DR (Duloxetine HCl) 60 Mg Capdr 60 Mg PO BID Plaquenil (Hydroxychloroquine Sulfate) 200 Mg Tab 200 Mg PO BID Take with food Jardiance (Empagliflozin) 10 Mg Tab 10 Mg PO DAILY Prednisone 5 Mg Tab 5 Mg PO DAILY Pantoprazole (Pantoprazole Sodium) 40 Mg Tab 40 Mg PO DAILY Mycophenolate (Mycophenolate Mofetil) 500 Mg Tab 500 Mg PO BID Metformin (Metformin HCl) 1,000 Mg Tab 1,000 Mg PO BIDPC With meals Losartan (Losartan Potassium) 25 Mg Tab 25 Mg PO DAILY Tradjenta (Linagliptin) 5 Mg Tab 5 Mg PO DAILY Levothyroxine (Levothyroxine Sodium) 175 Mcg Tab 175 Mcg PO EVERY OTHER DAY Levothyroxine (Levothyroxine Sodium) 150 Mcg Tab 150 Mcg PO EVERY OTHER DAY Flonase Nasal Barnum (Fluticasone Nasal Barnum) 50 Mcg/Act Barnum 50 Mcg EACH NARE BID Flovent Hfa 12 GM Inh (Fluticasone Propionate) 220 Mcg/Act Inh 1 Puff INH BID Use daily at the same time. Escitalopram (Escitalopram Oxalate) 20 Mg Tab 20 Mg PO DAILY Entacapone 200 Mg Tab 200 Mg PO TID administered concomitantly with each levodopa/carbidopa dose Vitamin B-12 (Cyanocobalamin) 1,000 Mcg Subl 1,000 Mcg SL DAILY Vitamin D3 (Cholecalciferol) 1,000 Unit Cap 1,000 Units PO DAILY Cetirizine (Cetirizine HCl) 10 Mg Tab 10 Mg PO DAILY Carbidopa-Levodopa ER 50-200 Mg Tab 1 Tab PO TID Calcium 600 + Vit D Tablet (Calcium Carbonate/Vitamin D3) 1 Each Tablet Atorvastatin (Atorvastatin Calcium) 20 Mg Tab 20 Mg PO HS Atenolol 100 Mg Tab 100 Mg PO DAILY Aspirin 81 Mg Chew 81 Mg CHEW DAILY Review of Systems Except as stated in HPI: all other systems reviewed are Neg General / Constitutional: No: Fever Musculoskeletal: Positive: Edema, Pain Skin: Positive Other (As noted) Neurologic: No: Paresthesia, Sensory Disturbance Physical Exam Narrative GENERAL: Awake, alert, pleasant 62-year-old female who appears her stated age and is in no acute respiratory distress. SKIN: Focused skin assessment warm/dry. HEAD: Atraumatic. Normocephalic. EYES: No injection or drainage per MUSCULOSKELETAL: The patient has a partially avulsed left great toenail, the left toenail is thickened most likely from fungal infection. There is a subungual hematoma visible. Mild tenderness over the proximal phalanx as well as the distal first metatarsal. No tenderness over the medial lateral malleus. No tenderness of the proximal left tibia/fibula. Positive dorsalis pedal pulse. NEUROLOGICAL: Awake and alert. No obvious cranial nerve deficits. Motor grossly within normal limits. Normal speech. PSYCHIATRIC: Appropriate mood and affect; insight and judgment normal. Data Data Last Documented VS Vital Signs Date Time Temp Pulse Resp B/P (MAP) Pulse Ox O2 Delivery O2 Flow Rate FiO2 12/01/17 15:55 98.0 92 16 135/65 (88) 96 Orders Orders Foot, Complete ([id number]) (12/01/17 ) Tetanus/Diphtheria Tox Adult (Tetanus/Di (12/01/17 17:45) Cephalexin (Keflex) (12/01/17 17:45) Lidocaine 1% Inj (Xylocaine 1% Inj) (12/01/17 17:45) Prothrombin Time / Inr (Pt) (12/01/17 18:20) Act Partial Throm Time (Ptt) (12/01/17 18:20) Ed Discharge Order (12/01/17 19:17) Labs Laboratory Tests Test 12/01/17 18:30 Prothrombin Time 33.2 SEC Prothromb Time International Ratio 3.3 RATIO Activated Partial Thromboplast Time 48.4 SEC [facility] Medical Decision Making Medical Screen Exam Complete: Yes Emergency Medical Condition: Yes Medical Record Reviewed: Yes Interpretation(s) Last Impressions Foot X-Ray 12/01/17 0000 Signed Impressions: CONCLUSION: No acute fracture or dislocation. Vascular calcifications are present. Laboratory Tests Test 12/01/17 18:30 Prothrombin Time 33.2 SEC Prothromb Time International Ratio 3.3 RATIO Activated Partial Thromboplast Time 48.4 SEC Differential Diagnosis Differential diagnosis includes subungual hematoma, partially avulsed nail, open fracture, tuft fracture, dislocation, contusion, immunocompromised from lupus and immunosuppressive medications. Narrative Course X-ray of the left foot was obtained. The patient's tetanus shot was updated. The patient was administered Keflex 1 g orally. X-ray of the right foot is unremarkable, no fracture dislocation. The patient requested an INR as she was bleeding from the right great toe and is currently on warfarin, therefore, PT/ INR was sent to lab. The patient's toe was cleaned by nursing staff, the patient was advised that the nail may grow out and then fall off and she does have a subungual hematoma. The patient is advised to clean area twice a day with soap and water and take antibiotics as directed. Diagnosis Primary Impression: Avulsion of toenail of left foot Additional Impression: Subungual hematoma of great toe of left foot Qualified Codes: S90.212A - Contusion of left great toe with damage to nail, initial encounter Patient Instructions: General Instructions Additional Instructions: Medications as directed. Tylenol as needed for pain. Take Keflex as directed. Please provide the patient a copy of her lab results and x-ray results at discharge. Med/Other Pt SpecificInfo: Prescription(s) given Scripts Cephalexin (Keflex) 500 Mg Capsule 500 MG PO Q6H for Infection for 7 Days, #28 CAP 0 Refills Prov: Herman Muller MD 12/01/17 Disposition: 01 DISCHARGE HOME Condition: Stable Herman Muller MD Dec 01, 2017 17:52
--- NOTE | 2017-12-01 18:22 | RADRPT ---
EXAM DATE: 12/01/2017 5:58 PM EDT AGE/SEX: 62 years / Female INDICATIONS: Trauma to foot, great toe laceration, due to fall. CLINICAL DATA: This is the patient's initial encounter. Patient reports that signs and symptoms have been present for 1 day and indicates a pain score of 5/10. MEDICAL/SURGICAL HISTORY: None. None. COMPARISON: No prior exams available for comparison. FINDINGS: Bony structures are intact and in normal alignment. Osseous density is normal. Soft tissues are unre markable. No radiopaque foreign bodies seen. CONCLUSION: No acute fracture or dislocation. Vascular calcifications are present. Electronically signed by: Srinath Galvan MD 12/01/2017 6:20 PM EDT
[2017-12-01] MEDS ORDERED: CEPH-460 PO (18:37)
[2017-12-01 19:06] LABS: INTERNATIONAL NORMALIZED RATIO 3.3 RATIO; PROTHROMBIN TIME - PATIENT 33.2 SEC (9.8-11.6)
== END 2017-12-01 19:35 | disposition home or self-care (01) ==
LOC: NEPC 15:51
DX: S90.212A Contusion of left great toe with damage to nail, initial encounter (principal); S91.202A Unspecified open wound of left great toe with damage to nail, initial encounter; M19.90 Unspecified osteoarthritis, unspecified site; J45.909 Unspecified asthma, uncomplicated; M32.9 Systemic lupus erythematosus, unspecified; F41.9 Anxiety disorder, unspecified; F32.9 Major depressive disorder, single episode, unspecified; E78.00 Pure hypercholesterolemia, unspecified; E11.9 Type 2 diabetes mellitus without complications; K21.9 Gastro-esophageal reflux disease without esophagitis; I10 Essential (primary) hypertension; E03.9 Hypothyroidism, unspecified; W10.9XXA Fall (on) (from) unspecified stairs and steps, initial encounter; Z79.51 Long term (current) use of inhaled steroids; Z79.82 Long term (current) use of aspirin; Z79.899 Other long term (current) drug therapy; Z86.73 Personal history of transient ischemic attack (TIA), and cerebral infarction without residual deficits; Z88.8 Allergy status to other drugs, medicaments and biological substances; Z23 Encounter for immunization
CPT/HCPCS: 73630; 85610; 85730; 90471; 90714

== ENCOUNTER 2018-05-21 16:56 | Inpatient (IN) ==
[2018-05-21] MEDS ORDERED: Dextrose 50% in Water 50 ML Vial IV.PUSH PRN (17:48)
[2018-05-21 20:06] LABS: INR 3.5 Ratio; Prothrombin Time 35.5 sec (9.8-11.6)
[2018-05-21] MEDS: Insulin NovoLOG Aspart Correctional Sugar Inj SQ SCH (20:33)
[2018-05-21] MEDS: Senna/Docusate Sodium 8.6/50 MG Tablet PO SCH (20:33)
--- NOTE | 2018-05-21 21:15 | ECG ---
Date Performed: 05/21/2018 Time Performed: 19:08:28 PTAGE: 62 years EKG: Sinus rhythm WITH FIRST DEGREE AV BLOCK LEFT ANTERIOR FASCICULAR BLOCK MINIMAL VOLTAGE CRITERIA FOR LVH, CONSIDER NORMAL VARIANT ABNORMAL R WAVE PROGRESSION ABNORMAL ECG PREVIOUS TRACING : 08/27/2017 19.37 Since the previous tracing, no significant change noted DOCTOR: Jaja Malin Interpretating Date/Time 05/21/2018 21:14:49
[2018-05-21] MEDS: Heparin Drip 25,000 UNIT/250 ML BAG IV.CONT PRN (21:47)
[2018-05-21] MEDS: Carbidopa/Levodopa CR 50/200 MG Tablet PO SCH (22:29)
[2018-05-21] MEDS: Hydroxychloroquine 200 MG Tablet PO SCH (22:29)
[2018-05-22 04:58] LABS: Baso % (Auto) 0.4 % (0.0-2.0); Eos # (Auto) 0.1 th/mm3 (0.0-0.4); Eos % (Auto) 1.9 % (0.0-4.0); Hematocrit 29.8 % (35.0-46.0); Hemoglobin 9.8 gm/dL (11.6-15.3); Lymph # (Auto) 1.3 th/mm3 (1.0-4.8); Lymph % (Auto) 21.6 % (9.0-44.0); Mean Corpuscular HGB Conc 32.7 % (32.0-36.0); Mean Corpuscular Hemoglobin 26.9 pg (27.0-34.0); Mean Corpuscular Volume 82.2 fL (80.0-100.0); Mono # (Auto) 0.4 th/mm3 (0.0-0.9); Mono % (Auto) 7.2 % (0.0-8.0); Neut # (Auto) 4.1 th/mm3 (1.8-7.7); Neut % (Auto) 68.9 % (16.0-70.0); Platelet Count 116 th/mm3 (150-450); Red Blood Count 3.63 mil/mm3 (4.00-5.30)
[2018-05-22 05:13] LABS: Activated Partial Thrombo Time 69.5 sec (23.4-31.7); INR 3.4 Ratio; Prothrombin Time 34.1 sec (9.8-11.6)
--- NOTE | 2018-05-22 05:15 | P.HPIM ---
History of Present Illness Primary Care Physician: Marcelo Welsh History of Present Illness: Pt is a 62 y/o F with multiple medical problems including antiphospholipid syndrome on chronic immunosuppression, lupus, vasculitis, recurrent TIAs/CVAs, DM2, and parkinsons on lifelong anticoagulation. Pt developed a chronic right lower extremity wound d/t lovenox injections. I was contacted by pt's General Surgeon, Dr. Cabrales. Pt's wound failed to resolve with conservative measures. Pt can NOT stop anticoagulation. Hospital admission deemed necessary to transition pt from coumadin to heparin therapy. Pt will then undergo surgical treatment for nonhealing abdominal wound. PMH: antiphospholipid syndrome on chronic immunosuppression, lupus, vasculitis, recurrent TIAs/CVAs, DM2, and parkinsons on lifelong anticoagulation PSH: - ovarian cystectomy - C/S - removal of malignant melanoma and grafting FHX: noncontributory SHX: - no tobacco, no etoh, no illicit drugs ALL: Hydralazine Diagnosis (1) Ulcer, skin, chronic: Inpatient Certification Inpatient Certification: I certify that the inpatient services were ordered in accordance with Medicare regulations governing the order. This includes certification that hospital inpatient services are reasonable and necessary and in the case of services not specified as inpatient-only under 42 CFR 419.22(n), that they are appropriately provided as inpatient services in accordance to with the 2-midnight benchmark under 43 CFR 412.3(e) Estimated Total Length of Stay (Days): 3 Plans for Post Hospital Care: Not yet determined Medications and Allergies Allergies Allergy/AdvReac Type Severity Reaction Status Date / Time hydralazine Allergy Severe BLOOD NOT Verified 12/01/17 17:38 CLOTTING, BP UP, MULTIPLE SYMPTOMS Home Medications Medication Instructions Recorded Confirmed Type aspirin [Aspir-81] 81 mg PO DAILY 05/21/18 05/21/18 History atenolol 100 mg PO DAILY 05/21/18 05/21/18 History atorvastatin 20 mg PO DAILY 05/21/18 05/21/18 History calcium carbonate-vitamin D3 1 tab PO DAILY 05/21/18 05/21/18 History carbidopa-levodopa [Sinemet CR] 1 tab PO TID 05/21/18 05/21/18 History cetirizine [Zyrtec] 10 mg PO DAILY 05/21/18 05/21/18 History cholecalciferol (vitamin D3) 1,000 unit PO DAILY 05/21/18 05/21/18 History [Vitamin D3] cyanocobalamin (vitamin B-12) 1,000 mcg PO DAILY 05/21/18 05/21/18 History [Vitamin B-12] duloxetine [Cymbalta] 30 mg PO DAILY 05/21/18 05/21/18 History duloxetine [Cymbalta] 60 mg PO DAILY 05/21/18 05/21/18 History empagliflozin [Jardiance] 10 mg PO DAILY 05/21/18 05/21/18 History entacapone 200 mg PO TID 05/21/18 05/21/18 History escitalopram oxalate 5 mg PO DAILY 05/21/18 05/21/18 History hydroxychloroquine [Plaquenil] 200 mg PO BID 05/21/18 05/21/18 History levothyroxine 150 mcg PO Q OTHER DAY 05/21/18 05/21/18 History levothyroxine 175 mcg PO EVERY OTHER DAY 05/21/18 05/21/18 History linagliptin [Tradjenta] 5 mg PO DAILY 05/21/18 05/21/18 History losartan 25 mg PO DAILY 05/21/18 05/21/18 History metformin 1,000 mg PO BID 05/21/18 05/21/18 History mycophenolate mofetil [CellCept] 500 mg PO BID 05/21/18 05/21/18 History pantoprazole 40 mg PO DAILY 05/21/18 05/21/18 History prednisone 2 mg PO DAILY 05/21/18 05/21/18 History pyridoxine (vitamin B6) [Vitamin 100 mg PO DAILY 05/21/18 05/21/18 History B-6] warfarin 5 mg PO DAILY 05/21/18 05/21/18 History Active Medications: Active Medications Acetaminophen (Tylenol) 650 mg PO Q4H PRN PRN Reason: Temp > 100.4 Al Hydroxide/Mg Hydroxide (Milk Of Magnesia Liq) 30 ml PO Q12H PRN PRN Reason: Mild Constipation Aspirin (Ecotrin) 81 mg PO DAILY STEVEN Atenolol (Tenormin) 100 mg PO DAILY [facility] Atorvastatin Calcium (Lipitor) 20 mg PO DAILY [facility] Carbidopa/Levodopa (Sinemet Cr 50/200 Mg) 1 tab PO TID [facility] Last Admin: 05/21/18 22:29 Dose: 1 tab Dextrose (D50w Vial) 50 ml IV.PUSH UNSCH PRN PRN Reason: PER HYPOGLYCEMIA PROTOCOL Duloxetine HCl (Cymbalta) 60 mg PO DAILY [facility] Glucagon (Glucagon Inj) 1 mg OTHER PRN PRN PRN Reason: for Hypoglycemia Protocol Hydroxychloroquine Sulfate (Plaquenil) 200 mg PO BID [facility] Last Admin: 05/21/18 22:29 Dose: 200 mg Heparin Sodium/Dextrose (Heparin/D5w 25,000 U/250 Ml) 25,000 unit in 250 mls @ 10 mls/hr IV.CONT TITRATE PRN; Protocol PRN Reason: Per Protocol Last Admin: 05/21/18 21:47 Dose: 1,000 units/hr, 10 mls/hr Insulin Aspart (Novolog Insulin Correctional Sugar Inj) 0 unit SQ ACHS [facility]; Protocol Last Admin: 05/21/18 20:33 Dose: 2 unit Levothyroxine Sodium (Synthroid) 150 mcg PO Q48H [facility] Levothyroxine Sodium (Synthroid) 25 mcg PO Q48H [facility] Losartan Potassium (Cozaar) 25 mg PO DAILY [facility] Metformin HCl (Glucophage) 1,000 mg PO BIDPC [facility] Mycophenolate Mofetil (Cellcept) 500 mg PO BID@0600,1800 [facility] Last Admin: 05/21/18 22:29 Dose: 500 mg Ondansetron HCl (Zofran Inj) 4 mg IV.PUSH Q6H PRN PRN Reason: NAUSEA OR VOMITING Pantoprazole Sodium (Protonix) 40 mg PO DAILY [facility] Pt Own (Entacapone [ Entacapone] 200 Mg) Tablet 1 each PO TID [facility] Prednisone (Deltasone) 2 mg PO DAILY [facility] Senna/Docusate Sodium (Brandy-Colace) 1 tab PO BID [facility] Last Admin: 05/21/18 20:33 Dose: 1 tab Sodium Chloride (Ns Flush) 2 ml IV.FLUSH BID [facility] Last Admin: 05/21/18 20:32 Dose: Not Given Sodium Chloride (Ns Flush) 2 ml IV.FLUSH PRN PRN PRN Reason: FLUSH AFTER USING IV ACCESS Physical Exam Vital signs: Last Vital Signs Temp 98 F 05/22/18 04:00 Pulse 77 05/22/18 04:00 Resp 18 05/22/18 04:00 BP 110/62 12/05/18 04:00 Pulse Ox 98 05/22/18 04:00 Narrative: GENERAL: This is a well-nourished, well-developed patient, in no apparent distress. CARDIOVASCULAR: Regular rate and rhythm without murmurs, gallops, or rubs. RESPIRATORY: Clear to auscultation. Breath sounds equal bilaterally. No wheezes , rales, or rhonchi. GASTROINTESTINAL: Abdomen soft, non-tender, nondistended. Normal active bowel sounds MUSCULOSKELETAL: Extremities without clubbing, cyanosis, or edema. NEURO: Alert & Oriented x4 to person, place, time, situation. Moves all ext x4 skin: large 8cm diameter skin ulceration at RLQ of abdomen Results Labs CBC & Chem 7: 05/22/18 03:55 05/22/18 03:55 Caprini VTE Risk Assessment Caprini Risk Assessment Model: Point Value = 1 Point Value = 2 Point Value = 3 Point Value = 5 Age 41-60 Minor surgery BMI > 25 kg/m2 Swollen legs Varicose veins or History of unexplained or recurrent spontaneous Oral contraceptives or hormone replacement Sepsis (< 1 month) Serious lung disease, including pneumonia (< 1 month) Abnormal pulmonary function Acute myocardial infarction Congestive heart failure (< 1 month) History of inflammatory bowel disease Medical patient at bed rest Age 61-74 Arthroscopic surgery Major open surgery (> 45 min) Laparoscopic surgery (> 45 min) Malignancy Confined to bed (> 72 hours) Immobilizing plaster cast Central venous access Age >= 75 History of VTE Family history of VTE Factor V Leiden Prothrombin [id number] Lupus anticoagulant Anticardiolipin antibodies Elevated serum homocysteine Heparin-induced thrombocytopenia Other congenital or acquired thrombophilia Stroke (< 1 month) Elective arthroplasty Hip, pelvis, or leg fracture Acute spinal cord injury (< 1 month) Prophylaxis Regimen: Total Risk Factor Score Risk Level Prophylaxis Regimen 0-1 Low Early ambulation 2 Moderate Order ONE of the following: *Sequential Compression Device (SCD) *Heparin 5000 units SQ BID 3-4 Higher Order ONE of the following medications: *Heparin 5000 units SQ TID *Enoxaparin/Lovenox 40 mg SQ daily (WT < 150 kg, CrCl > 30 mL/min) *Enoxaparin/Lovenox 30 mg SQ daily (WT < 150 kg, CrCl > 10-29 mL/min) *Enoxaparin/Lovenox 30 mg SQ BID (WT < 150 kg, CrCl > 30 mL/min) AND/OR *Sequential Compression Device (SCD) 5 or more Highest Order ONE of the following medications: *Heparin 5000 units SQ TID (Preferred with Epidurals) *Enoxaparin/Lovenox 40 mg SQ daily (WT < 150 kg, CrCl > 30 mL/min) *Enoxaparin/Lovenox 30 mg SQ daily (WT < 150 kg, CrCl > 10-29 mL/min) *Enoxaparin/Lovenox 30 mg SQ BID (WT < 150 kg, CrCl > 30 mL/min) AND *Sequential Compression Device (SCD) Assessment and Plan Assessment (1) Ulcer, skin, chronic: Code(s): L98.499 - Non-pressure chronic ulcer of skin of other sites with unspecified severity Status: Acute Plan: 1) non healing skin ulcer at RLQ abd - pt requires lifelong anticoagulation recurrent CVA/TIAs and substantial risk for further events - stop coumadin - start heparin - consult general surgery - Pt to undergo surgical revision of nonhealing skin ulcer 2) antiphospholipid syndrome - transition anticoagulation from coumadin to heparin 3) Lupus/Vasulitis - continue cellcept, prednison 4) DM2 - continue metformin - SSI - monitor blood sugars 5) HTN, essential - atenolol H&P: Quality VTE Deep Vein Thrombosis/Pulmonary Embolism Present on Admission: No
[2018-05-22 05:26] LABS: Calcium 7.9 mg/dL (8.5-10.1); Carbon Dioxide 24.2 meq/L (21.0-32.0); Potassium 3.7 meq/L (3.5-5.1)
[2018-05-22] MEDS: Insulin NovoLOG Aspart Correctional Sugar Inj SQ SCH ×4 (08:51→22:08)
[2018-05-22] MEDS: Atenolol 100 MG Tablet PO SCH (08:52)
[2018-05-22] MEDS: predniSONE 1 MG Tablet PO SCH (08:52)
[2018-05-22] MEDS: Carbidopa/Levodopa CR 50/200 MG Tablet PO SCH ×3 (08:53→18:25)
[2018-05-22] MEDS: Senna/Docusate Sodium 8.6/50 MG Tablet PO SCH ×2 (08:53→22:09)
[2018-05-22] MEDS: Hydroxychloroquine 200 MG Tablet PO SCH ×2 (08:53→22:09)
[2018-05-22] MEDS: Acetaminophen 325 MG Tablet PO PRN ×3 (09:00→22:22)
[2018-05-22] MEDS ORDERED: ENTACAPONE 200 MG PO SCH (09:00)
[2018-05-22] MEDS ORDERED: Duloxetine 60 MG DR Capsule PO SCH (09:00)
--- NOTE | 2018-05-22 18:31 | P.PNIM ---
Subjective Interval history: Pt had NO new clinical complaints. Physical Exam Vital signs: Last Vital Signs Temp 97.7 F 05/22/18 12:00 Pulse 74 05/22/18 12:00 Resp 20 05/22/18 12:00 BP 94/53 L 05/22/18 12:00 Pulse Ox 99 05/22/18 12:00 Narrative: GENERAL: This is a well-nourished, well-developed patient, in no apparent distress. CARDIOVASCULAR: Regular rate and rhythm without murmurs, gallops, or rubs. RESPIRATORY: Clear to auscultation. Breath sounds equal bilaterally. No wheezes , rales, or rhonchi. GASTROINTESTINAL: Abdomen soft, non-tender, nondistended. Normal active bowel sounds MUSCULOSKELETAL: Extremities without clubbing, cyanosis, or edema. NEURO: Alert & Oriented x4 to person, place, time, situation. Moves all ext x4 skin: large, skin ulcer at RLQ of abdomen, approximately 8cm diameter Results Labs CBC & Chem 7: 05/22/18 03:55 05/22/18 03:55 Assessment and Plan Plan 1) non healing skin ulcer at RLQ abd - pt requires lifelong anticoagulation recurrent CVA/TIAs and substantial risk for further events - stop coumadin - INR elevated - vitamin K 5mg x once - repeat INR in AM - continue heparin - consult general surgery - Pt to undergo surgical revision of nonhealing skin ulcer 2) antiphospholipid syndrome - transition anticoagulation from coumadin to heparin 3) Lupus/Vasulitis - continue cellcept, prednison 4) DM2 - continue metformin - SSI - monitor blood sugars 5) HTN, essential - atenolol Progress Note: Quality VTE Deep Vein Thrombosis/Pulmonary Embolism Present on Admission: No
[2018-05-22] MEDS ORDERED: Phytonadione 5 MG/SWFI 5 ML Oral Syringe PO ONE (20:00)
[2018-05-22] MEDS: Heparin Drip 25,000 UNIT/250 ML BAG IV.CONT PRN (22:11)
[2018-05-23] MEDS: Levothyroxine 150 MCG Tablet PO SCH (06:32)
[2018-05-23 07:39] LABS: Activated Partial Thrombo Time 68.5 sec (23.4-31.7); INR 2.4 Ratio; Prothrombin Time 24.4 sec (9.8-11.6)
[2018-05-23] MEDS: Insulin NovoLOG Aspart Correctional Sugar Inj SQ SCH ×4 (08:02→20:45)
--- NOTE | 2018-05-23 09:09 | P.CONGS ---
[facility] Gen Surgery Consult Note Consult date: 05/23/18 Narrative: Ms. Gardner has been cared for as outpatient for bilateral abdominal wounds due to lovenox injections for months. The left side wound is fully healed but the right side wound is necrotic and not improving. She has been admitted due to need for operative debridement.. She requires anticoagulant bridging as she has h/o multiple CVAs. PMH includes antiphospholipid syndrome on chronic immunosuppression, lupus, vasculitis, recurrent TIAs/CVAs, DM2, and parkinsons on lifelong anticoagulation. Review of Systems All other systems reviewed negative except as stated in [facility] PMF - History History Provided By: Patient - Tobacco History Second Hand Smoke Exposure: No Smoking Status: Never smoker - Alcohol History How Often Do You Have a Drink Containing Alcohol: Never - Substance Use History Substance History: No History of Abuse - Immunization History Hx Influenza Vaccine This Season: Yes Medications and Allergies Active Medications: Active Medications Acetaminophen (Tylenol) 650 mg PO Q4H PRN PRN Reason: Temp > 100.4 Last Admin: 05/22/18 22:22 Dose: 650 mg Al Hydroxide/Mg Hydroxide (Milk Of Yolande Denson) 30 ml PO Q12H PRN PRN Reason: Mild Constipation Aspirin (Ecotrin) 81 mg PO DAILY [facility] Last Admin: 05/22/18 08:53 Dose: 81 mg Atenolol (Tenormin) 100 mg PO DAILY [facility] Last Admin: 05/22/18 08:52 Dose: 100 mg Atorvastatin Calcium (Lipitor) 20 mg PO DAILY [facility] Last Admin: 05/22/18 08:53 Dose: 20 mg Carbidopa/Levodopa (Sinemet Cr 50/200 Mg) 1 tab PO TID [facility] Last Admin: 05/22/18 18:25 Dose: 1 tab Dextrose (D50w Vial) 50 ml IV.PUSH UNSCH PRN PRN Reason: PER HYPOGLYCEMIA PROTOCOL Duloxetine HCl (Cymbalta) 30 mg PO DAILY [facility] Glucagon (Glucagon Inj) 1 mg OTHER PRN PRN PRN Reason: for Hypoglycemia Protocol Hydroxychloroquine Sulfate (Plaquenil) 200 mg PO BID [facility] Last Admin: 05/22/18 22:09 Dose: 200 mg Heparin Sodium/Dextrose (Heparin/D5w 25,000 U/250 Ml) 25,000 unit in 250 mls @ 10 mls/hr IV.CONT TITRATE PRN; Protocol PRN Reason: Per Protocol Last Admin: 05/22/18 22:11 Dose: 1,000 units/hr, 10 mls/hr Insulin Aspart (Novolog Insulin Correctional Sugar Inj) 0 unit SQ [facility]; Protocol Last Admin: 05/23/18 08:02 Dose: Not Given Levothyroxine Sodium (Synthroid) 150 mcg PO Q48H [facility] Last Admin: 05/23/18 06:32 Dose: 150 mcg Levothyroxine Sodium (Synthroid) 25 mcg PO Q48H [facility] Last Admin: 05/23/18 06:32 Dose: 25 mcg Losartan Potassium (Cozaar) 25 mg PO DAILY [facility] Last Admin: 05/22/18 08:52 Dose: 25 mg [facility] Last Admin: 05/22/18 18:25 Dose: 1,000 mg Mycophenolate Mofetil (Cellcept) 500 mg PO BID@0600,1800 [facility] Last Admin: 05/23/18 06:32 Dose: 500 mg Ondansetron HCl (Zofran Inj) 4 mg IV.PUSH Q6H PRN PRN Reason: NAUSEA OR VOMITING Pantoprazole Sodium (Protonix) 40 mg PO DAILY [facility] Last Admin: 05/22/18 08:53 Dose: 40 mg Pt Own (Entacapone [ Entacapone] 200 Mg) Tablet 1 each PO TID [facility] Prednisone (Deltasone) 2 mg PO DAILY [facility] Last Admin: 05/22/18 08:52 Dose: 2 mg Senna/Docusate Sodium (Brandy-Colace) 1 tab PO BID [facility] Last Admin: 05/22/18 22:09 Dose: Not Given Sodium Chloride (Ns Flush) 2 ml IV.FLUSH BID [facility] Last Admin: 05/22/18 22:09 Dose: Not Given Sodium Chloride (Ns Flush) 2 ml IV.FLUSH PRN PRN PRN Reason: FLUSH AFTER USING IV ACCESS Allergies Allergy/AdvReac Type Severity Reaction Status Date / Time hydralazine Allergy Severe BLOOD NOT Verified 12/01/17 17:38 CLOTTING, BP UP, MULTIPLE SYMPTOMS Home Medications Medication Instructions Recorded Confirmed Type aspirin [Aspir-81] 81 mg PO DAILY 05/21/18 05/21/18 History atenolol 100 mg PO DAILY 05/21/18 05/21/18 History atorvastatin 20 mg PO DAILY 05/21/18 05/21/18 History calcium carbonate-vitamin D3 1 tab PO DAILY 05/21/18 05/21/18 History carbidopa-levodopa [Sinemet CR] 1 tab PO TID 05/21/18 05/21/18 History cetirizine [Zyrtec] 10 mg PO DAILY 05/21/18 05/21/18 History cholecalciferol (vitamin D3) 1,000 unit PO DAILY 05/21/18 05/21/18 History [Vitamin D3] cyanocobalamin (vitamin B-12) 1,000 mcg PO DAILY 05/21/18 05/21/18 History [Vitamin B-12] duloxetine [Cymbalta] 30 mg PO DAILY 05/21/18 05/21/18 History duloxetine [Cymbalta] 60 mg PO DAILY 05/21/18 05/21/18 History empagliflozin [Jardiance] 10 mg PO DAILY 05/21/18 05/21/18 History entacapone 200 mg PO TID 05/21/18 05/21/18 History escitalopram oxalate 5 mg PO DAILY 05/21/18 05/21/18 History hydroxychloroquine [Plaquenil] 200 mg PO BID 05/21/18 05/21/18 History levothyroxine 150 mcg PO Q OTHER DAY 05/21/18 05/21/18 History levothyroxine 175 mcg PO EVERY OTHER DAY 05/21/18 05/21/18 History linagliptin [Tradjenta] 5 mg PO DAILY 05/21/18 05/21/18 History losartan 25 mg PO DAILY 05/21/18 05/21/18 History metformin 1,000 mg PO BID 05/21/18 05/21/18 History mycophenolate mofetil [CellCept] 500 mg PO BID 05/21/18 05/21/18 History pantoprazole 40 mg PO DAILY 05/21/18 05/21/18 History prednisone 2 mg PO DAILY 05/21/18 05/21/18 History pyridoxine (vitamin B6) [Vitamin 100 mg PO DAILY 05/21/18 05/21/18 History B-6] warfarin 5 mg PO DAILY 05/21/18 05/21/18 History Exam Vital signs: Vital Signs 05/22/18 12:00 05/22/18 16:00 05/22/18 20:00 Temperature 97.7 F 97.9 F 97.3 F L Pulse Rate 74 67 82 Respiratory Rate 20 20 19 Blood Pressure 94/53 L 98/60 L 112/75 Pulse Oximetry 99 94 L 100 05/23/18 00:00 05/23/18 04:00 05/23/18 08:00 Temperature 97.2 F L 97.8 F 97.9 F Pulse Rate 75 76 78 Respiratory Rate 16 16 18 Blood Pressure 114/62 99/44 L 113/66 Pulse Oximetry 100 96 95 Intake & Output 05/22/18 05/23/18 05/23/18 18:59 06:59 18:59 Intake Total 840 / 840 370 / 370 Balance 840 / 840 370 / 370 Weight 100.7 kg Intake: IV 250 / 250 Heparin/D5W 25,000 U/250 mL 25, 250 / 250 000 unit In 250 ml @ 1,000 UNITS/HR 10 mls/hr IV.CONT TITRATE PRN Rx#:[id number] Oral 840 / 840 Other 120 / 120 Other: # Voids 3 Date of Last Bowel Movement 05/21/18 05/21/18 # Bowel Movements 1 Results - Labs 05/24/18 05:18 05/24/18 05:18 Laboratory Results - last 24 hr 05/22/18 05/22/18 05/22/18 12:07 15:05 16:40 PT INR APTT 73.9 H POC Glucose 169 H 156 H 05/22/18 05/23/18 05/23/18 20:34 06:19 07:47 PT 24.4 H INR 2.4 APTT 68.5 H POC Glucose 168 H 142 H Assessment and Plan - Assessment (1) Ulcer, skin, non-healing Code(s): L98.499 - Non-pressure chronic ulcer of skin of other sites with unspecified severity Status: Acute - Plan Proceed with debridement of chronic necrotic abdominal wound with wound vac placement tomorrow as planned. Heparin drip will be stopped Sunday morning.
[2018-05-23] MEDS: predniSONE 1 MG Tablet PO SCH (09:56)
[2018-05-23] MEDS: Senna/Docusate Sodium 8.6/50 MG Tablet PO SCH ×2 (09:57→20:45)
[2018-05-23] MEDS: Hydroxychloroquine 200 MG Tablet PO SCH ×2 (09:57→20:45)
[2018-05-23] MEDS: Atenolol 100 MG Tablet PO SCH (09:57)
[2018-05-23] MEDS: Carbidopa/Levodopa CR 50/200 MG Tablet PO SCH ×3 (09:57→17:16)
[2018-05-23] MEDS ORDERED: Phytonadione 5 MG/SWFI 5 ML Oral Syringe PO ONE (10:00)
--- NOTE | 2018-05-23 17:13 | P.PNIM ---
Subjective Interval history: No new complaints. Physical Exam Vital signs: Last Vital Signs Temp 98.3 F 05/23/18 12:00 Pulse 78 05/23/18 12:00 Resp 17 05/23/18 12:00 BP 104/58 L 05/23/18 12:00 Pulse Ox 97 05/23/18 12:00 Narrative: GENERAL: This is a well-nourished, well-developed patient, in no apparent distress. CARDIOVASCULAR: Regular rate and rhythm without murmurs, gallops, or rubs. RESPIRATORY: Clear to auscultation. Breath sounds equal bilaterally. No wheezes , rales, or rhonchi. GASTROINTESTINAL: Abdomen soft, non-tender, nondistended. Normal active bowel sounds MUSCULOSKELETAL: Extremities without clubbing, cyanosis, or edema. NEURO: Alert & Oriented x4 to person, place, time, situation. Moves all ext x4 skin: large, skin ulcer at RLQ of abdomen, approximately 8cm diameter Results Labs CBC & Chem 7: 05/22/18 03:55 05/22/18 03:55 Assessment and Plan Assessment (1) Ulcer, skin, non-healing: Code(s): L98.499 - Non-pressure chronic ulcer of skin of other sites with unspecified severity Status: Acute Plan 1) non healing skin ulcer at RLQ abd - pt requires lifelong anticoagulation recurrent CVA/TIAs and substantial risk for further events - stop coumadin - INR elevated - vitamin K 5mg 05/22, 05/23 - repeat INR in AM - stop heparin - case d/w General Surgery 05/23, Dr. Alonso - Pt to undergo surgical revision of nonhealing skin ulcer 05/24 if INR improved 2) antiphospholipid syndrome - anticoagularion 3) Lupus/Vasulitis - continue cellcept, prednisone 4) DM2 - continue metformin - SSI - monitor blood sugars 5) HTN, essential - atenolol Progress Note: Quality VTE Deep Vein Thrombosis/Pulmonary Embolism Present on Admission: No _ (1) Ulcer, skin, non-healing Qualifiers: Non-pressure ulcer stage:
[2018-05-23 18:16] LABS: INR 1.7 Ratio
[2018-05-24 07:15] LABS: Baso % (Auto) 0.3 % (0.0-2.0); Eos # (Auto) 0.1 th/mm3 (0.0-0.4); Eos % (Auto) 1.9 % (0.0-4.0); Hematocrit 29.4 % (35.0-46.0); Hemoglobin 9.6 gm/dL (11.6-15.3); Lymph # (Auto) 1.1 th/mm3 (1.0-4.8); Lymph % (Auto) 23.3 % (9.0-44.0); Mean Corpuscular HGB Conc 32.6 % (32.0-36.0); Mean Corpuscular Hemoglobin 27.6 pg (27.0-34.0); Mean Corpuscular Volume 84.6 fL (80.0-100.0); Mono # (Auto) 0.3 th/mm3 (0.0-0.9); Mono % (Auto) 6.7 % (0.0-8.0); Neut # (Auto) 3.2 th/mm3 (1.8-7.7); Neut % (Auto) 67.8 % (16.0-70.0); Platelet Count 102 th/mm3 (150-450); Red Blood Count 3.47 mil/mm3 (4.00-5.30); Red Cell Distribution Width 17.6 % (11.6-17.2); White Blood Count 4.8 th/mm3 (4.0-11.0)
[2018-05-24 07:17] LABS: Activated Partial Thrombo Time 61.1 sec (23.4-31.7); INR 1.3 Ratio; Prothrombin Time 13.4 sec (9.8-11.6)
[2018-05-24 07:32] LABS: Calcium 8.6 mg/dL (8.5-10.1); Carbon Dioxide 22.3 meq/L (21.0-32.0); Potassium 3.8 meq/L (3.5-5.1)
[2018-05-24] MEDS: Insulin NovoLOG Aspart Correctional Sugar Inj SQ SCH ×4 (07:52→21:06)
[2018-05-24] MEDS: Atenolol 100 MG Tablet PO SCH (09:42)
[2018-05-24] MEDS: predniSONE 1 MG Tablet PO SCH (09:42)
[2018-05-24] MEDS: Carbidopa/Levodopa CR 50/200 MG Tablet PO SCH ×3 (09:42→17:45)
[2018-05-24] MEDS: Hydroxychloroquine 200 MG Tablet PO SCH ×2 (09:42→21:15)
[2018-05-24] MEDS: Senna/Docusate Sodium 8.6/50 MG Tablet PO SCH ×2 (09:43→21:16)
[2018-05-24] MEDS ORDERED: Lidocaine PF 1% Inj 5 ML Syringe OTHER ONE (15:16)
--- NOTE | 2018-05-24 15:50 | P.PNIM ---
Subjective Interval history: Unable to see the pt today as she was in surgery when rounding. Physical Exam Vital signs: Last Vital Signs Temp 97.9 F 05/24/18 12:00 Pulse 81 05/24/18 12:00 Resp 18 05/24/18 12:00 BP 115/67 05/24/18 12:00 Pulse Ox 96 05/24/18 12:00 Results Labs CBC & Chem 7: 05/24/18 05:18 05/24/18 05:18 Assessment and Plan Assessment (1) Ulcer, skin, non-healing: Code(s): L98.499 - Non-pressure chronic ulcer of skin of other sites with unspecified severity Status: Acute Plan 1) non healing skin ulcer at RLQ abd - pt requires lifelong anticoagulation recurrent CVA/TIAs and substantial risk for further events - stop Coumadin - vitamin K 5mg 05/22, 05/23 - INR 1.3 on 05/24 - case d/w General Surgery 05/23, Dr. Alonso - Pt undergoing surgical revision of nonhealing skin ulcer 05/24. Pt is to be resumed on Heparin after surgery 2) antiphospholipid syndrome - anti-coagularion 3) Lupus/Vasulitis - continue cellcept, prednisone 4) DM2 - continue metformin - SSI - monitor blood sugars 5) HTN, essential - atenolol Progress Note: Quality VTE Deep Vein Thrombosis/Pulmonary Embolism Present on Admission: No _ (1) Ulcer, skin, non-healing Qualifiers: Non-pressure ulcer stage:
--- NOTE | 2018-05-24 16:08 | P.OP ---
- Preoperative Diagnosis (1) Ulcer, skin, chronic - Postoperative Diagnosis (1) Ulcer, skin, chronic Date of procedure: 05/24/18 Procedure: Debridement of skin and subcutaneous tissue 12x8 cm in right lower abdomen with placement of wound vac Anesthesia: GETA (general lma) Surgeon: Mynor Alonso MD Edge Drummer: Myron ELKINS Estimated blood loss (mL): 5 Pathology: other (tissue for culture) Operation and Findings: Operative findings: Chronic right lower quadrant abdominal wound which is nonhealing. Necrotic skin and subcutaneous tissue over 12 x 8 cm area. Procedure in detail: The patient was taken to the operating room placed in supine position. General anesthesia was induced. The abdomen is prepped and draped in usual sterile fashion and a surgical timeout was performed to verify correct patient procedure and site. An incision was made around the right lower quadrant nonhealing wound including the skin edges. Fat was debrided back to bleeding healthy appearing tissue. Hemostasis was achieved. The area was irrigated with 1 L of normal saline. Tissue was sent for culture. A medium -sized wound VAC sponge was cut to size and placed with good seal. Was placed to low intensity -125 mmHg of suction. The patient tolerated the procedure well.
[2018-05-24] MEDS ORDERED: *morphine SULFATE 4 MG/ML PERIprocedure ONLY ONE (16:29)
[2018-05-24] MEDS ORDERED: fentaNYL Citrate Inj 100 MCG/2 ML Ampul ONE (16:39)
[2018-05-24] MEDS ORDERED: ceFAZolin 2 GM Premix Inj 2 GM/50 ML PIGGYBACK IV.SIG ONE (17:11)
[2018-05-24] MEDS ORDERED: HYDROmorphone PF Inj 0.5 MG/0.5 ML Syringe IV.PUSH PRN (21:35)
[2018-05-24] MEDS: Heparin Drip 25,000 UNIT/250 ML BAG IV.CONT PRN (22:24)
[2018-05-25] MEDS: Levothyroxine 150 MCG Tablet PO SCH (06:45)
[2018-05-25] MEDS: Hydroxychloroquine 200 MG Tablet PO SCH ×2 (09:23→21:03)
[2018-05-25] MEDS: Atenolol 100 MG Tablet PO SCH (09:23)
[2018-05-25] MEDS: Insulin NovoLOG Aspart Correctional Sugar Inj SQ SCH ×4 (09:23→20:43)
[2018-05-25] MEDS: predniSONE 1 MG Tablet PO SCH (09:24)
[2018-05-25] MEDS: Carbidopa/Levodopa CR 50/200 MG Tablet PO SCH ×3 (09:24→17:15)
[2018-05-25] MEDS: Senna/Docusate Sodium 8.6/50 MG Tablet PO SCH ×2 (09:24→21:03)
--- NOTE | 2018-05-25 12:34 | P.PNIM ---
Subjective Interval history: Patient offers no new complaints/concerns resting comfotablly in bed Physical Exam Vital signs: Last Vital Signs Temp 97.9 F 05/25/18 12:00 Pulse 80 05/25/18 12:00 Resp 18 05/25/18 12:00 BP 122/57 L 05/25/18 12:00 Pulse Ox 98 05/25/18 12:00 Narrative: GENERAL: This is a well-nourished, well-developed patient, in no apparent distress. SKIN: wound vac to [facility] CARDIOVASCULAR: Regular rate and rhythm without murmurs, gallops, or rubs. RESPIRATORY: Clear to auscultation. Breath sounds equal bilaterally. No wheezes , rales, or rhonchi. GASTROINTESTINAL: Abdomen soft, non-tender, nondistended. Normal active bowel sounds MUSCULOSKELETAL: Extremities without clubbing, cyanosis, or edema. NEURO: Alert & Oriented x4 to person, place, time, situation. Moves all ext x4 Results Labs CBC & Chem 7: 05/24/18 05:18 05/24/18 05:18 Assessment and Plan Assessment (1) Ulcer, skin, non-healing: Code(s): L98.499 - Non-pressure chronic ulcer of skin of other sites with unspecified severity Status: Acute Plan 1) non healing skin ulcer at [facility] abd - pt requires lifelong anticoagulation recurrent CVA/TIAs and substantial risk for further events - stop Coumadin - vitamin K 5mg 05/22, 05/23 - INR 1.3 on 05/24 - case d/w General Surgery 05/23, Dr. Alonso - S/P Debridement of skin and subcutaneous tissue 12x8 cm in right lower abdomen with placement of wound vac on 05/24/[address] Alonso 2) antiphospholipid syndrome - anti-coagularion - currently on heparin drip - resume Coumadin at 7.5 mg PO daily - INR in AM 3) Lupus/Vasulitis - continue cellcept, prednisone 4) DM2 - continue metformin - SSI - monitor blood sugars 5) HTN, essential - atenolol CBC BMP and INR in AM Progress Note: Quality VTE Deep Vein Thrombosis/Pulmonary Embolism Present on Admission: No _ (1) Ulcer, skin, non-healing Qualifiers: Non-pressure ulcer stage:
[2018-05-25] MEDS: Heparin Drip 25,000 UNIT/250 ML BAG IV.CONT PRN (23:49)
[2018-05-26 06:54] LABS: Baso % (Auto) 0.3 % (0.0-2.0); Eos # (Auto) 0.1 th/mm3 (0.0-0.4); Eos % (Auto) 2.1 % (0.0-4.0); Hematocrit 25.5 % (35.0-46.0); Hemoglobin 8.3 gm/dL (11.6-15.3); Lymph # (Auto) 0.8 th/mm3 (1.0-4.8); Lymph % (Auto) 22.6 % (9.0-44.0); Mean Corpuscular HGB Conc 32.4 % (32.0-36.0); Mean Corpuscular Volume 83.5 fL (80.0-100.0); Mean Platelet Volume 7.8 fL (7.0-11.0); Mono # (Auto) 0.3 th/mm3 (0.0-0.9); Mono % (Auto) 8.8 % (0.0-8.0); Neut # (Auto) 2.3 th/mm3 (1.8-7.7); Neut % (Auto) 66.2 % (16.0-70.0); Platelet Count 75 th/mm3 (150-450); Red Blood Count 3.06 mil/mm3 (4.00-5.30); Red Cell Distribution Width 17.8 % (11.6-17.2); White Blood Count 3.5 th/mm3 (4.0-11.0)
[2018-05-26 07:20] LABS: Activated Partial Thrombo Time 63.7 sec (23.4-31.7); INR 1.2 Ratio; Prothrombin Time 11.7 sec (9.8-11.6)
[2018-05-26 07:25] LABS: Calcium 7.8 mg/dL (8.5-10.1); Carbon Dioxide 23.7 meq/L (21.0-32.0)
[2018-05-26] MEDS: Senna/Docusate Sodium 8.6/50 MG Tablet PO SCH ×2 (10:00→20:00)
[2018-05-26] MEDS: Atenolol 100 MG Tablet PO SCH (10:01)
[2018-05-26] MEDS: predniSONE 1 MG Tablet PO SCH (10:01)
[2018-05-26] MEDS: Carbidopa/Levodopa CR 50/200 MG Tablet PO SCH ×3 (10:01→17:45)
[2018-05-26] MEDS: Hydroxychloroquine 200 MG Tablet PO SCH ×2 (10:01→20:00)
[2018-05-26] MEDS: Insulin NovoLOG Aspart Correctional Sugar Inj SQ SCH ×4 (10:02→20:01)
[2018-05-26 11:37] LABS: Ovalocytes 1+; Tear Drop Cells 1+
[2018-05-26 11:38] LABS: Platelet Morphology Normal (Normal)
--- NOTE | 2018-05-26 15:17 | P.PNIM ---
Subjective Interval history: Patient offers no new concerns/complaints Physical Exam Vital signs: Last Vital Signs Temp 97.6 F 05/26/18 12:00 Pulse 70 05/26/18 12:00 Resp 18 05/26/18 12:00 BP 106/69 05/26/18 12:00 Pulse Ox 97 05/26/18 12:00 Narrative: GENERAL: This is a well-nourished, well-developed patient, in no apparent distress. SKIN: wound vac to [facility] CARDIOVASCULAR: Regular rate and rhythm without murmurs, gallops, or rubs. RESPIRATORY: Clear to auscultation. Breath sounds equal bilaterally. No wheezes , rales, or rhonchi. GASTROINTESTINAL: Abdomen soft, non-tender, nondistended. Normal active bowel sounds MUSCULOSKELETAL: Extremities without clubbing, cyanosis, or edema. NEURO: Alert & Oriented x4 to person, place, time, situation. Moves all ext x4 Results Labs CBC & Chem 7: 05/26/18 06:19 05/26/18 06:19 Assessment and Plan Assessment (1) Ulcer, skin, non-healing: Code(s): L98.499 - Non-pressure chronic ulcer of skin of other sites with unspecified severity Status: Acute Plan 1) non healing skin ulcer at [facility] abd - pt requires lifelong anticoagulation recurrent CVA/TIAs and substantial risk for further events - stop Coumadin - vitamin K 5mg 05/22, 05/23 - INR 1.3 on 05/24 - case d/w General Surgery 05/23, Dr. Alonso - S/P Debridement of skin and subcutaneous tissue 12x8 cm in right lower abdomen with placement of wound vac on 05/24/[address] Alonso 2) antiphospholipid syndrome - anti-coagulation - currently on heparin drip - resume Coumadin at 7.5 mg PO daily - INR (05/26) 1.2 - INR in AM - hgb 05/26 8.3 recheck in AM 3) Lupus/Vasulitis - continue cellcept, prednisone 4) DM2 - continue metformin - SSI - monitor blood sugars 5) HTN, essential - atenolol CBC BMP and INR in AM Progress Note: Quality VTE Deep Vein Thrombosis/Pulmonary Embolism Present on Admission: No _ (1) Ulcer, skin, non-healing Qualifiers: Non-pressure ulcer stage:
--- NOTE | 2018-05-26 15:19 | P.PNGS ---
Subjective Interval history: C/o pain at superior wound. Vac with good seal. INR 1.2. Physical Exam Vital signs: Vital Signs 05/25/18 16:00 05/25/18 20:00 05/26/18 00:00 Temperature 97.4 F L 97.8 F 97.6 F Pulse Rate 77 78 82 Respiratory Rate 18 18 18 Blood Pressure 123/64 105/65 110/70 Pulse Oximetry 98 98 98 05/26/18 04:00 05/26/18 08:00 05/26/18 12:00 Temperature 97.7 F 97.8 F 97.6 F Pulse Rate 82 72 70 Respiratory Rate 18 16 18 Blood Pressure 97/57 L 90/72 L 106/69 Pulse Oximetry 94 L 96 97 Intake & Output 05/25/18 05/26/18 05/26/18 18:59 06:59 18:59 Intake Total 960 / 960 250 / 250 Balance 960 / 960 250 / 250 Weight 101.3 kg Intake: IV 250 / 250 Heparin/D5W 25,000 U/250 mL 25, 250 / 250 000 unit In 250 ml @ 1,000 UNITS/HR 10 mls/hr IV.CONT TITRATE PRN Rx#:[id number] Oral 960 / 960 Other: # Voids 3 Date of Last Bowel Movement 05/24/18 Narrative: RLQ vac with good seal Results - Labs 05/26/18 06:19 05/26/18 06:19 Laboratory Results - last 24 hr 05/25/18 05/25/18 05/26/18 17:35 19:26 06:19 WBC RBC Hgb Hct MCV MCH MCHC RDW Plt Count MPV Prelim Diff (Auto) Neut % (Auto) Lymph % (Auto) [place] % (Auto) Eos % (Auto) Baso % (Auto) Neut # (Auto) Lymph # (Auto) [place] # (Auto) Eos # (Auto) Baso # (Auto) WBC Differential Diff Scan Differential Comment Platelet Estimate Platelet Morphology Tear Drop Cells Ovalocytes PT 11.7 H INR 1.2 APTT 63.7 H Sodium Potassium Chloride Carbon Dioxide Anion Gap BUN Creatinine Estimated GFR POC Glucose 116 H 118 H Random Glucose Calcium 05/26/18 05/26/18 05/26/18 06:19 06:19 07:59 WBC 3.5 L RBC 3.06 L Hgb 8.3 L Hct 25.5 L MCV 83.5 MCH 27.0 MCHC 32.4 RDW 17.8 H Plt Count 75 L MPV 7.8 Prelim Diff (Auto) Slide review pending Neut % (Auto) 66.2 Lymph % (Auto) 22.6 [place] % (Auto) 8.8 H Eos % (Auto) 2.1 Baso % (Auto) 0.3 Neut # (Auto) 2.3 Lymph # (Auto) 0.8 L [place] # (Auto) 0.3 Eos # (Auto) 0.1 Baso # (Auto) 0.0 WBC Differential . Diff Scan Auto diff confirmed Differential Comment . Platelet Estimate Low L Platelet Morphology Normal Tear Drop Cells 1+ H Ovalocytes 1+ H PT INR APTT Sodium 144 Potassium 4.0 Chloride 112 H Carbon Dioxide 23.7 Anion Gap 8 BUN 20 H Creatinine 1.05 H Estimated GFR 53 L POC Glucose 161 H Random Glucose 120 H Calcium 7.8 L 05/26/18 12:17 WBC RBC Hgb Hct MCV MCH MCHC RDW Plt Count MPV Prelim Diff (Auto) Neut % (Auto) Lymph % (Auto) [place] % (Auto) Eos % (Auto) Baso % (Auto) Neut # (Auto) Lymph # (Auto) [place] # (Auto) Eos # (Auto) Baso # (Auto) WBC Differential Diff Scan Differential Comment Platelet Estimate Platelet Morphology Tear Drop Cells Ovalocytes PT INR APTT Sodium Potassium Chloride Carbon Dioxide Anion Gap BUN Creatinine Estimated GFR POC Glucose 200 H Random Glucose Calcium Assessment and Plan - Assessment (1) Ulcer, skin, non-healing Code(s): L98.499 - Non-pressure chronic ulcer of skin of other sites with unspecified severity Status: Acute - Plan Request wound vac change tomorrow by wound care nurse. Dilaudid ordered for pain control prior.
[2018-05-27] MEDS: Heparin Drip 25,000 UNIT/250 ML BAG IV.CONT PRN (00:34)
[2018-05-27] MEDS: Levothyroxine 150 MCG Tablet PO SCH (05:14)
[2018-05-27 08:49] LABS: Baso % (Auto) 0.2 % (0.0-2.0); Eos # (Auto) 0.1 th/mm3 (0.0-0.4); Eos % (Auto) 1.7 % (0.0-4.0); Hematocrit 26.9 % (35.0-46.0); Hemoglobin 8.7 gm/dL (11.6-15.3); Lymph # (Auto) 0.8 th/mm3 (1.0-4.8); Lymph % (Auto) 20.5 % (9.0-44.0); Mean Corpuscular HGB Conc 32.4 % (32.0-36.0); Mean Corpuscular Hemoglobin 27.6 pg (27.0-34.0); Mean Corpuscular Volume 85.4 fL (80.0-100.0); Mean Platelet Volume 8.3 fL (7.0-11.0); Mono # (Auto) 0.3 th/mm3 (0.0-0.9); Mono % (Auto) 9.2 % (0.0-8.0); Neut # (Auto) 2.6 th/mm3 (1.8-7.7); Neut % (Auto) 68.4 % (16.0-70.0); Platelet Count 72 th/mm3 (150-450); Red Blood Count 3.15 mil/mm3 (4.00-5.30); Red Cell Distribution Width 17.9 % (11.6-17.2); White Blood Count 3.8 th/mm3 (4.0-11.0)
[2018-05-27 08:52] LABS: Activated Partial Thrombo Time 64.8 sec (23.4-31.7); INR 1.2 Ratio; Prothrombin Time 12.6 sec (9.8-11.6)
[2018-05-27 09:18] LABS: Calcium 8.7 mg/dL (8.5-10.1); Carbon Dioxide 23.9 meq/L (21.0-32.0); Potassium 4.3 meq/L (3.5-5.1)
--- NOTE | 2018-05-27 09:32 | P.PNSTU ---
Subjective - Remarks Ms. Gardner is lying comfortably in bed eating breakfast. Complains of "nausea off/on since yesterday morning after taking the pain medicine." She also says her wound is sore and painful. Other than that, the patient feels fine and denies shortness of breath or chest pain. The patient is aware that the wound vac will be changed sometime today. Leah Job, MS3 Objective Vital Signs: Vital Signs 05/26/18 12:00 05/26/18 16:00 05/26/18 20:00 Temperature 97.6 F 97.8 F 97.9 F Pulse Rate 70 74 72 Respiratory Rate 18 18 18 Blood Pressure 106/69 109/67 95/63 L Pulse Oximetry 97 97 98 05/27/18 00:00 05/27/18 04:00 05/27/18 08:00 Temperature 97.8 F 98.0 F 98.2 F Pulse Rate 70 70 76 Respiratory Rate 18 18 Blood Pressure 98/61 L 96/59 L 111/64 Pulse Oximetry 99 97 Intake & Output 05/26/18 05/27/18 05/27/18 18:59 06:59 18:59 Intake Total 480 / 480 725.3 / 725.3 Balance 480 / 480 725.3 / 725.3 Weight 99.3 kg Intake: IV 245.3 / 245.3 Heparin/D5W 25,000 U/250 mL 25, 245.3 / 245.3 000 unit In 250 ml @ 1,000 UNITS/HR 10 mls/hr IV.CONT TITRATE PRN Rx#:[id number] Oral 480 / 480 480 / 480 Other: # Voids 4 1 Date of Last Bowel Movement 05/25/18 Result Diagrams: 05/27/18 07:13 05/27/18 07:43 Medications and IVs: Active Medications Acetaminophen (Tylenol) 650 mg PO Q4H PRN PRN Reason: Temp > 100.4 Last Admin: 05/22/18 22:22 Dose: 650 mg Hydrocodone Bitart/Acetaminophen (Peralta 5/325) 1 tab PO Q4H PRN PRN Reason: PAIN SCALE 1 TO 5 Last Admin: 05/26/18 15:27 Dose: 1 tab Al Hydroxide/Mg Hydroxide (Milk Of Magnesia Liq) 30 ml PO Q12H PRN PRN Reason: Mild Constipation Aspirin (Ecotrin) 81 mg PO DAILY [facility] Last Admin: 05/26/18 10:00 Dose: 81 mg Atenolol (Tenormin) 100 mg PO DAILY [facility] Last Admin: 05/26/18 10:01 Dose: 100 mg Atorvastatin Calcium (Lipitor) 20 mg PO DAILY [facility] Last Admin: 05/26/18 10:00 Dose: 20 mg Carbidopa/Levodopa (Sinemet Cr 50/200 Mg) 1 tab PO TID [facility] Last Admin: 05/26/18 17:45 Dose: 1 tab Dextrose (D50w Vial) 50 ml IV.PUSH UNSCH PRN PRN Reason: PER HYPOGLYCEMIA PROTOCOL Duloxetine HCl (Cymbalta) 30 mg PO DAILY [facility] Last Admin: 05/26/18 10:02 Dose: 30 mg Glucagon (Glucagon Inj) 1 mg OTHER PRN PRN PRN Reason: for Hypoglycemia Protocol Hydromorphone HCl (Dilaudid Pf Inj) 0.5 mg IV.PUSH Q4H PRN PRN Reason: PAIN SCALE 6 TO 10 Last Admin: 05/24/18 22:23 Dose: 0.5 mg Hydromorphone HCl (Dilaudid Pf Inj) 0.5 mg IV.PUSH ONCE PRN PRN Reason: FOR WOUND VAC CHANGE PAIN 1-10 Hydroxychloroquine Sulfate (Plaquenil) 200 mg PO BID [facility] Last Admin: 05/26/18 20:00 Dose: 200 mg Heparin Sodium/Dextrose (Heparin/D5w 25,000 U/250 Ml) 25,000 unit in 250 mls @ 10 mls/hr IV.CONT TITRATE PRN; Protocol PRN Reason: Per Protocol Last Admin: 05/27/18 00:34 Dose: 1,000 units/hr, 10 mls/hr Insulin Aspart (Novolog Insulin Correctional Sugar Inj) 0 unit SQ ACHS [facility]; Protocol Last Admin: 05/26/18 20:01 Dose: Not Given Levothyroxine Sodium (Synthroid) 150 mcg PO Q48H [facility] Last Admin: 05/27/18 05:14 Dose: 150 mcg Levothyroxine Sodium (Synthroid) 25 mcg PO Q48H [facility] Last Admin: 05/27/18 05:14 Dose: 25 mcg Losartan Potassium (Cozaar) 25 mg PO DAILY [facility] Last Admin: 05/26/18 10:00 Dose: 25 mg Metformin HCl (Glucophage) 1,000 mg PO BIDPC [facility] Last Admin: 05/26/18 17:44 Dose: 1,000 mg Mycophenolate Mofetil (Cellcept) 500 mg PO BID@0600,1800 [facility] Last Admin: 05/27/18 05:14 Dose: 500 mg Ondansetron HCl (Zofran Inj) 4 mg IV.PUSH Q6H PRN PRN Reason: NAUSEA OR VOMITING Last Admin: 05/27/18 05:16 Dose: 4 mg Pantoprazole Sodium (Protonix) 40 mg PO DAILY [facility] Last Admin: 05/26/18 10:01 Dose: 40 mg Pt Own (Entacapone [ Entacapone] 200 Mg) Tablet 1 each PO TID [facility] Prednisone (Deltasone) 2 mg PO DAILY [facility] Last Admin: 05/26/18 10:01 Dose: 2 mg Senna/Docusate Sodium (Brandy-Colace) 1 tab PO BID [facility] Last Admin: 05/26/18 20:00 Dose: 1 tab Sodium Chloride (Ns Flush) 2 ml IV.FLUSH BID [facility] Last Admin: 05/26/18 20:00 Dose: Not Given Sodium Chloride (Ns Flush) 2 ml IV.FLUSH PRN PRN PRN Reason: FLUSH AFTER USING IV ACCESS Warfarin Sodium (Coumadin) 7.5 mg PO DAILY@1600 [facility] Last Admin: 05/26/18 15:27 Dose: 7.5 mg Objective Remarks: The wound vac appears to be sealed well. There is erythema on the borders of the wound vac. Leah Kaiser, MS3
[2018-05-27] MEDS: Insulin NovoLOG Aspart Correctional Sugar Inj SQ SCH ×4 (09:33→22:06)
[2018-05-27] MEDS: predniSONE 1 MG Tablet PO SCH (09:33)
[2018-05-27] MEDS: Atenolol 100 MG Tablet PO SCH (09:34)
[2018-05-27] MEDS: Hydroxychloroquine 200 MG Tablet PO SCH ×2 (09:34→22:06)
[2018-05-27] MEDS: Senna/Docusate Sodium 8.6/50 MG Tablet PO SCH ×2 (09:35→22:06)
[2018-05-27] MEDS: Carbidopa/Levodopa CR 50/200 MG Tablet PO SCH ×3 (09:35→17:37)
[2018-05-27 09:40] LABS: Ovalocytes 1+; Platelet Morphology Normal (Normal); Tear Drop Cells 1+
--- NOTE | 2018-05-27 09:55 | P.PNIM ---
Subjective Interval history: Patient resting in bed in NAD reports episode of nausea yesterday last BM 2-3 days ago, positive flatus Physical Exam Vital signs: Last Vital Signs Temp 98.2 F 05/27/18 08:00 Pulse 76 05/27/18 08:00 Resp 18 05/27/18 08:00 BP 111/64 05/27/18 08:00 Pulse Ox 97 05/27/18 04:00 Narrative: GENERAL: This is a well-nourished, well-developed patient, in no apparent distress. SKIN: wound vac to RLQ CARDIOVASCULAR: Regular rate and rhythm RESPIRATORY: Clear to auscultation. Breath sounds equal bilaterally. GASTROINTESTINAL: Abdomen soft, non-tender, nondistended. Normal active bowel sounds MUSCULOSKELETAL: Extremities without clubbing, cyanosis, or edema. NEURO: Alert & Oriented x4 to person, place, time, situation. Moves all ext x4 Results Labs CBC & Chem 7: 05/27/18 07:13 05/27/18 07:43 Assessment and Plan Assessment (1) Ulcer, skin, non-healing: Code(s): L98.499 - Non-pressure chronic ulcer of skin of other sites with unspecified severity Status: Acute Plan non healing skin ulcer at RLQ abd - pt requires lifelong anticoagulation recurrent CVA/TIAs and substantial risk for further events - stop Coumadin - vitamin K 5mg 05/22, 05/23 - INR 1.3 on 05/24 - case d/w General Surgery 05/23, Dr. Alonso - S/P Debridement of skin and subcutaneous tissue 12x8 cm in right lower abdomen with placement of wound vac on 05/24/[address] Alonso - Plan for wound care nurse to change wound vac today antiphospholipid syndrome - anti-coagulation - currently on heparin drip - resume Coumadin at 7.5 mg PO daily - INR (05/26) 1.2 -> 1.2 (05/27) - INR in AM - hgb 05/26 8.3 -> 8.7 (05/27) Lupus/Vasulitis - continue cellcept, prednisone DM2 - continue metformin - SSI - monitor blood sugars HTN, essential - atenolol Nausea Zofran as needed MOM continue bowel regmient CBC BMP and INR in AM Attending Attestation Patient examined. Assessment and plan formulated with Courtney GRIFFITHS I agree with the above. cont heparin/coumadin and dc when therapeutic wound vac change today with pain meds. Progress Note: Quality VTE Deep Vein Thrombosis/Pulmonary Embolism Present on Admission: No _ (1) Ulcer, skin, non-healing Qualifiers: Non-pressure ulcer stage:
--- NOTE | 2018-05-27 14:45 | P.PNWCN ---
Wound Care Nurse Consult Description: Received wound VAC management consult for R lower abdomen VAC change for today 05/27/2018 [address] Doctor Mynor Alonso. Communicated with: BELIA Alatorre [address] [place] [address] Recommendation: Please follow orders in place for VAC dressing changes from Doctor Gavin. Wound/Pressure Injury - Patient Status Premedicated for Pain Prior to Dressing Change: Yes - Wound Right Lower Abdomen Depth (cm): 0.5 Incision - Patient Status Premedicated for Pain Prior to Dressing Change: Yes - Incision Right Lower Abdomen Incision Assessment: Ongoing Incision Type: Incision Incision Description: Open Incision Bed Appearance: Red, Yellow Surrounding Tissue Appearance: [place] Surrounding Tissue Temperature: Cool Drainage Description: Serosanguinous Drainage Amount: Scant Drainage Odor: No Odor Incision Dressing Status: Changed Incision Cleaning Solution: Saline Incision Packing Type: Woundvac Sponge Primary Dressing: Negative Pressure Wound Dressing Cover Dressing: Transparent Incision Dressing Change Date: 05/27/18 - Additional Information Patient seen on [address] [place] [address] for wound VAC dressing change today. Removed wound VAC dressing in place to reveal open wound to R lower abdominal area. Wound presents with ~ 60% dull red granulation tissue and ~40% adipose tissue. Wound was cleansed with normal saline and patted dry. Applied Cavilon skin barrier film spray to periwound before applied VAC drape to window pane wound. Wound measures 2.2cm x 15.4cm x 2.6cm. There is undermining at 9 oclock measuring ~ 1cm and tunneling at 3 o'clock measuring 5.3cm. One strip of Black wound vac sponge was packed loosely in tunneled area. Applied second piece of black sponge on top of loosely packed strip. Secured dressing in place with VAC drape. Hole was cut in VAC drape to expose black sponge .Sensi trac pad was applied to exposed black VAC sponge with attached mushroom cap of black VAC sponge. Wound VAc was then started and is functioning properly with suction of 125mm/Hg low continuous suction. Patient tolerated procedure fairly.
[2018-05-27] MEDS ORDERED: HYDROmorphone PF Inj 0.5 MG/0.5 ML Syringe IV.PUSH PRN (15:17)
[2018-05-28] MEDS: Heparin Drip 25,000 UNIT/250 ML BAG IV.CONT PRN (01:44)
[2018-05-28 06:11] LABS: Activated Partial Thrombo Time 61.9 sec (23.4-31.7); INR 1.2 Ratio; Prothrombin Time 12.5 sec (9.8-11.6)
[2018-05-28] MEDS: Carbidopa/Levodopa CR 50/200 MG Tablet PO SCH ×3 (08:54→17:26)
[2018-05-28] MEDS: predniSONE 1 MG Tablet PO SCH (08:54)
[2018-05-28] MEDS: Atenolol 100 MG Tablet PO SCH (08:54)
[2018-05-28] MEDS: Senna/Docusate Sodium 8.6/50 MG Tablet PO SCH ×2 (08:55→21:00)
[2018-05-28] MEDS: Insulin NovoLOG Aspart Correctional Sugar Inj SQ SCH ×4 (08:55→20:59)
[2018-05-28] MEDS: Hydroxychloroquine 200 MG Tablet PO SCH ×2 (08:55→21:00)
--- NOTE | 2018-05-28 09:51 | P.PNIM ---
Subjective Interval history: looks less painful Physical Exam Vital signs: Last Vital Signs Temp 97.9 F 05/28/18 08:00 Pulse 75 05/28/18 08:00 Resp 18 05/28/18 08:00 BP 127/56 L 05/28/18 08:00 Pulse Ox 97 05/28/18 08:00 Narrative: heart reg lung cta abd woundvac ext no edema Results Labs CBC & Chem 7: 05/27/18 07:13 05/27/18 07:43 Assessment and Plan Assessment (1) Ulcer, skin, non-healing: Code(s): L98.499 - Non-pressure chronic ulcer of skin of other sites with unspecified severity Status: Acute Plan non healing skin ulcer at RLQ abd. related to lovenox injections - pt requires lifelong anticoagulation recurrent CVA/TIAs and substantial risk for further events - stop Coumadin - vitamin K 5mg 05/22, 05/23 - INR 1.3 on 05/24 - case d/w General Surgery 05/23, Dr. Alonso - S/P Debridement of skin and subcutaneous tissue 12x8 cm in right lower abdomen with placement of wound vac on 05/24/[address] Alonso -wound vac change M/W/F and f/u wound clinic antiphospholipid syndrome - anti-coagulation - currently on heparin drip - resume Coumadin at 7.5 mg PO daily inr still 1.2 plan for dc home once inr therapeutic Lupus/Vasulitis - continue cellcept, prednisone DM2 - continue metformin - SSI - monitor blood sugars HTN, essential - atenolol Progress Note: Quality VTE Deep Vein Thrombosis/Pulmonary Embolism Present on Admission: No _ (1) Ulcer, skin, non-healing Qualifiers: Non-pressure ulcer stage:
[2018-05-29] MEDS: Heparin Drip 25,000 UNIT/250 ML BAG IV.CONT PRN (03:25)
[2018-05-29] MEDS: Levothyroxine 150 MCG Tablet PO SCH (05:29)
[2018-05-29 07:50] LABS: INR 1.5 Ratio; Prothrombin Time 15.4 sec (9.8-11.6)
[2018-05-29] MEDS: Insulin NovoLOG Aspart Correctional Sugar Inj SQ SCH ×4 (09:27→20:34)
[2018-05-29] MEDS: Senna/Docusate Sodium 8.6/50 MG Tablet PO SCH ×2 (09:28→21:22)
[2018-05-29] MEDS: predniSONE 1 MG Tablet PO SCH (09:28)
[2018-05-29] MEDS: Hydroxychloroquine 200 MG Tablet PO SCH ×2 (09:28→21:22)
[2018-05-29] MEDS: Atenolol 100 MG Tablet PO SCH (09:28)
[2018-05-29] MEDS: Carbidopa/Levodopa CR 50/200 MG Tablet PO SCH ×3 (09:28→18:12)
--- NOTE | 2018-05-29 10:12 | P.PNIM ---
Subjective Interval history: doing ok. no complaints. Physical Exam Vital signs: Last Vital Signs Temp 98.3 F 05/29/18 08:00 Pulse 74 05/29/18 08:00 Resp 18 05/29/18 08:00 BP 103/65 05/29/18 08:00 Pulse Ox 97 05/29/18 08:00 Narrative: heart reg lung cta abd woundvac ext no edema Results Labs CBC & Chem 7: 05/27/18 07:13 05/27/18 07:43 Assessment and Plan Assessment (1) Ulcer, skin, non-healing: Code(s): L98.499 - Non-pressure chronic ulcer of skin of other sites with unspecified severity Status: Acute Plan non healing skin ulcer at RLQ abd. related to lovenox injections - pt requires lifelong anticoagulation recurrent CVA/TIAs and substantial risk for further events - stop Coumadin - vitamin K 5mg 05/22, 05/23 - INR 1.3 on 05/24 - case d/w General Surgery 05/23, Dr. Alonso - S/P Debridement of skin and subcutaneous tissue 12x8 cm in right lower abdomen with placement of wound vac on 05/24/[address] Alonso -wound vac change M/W/F and f/u wound clinic -discussed afb growth with dR Alonso. wound never really looked infected and the area was thoroughly debrided anyway. no evidence for infection clinically and so no antimicrobials warranted at this time. dc once inr therapeutic. antiphospholipid syndrome - anti-coagulation - currently on heparin drip - Coumadin at 7.5 mg PO daily inr 1.5 plan for dc home once inr therapeutic Lupus/Vasulitis - continue cellcept, prednisone DM2 - continue metformin - SSI - monitor blood sugars HTN, essential - atenolol Progress Note: Quality VTE Deep Vein Thrombosis/Pulmonary Embolism Present on Admission: No _ (1) Ulcer, skin, non-healing Qualifiers: Non-pressure ulcer stage:
[2018-05-29] MEDS: HYDROmorphone PF Inj 0.5 MG/0.5 ML Syringe IV.PUSH PRN (15:20)
[2018-05-30] MEDS: Heparin Drip 25,000 UNIT/250 ML BAG IV.CONT PRN (03:31)
[2018-05-30 07:47] LABS: INR 1.7 Ratio; Prothrombin Time 17.2 sec (9.8-11.6)
[2018-05-30] MEDS: Insulin NovoLOG Aspart Correctional Sugar Inj SQ SCH ×4 (08:32→21:53)
[2018-05-30] MEDS: Senna/Docusate Sodium 8.6/50 MG Tablet PO SCH ×2 (08:34→20:09)
[2018-05-30] MEDS: predniSONE 1 MG Tablet PO SCH (08:35)
[2018-05-30] MEDS: Atenolol 100 MG Tablet PO SCH (08:35)
[2018-05-30] MEDS: Carbidopa/Levodopa CR 50/200 MG Tablet PO SCH ×3 (08:35→17:20)
[2018-05-30] MEDS: Hydroxychloroquine 200 MG Tablet PO SCH ×2 (08:35→20:09)
--- NOTE | 2018-05-30 12:37 | P.PNIM ---
Subjective Interval history: no complaints. Physical Exam Vital signs: Last Vital Signs Temp 98.2 F 05/30/18 08:00 Pulse 74 05/30/18 08:00 Resp 13 05/30/18 08:00 BP 97/65 L 05/30/18 08:00 Pulse Ox 98 05/30/18 08:00 Narrative: heart reg lung cta abd woundvac ext no edema Results Labs CBC & Chem 7: 05/27/18 07:13 05/27/18 07:43 Assessment and Plan Assessment (1) Ulcer, skin, non-healing: Code(s): L98.499 - Non-pressure chronic ulcer of skin of other sites with unspecified severity Status: Acute Plan non healing skin ulcer at RLQ abd. related to lovenox injections - pt requires lifelong anticoagulation recurrent CVA/TIAs and substantial risk for further events - stop Coumadin - vitamin K 5mg 05/22, 05/23 - INR 1.3 on 05/24 - case d/w General Surgery 05/23, Dr. Alonso - S/P Debridement of skin and subcutaneous tissue 12x8 cm in right lower abdomen with placement of wound vac on 05/24/[address] Alonso -wound vac change M/W/F and f/u wound clinic -discussed afb growth with dR Alonso. wound never really looked infected and the area was thoroughly debrided anyway. no evidence for infection clinically and so no antimicrobials warranted at this time. dc once inr therapeutic. 1.7 today antiphospholipid syndrome - anti-coagulation - currently on heparin drip - Coumadin at 7.5 mg PO daily i Lupus/Vasulitis - continue cellcept, prednisone DM2 - continue metformin - SSI - monitor blood sugars HTN, essential - atenolol Progress Note: Quality VTE Deep Vein Thrombosis/Pulmonary Embolism Present on Admission: No _ (1) Ulcer, skin, non-healing Qualifiers: Non-pressure ulcer stage:
[2018-05-31] MEDS: Levothyroxine 150 MCG Tablet PO SCH (05:16)
[2018-05-31 07:05] LABS: Activated Partial Thrombo Time 64.8 sec (23.4-31.7); INR 1.8 Ratio; Prothrombin Time 18.7 sec (9.8-11.6)
[2018-05-31] MEDS: Hydroxychloroquine 200 MG Tablet PO SCH ×2 (08:29→20:07)
[2018-05-31] MEDS: predniSONE 1 MG Tablet PO SCH (08:29)
[2018-05-31] MEDS: Insulin NovoLOG Aspart Correctional Sugar Inj SQ SCH ×4 (08:30→20:08)
[2018-05-31] MEDS: Senna/Docusate Sodium 8.6/50 MG Tablet PO SCH ×2 (08:30→20:13)
[2018-05-31] MEDS: Atenolol 100 MG Tablet PO SCH (08:30)
[2018-05-31] MEDS: Carbidopa/Levodopa CR 50/200 MG Tablet PO SCH ×3 (08:35→17:33)
[2018-05-31] MEDS: Heparin Drip 25,000 UNIT/250 ML BAG IV.CONT PRN (09:36)
--- NOTE | 2018-05-31 10:40 | P.PNIM ---
Subjective Interval history: pt w/out any new complaints Physical Exam Vital signs: Last Vital Signs Temp 97.9 F 05/31/18 08:00 Pulse 75 05/31/18 08:00 Resp 19 05/31/18 08:00 BP 137/61 05/31/18 08:00 Pulse Ox 97 05/31/18 08:00 Narrative: heart reg lung cta abd woundvac ext no edema Results Labs CBC & Chem 7: 05/27/18 07:13 05/27/18 07:43 Assessment and Plan Assessment (1) Ulcer, skin, non-healing: Code(s): L98.499 - Non-pressure chronic ulcer of skin of other sites with unspecified severity Status: Acute Plan non healing skin ulcer at RLQ abd. related to lovenox injections - pt requires lifelong anticoagulation recurrent CVA/TIAs and substantial risk for further events - stop Coumadin - vitamin K 5mg 05/22, 05/23 - INR 1.3 on 05/24 - case d/w General Surgery 05/23, Dr. Alonso - S/P Debridement of skin and subcutaneous tissue 12x8 cm in right lower abdomen with placement of wound vac on 05/24/[address] Alonso -wound vac change M/W/F and f/u wound clinic -discussed afb growth with dR Alonso. wound never really looked infected and the area was thoroughly debrided anyway. no evidence for infection clinically and so no antimicrobials warranted at this time. dc once inr therapeutic. inr 1.8 today. plan for dc over weekend with [facility] wound vac changes. next one today then Sunday. antiphospholipid syndrome - anti-coagulation - currently on heparin drip - Coumadin at 7.5 mg PO daily i Lupus/Vasulitis - continue cellcept, prednisone DM2 - continue metformin - SSI - monitor blood sugars HTN, essential - atenolol Progress Note: Quality VTE Deep Vein Thrombosis/Pulmonary Embolism Present on Admission: No _ (1) Ulcer, skin, non-healing Qualifiers: Non-pressure ulcer stage:
--- NOTE | 2018-05-31 14:04 | P.PNWCN ---
Wound Care Nurse Consult Additional information: Spoke with Montse Camarillo RN 4 killen about routine VAC dressing change on patient. Floor nurse is to do routine non complicated VAC dressing changes.
[2018-05-31] MEDS: HYDROmorphone PF Inj 0.5 MG/0.5 ML Syringe IV.PUSH PRN (15:45)
[2018-06-01] MEDS: Senna/Docusate Sodium 8.6/50 MG Tablet PO SCH ×2 (09:19→21:25)
[2018-06-01] MEDS: Hydroxychloroquine 200 MG Tablet PO SCH ×2 (09:19→21:25)
[2018-06-01] MEDS: Atenolol 100 MG Tablet PO SCH (09:21)
[2018-06-01] MEDS: predniSONE 1 MG Tablet PO SCH (09:21)
[2018-06-01] MEDS: Carbidopa/Levodopa CR 50/200 MG Tablet PO SCH ×3 (09:21→18:57)
[2018-06-01] MEDS: Insulin NovoLOG Aspart Correctional Sugar Inj SQ SCH ×4 (09:22→20:32)
[2018-06-01 10:37] LABS: INR 2.4 Ratio; Prothrombin Time 23.9 sec (9.8-11.6)
--- NOTE | 2018-06-01 11:38 | P.DCO ---
Diagnosis (1) Ulcer, skin, non-healing: Status: Acute Physical Therapy Order: Evaluate and treat Home Health Nursing Order: Medical education, Signs/symptoms of disease process and Nursing assessment with vital signs Instructions: abdomen wound vac changes M/W/F call dr Mynor Alonso CP gen. surgery with any questions regarding her wound. Case Management Consult Case Management Consult-Home Health: Yes I have seen patient Charles Gardner on 06/01/18. My clinical findings support the need for the requested home health care services because: I certify that my clinical findings support that this patient is homebound because: _ (1) Ulcer, skin, non-healing Qualifiers: Non-pressure ulcer stage:
--- NOTE | 2018-06-01 11:41 | P.PNIM ---
Subjective Interval history: nervous about dc home and wound vac changes Physical Exam Vital signs: Last Vital Signs Temp 97.4 F L 06/01/18 08:00 Pulse 70 06/01/18 08:00 Resp 18 06/01/18 08:00 BP 127/59 L 06/01/18 08:00 Pulse Ox 100 06/01/18 08:00 Narrative: heart reg lung cta abd woundvac ext no edema Results Labs CBC & Chem 7: 05/27/18 07:13 05/27/18 07:43 Assessment and Plan Assessment (1) Ulcer, skin, non-healing: Code(s): L98.499 - Non-pressure chronic ulcer of skin of other sites with unspecified severity Status: Acute Plan non healing skin ulcer at RLQ abd. related to lovenox injections - pt requires lifelong anticoagulation recurrent CVA/TIAs and substantial risk for further events - stop Coumadin - vitamin K 5mg 05/22, 05/23 - INR 1.3 on 05/24 - case d/w General Surgery 05/23, Dr. Alonso - S/P Debridement of skin and subcutaneous tissue 12x8 cm in right lower abdomen with placement of wound vac on 05/24/[address] Alonso -wound vac change M/W/F and f/u wound clinic -discussed afb growth with dR Alonso. wound never really looked infected and the area was thoroughly debrided anyway. no evidence for infection clinically and so no antimicrobials warranted at this time. dc once inr therapeutic. inr 2.4. stop heparin. plan for dc home in AM. check with cm for hhc arrangement and wound vac delivery. inr in AM. cont coumadin. antiphospholipid syndrome - anti-coagulation -stop heparin. cont coumadin. i Lupus/Vasulitis - continue cellcept, prednisone DM2 - continue metformin - SSI - monitor blood sugars HTN, essential - atenolol Progress Note: Quality VTE Deep Vein Thrombosis/Pulmonary Embolism Present on Admission: No _ (1) Ulcer, skin, non-healing Qualifiers: Non-pressure ulcer stage:
[2018-06-02 04:56] VITALS: O2SAT 99
[2018-06-02] MEDS: Levothyroxine 150 MCG Tablet PO SCH (05:16)
[2018-06-02 08:54] VITALS: BP 139/61; PULSE 65; RESP 18; TEMP 97.8
[2018-06-02 09:04] LABS: INR 2.6 Ratio; Prothrombin Time 26.1 sec (9.8-11.6)
[2018-06-02] MEDS: predniSONE 1 MG Tablet PO SCH (09:20)
[2018-06-02] MEDS: Insulin NovoLOG Aspart Correctional Sugar Inj SQ SCH (09:21)
[2018-06-02] MEDS: Hydroxychloroquine 200 MG Tablet PO SCH (09:22)
[2018-06-02] MEDS: Atenolol 100 MG Tablet PO SCH (09:22)
[2018-06-02] MEDS: Carbidopa/Levodopa CR 50/200 MG Tablet PO SCH (09:22)
[2018-06-02] MEDS: Senna/Docusate Sodium 8.6/50 MG Tablet PO SCH (09:22)
--- NOTE | 2018-06-02 10:04 | P.DS ---
DS: Providers Date of admission: 05/21/18 17:01 Primary care physician: Marcelo Welsh Consults: 05/22/18 18:04 Consult to General Surgery Routine Consulting Provider: Mynor Alonso Reason for Consultation: Abscess Notified:: Service Spoke with:: Ewelina Date Notified:: 05/22/18 Time Notified:: 18:08 Ordering Provider: CHASITY 05/24/18 09:19 HUB Only Consult Order Routine Consulting Provider: [facility] Brief History from admission: Pt is a 62 y/o F with multiple medical problems including antiphospholipid syndrome on chronic immunosuppression, lupus, vasculitis, recurrent TIAs/CVAs, DM2, and parkinsons on lifelong anticoagulation. Pt developed a chronic right lower extremity wound d/t lovenox injections. I was contacted by pt's General Surgeon, Dr. Cabrales. Pt's wound failed to resolve with conservative measures. Pt can NOT stop anticoagulation. Hospital admission deemed necessary to transition pt from coumadin to heparin therapy. Pt will then undergo surgical treatment for nonhealing abdominal wound. PMH: antiphospholipid syndrome on chronic immunosuppression, lupus, vasculitis, recurrent TIAs/CVAs, DM2, and parkinsons on lifelong anticoagulation PSH: - ovarian cystectomy - C/S - removal of malignant melanoma and grafting FHX: noncontributory SHX: - no tobacco, no etoh, no illicit drugs ALL: Hydralazine DS: Diagnosis Discharge Diagnosis (1) Ulcer, skin, non-healing: Status: Acute DS: Summary Plan non healing skin ulcer at RLQ abd. related to lovenox injections - pt requires lifelong anticoagulation recurrent CVA/TIAs and substantial risk for further events - held Coumadin - vitamin K 5mg 05/22, 05/23 - INR 1.3 on 05/24 - case d/w General Surgery 05/23, Dr. Alonso - S/P Debridement of skin and subcutaneous tissue 12x8 cm in right lower abdomen with placement of wound vac on 05/24/[address] Alonso -wound vac change M/W/F and f/u wound clinic -discussed afb growth with dR Alonso. wound never really looked infected and the area was thoroughly debrided anyway. no evidence for infection clinically and so no antimicrobials warranted at this time. inr 2.4 then 2.6. stopped heparin. dc today. [facility]. wound care. wound vac. pain script. f/u Dr Alonso. antiphospholipid syndrome - anti-coagulation -stop heparin. cont coumadin. i Lupus/Vasulitis - continue cellcept, prednisone DM2 - continue metformin - SSI - monitor blood sugars HTN, essential - atenolol Time Spent with Patient Total time spent providing and/or coordinating discharge services: Quality: VTE Deep Vein Thrombosis/Pulmonary Embolism Present on Admission: No Results Labs on day of discharge: Labs from last 24 hours 06/02/18 06/02/18 06/01/18 07:58 07:36 20:31 PT 26.1 H INR 2.6 APTT POC Glucose 99 116 H 06/01/18 06/01/18 06/01/18 18:15 12:46 09:27 PT INR APTT 70.4 H POC Glucose 89 122 H 06/01/18 09:27 PT 23.9 H INR 2.4 APTT POC Glucose Preliminary micro results at discharge 05/24/18 15:45 Fungal Culture - Preliminary Tissue - Abdominal No growth in 1 week 05/24/18 15:45 Mycobacterial Culture - Preliminary Tissue - Abdominal Discharge Plan Physicians Team Primary Care Provider: Marcelo Welsh Attending Provider: Bravo Guzman Other Providers: Mynor Alonso ; [facility] Rxs /Orders / Referrals /Forms Prescriptions: No Action cyanocobalamin (vitamin B-12) [Vitamin B-12] 1,000 mcg Tablet Extended Release 1,000 mcg PO DAILY RF: 0 levothyroxine 175 mcg Tablet 175 mcg PO EVERY OTHER DAY RF: 0 atorvastatin 20 mg Tablet 20 mg PO DAILY RF: 0 cetirizine [Zyrtec] 10 mg Tablet 10 mg PO DAILY RF: 0 atenolol 100 mg Tablet 100 mg PO DAILY RF: 0 carbidopa-levodopa [Sinemet CR] 50-200 mg Tablet Extended Release 1 tab PO TID RF: 0 aspirin [Aspir-81] 81 mg Tablet,Delayed Release (Dr/Ec) 81 mg PO DAILY RF: 0 mycophenolate mofetil [CellCept] 500 mg Tablet 500 mg PO BID RF: 0 entacapone 200 mg Tablet 200 mg PO TID RF: 0 prednisone 1 mg Tablet 2 mg PO DAILY RF: 0 pantoprazole 40 mg Tablet,Delayed Release (Dr/Ec) 40 mg PO DAILY RF: 0 warfarin 5 mg Tablet 5 mg PO DAILY RF: 0 levothyroxine 150 mcg Tablet 150 mcg PO Q OTHER DAY RF: 0 losartan 25 mg Tablet 25 mg PO DAILY RF: 0 pyridoxine (vitamin B6) [Vitamin B-6] 100 mg Tablet 100 mg PO DAILY RF: 0 hydroxychloroquine [Plaquenil] 200 mg Tablet 200 mg PO BID RF: 0 escitalopram oxalate 5 mg Tablet 5 mg PO DAILY RF: 0 metformin 1,000 mg Tablet Extended Release 24hr 1,000 mg PO BID RF: 0 duloxetine [Cymbalta] 30 mg Capsule,Delayed Release(Dr/Ec) 30 mg PO DAILY RF: 0 duloxetine [Cymbalta] 60 mg Capsule,Delayed Release(Dr/Ec) 60 mg PO DAILY RF: 0 cholecalciferol (vitamin D3) [Vitamin D3] 1,000 unit Tablet 1,000 unit PO DAILY RF: 0 linagliptin [Tradjenta] 5 mg Tablet 5 mg PO DAILY RF: 0 empagliflozin [Jardiance] 10 mg Tablet 10 mg PO DAILY RF: 0 calcium carbonate-vitamin D3 600 mg(1,500mg) -400 unit Tablet 1 tab PO DAILY RF: 0 Referrals: Marcelo Welsh M.D. [Primary Care Provider] - See Instructions Discharge Instructions Patient Printed Instructions: Debridement (DC)
== END 2018-06-02 11:40 | disposition home health service (06) ==
LOC: N04 17:01
PROVIDERS: ADMIT Hospitalist; ATTEND Hospitalist